=== PATIENT | male | born 1965 | race African-American/Black ===

== ENCOUNTER 2016-11-27 20:16 | Inpatient (IN) ==
[2016-11-27] MEDS ORDERED: PANTOPRAZOLE 40 MG VIAL IV STA (20:58)
[2016-11-27] MEDS ORDERED: ONDANSETRON 4 MG/2 ML VIAL IV STA (20:58)
[2016-11-27] MEDS ORDERED: ALUM/MAG/SIMETH/LIDO VISC 1:1 30 ML BOTTLE PO STA (20:58)
[2016-11-27] MEDS ORDERED: SODIUM CHLORIDE 0.9% 500 ML IV STA (20:58)
[2016-11-27] MEDS ORDERED: MORPHINE 2 MG/1 ML SYRINGE IV STA (20:58)
[2016-11-27] MEDS ORDERED: LABETALOL 20 MG/4 ML SYRINGE IV STA (21:00)
--- NOTE | 2016-11-27 21:01 | Emergency Department Note ---
Millicent Ricks Emily, am scribing for, and in the presence of, Iván Gomez MD 20: 54. Jason Ricks Charles R, MD, personally performed the services described in this documentation, ascribed by Marley Ricks in my presence, and it is both accurate and complete . Arrival - Arrival Chief Complaint: Nausea/Vomiting/Diarrhea Stated Complaint: Stomach Pain, Vomitting ED Nursing Triage Note: N/V/D SINCE THIS PAST THURSDAY, WORSE TODAY, CONTINUOUS VOMITING IN TRIAGE Mode of Arrival: Wheelchair Limitations: No Limitations Source: Patient Time Seen by Provider: 11/27/16 20:37 - History of Present Illness HPI Narrative: Pt is a 51 y/o male who came to ED with c/o abdomen pain with N/V/D that has been ongoing since Monday, November 21, 2016. Pt notes the pain seems to ease up but has come back progressively. Pt has associated sxs of chills (hot and cold) , dark red urine, decreased PO intake due to vomiting later but not immediately and severe GOLD. Pt denies SOB or chest pain. Pt's BP is elevated in ED with 169 /123. Pt had same sxs about 2 months ago. PMHx of IDDM, sarcoidosis, cholecystectomy, penile CA, HTN, history of ascites. Onset (ago): day(s) Consistency: constant Severity: moderate Severity scale (1-10): 7 Quality: aching, fullness Allergies/Adverse Reactions: Allergies Allergy/AdvReac Type Severity Reaction Status Date / Time No Known Allergies Allergy Verified 11/27/16 20:25 Home Medications: Home Medications Medication Instructions Recorded Confirmed Type Gabapentin Cap/Tab [Neurontin 300 mg PO BID 08/29/15 09/10/16 History Cap/Tab] Metoprolol Succinate 25 mg PO DAILY 08/29/15 09/10/16 History Pantoprazole Sodium [Protonix] 40 mg PO DAILY 08/29/15 09/10/16 History azaTHIOprine [Azathioprine] 50 mg PO BID 08/29/15 09/10/16 History predniSONE TAB [PredniSONE] 20 mg PO DAILY 08/29/15 09/10/16 History traMADol TAB [Ultram] 50 mg PO BID 08/29/15 09/10/16 History Insulin Detemir [Levemir] 75 unit SUBCUT BEDTIME 11/22/15 09/10/16 History HYDROcodone/ACETAMIN 10-325 [[place] 1 tablet PO QID PRN 06/12/16 09/10/16 History 10-325] Potassium Chloride Cap/Tab [Micro 8 meq PO DAILY 06/12/16 09/10/16 History K] Acetamin/Codeine 120-12 mg/5Ml 12.5 ml PO Q6H PRN #120 ml 09/08/16 09/10/16 Rx [Tylenol/Codeine Liquid] Insulin Lispro [HumaLOG] 5 unit SUBCUT TID 09/08/16 09/10/16 History Review of System - Review of System 12 point system: reviewed and no additional remarkable complaints except as stated - Review of System Constitutional: Present: chills (hot and cold spells). Absent: fever Respiratory: Absent: respiratory distress Cardiovascular: Absent: chest pain Gastrointestinal: Present: abdominal pain, nausea, vomiting, diarrhea Genitourinary male: Present: other (dark red urine) Musculoskeletal: Absent: arm pain, back pain Skin: Absent: rash Neurological: Present: headache (severe) Medical,Surgical,& Family Hx - Medical History Cardio: History of: Hypertension Neurology: No history of: Brain Aneurysm, Cerebral Hemorrhage, Cerebrovascular Accident , Cerebral Palsy, Dementia, Migraine, Multiple Sclerosis, Parkinson's Disease, Peripheral Neuropathy, Seizures, TIA, Vertigo, Neurologocal Cancer Endocrine: History of: Diabetes Mellitus (IDDM) Respiratory: History of: Respiratory Problems (sarcoidosis) Renal: No history of: Renal (Kidney) Cancer, Dialysis, Renal Failure, Renal Problems Genitourinary: History of: Genitourinary Cancer, Problems (penile cancer) No history of: Bladder Problem, Kidney Stones, Prostate Problems, Recurring Urinary Tract Infections Gastrointestinal: History of: Gastrointestinal Bleed, Liver Problems ( sarcoidosis), GI Problems (history of ascites) Musculoskeletal: History of: Amputation (left below knee), Musculoskeletal Problems Reproductive: Reports: Penile Disorder Other: History of: Cancer, Skin Problems (Chronic diabetic foot ulcer, right plantar. Previous left BKA for same), Miscellaneous Medical Problems ( sarcoidosis) - Surgical History Neurologic Surgeries: Patient denies: Brain Aneurysm, Cerebral Hemorrhage, Neurologic Surgery HEENT Surgeries: Surgical HX of: Tonsilectomy & Adenoidectomy Reproductive Surgeries: Patient denies;: Genitourinary Surgery - Family History Family History: Reports;: Family Diabetes, Family Heart Disease, Family Hypertension - Social History Smoking Status: Never smoker Exam Vital Signs: Vital Signs Temperature 97.1 F L 11/27/16 20:33 Pulse Rate 114 H 11/27/16 20:33 Respiratory Rate 18 11/27/16 20:33 Blood Pressure 169/123 11/27/16 20:33 O2 Sat by Pulse Oximetry 98 11/27/16 20:22 - General General appearance: alert, in no apparent distress, obese - Head Head exam: Present: atraumatic, normocephalic - Eye Eye exam: Present: PERRL, EOMI - ENT ENT exam: Present: mucous membranes moist. Absent: mucous membranes dry - Neck Neck exam: Present: full ROM. Absent: tenderness - Chest Chest inspection: Present: symmetric chest wall rise. Absent: tenderness - Respiratory Respiratory exam: Present: rales. Absent: respiratory distress - Cardiovascular Cardiovascular exam: Present: regular rate, normal rhythm, normal heart sounds - Abdominal Exam Abdominal exam: Present: soft, tenderness (mid abdomen, mid epigastric and LLQ) , diminished bowel sounds. Absent: distention (protrudent), guarding, rebound, normal bowel sounds - Extremities Exam Extremities exam: Present: full ROM, other (right foot missing digits; left BKA) . Absent: tenderness, pedal edema - Neurological Exam Neurological exam: Present: alert, oriented X3, CN II-XII intact. Absent: motor sensory deficit - Psychiatric Psychiatric exam: Present: normal affect, normal mood - Skin Skin exam: Present: warm, dry Course - Reevaluation(s) Reevaluation #1: Patient still feeling sick still having nausea vomiting slight headache. Labs are within normal limits except for slightly low magnesium which was replaced. Will admit patient in the hospital for control of his nausea vomiting Time: 23:48 - Consultations Consultation #1: Dr. Rooney will admit patient Time: 23:48 Results - Labs CBC & BMP: 11/27/16 20:39 11/27/16 20:39 Lab Results: I have reviewed the patients labs Labs: Laboratory Tests 11/27/16 20:39 Hgb 12.1 L Hct 37.4 L Neut % (Auto) 76.0 H Lymph % (Auto) 10.0 L Lymph # (Auto) 0.5 L Laboratory Tests 11/27/16 20:39 Anion Gap 17.8 H Creatinine 1.40 H Glucose 191 H Magnesium 1.6 L Albumin 3.2 L Albumin/Globulin Ratio 0.9 L Amylase 14 L Lipase 52.0 L Laboratory Tests 11/27/16 20:58 Blood Type A POSITIVE Antibody Screen Negative - Diagnostic Findings Procedure: Abdominal x-ray: report reviewed by me (Nonobstructive bowel gas pattern. Prior cholecystectomy with postoperatie findings in the left hip.), Chest x-ray: report reviewed by me (nml xray), CT: report reviewed by me (Head wo con: No acute cardiopulmonary pathology identified.) Disposition Clinical Impression: Peripheral vascular disease, Tachycardia, Nausea and vomiting, History of sarcoidosis, Gastroenteritis, Intractable nausea and vomiting, Hypomagnesemia Case discussed with: patient, patient's family Disposition: Still a Patient Condition: Stable Time of Disposition: 23:50
[2016-11-27 21:06] LABS: Basophils % 0.2 % (0.0-0.8); Eosinophils # 0.1 10*3/uL (0.0-0.87); Eosinophils % 1.7 % (0.00-10.9); Hematocrit 37.4 VOL% (42.0-52.0); Hemoglobin 12.1 GM/DL (14.0-18.0); Immature Granulocytes % 0.6 %; Immature Granulocytes Absolute 0.03 #; Lymphocytes # 0.5 10*3/uL (1.4-4.0); Mean Corpuscular HGB Conc 32.4 GM/DL (32-36); Mean Corpuscular Hemoglobin 30 PG (27-34); Mean Corpuscular Volume 91.9 FL (87-102); Mean Platelet Volume 10.6 FL (9.6-12.0); Monocytes # 0.5 10*3/uL (0.11-0.8); Monocytes % 11.5 % (1.7-12.7); Neutrophils # 3.6 10*3/uL (1.4-7.4); Platelet Count 146 T/CUMM (130-400); Red Blood Count 4.07 MC/CUMM (3.8-5.5); Red Cell Distribution Width 15.2 % (9.3-17.3); White Blood Count 4.7 T/CUMM (4-12)
--- NOTE | 2016-11-27 21:26 | XRay Report ---
Portable chest Date: 11/27/2016 Clinical history: Generalized abdominal pain Comparison: 09/10/2016 Technique: Portable AP sitting chest Findings: The heart is minimally enlarged. Calcified granulomata/nodes with chronic scarring. Decreased parenchymal findings. Unremarkable mediastinum with degenerative changes. Impression: No acute cardiopulmonary pathology identified. PROCEDURE INTERPRETED AT [facility] DEPARTMENT OF RADIOLOGY Final Report Signed by: Dr. Orquidea Fabian
[2016-11-27] MEDS ORDERED: ONDANSETRON 4 MG/2 ML VIAL ONE (21:27)
[2016-11-27] MEDS ORDERED: MORPHINE 2 MG/1 ML SYRINGE ONE (21:27)
[2016-11-27] MEDS ORDERED: ALUM/MAG/SIMETH/LIDO VISC 1:1 30 ML BOTTLE PO ONE (21:27)
[2016-11-27] MEDS ORDERED: PANTOPRAZOLE 40 MG VIAL IV ONE (21:27)
--- NOTE | 2016-11-27 21:27 | XRay Report ---
Exam: XR abdomen 2V Date: 11/27/2016 8:59 PM Comparison: 05/25/2016 Indication: Generalized abdominal pain Technique:[Supine and erect abdomen Findings: Nonobstructed bowel gas pattern. Prior cholecystectomy. No free air. Prior L2 kyphoplasty with postoperative findings in the left hip. Vascular calcifications are noted.] Impression: Nonobstructive bowel gas pattern. Prior cholecystectomy with postoperative findings in the left hip. PROCEDURE INTERPRETED AT [facility] DEPARTMENT OF RADIOLOGY Final Report Signed by: Dr. Orquidea Fabian
--- NOTE | 2016-11-27 21:31 | CT Report ---
Referring physician: Iván Gomez Exam: CT brain without contrast Date: 11/27/2016 Comparison: 05/31/2016 Reason: Headache Technique: Axial images of the head were obtained without the use of contrast. Total DLP was 1003.6 mGy*cm. Findings: No hydrocephalus or midline shift is present. There is no evidence of an acute infarction, recent intracranial hemorrhage or abnormal mass effect. The osseous structures appear intact. The mastoid air cells are clear. Minimal mucosal thickening in the paranasal sinuses. Impression: No acute intracranial abnormality is identified. Minimal mucosal thickening in the paranasal sinuses. The CT exam was performed using one or more of the following dose reduction techniques: Automated exposure control and adjustment of the mA and/or kV according to patient size. PROCEDURE INTERPRETED AT [facility] DEPARTMENT OF RADIOLOGY Final Report Signed by: Dr. Orquidea Fabian
--- NOTE | 2016-11-27 21:31 | EKG Report ---
Stationary ECG Study [facility] ER Test Date: 11/27/2016 9:30:06 PM Pat Name: ABBIE EVANS Department: Room: Gender: M Surgical Nurse Practitioner: DAVID : 1965 Requested by: Iván Akhtar Order Number: [id number] Reading MD: FRANCIA MCMAHON Intervals [place] Rate: 107 P: 999 ID: 0 QRS: -38 QRSD: 93 T: 61 QT: 388 QTc: 450 Interpretive Statements Sinus tachycardia MARKED LEFT AXIS DEVIATION LOW QRS VOLTAGE IN PRECORDIAL LEADS VOLTAGE CRITERIA FOR LVH POSSIBLE ANTERIOR MYOCARDIAL INFARCTION, PROBABLY OLD Electronically Signed On 11-29-16 21:43:02 CDT by FRANCIA MCMAHON [email or web address]
[2016-11-27 21:37] LABS: Alanine Aminotransferase 31 U/L (16-61); Albumin 3.2 G/DL (3.4-5.0); Alkaline Phosphatase 96 U/L (45-117); Amylase 14 U/L (25-115); Aspartate Amino Transferase 27 U/L (0-37); Blood Urea Nitrogen 9 MG/DL (7-18); Calcium 8.7 MG/DL (8.5-10.1); Glucose 191 MG/DL (74-106); Magnesium 1.6 MG/DL (1.8-2.4); Osmolality,Calculated 286.1 MOS/KG (273-304); Potassium 3.8 MMOL/L (3.5-5.1); Sodium 142 MMOL/L (136-145); Total Protein 6.6 G/DL (6.4-8.3); Troponin I Only < 0.015 NG/ML (0.00-0.045)
[2016-11-27] MEDS ORDERED: MAGNESIUM SULF RIDER 2 GM in PREMIX 1 EACH IV STA (22:50)
[2016-11-27] MEDS ORDERED: MAGNESIUM SULF RIDER 50 ML IV ONE (22:57)
[2016-11-27] MEDS ORDERED: PROMETHAZINE 25 MG/1 ML VIAL IM STA (23:03)
[2016-11-27] MEDS ORDERED: PROMETHAZINE 25 MG/1 ML VIAL ONE (23:04)
[2016-11-28] MEDS ORDERED: DEXTROSE 50% 25 GM/50 ML VIAL IV PRN (01:44)
[2016-11-28] MEDS ORDERED: GLUCAGON 1 MG VIAL IM PRN (01:44)
[2016-11-28] MEDS ORDERED: METOCLOPRAMIDE 10 MG/2 ML VIAL IV PRN (01:44)
[2016-11-28] MEDS ORDERED: PROMETHAZINE 25 MG/1 ML VIAL IM PRN (01:44)
[2016-11-28] MEDS: ACETAMINOPHEN 325 MG TABLET PO PRN (02:08)
[2016-11-28] MEDS: SODIUM CHLORIDE 0.9% 1,000 ML IV SCH ×2 (03:48→17:28)
[2016-11-28] MEDS: MORPHINE 2 MG/1 ML SYRINGE IV PRN ×4 (04:45→19:29)
[2016-11-28] MEDS: PROMETHAZINE 25 MG TABLET PO PRN (04:46)
[2016-11-28 06:53] LABS: Basophils % 0.4 % (0.0-0.8); Eosinophils # 0.1 10*3/uL (0.0-0.87); Eosinophils % 1.5 % (0.00-10.9); Hematocrit 32.6 VOL% (42.0-52.0); Hemoglobin 10.3 GM/DL (14.0-18.0); Immature Granulocytes % 1.1 %; Immature Granulocytes Absolute 0.05 #; Lymphocytes # 0.5 10*3/uL (1.4-4.0); Lymphocytes % 10.4 % (21.2-54.2); Mean Corpuscular HGB Conc 31.6 GM/DL (32-36); Mean Corpuscular Hemoglobin 29 PG (27-34); Mean Corpuscular Volume 91.6 FL (87-102); Mean Platelet Volume 11.4 FL (9.6-12.0); Monocytes # 0.6 10*3/uL (0.11-0.8); Monocytes % 12.1 % (1.7-12.7); NRBC # 0.02 10*3/uL; Neutrophils # 3.5 10*3/uL (1.4-7.4); Neutrophils % 74.5 % (38.7-73.9); Platelet Count 162 T/CUMM (130-400); Red Blood Count 3.56 MC/CUMM (3.8-5.5); Red Cell Distribution Width 15.3 % (9.3-17.3); White Blood Count 4.7 T/CUMM (4-12)
[2016-11-28 07:17] LABS: Albumin 2.6 G/DL (3.4-5.0); Bilirubin,Total 1.1 MG/DL (0.2-1.0); Calcium 8.1 MG/DL (8.5-10.1); Magnesium 2.1 MG/DL (1.8-2.4); Osmolality,Calculated 289.8 MOS/KG (273-304); Potassium 4.1 MMOL/L (3.5-5.1); Total Protein 5.9 G/DL (6.4-8.3)
[2016-11-28] MEDS ORDERED: HYDROCORTISONE 100 MG VIAL IV ONE (08:23)
--- NOTE | 2016-11-28 08:32 | Internal Med History&Physical ---
Assessment and Plan (1) Gastroenteritis Status: Acute Assessment and plan: 51-year-old male admitted to acute care * Gastroenteritis. Patient will be started on IV fluids and as needed Zofran. Will start him on clear liquids. Cultures have been sent. * History of distal ulcerative esophagitis secondary to GERD. Will consult GI to evaluate. Patient will be continued on IV Protonix * Sarcoidosis. 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 Will give him IV cortisone until he vomiting * Diabetes. Will continue his insulin and sliding scale * Peripheral vascular disease. Continue current treatment * Diabetic foot ulcer. Will consult . He will also evaluate for abdominal pain. He did a cholecystectomy on patient last year * Discussed with patient and his Current Visit: Yes (2) History of sarcoidosis Status: Acute Current Visit: Yes (3) Intractable nausea and vomiting Status: Acute Current Visit: Yes (4) Peripheral vascular disease Status: Acute Current Visit: Yes (5) Diabetes mellitus type 1, uncontrolled Status: Acute Current Visit: No (6) Diabetic ulcer of right foot Status: Acute Current Visit: No Qualifiers: Diabetes mellitus type: type 2 Qualified Code(s): E11.621 - Type 2 diabetes mellitus with foot ulcer (7) History of immunosuppressive therapy Status: Acute Current Visit: No History of Present Illness Chief complaint: Nausea vomiting and abdominal pain History of present illness: Mr. Ann is a 51 year old male with history of multiple medical problems including diabetes, hypertension, sarcoidosis, chronic wound on the right lower extremity and status post BKA left lower extremity came to the emergency room after 1 week history of nausea and vomiting. He has been having abdominal pain which is in epigastric region. He also has some diarrhea. Patient was admitted back in May of last year with similar symptoms. At that time he had an EGD which showed that he had distal esophageal ulcers probably secondary to vomiting. Patient underwent cholecystectomy at that visit. His blood sugars have been running up and down. He has not been eating much. He has been taking his medications. He denies any fever or chills. He denies any chest pain or shortness of breath. He is following up with Dr. Gloria for the chronic wounds on his right lower extremity. He does have a skin breakdown on the left below knee amputation stump. He lives at home with his . Home Medications Medication Instructions Recorded Confirmed Type Gabapentin Cap/Tab [Neurontin 300 mg PO BID 08/29/15 09/10/16 History Cap/Tab] Metoprolol Succinate 25 mg PO DAILY 08/29/15 09/10/16 History Pantoprazole Sodium [Protonix] 40 mg PO DAILY 08/29/15 09/10/16 History azaTHIOprine [Azathioprine] 50 mg PO BID 08/29/15 09/10/16 History predniSONE TAB [PredniSONE] 20 mg PO DAILY 08/29/15 09/10/16 History traMADol TAB [Ultram] 50 mg PO BID 08/29/15 09/10/16 History Insulin Detemir [Levemir] 75 unit SUBCUT BEDTIME 11/22/15 09/10/16 History HYDROcodone/ACETAMIN 10-325 [[place] 1 tablet PO QID PRN 06/12/16 09/10/16 History 10-325] Potassium Chloride Cap/Tab [Micro 8 meq PO DAILY 06/12/16 09/10/16 History K] Acetamin/Codeine 120-12 mg/5Ml 12.5 ml PO Q6H PRN #120 ml 09/08/16 09/10/16 Rx [Tylenol/Codeine Liquid] Insulin Lispro [HumaLOG] 5 unit SUBCUT TID 09/08/16 09/10/16 History Allergies Allergy/AdvReac Type Severity Reaction Status Date / Time No Known Allergies Allergy Verified 11/27/16 20:25 Medical,Surgical,& Family Hx - Medical History Cardio: History of: Hypertension Neurology: No history of: Brain Aneurysm, Cerebral Hemorrhage, Cerebrovascular Accident , Cerebral Palsy, Dementia, Migraine, Multiple Sclerosis, Parkinson's Disease, Peripheral Neuropathy, Seizures, TIA, Vertigo, Neurologocal Cancer Endocrine: History of: Diabetes Mellitus (IDDM) Respiratory: History of: Respiratory Problems (sarcoidosis) Renal: No history of: Renal (Kidney) Cancer, Dialysis, Renal Failure, Renal Problems Genitourinary: History of: Genitourinary Cancer, Problems (penile cancer) No history of: Bladder Problem, Kidney Stones, Prostate Problems, Recurring Urinary Tract Infections Gastrointestinal: History of: Gastrointestinal Bleed, Liver Problems ( sarcoidosis), GI Problems (history of ascites) Musculoskeletal: History of: Amputation (left below knee, all toes on right), Musculoskeletal Problems Reproductive: Reports: Penile Disorder Other: History of: Cancer, Skin Problems (Chronic diabetic foot ulcer, right plantar. Previous left BKA for same), Miscellaneous Medical Problems ( sarcoidosis) - Surgical History Neurologic Surgeries: Patient denies: Brain Aneurysm, Cerebral Hemorrhage, Neurologic Surgery HEENT Surgeries: Surgical HX of: Tonsilectomy & Adenoidectomy Abdominal Surgeries: Surgical HX of: Cholecystectomy (05/2016), Colonoscopy, EGD Patient denies: Appendectomy Reproductive Surgeries: Patient denies;: Genitourinary Surgery - Family History Family History: Reports;: Family Diabetes, Family Heart Disease, Family Hypertension - Social History Smoking Status: Never smoker Frequency of Alcohol Use: Occasionally Type of Drug Use: Marijuana Marital Status: Lives With:: Spouse Functional capacity: uses cane/walker 12 point system: reviewed and no additional remarkable complaints except as stated (Mentioned in HPI) Exam - Constitutional Vitals: Period Temp Pulse Resp BP Sys/Babb Pulse Ox Last 24 Hr 97.6 F-98.5 F 97-102 10-20 102-116/52-69 92-97 Exam: Examination: GENERAL: NAD. HEENT: PERRLA. EOMI. Mucous membranes are moist. NECK: Neck is supple. No JVD. No carotid bruit. No thyromegaly. CVS: Regular rate and rhythm. S1 and S2 are normal. RESPIRATORY: Lungs are clear. No rales or rhonchi. ABDOMEN: Soft. Tenderness present in the epigastric area and right upper quadrant. Bowel sounds are present. No hepatosplenomegaly. EXT: No edema. Peripheral pulses are present. TOUR GUIDE: Patient is awake, alert and oriented to time place and person. Cranial nerves II through XII are grossly intact. Motor strength is 5 over 5 both upper and lower extremities. Sensory is intact. Deep tendon reflexes are present. SKIN: Warm and dry. There is a clean looking skin breakdown on the stump on the left below-knee amputation. Wounds on the plantar aspect of right foot looks clean MSK: No obvious deformity. Results - Labs CBC & BMP: 11/28/16 06:13 11/28/16 06:13 Lab Results: I have reviewed the past 24 hour labs Quality Measures - VTE Contraindication to Mechanical VTE Prophylaxis: Ischemic Vascular Disease
[2016-11-28] MEDS: INSULIN REGULAR 100 UNIT/ML SUBCUT SCH ×4 (09:07→21:26)
[2016-11-28] MEDS: PANTOPRAZOLE 40 MG VIAL IV SCH (09:07)
[2016-11-28] MEDS: DOCUSATE SODIUM 100 MG CAPSULE PO SCH ×2 (09:07→21:27)
--- NOTE | 2016-11-28 12:06 | General Surgery Consult Note ---
Assessment and Plan (1) Abdominal pain Status: Acute Assessment and plan: This really does sound like some medical sort of problem and I do not expect that there is any surgical pathology in the abdomen. I think gastroenteritis is likely because of the patient's symptoms given that he is having vomiting and diarrhea and minimal abdominal pain. He really was not tender on my exam. I would not recommend any CT scans. I agree with GI consultation to further evaluate for possible endoscopy. Dr. Gloria will be back Thursday but I will follow the patient over the weekend. Current Visit: Yes (2) Diabetic foot Problem details: Wound center patient with a chronic diabetic foot wound, s/p application of a biological wound product. Status: Acute Assessment and plan: Continue topical wound care. There is no evidence of infection. Current Visit: No History of Present Illness Chief complaint: Right foot wound and abdominal pain History of present illness: Mr. Ann is a 51 year old male who was admitted to the hospital with gastroenteritis and foot wound. I was consulted because Dr. Gloria is out-of- town and he has done a cholecystectomy on the patient before as well as some foot debridement. The patient has been having abdominal pain in the midepigastrium since last Thursday with some nausea and vomiting as well as diarrhea. He had an evaluation in the ER last night which demonstrated gastroenteritis most likely on his abdominal films and this certainly is matching up with his history. He also has a little bit of a GI history with esophagitis and a GI consult has been obtained but have not seen him yet. He is not having any problems with his foot wound. Home Medications Medication Instructions Recorded Confirmed Type Gabapentin Cap/Tab [Neurontin 300 mg PO BID 08/29/15 11/28/16 History Cap/Tab] Metoprolol Succinate 25 mg PO DAILY 08/29/15 11/28/16 History Pantoprazole Sodium [Protonix] 40 mg PO DAILY 08/29/15 11/28/16 History azaTHIOprine [Azathioprine] 50 mg PO BID 08/29/15 11/28/16 History predniSONE TAB [PredniSONE] 20 mg PO DAILY 08/29/15 11/28/16 History traMADol TAB [Ultram] 50 mg PO BID 08/29/15 11/28/16 History Insulin Detemir [Levemir] 75 unit SUBCUT BEDTIME 11/22/15 11/28/16 History HYDROcodone/ACETAMIN 10-325 [[place] 1 tablet PO QID PRN 06/12/16 11/28/16 History 10-325] Potassium Chloride Cap/Tab [Micro 8 meq PO DAILY 06/12/16 11/28/16 History K] Acetamin/Codeine 120-12 mg/5Ml 12.5 ml PO Q6H PRN #120 ml 09/08/16 11/28/16 Rx [Tylenol/Codeine Liquid] Insulin Lispro [HumaLOG] 5 unit SUBCUT TID 09/08/16 11/28/16 History Allergies Allergy/AdvReac Type Severity Reaction Status Date / Time No Known Allergies Allergy Verified 11/27/16 20:25 Medical,Surgical,& Family Hx - Medical History Cardio: History of: Hypertension Neurology: No history of: Brain Aneurysm, Cerebral Hemorrhage, Cerebrovascular Accident , Cerebral Palsy, Dementia, Migraine, Multiple Sclerosis, Parkinson's Disease, Peripheral Neuropathy, Seizures, TIA, Vertigo, Neurologocal Cancer Endocrine: History of: Diabetes Mellitus (IDDM) Respiratory: History of: Respiratory Problems (sarcoidosis) Renal: No history of: Renal (Kidney) Cancer, Dialysis, Renal Failure, Renal Problems Genitourinary: History of: Genitourinary Cancer, Problems (penile cancer) No history of: Bladder Problem, Kidney Stones, Prostate Problems, Recurring Urinary Tract Infections Gastrointestinal: History of: Gastrointestinal Bleed, Liver Problems ( sarcoidosis), GI Problems (history of ascites) Musculoskeletal: History of: Amputation (left below knee, all toes on right), Musculoskeletal Problems Reproductive: Reports: Penile Disorder Other: History of: Cancer, Skin Problems (Chronic diabetic foot ulcer, right plantar. Previous left BKA for same), Miscellaneous Medical Problems ( sarcoidosis) - Surgical History Neurologic Surgeries: Patient denies: Brain Aneurysm, Cerebral Hemorrhage, Neurologic Surgery HEENT Surgeries: Surgical HX of: Tonsilectomy & Adenoidectomy Abdominal Surgeries: Surgical HX of: Cholecystectomy (05/2016), Colonoscopy, EGD Patient denies: Appendectomy Reproductive Surgeries: Patient denies;: Genitourinary Surgery - Family History Family History: Reports;: Family Diabetes, Family Heart Disease, Family Hypertension - Social History Smoking Status: Never smoker Frequency of Alcohol Use: Occasionally Type of Drug Use: Marijuana - Constitutional Constitutional: Present: as per HPI - EENT Nose, mouth and throat: Present: as per HPI - Cardiovascular Cardiovascular: Present: as per HPI - Respiratory Respiratory: Present: as per HPI - Gastrointestinal Gastrointestinal: Present: as per HPI - Genitourinary Genitourinary: Present: as per HPI - Musculoskeletal Musculoskeletal: Present: as per HPI - Neurological Neurological: Present: as per HPI - Endocrine Endocrine: Present: as per HPI Hematologic/Lymphatic: Present: as per HPI Exam - Constitutional Vitals: Period Temp Pulse Resp BP Sys/Babb Pulse Ox Last 24 Hr 97.6 F-98.8 F 89-102 10-20 102-142/52-73 92-99 General appearance: no acute distress, over weight - Head Head exam: Present: normal inspection, normocephalic - Eye Eye exam: Present: EOMI. Absent: scleral icterus Pupils: Present: NAN - ENT ENT exam: Present: normal exam Mouth exam: Present: normal external inspection, normal voice - Neck Neck exam: Present: normal inspection, trachea midline - Respiratory Respiratory exam: Present: clear to auscultation bilaterally. Absent: accessory muscle use, chest wall tenderness - Cardiovascular Cardiovascular exam: Present: RRR. Absent: systolic murmur, tachycardia - GI/Abdominal GI/Abdominal exam: Present: normal bowel sounds, soft. Absent: hernia, tenderness, rebound - Extremities Exam Extremities exam: Present: normal inspection, normal capillary refill - Back Exam Back exam: Present: normal inspection - Neurological Exam Neurological exam: Present: alert, oriented X3 Speech: Present: normal - Skin Skin exam: Present: normal color, warm Quality Measures - VTE Contraindication to Mechanical VTE Prophylaxis: Ischemic Vascular Disease Results - Labs CBC & BMP: 11/28/16 06:13 11/28/16 06:13 - Diagnostic Findings Procedure: Abdominal Flat/Erect: report reviewed by me
--- NOTE | 2016-11-28 12:20 | XRay Report ---
Exam: XR abdomen 2V Date: 11/28/2016 4:00 AM Comparison: 11/27/2016 Indication: Generalized abdominal pain Technique:[Supine abdomen] Findings: Nonobstructed bowel gas pattern with prior cholecystectomy. Prior L2 kyphoplasty with degenerative changes. Postoperative findings in the left hip. Vascular calcifications are noted. Impression: Nonobstructive bowel gas pattern. Prior cholecystectomy, L2 kyphoplasty, and postoperative findings in the left hip. PROCEDURE INTERPRETED AT [facility] DEPARTMENT OF RADIOLOGY Final Report Signed by: Dr. Orquidea Fabian
--- NOTE | 2016-11-28 16:56 | Gastrointestinal Consult Note ---
Assessment and Plan (1) Gastroenteritis Status: Acute Assessment and plan: This appears to be probable gastroenteritis with subjective fever at presentation. He does state that he feels significantly better this afternoon with improved nausea. I would agree with continue IV fluid support for now and try to slowly advance diet. Would not recommend any further diagnostic evaluation unless symptoms recur. Current Visit: Yes History of Present Illness Chief complaint: Recent intractable nausea/vomiting with diarrhea History of present illness: Mr. Ann is a 51 year old male with type 2 diabetes mellitus, peripheral arterial disease, and sarcoidosis with liver involvement. He is admitted with complaint of symptoms which began abruptly 6 days ago with nausea/vomiting and diarrhea. He had shaking chills with this for the first 2 or 3 days. His diarrhea resolved 3 days ago and he has not had a bowel movement since. Nausea and vomiting persisted and he was admitted after he became weak and dizzy at home. He denies any gross GI bleeding. Home Medications Medication Instructions Recorded Confirmed Type Gabapentin Cap/Tab [Neurontin 300 mg PO BID 08/29/15 11/28/16 History Cap/Tab] Metoprolol Succinate 25 mg PO DAILY 08/29/15 11/28/16 History Pantoprazole Sodium [Protonix] 40 mg PO DAILY 08/29/15 11/28/16 History azaTHIOprine [Azathioprine] 50 mg PO BID 08/29/15 11/28/16 History predniSONE TAB [PredniSONE] 20 mg PO DAILY 08/29/15 11/28/16 History traMADol TAB [Ultram] 50 mg PO BID 08/29/15 11/28/16 History Insulin Detemir [Levemir] 75 unit SUBCUT BEDTIME 11/22/15 11/28/16 History HYDROcodone/ACETAMIN 10-325 [Lind 1 tablet PO QID PRN 06/12/16 11/28/16 History 10-325] Potassium Chloride Cap/Tab [Micro 8 meq PO DAILY 06/12/16 11/28/16 History K] Acetamin/Codeine 120-12 mg/5Ml 12.5 ml PO Q6H PRN #120 ml 09/08/16 11/28/16 Rx [Tylenol/Codeine Liquid] Insulin Lispro [HumaLOG] 5 unit SUBCUT TID 09/08/16 11/28/16 History Allergies Allergy/AdvReac Type Severity Reaction Status Date / Time No Known Allergies Allergy Verified 11/27/16 20:25 Medical,Surgical,& Family Hx - Medical History Cardio: History of: Hypertension Neurology: No history of: Brain Aneurysm, Cerebral Hemorrhage, Cerebrovascular Accident , Cerebral Palsy, Dementia, Migraine, Multiple Sclerosis, Parkinson's Disease, Peripheral Neuropathy, Seizures, TIA, Vertigo, Neurologocal Cancer Endocrine: History of: Diabetes Mellitus (IDDM) Respiratory: History of: Respiratory Problems (sarcoidosis) Renal: No history of: Renal (Kidney) Cancer, Dialysis, Renal Failure, Renal Problems Genitourinary: History of: Genitourinary Cancer, Problems (penile cancer) No history of: Bladder Problem, Kidney Stones, Prostate Problems, Recurring Urinary Tract Infections Gastrointestinal: History of: Gastrointestinal Bleed, Liver Problems ( sarcoidosis), GI Problems (history of ascites) Musculoskeletal: History of: Amputation (left below knee, all toes on right), Musculoskeletal Problems Reproductive: Reports: Penile Disorder Other: History of: Cancer, Skin Problems (Chronic diabetic foot ulcer, right plantar. Previous left BKA for same), Miscellaneous Medical Problems ( sarcoidosis) - Surgical History Neurologic Surgeries: Patient denies: Brain Aneurysm, Cerebral Hemorrhage, Neurologic Surgery HEENT Surgeries: Surgical HX of: Tonsilectomy & Adenoidectomy Abdominal Surgeries: Surgical HX of: Cholecystectomy (05/2016), Colonoscopy, EGD Patient denies: Appendectomy Reproductive Surgeries: Patient denies;: Genitourinary Surgery - Family History Family History: Reports;: Family Diabetes, Family Heart Disease, Family Hypertension - Social History Smoking Status: Never smoker Frequency of Alcohol Use: Occasionally Type of Drug Use: Marijuana - Constitutional Constitutional: Present: chills, fever(s). Absent: weight loss - EENT Nose, mouth and throat: Absent: dysphagia, epistaxis - Cardiovascular Cardiovascular: Absent: chest pain with activity, orthopnea, PND - Gastrointestinal Gastrointestinal: Present: diarrhea, nausea, vomiting. Absent: hematemesis, hematochezia - Genitourinary Genitourinary: Absent: dysuria, flank pain, hematuria - Neurological Neurological: Absent: abnormal speech, confusion, focal weakness - Hematologic/Lymphatic Hematologic/Lymphatic: Absent: easy bleeding, easy bruising Exam - Constitutional Vitals: Period Temp Pulse Resp BP Sys/Babb Pulse Ox Last 24 Hr 97.6 F-98.8 F 89-104 10-20 102-142/52-76 92-99 General appearance: no acute distress, over weight - Head Head exam: Present: normocephalic, atraumatic - Eye Eye exam: Absent: scleral icterus - Respiratory Respiratory exam: Present: clear to auscultation bilaterally - Cardiovascular Cardiovascular exam: Present: regular rate and rhythm. Absent: gallop, rubs - GI/Abdominal GI/Abdominal exam: Present: normal bowel sounds, organomegaly, soft. Absent: distended, tenderness - Neurological Exam Neurological exam: Present: alert, oriented X3, CN II-XII intact - Psychiatric Psychiatric exam: Present: normal affect, normal mood - Skin Skin exam: Present: warm, dry Results - Labs CBC & BMP: 11/28/16 06:13 11/28/16 06:13 Lab Results: I have reviewed the past 24 hour labs Quality Measures - VTE Contraindication to Mechanical VTE Prophylaxis: Ischemic Vascular Disease
[2016-11-28] MEDS: HYDROCORTISONE 100 MG VIAL IV SCH (17:25)
[2016-11-28] MEDS: ONDANSETRON 4 MG/2 ML VIAL IV PRN (19:28)
[2016-11-28] MEDS: traMADol 50 MG TABLET PO SCH (21:26)
[2016-11-28] MEDS: GABAPENTIN 300 MG CAPSULE PO SCH (21:27)
[2016-11-28] MEDS: azaTHIOprine 50 MG TABLET PO SCH (21:27)
[2016-11-29] MEDS: HYDROCORTISONE 100 MG VIAL IV SCH ×3 (00:09→18:13)
[2016-11-29] MEDS: SODIUM CHLORIDE 0.9% 1,000 ML IV SCH ×4 (02:26→18:53)
[2016-11-29] MEDS: MORPHINE 2 MG/1 ML SYRINGE IV PRN ×2 (03:50→11:20)
[2016-11-29] MEDS: ONDANSETRON 4 MG/2 ML VIAL IV PRN (03:50)
[2016-11-29] MEDS: ACETAMINOPHEN 325 MG TABLET PO PRN ×2 (04:00→23:20)
[2016-11-29 04:12] LABS: Albumin 2.8 G/DL (3.4-5.0); Bilirubin,Total 0.9 MG/DL (0.2-1.0); Osmolality,Calculated 292.1 MOS/KG (273-304); Potassium 5.1 MMOL/L (3.5-5.1); Total Protein 6.2 G/DL (6.4-8.3)
[2016-11-29] MEDS ORDERED: DEXTROSE 50% 25 GM/50 ML VIAL IV PRN (08:34)
[2016-11-29] MEDS ORDERED: GLUCAGON 1 MG VIAL IM PRN (08:34)
--- NOTE | 2016-11-29 08:38 | Family Practice Progress Note ---
Family Practice - PN: Subj Interval history: Patient seen this morning, was admitted a couple nights ago with intractable nausea vomiting diarrhea. This is been going on for 4-5 days and he was dehydrated with elevated blood sugars. Is doing significantly better this morning except his blood sugars are still elevated at about 300+ on a moderate dose sliding scale. He is not on his regular Levemir at this time. Is tolerating his clear liquids now and wants to start back eating "regular food". I will put him on a soft diet diabetic consistent. He is in very good spirits and continuing to improve without any abdominal pain at this time. We are going to increase his sliding scale and put him back on Levemir at half a dose what he was taking at home Exam (Progress Note) - Constitutional Vitals: Period Temp Pulse Resp BP Sys/Babb Pulse Ox Last 24 Hr 97.5 F-99.7 F 104-111 20-20 108-145/68-90 94-100 Exam: Generally stable no acute distress is laughing in the room with questioning. HEENT essentially negative neck supple trachea midline Cardiovascular rate regular no gallop Lungs are clear Abdomen soft nondistended he has no pain at all with palpation or percussion Extremities he has left BKA and right foot diabetic ulcer/wound that has a dressing at this time Results - Labs CBC & BMP: 11/28/16 06:13 11/29/16 03:12 Quality Measures - VTE Contraindication to Mechanical VTE Prophylaxis: Ischemic Vascular Disease
--- NOTE | 2016-11-29 08:54 | Gastrointestinal Progress Note ---
Assessment and Plan - Time spent with patient Time spent with patient: Greater than 30 minutes (1) Gastroenteritis Status: Acute Current Visit: Yes (2) Other specified counseling Status: Acute Current Visit: Yes Exam (Progress Note) - Constitutional Vitals: Period Temp Pulse Resp BP Sys/Babb Pulse Ox Last 24 Hr 97.5 F-99.7 F 104-111 20-20 108-145/68-90 94-100 Results - Labs CBC & BMP: 11/28/16 06:13 11/29/16 03:12 Note Addendum: PLEASE NOTE -- automatic citation of patient information is unavoidable in this electronic note. I have made a reasonable effort to review the information cited , but it is not a part of my evaluation, impression, or recommendation unless specifically discussed in the dictated text that follows. As well, voice recognition software was used in the creation of this clinical note. Reasonable effort was made to identify and correct gross errors. Despite proofreading, errors in online user experience strategist may be present, including nonsense verbiage at times. If you encounter such an error, please contact me at [phone] for discussion and correction. -- Ger Chief complaint: gastroenteritis Subjective: this is a 51-year-old male seen for follow-up of suspected gastroenteritis. The patient reports improved nausea with no vomiting. Diarrhea has also resolved. He is taking a clear diet and tolerating that. In general he reports that he is "much better." Medications: Tylenol, Imuran, Colace, Neurontin, hydrocortisone, Lantus, Humulin , Reglan, Toprol, Zofran, Protonix, potassium chloride, prednisone, Phenergen, sodium chloride injection, ultram Review of Symptoms: 12 point review of symptoms was negative except as noted above Physical examination: Vital Signs: Current vital signs reviewed. General Appearance: well-appearing. Not acutely ill. Head: Normocephalic. Eyes: no scleral icterus. No scleral injection. No conjunctival pallor. Oral Cavity: Odor of breath was normal. No drooling was observed. Lips showed no abnormalities. Lungs: Respiration rhythm and depth was normal. Cardiovascular: Heart rate and rhythm were normal. Abdomen: abdomen was not distended. Abdominal auscultation revealed no abnormalities. Ascites was not discovered. Abdominal palpation revealed no tenderness and no hepatosplenomegaly. Musculoskeletal System: musculoskeletal system was grossly normal. Neurological: level of consciousness was normal. Speech was normal. No coordination/cerebellum abnormalities were noted. Skin: Gen. appearance was normal. Color and pigmentation were normal. No skin lesions were appreciated. Laboratory: no new laboratories today Radiology: reviewed with no pertinent changes noted. Impressions: 1. Gastroenteritis -- this would appear to be an infectious event. The patient is improving day by day and would like to advance his diet if possible. This seems reasonable to me. 2. Patient Counseling: Medical Management: Patient seen for greater than 30 minutes. Greater than 50% of this time was spent counseling regarding differential diagnosis, likely diagnosis,, diagnostic and therapeutic options, risks, benefits, and alternatives to procedures and medications, informed consent, and plan of care generally. Patient has expressed understanding and wishes to proceed. Recommendations: -- continued volume management as indicated -- advance diet as tolerated -- we will continue to follow with you
[2016-11-29] MEDS: INSULIN REGULAR 100 UNIT/ML SUBCUT SCH ×4 (09:10→22:04)
[2016-11-29] MEDS: PANTOPRAZOLE 40 MG VIAL IV SCH (09:11)
[2016-11-29] MEDS: DOCUSATE SODIUM 100 MG CAPSULE PO SCH ×2 (09:11→22:05)
[2016-11-29] MEDS: traMADol 50 MG TABLET PO SCH ×2 (09:12→22:05)
[2016-11-29] MEDS: METOPROLOL SUCCINATE XL 25 MG TABLET PO SCH (09:12)
[2016-11-29] MEDS: ACETAMINOPHEN/CODEINE 120-12 MG/5 ML 12.5 ML UDCUP PO PRN ×2 (09:12→18:14)
[2016-11-29] MEDS: GABAPENTIN 300 MG CAPSULE PO SCH ×2 (09:12→22:05)
[2016-11-29] MEDS: azaTHIOprine 50 MG TABLET PO SCH ×2 (09:21→22:05)
[2016-11-29] MEDS: predniSONE 20 MG TABLET PO SCH (09:21)
[2016-11-29] MEDS: POTASSIUM CHLORIDE 8 MEQ CAPSULE PO SCH (09:21)
--- NOTE | 2016-11-29 11:20 | General Surgery Progress Note ---
Assessment and Plan (1) Abdominal pain Status: Acute Assessment and plan: The patient is doing better. No further testing or intervention is needed in my opinion. Current Visit: Yes (2) Diabetic foot Problem details: Wound center patient with a chronic diabetic foot wound, s/p application of a biological wound product. Status: Acute Assessment and plan: Continue topical wound care. There is no evidence of infection. Current Visit: No Subjective Patient reports: Present: no new complaints, feels better, pain is less, tolerating liquids well, afebrile Exam - Constitutional Vitals: Period Temp Pulse Resp BP Sys/Babb Pulse Ox Last 24 Hr 97.5 F-99.7 F 104-111 20-20 108-145/68-90 94-100 General appearance: no acute distress, over weight - Head Head exam: Present: normal inspection, normocephalic - Eye Eye exam: Present: EOMI Pupils: Present: NAN - ENT ENT exam: Present: normal exam Mouth exam: Present: normal external inspection, normal voice - Neck Neck exam: Present: normal inspection, trachea midline - Respiratory Respiratory exam: Present: clear to auscultation bilaterally. Absent: accessory muscle use, chest wall tenderness - Cardiovascular Cardiovascular exam: Present: RRR. Absent: systolic murmur, tachycardia - GI/Abdominal GI/Abdominal exam: Present: normal bowel sounds. Absent: tenderness, rebound - Extremities Exam Extremities exam: Present: other (The wound on the right foot is clean with no infection. The wound on the left stump of the below knee amputation is healing slowly and there is no infection) - Back Exam Back exam: Present: normal inspection - Neurological Exam Neurological exam: Present: alert, oriented X3 Speech: Present: normal - Skin Skin exam: Present: normal color, warm Results - Labs CBC & BMP: 11/28/16 06:13 11/29/16 03:12 Quality Measures - VTE Contraindication to Mechanical VTE Prophylaxis: Ischemic Vascular Disease
[2016-11-29] MEDS: PROMETHAZINE 25 MG TABLET PO PRN (18:17)
[2016-11-29] MEDS ORDERED: INSULIN GLARGINE 100 UNIT/ML SUBCUT SCH (21:00)
[2016-11-30] MEDS: ONDANSETRON 4 MG/2 ML VIAL IV PRN ×2 (01:30→20:34)
[2016-11-30] MEDS: HYDROCORTISONE 100 MG VIAL IV SCH (01:33)
[2016-11-30] MEDS: MORPHINE 2 MG/1 ML SYRINGE IV PRN ×4 (01:33→20:34)
[2016-11-30] MEDS: SODIUM CHLORIDE 0.9% 1,000 ML IV SCH ×3 (07:36→20:40)
[2016-11-30] MEDS: INSULIN REGULAR 100 UNIT/ML SUBCUT SCH ×4 (10:05→20:36)
[2016-11-30] MEDS: predniSONE 20 MG TABLET PO SCH (10:06)
[2016-11-30] MEDS: PANTOPRAZOLE 40 MG VIAL IV SCH (10:06)
[2016-11-30] MEDS: POTASSIUM CHLORIDE 8 MEQ CAPSULE PO SCH (10:06)
[2016-11-30] MEDS: METOPROLOL SUCCINATE XL 25 MG TABLET PO SCH (10:06)
[2016-11-30] MEDS: GABAPENTIN 300 MG CAPSULE PO SCH ×2 (10:07→20:35)
[2016-11-30] MEDS: traMADol 50 MG TABLET PO SCH ×2 (10:07→20:35)
[2016-11-30] MEDS: DOCUSATE SODIUM 100 MG CAPSULE PO SCH ×2 (10:07→20:35)
[2016-11-30] MEDS: azaTHIOprine 50 MG TABLET PO SCH ×2 (10:07→20:35)
[2016-11-30] MEDS: ACETAMINOPHEN/CODEINE 120-12 MG/5 ML 12.5 ML UDCUP PO PRN (10:13)
--- NOTE | 2016-11-30 11:03 | Family Practice Progress Note ---
Family Practice - PN: Subj Interval history: Patient seen this morning. He is in good spirits and happy. He is stable hemodynamically however were hymnal trouble keeping his sugars under control. We are going to keep him on a sliding scale but will get increase his Levemir dose some today. He is able to eat well and is having a little pain. This is probably because he is not had his pain patch and a while but we do not know the dose and his is supposed to be bringing that to us. Otherwise continue current plan Exam (Progress Note) - Constitutional Vitals: Period Temp Pulse Resp BP Sys/Babb Pulse Ox Last 24 Hr 98.9 F-99 F 86-86 20-20 110-138/69-81 90-95 Exam: Generally stable no acute distress is laughing in the room with questioning. HEENT essentially negative neck supple trachea midline Cardiovascular rate regular no gallop Lungs are clear Abdomen soft nondistended he has no pain at all with palpation or percussion Extremities he has left BKA and right foot diabetic ulcer/wound that has a dressing at this time Results - Labs CBC & BMP: 11/28/16 06:13 11/29/16 03:12 Assessment and Plan (1) Abdominal pain Status: Acute Assessment and plan: 11/30/2016: This has resolved Current Visit: Yes (2) Intractable nausea and vomiting Status: Acute Assessment and plan: 11/30/2016: Not having any nausea and vomiting at this time. Having some mild generalized pain Current Visit: Yes (3) Peripheral vascular disease Status: Acute Assessment and plan: 11/30/2016: To be seen by surgery tomorrow for foot debridement evaluation Current Visit: Yes Quality Measures - VTE Contraindication to Mechanical VTE Prophylaxis: Ischemic Vascular Disease
[2016-11-30] MEDS: PROMETHAZINE 25 MG TABLET PO PRN (15:49)
[2016-11-30] MEDS ORDERED: INSULIN GLARGINE 100 UNIT/ML SUBCUT SCH (17:00)
[2016-12-01] MEDS: ONDANSETRON 4 MG/2 ML VIAL IV PRN (03:17)
[2016-12-01] MEDS: MORPHINE 2 MG/1 ML SYRINGE IV PRN (03:18)
[2016-12-01] MEDS: SODIUM CHLORIDE 0.9% 1,000 ML IV SCH ×2 (04:43→13:32)
--- NOTE | 2016-12-01 08:46 | Discharge Summary ---
Hospital Course - Hospital Course Hospital Course: 51-year-old male with multiple medical problems was admitted to acute care with acute gastroenteritis and dehydration. Patient has history of diabetes, sarcoidosis, peripheral vascular disease, status post diabetic foot on the right side and left below-knee amputation. He was started on IV fluids and was seen in consultation by GI and surgery. He gradually improved over next few days. He was given IV Solu-Cortef to cover for stress dose steroids. Patient has been on chronic steroids. He has started eating and is tolerating diet fairly well. His abdominal pain nausea and vomiting has resolved. He will be discharged home today. He will keep his appointment in first week of December. We will give him Lidoderm patch for pain control locally. He will follow-up with Dr. Gloria at wound center tomorrow. Diagnosis - Discharge Diagnosis (1) Gastroenteritis Status: Acute (2) History of sarcoidosis Status: Acute (3) Intractable nausea and vomiting Status: Acute (4) Peripheral vascular disease Status: Acute (5) Diabetes mellitus type 1, uncontrolled Status: Acute (6) Diabetic ulcer of right foot Status: Acute (7) History of immunosuppressive therapy Status: Acute Discharge Plan - Discharge Data Disposition: Disch To Home/Self Care Condition at Discharge: Stable Discharge Diet: diabetic diet Activity: resume usual activities as tolerated - Discharge Medications Continue Metoprolol Succinate 25 mg PO DAILY Gabapentin Cap/Tab [Neurontin Cap/Tab] 300 mg PO BID predniSONE TAB [PredniSONE] 20 mg PO DAILY Pantoprazole Sodium [Protonix] 40 mg PO DAILY azaTHIOprine [Azathioprine] 50 mg PO BID traMADol TAB [Ultram] 50 mg PO BID Insulin Detemir [Levemir] 75 unit SUBCUT BEDTIME HYDROcodone/ACETAMIN 10-325 [Carlton 10-325] 1 tablet PO QID PRN PRN Reason: Pain Potassium Chloride Cap/Tab [Micro K] 8 meq PO DAILY Insulin Lispro [HumaLOG] 5 unit SUBCUT TID Acetamin/Codeine 120-12 mg/5Ml [Tylenol/Codeine Liquid] 12.5 ml PO Q6H PRN # 120 ml PRN Reason: Pain - Follow Up or Referral - Forms/Instructions Additional Discharge Instructions: Keep appointment in first week of December at office. Please call him and Lidoderm 2% patch #30 use as directed 12 hours on and 12 hours off Exam - Constitutional Vitals: Period Temp Pulse Resp BP Sys/Babb Pulse Ox Last 24 Hr 97.7 F-98.5 F 84-103 16-20 111-154/68-92 93-98 Exam: Examination: GENERAL: NAD. HEENT: PERRLA. EOMI. NECK: Neck is supple. CVS: Regular rate and rhythm. RESPIRATORY: Lungs are clear. ABDOMEN: Soft and nontender bowel sounds are present EXT: No edema. Peripheral pulses are present. SKIN: Warm and dry. MSK: Left BKA Discharge Results Labs on day of discharge: Labs from last 24 hours 12/01/16 11/30/16 11/30/16 07:02 19:24 15:34 POC Glucose 199 H 326 H 380 H 11/30/16 11:43 POC Glucose 262 H DS: Provider Date of admission: 11/27/16 23:50 Primary care physician: . No PCP Attending physician on admission: Dank Rooney MD Consults: 11/28/16 01:44 Consult to Case Mgmt/Social Srvs [CONS] Routine Reason for Case Mgmt/Social Srvs: Discharge Planning 11/28/16 08:21 Consult to Physician [CONS] Routine Comment: known to you for right foot wound Consulting Provider: Marvin Gloria Consulting Provider Notified: Yes When should Consulting Provider be notified: Now Person Notified: Andra Date Notified: 11/28/16 Time Notified: 09:11 Consult Notification Comment: Notified of pts room number 11/28/16 08:24 Consult to Physician [CONS] Routine Comment: Patient known to you. Abdominal pain Consulting Provider: Marvin Gloria Consulting Provider Notified: Yes Person Notified: Kortney Date Notified: 11/28/16 Time Notified: 09:35 Consult Notification Comment: Dr. Jimenez notified of pt. out of town until Thursday. 11/28/16 08:27 Consult to Physician [CONS] Routine Comment: Intractable vomiting. Has esophagitis Consulting Provider: Du Bishop Consulting Provider Notified: Yes Person Notified: Coby Date Notified: 11/28/16 Time Notified: 09:15 Discharging clinician: Dank Rooney MD
[2016-12-01] MEDS: INSULIN REGULAR 100 UNIT/ML SUBCUT SCH ×2 (09:04→13:28)
[2016-12-01] MEDS: traMADol 50 MG TABLET PO SCH (09:08)
[2016-12-01] MEDS: METOPROLOL SUCCINATE XL 25 MG TABLET PO SCH (09:08)
[2016-12-01] MEDS: DOCUSATE SODIUM 100 MG CAPSULE PO SCH (09:08)
[2016-12-01] MEDS: predniSONE 20 MG TABLET PO SCH (09:08)
[2016-12-01] MEDS: POTASSIUM CHLORIDE 8 MEQ CAPSULE PO SCH (09:08)
[2016-12-01] MEDS: azaTHIOprine 50 MG TABLET PO SCH (09:08)
[2016-12-01] MEDS: PANTOPRAZOLE 40 MG VIAL IV SCH (09:08)
[2016-12-01] MEDS: GABAPENTIN 300 MG CAPSULE PO SCH (09:08)
[2016-12-01 13:07] VITALS: BP 136/80
== END 2016-12-01 14:25 | disposition home or self-care (01) | DRG 392 ==
LOC: N.ED 20:16 → N.EDINP 23:50 → N.3E 11-28 01:16
PROVIDERS: ADMIT Internal Medicine; ATTEND Internal Medicine

== ENCOUNTER 2017-03-23 18:15 | Inpatient (IN) ==
[2017-03-23 21:34] LABS: Basophils % 0.4 % (0.0-0.8); Eosinophils # 0.1 10*3/uL (0.0-0.87); Eosinophils % 0.8 % (0.00-10.9); Hematocrit 34.7 VOL% (42.0-52.0); Hemoglobin 11.7 GM/DL (14.0-18.0); Immature Granulocytes Absolute 0.08 #; Lymphocytes # 0.6 10*3/uL (1.4-4.0); Lymphocytes % 7.8 % (21.2-54.2); Mean Corpuscular HGB Conc 33.7 GM/DL (32-36); Mean Corpuscular Hemoglobin 31 PG (27-34); Mean Corpuscular Volume 90.8 FL (87-102); Monocytes # 0.7 10*3/uL (0.11-0.8); Monocytes % 8.9 % (1.7-12.7); Neutrophils # 6.4 10*3/uL (1.4-7.4); Neutrophils % 81.1 % (38.7-73.9); Platelet Count 148 T/CUMM (130-400); Red Blood Count 3.82 MC/CUMM (3.8-5.5); Red Cell Distribution Width 15.4 % (9.3-17.3); White Blood Count 7.8 T/CUMM (4-12)
[2017-03-23 21:46] LABS: Albumin 3.1 G/DL (3.4-5.0); Bilirubin,Total 0.9 MG/DL (0.2-1.0); Calcium 8.5 MG/DL (8.5-10.1); Osmolality,Calculated 287.1 MOS/KG (273-304); Potassium 3.3 MMOL/L (3.5-5.1); Total Protein 6.5 G/DL (6.4-8.3)
--- NOTE | 2017-03-23 22:25 | Emergency Department Note ---
Arrival - Arrival ED Nursing Triage Note: C/O ABDOMINAL PAIN WITH ONSET TWO DAYS AGO. NAUSEA/ VOMITING BEGAN LAST NIGH Mode of Arrival: Ambulatory Limitations: No Limitations Source: Patient <Du Ward Fidencio - Last Filed: 03/24/17 02:16> <Conner Jimenez - Last Filed: 03/24/17 03:44> - Arrival Chief Complaint: Abdominal / Flank Pain Stated Complaint: stomach/throwing up Time Seen by Provider: 03/23/17 21:11 - History of Present Illness HPI Narrative: The patient complains of tight crampy mid abdominal pain off and on since yesterday. He also had some nausea and vomiting since last night. He denies any fever, diarrhea or constipation. Bowel movements have been normal. He has a history of peptic ulcer disease, ascites and has had a cholecystectomy. He also has a history of diabetes. The patient has been on IV antibiotics for a month for a diabetic foot ulcer. (Du Ward) Allergies/Adverse Reactions: Allergies Allergy/AdvReac Type Severity Reaction Status Date / Time No Known Allergies Allergy Verified 02/05/17 00:30 Home Medications: Home Medications Medication Instructions Recorded Confirmed Type Gabapentin Cap/Tab [Neurontin 300 mg PO BID 08/29/15 02/05/17 History Cap/Tab] Metoprolol Succinate 25 mg PO DAILY 08/29/15 02/05/17 History Pantoprazole Sodium [Protonix] 40 mg PO DAILY 08/29/15 02/05/17 History azaTHIOprine [Azathioprine] 50 mg PO BID 08/29/15 02/05/17 History predniSONE TAB [PredniSONE] 20 mg PO DAILY 08/29/15 02/05/17 History traMADol TAB [Ultram] 50 mg PO BID 08/29/15 02/05/17 History Insulin Detemir [Levemir] 75 unit SUBCUT BEDTIME 11/22/15 02/05/17 History HYDROcodone/ACETAMIN 10-325 [[place] 1 tablet PO QID PRN 06/12/16 02/05/17 History 10-325] Potassium Chloride Cap/Tab [Micro 8 meq PO DAILY 06/12/16 02/05/17 History K] Acetamin/Codeine 120-12 mg/5Ml 12.5 ml PO Q6H PRN #120 ml 09/08/16 02/05/17 Rx [Tylenol/Codeine Liquid] Insulin Lispro [HumaLOG] 5 unit SUBCUT TID 09/08/16 02/05/17 History HYDROcodone/ACETAMIN 7.5-325 1 tablet PO Q6-8H PRN #30 tablet 02/13/17 Rx [[place] 7.5-325] Linezolid Inj [Zyvox Inj] 600 mg IV Q12H 02/13/17 Rx Skin Healing Oint (Aquaphor) 1 applic TOP PRN PRN applic 02/13/17 Rx [Aquaphor] Sodium Hypochlorite 0.25% Irr 20 ml TOP DAILY #1 bottle 02/13/17 Rx [Dakins 1/2 Strength 0.25% Soln] cefTRIAXone [Rocephin] 1,000 mg IV Q24H #0 vial 02/13/17 Rx Review of System - Review of System 12 point system: reviewed and no additional remarkable complaints except as stated - Review of System Constitutional: Absent: fever Head/Ears/Nose/Throat: Absent: nasal drainage, sore throat Respiratory: Absent: cough, respiratory distress Cardiovascular: Absent: chest pain Gastrointestinal: Present: abdominal pain, nausea, vomiting. Absent: diarrhea, constipation, hematemesis, melena, hematochezia <Du Ward - Last Filed: 03/24/17 02:16> Medical,Surgical,& Family Hx - Medical History Cardio: History of: Hypertension Psychological: No history of: Anxiety Disorders, ADHD, Bipolar Disorder, Depression, Previous Suicide Attempt, Psychiatric/Substance Abuse Tx, Schizophrenia, Violent Behavior, Psychiatric Problems Neurology: No history of: Brain Aneurysm, Cerebral Hemorrhage, Cerebrovascular Accident , Cerebral Palsy, Dementia, Migraine, Multiple Sclerosis, Parkinson's Disease, Peripheral Neuropathy, Seizures, TIA, Vertigo, Neurologocal Cancer Endocrine: History of: Diabetes Mellitus (IDDM) Respiratory: History of: Respiratory Problems (sarcoidosis) Renal: No history of: Renal (Kidney) Cancer, Dialysis, Renal Failure, Renal Problems Genitourinary: History of: Genitourinary Cancer, Problems (penile cancer) No history of: Bladder Problem, Kidney Stones, Prostate Problems, Recurring Urinary Tract Infections Gastrointestinal: History of: Gastrointestinal Bleed (ulcers), GI Problems ( history of ascites) No history of: Liver Problems Musculoskeletal: History of: Amputation (left below knee, all toes on right), Back/Neck Problems (hx back surg.), Musculoskeletal Problems Hematology: No history of: Sickle Cell Disease Reproductive: Reports: Penile Disorder Other: History of: Cancer, MRSA (history), Skin Problems (Chronic diabetic foot ulcer, right plantar. Previous left BKA for same), Miscellaneous Medical Problems (sarcoidosis) - Surgical History Thoracic Surgeries: Patient denies;: Organ Transplant Neurologic Surgeries: Patient denies: Brain Aneurysm, Cerebral Hemorrhage, Neurologic Surgery HEENT Surgeries: Surgical HX of: Tonsilectomy & Adenoidectomy Abdominal Surgeries: Surgical HX of: Cholecystectomy (05/2016), Colonoscopy, EGD Patient denies: Appendectomy Reproductive Surgeries: Patient denies;: Genitourinary Surgery - Family History Family History: Reports;: Family Diabetes, Family Heart Disease, Family Hypertension - Social History Smoking Status: Light tobacco smoker Frequency of Alcohol Use: None Type of Drug Use: Marijuana <Du Ward - Last Filed: 03/24/17 02:16> Exam <Du aWrd - Last Filed: 03/24/17 02:16> <Conner Jimenez - Last Filed: 03/24/17 03:44> Physical Examination: GENERAL: Alert. No acute distress. HEENT: Normocephalic and atraumatic. There is no nasal drainage. No pharyngeal erythema or exudate. NECK: Normal inspection. Supple. No lymphadenopathy or meningismus. LUNGS: No respiratory distress. Clear to auscultation bilaterally, no wheezes, rales or rhonchi. HEART: Regular rate and rhythm. ABDOMEN: Obese, soft, normal bowel sounds. The abdomen appears distended and there is diffuse mild tenderness without guarding or rebound. BACK: Normal inspection. SKIN: Color normal. Warm and dry. EXTREMITIES: There is a left BKA. The right foot is in a bandage because of a diabetic foot ulcer. The bandage and splint were not removed for exam. NEUROLOGICAL/PSYCHIATRIC: Alert and oriented -3 with normal mood and affect. Cranial nerves normal. No motor or sensory deficit. (Du Ward) Vital Signs: Vital Signs Temperature 98.1 F 03/23/17 20:40 Pulse Rate 87 03/23/17 20:40 Respiratory Rate 18 03/23/17 20:40 Blood Pressure 113/64 03/23/17 20:40 O2 Sat by Pulse Oximetry 99 03/23/17 18:59 Course - Reevaluation(s) Time: 02:16 <Du Ward - Last Filed: 03/24/17 02:16> <Conner Jimenez - Last Filed: 03/24/17 03:44> Course Narrative: Note: The multiple negatives in the past medical history were not marked by me. They are the result of the triage process, past medical records or other unknown causes. Due to time constraints, these were not all reviewed with the patient and the backslashes were not removed from the chart. They should be ignored. (Du Ward) I took over the care of this patient at 2 AM on 03/24/2017. His urinalysis demonstrated evidence of urinary tract infection he was having difficulty keeping p.o. intake down. His CT scan of his abdomen and pelvis showed some nonobstructive kidney stones but no acute pathology or infection. Because of his inability to tolerate p.o. he was treated with antibiotics and admitted to the hospital for IV fluids and antibiotics and follow-up of his urine cultures. He also started having diarrhea after Gastrografin for the contrast CT and so we checked a C. difficile on this as well given his prolonged antibiotic use and abdominal cramping pain. (Conner Jimenez) - Reevaluation(s) Reevaluation #1: The patient was a little hypotensive in the 90s over 60s. I gave him a liter of normal saline and he is now 120/76. He also feels a little better after the fluids and pain medication. The CT scan of the abdomen is still pending. I discussed the patient with Dr. Jimenez and I am turning care over to him now at shift change. (Du Ward) Results - Labs CBC & BMP: 03/23/17 20:25 03/23/17 20:25 <Du Ward - Last Filed: 03/24/17 02:16> - Labs CBC & BMP: 03/23/17 20:25 03/23/17 20:25 <Conner Jimenez - Last Filed: 03/24/17 03:44> Disposition <Du Ward - Last Filed: 03/24/17 02:16> Case discussed with: patient, patient's family Time of Disposition: 03:44 <Conner Jimenez - Last Filed: 03/24/17 03:44> Clinical Impression: Calculus of kidney Disposition: Still a Patient Condition: Stable Instructions: Urinary Tract Infection in Men (ED)
[2017-03-23 23:09] LABS: Apearance,Urine Slightly Hazy (Clear); Bacteria,Urine Moderate /HPF (Few); Bilirubin,Urine Negative (Negative); Blood, Urine Small mg/dL (Negative); Glucose,Urine (UA) 150 mg/dL (Negative); Hyaline Casts,Urine 6 /LPF (0-3); Ketones,Urine 20 mg/dL (Negative); Mucus,Urine Occasional /LPF (Occasional); Nitrite,Urine Negative (Negative); Protein,Urine 100 MG/DL; RBC,Urine 11 /HPF (0-4); Squamous Epithelial Cell,Urine Occasional /HPF (0-10); Urine Color Amber (Yellow); Urine Specific Gravity 1.018 (1.001-1.035); Urine Urobilinogen < 2.0 EU/DL (0.2-1.0); WBC,Urine 10 /HPF (0-6)
[2017-03-23] MEDS ORDERED: SODIUM CHLORIDE 0.9% 1,000 ML IV STA (23:23)
[2017-03-24] MEDS ORDERED: ONDANSETRON 4 MG/2 ML VIAL IV STA (01:04)
[2017-03-24] MEDS ORDERED: MORPHINE 2 MG/1 ML SYRINGE IV STA (01:04)
[2017-03-24] MEDS ORDERED: ONDANSETRON 4 MG/2 ML VIAL ONE (01:15)
[2017-03-24] MEDS ORDERED: MORPHINE 2 MG/1 ML SYRINGE ONE (01:16)
[2017-03-24] MEDS ORDERED: cefTRIAXone 1,000 MG in SODIUM CHLORIDE 0.9% 100 ML IV STA (03:39)
[2017-03-24] MEDS ORDERED: metroNIDAZOLE INJ 500 MG in PREMIX 1 EACH IV STA (03:44)
[2017-03-24] MEDS ORDERED: PROMETHAZINE 25 MG TABLET PO PRN (05:05)
[2017-03-24] MEDS ORDERED: DEXTROSE 50% 25 GM/50 ML VIAL IV PRN (05:05)
[2017-03-24] MEDS ORDERED: GLUCAGON 1 MG VIAL IM PRN (05:05)
[2017-03-24] MEDS: SODIUM CHLORIDE 0.9% 1,000 ML IV SCH ×2 (05:29→16:51)
[2017-03-24 06:07] LABS: Basophils % 0.3 % (0.0-0.8); Eosinophils # 0.1 10*3/uL (0.0-0.87); Eosinophils % 0.8 % (0.00-10.9); Hematocrit 33.3 VOL% (42.0-52.0); Hemoglobin 10.6 GM/DL (14.0-18.0); Immature Granulocytes % 1.5 %; Immature Granulocytes Absolute 0.09 #; Lymphocytes # 0.5 10*3/uL (1.4-4.0); Lymphocytes % 8.1 % (21.2-54.2); Mean Corpuscular HGB Conc 31.8 GM/DL (32-36); Mean Corpuscular Hemoglobin 29 PG (27-34); Mean Corpuscular Volume 92.5 FL (87-102); Mean Platelet Volume 11.6 FL (9.6-12.0); Monocytes # 0.7 10*3/uL (0.11-0.8); Monocytes % 10.9 % (1.7-12.7); Neutrophils # 4.8 10*3/uL (1.4-7.4); Neutrophils % 78.4 % (38.7-73.9); Platelet Count 141 T/CUMM (130-400); Red Cell Distribution Width 15.4 % (9.3-17.3); White Blood Count 6.1 T/CUMM (4-12)
[2017-03-24 06:34] LABS: Calcium 7.8 MG/DL (8.5-10.1)
[2017-03-24 06:35] LABS: Osmolality,Calculated 283.4 MOS/KG (273-304)
[2017-03-24] MEDS: ONDANSETRON 4 MG/2 ML VIAL IV PRN ×3 (07:07→22:09)
[2017-03-24] MEDS: MORPHINE 2 MG/1 ML SYRINGE IV PRN ×3 (07:07→22:10)
--- NOTE | 2017-03-24 07:17 | CT Report ---
CT abdomen pelvis w con Indication: Vomiting, abdominal pain Comparison: Prior CT abdomen pelvis 02/10/2017. Technique: CT of the abdomen and pelvis was performed following administration of intravenous contrast. Coronal and sagittal reformatted images were additionally created and submitted for review. The total DLP is 2797 mGy*cm. Dose reduction: This CT exam was performed using one or more of the following dose reduction techniques: Automated exposure control, automated adjustment of the mA and/or KV according to patient size, or use of iterative reconstruction technique. Findings: Very minimal posterior basilar dependent atelectatic changes are noted bilaterally. Lung bases are otherwise clear. There is no pleural or pericardial effusion. ABDOMEN: Liver/Gallbladder: No abnormal enhancing lesions. No biliary ductal dilatation. There is been a prior cholecystectomy. Portal vein is patent. Spleen: Spleen is borderline enlarged, but not significantly changed in size from the prior study. There are no focal lesions Pancreas: No acute findings. Adrenals: 3.8 cm fat density lesion associated with the left adrenal gland is somewhat indistinct but most compatible with a myelolipoma.. Kidneys: Both kidneys enhance symmetrically. There is no evidence of obstructive uropathy. There is a 2 mm nonobstructing stone at the lower pole right kidney. 2 additional 3-4 mm nonobstructing stones are noted at the upper pole right kidney. No ureteral or bladder calculi are identified. There is expected excretion of contrast from both kidneys on delayed images. Bowel/mesentery: Small bowel is nondilated. There is no free fluid/air within the abdomen. There is no mesenteric adenopathy. Appendix is normal. Moderate stool is noted throughout colon which is otherwise nondilated/within normal limits Retroperitoneum: No aortic aneurysm. A few mildly prominent but not technically enlarged retroperitoneal lymph nodes are noted, which may be reactive. PELVIS: No free fluid in the dependent pelvis. Prostate is not enlarged. There is no pelvic adenopathy. The bladder is mildly distended but otherwise unremarkable in appearance. BONES: No acute or suspicious osseous abnormalities are identified. Vertebral augmentation cement is noted L2. There are also moderate to advanced degenerative changes with vacuum disc phenomenon and disc space loss and facet arthropathy at L4-S1. IMPRESSION: No acute abnormality within the abdomen or pelvis to explain patient's symptoms. Nonobstructing right renal stones. Preliminary report by virtual radiologic. 03/24/2017 6:32 AM PROCEDURE INTERPRETED AT [facility] DEPARTMENT OF RADIOLOGY Final Report Signed by: Henrry Morales
--- NOTE | 2017-03-24 07:54 | XRay Report ---
XR KUB Clinical Information: Abdominal Pain vomiting Comparison: Prior abdomen radiograph 11/28/2016 Findings: Bowel gas pattern is nonspecific and within normal limits. No abnormally dilated small bowel loops are identified to suggest obstruction. There is no free air identified. Scattered fecal material is noted throughout colon, which is otherwise nondilated. No abnormal focal soft tissue masses or calcific densities are identified in the abdomen or pelvis. Lung bases appear predominantly clear. Cholecystectomy clips are noted. There is no acute osseous abnormality. No suspicious osseous lesions are identified. Vertebral augmentation cement noted at L2. Impression: No acute radiographic abnormality in the abdomen. See CT abdomen pelvis report for additional details. PROCEDURE INTERPRETED AT [facility] DEPARTMENT OF RADIOLOGY Final Report Signed by: Henrry Morales
--- NOTE | 2017-03-24 08:34 | Internal Med History&Physical ---
Assessment and Plan (1) Nausea and vomiting Status: Acute Assessment and plan: 51-year-old male admitted to acute care. * Nausea vomiting and abdominal pain. Patient has been on IV antibiotics for last several weeks. His stool was checked for C. difficile and is positive. He had a CT abdomen and pelvis done which was negative for any acute changes. He will be started on vancomycin p.o. every 6 hours. * Osteomyelitis of the right diabetic foot ulcer. Patient has been on IV antibiotics. Will consult Dr. Hicks and Dr. castellon to follow the patient. He has been on p.o. Zyvox and Rocephin * Diabetes. Will continue home insulin and will start him on sliding scale * Sarcoidosis. Patient is on prednisone and azathioprine. These will be continued. * Chronic neck pain secondary to sarcoidosis. Continue pain medications * He was hypertensive initially in the emergency room and received IV fluids. * History of recent GI bleeding. Stable hematocrit. * Discussed with patient in detail Current Visit: Yes (2) Chronic osteomyelitis of right foot Status: Acute Current Visit: No (3) Diabetes mellitus type 1, uncontrolled Status: Acute Current Visit: No Qualifiers: Diabetes mellitus complication detail: with other circulatory complications (4) Gastroenteritis Status: Acute Current Visit: No (5) History of sarcoidosis Status: Acute Current Visit: No (6) Peripheral vascular disease Status: Acute Current Visit: No History of Present Illness Chief complaint: Abdominal pain with nausea and vomiting History of present illness: Mr. Ann is a 51 year old male with history of multiple medical problems including diabetes, sarcoidosis, peripheral vascular disease, status post amputation of left lower extremity below knee. Patient has a chronic wound on the right lower extremity with possible osteomyelitis and has been on IV antibiotics as outpatient. He came to the emergency room with complaints of tight crampy mid abdominal pain off and on for a few days. He has had nausea and vomiting along with some diarrhea. He denied any fever or chills. Patient was found to be slightly dehydrated and hypokalemic along with possible urinary tract infection. He has not been feeling well for a few days. He denies any chest pain or shortness of breath. His blood sugars have been doing fairly well. Patient had MRSA and E. coli in his wound and was recommended to have 6 weeks of IV antibiotics which he is receiving in the infusion center. Patient lives at home with his . He uses prosthesis on his left lower extremity Home Medications Medication Instructions Recorded Confirmed Type RX: Gabapentin Cap/Tab [Neurontin 300 mg PO BID 08/29/15 03/24/17 History Cap/Tab] RX: Metoprolol Succinate 25 mg PO DAILY 08/29/15 03/24/17 History RX: Pantoprazole Sodium [Protonix] 40 mg PO DAILY 08/29/15 03/24/17 History RX: azaTHIOprine [Azathioprine] 50 mg PO BID 08/29/15 03/24/17 History RX: predniSONE TAB [PredniSONE] 20 mg PO DAILY 08/29/15 03/24/17 History RX: traMADol TAB [Ultram] 50 mg PO BID 08/29/15 03/24/17 History RX: Insulin Detemir [Levemir] 75 unit SUBCUT BEDTIME 11/22/15 03/24/17 History RX: HYDROcodone/ACETAMIN 10-325 1 tablet PO QID PRN 06/12/16 03/24/17 History [[place] 10-325] RX: Potassium Chloride Cap/Tab 8 meq PO DAILY 06/12/16 03/24/17 History [Micro K] RX: Acetamin/Codeine 120-12 mg/5Ml 12.5 ml PO Q6H PRN #120 ml 09/08/16 03/24/17 Rx [Tylenol/Codeine Liquid] RX: Insulin Lispro [HumaLOG] 10 unit SUBCUT TID 09/08/16 03/24/17 History RX: HYDROcodone/ACETAMIN 7.5-325 1 tablet PO Q6-8H PRN #30 tablet 02/13/1703/24 Rx [[place] 7.5-325] RX: Linezolid Inj [Zyvox Inj] 600 mg IV Q12H 02/13/17 03/24/17 Rx RX: Skin Healing Oint (Aquaphor) 1 applic TOP PRN PRN applic 02/13/17 03/24/17 Rx [Aquaphor] RX: Sodium Hypochlorite 0.25% Irr 20 ml TOP DAILY #1 bottle 02/13/17 03/24/17 Rx [[place] 1/2 Strength 0.25% Soln] RX: cefTRIAXone [Rocephin] 1,000 mg IV Q24H #0 vial 02/13/17 03/24/17 Rx Allergies Allergy/AdvReac Type Severity Reaction Status Date / Time No Known Allergies Allergy Verified 02/05/17 00:30 Medical,Surgical,& Family Hx - Medical History Cardio: History of: Hypertension Psychological: No history of: Anxiety Disorders, ADHD, Bipolar Disorder, Depression, Previous Suicide Attempt, Psychiatric/Substance Abuse Tx, Schizophrenia, Violent Behavior, Psychiatric Problems Neurology: No history of: Brain Aneurysm, Cerebral Hemorrhage, Cerebrovascular Accident , Cerebral Palsy, Dementia, Migraine, Multiple Sclerosis, Parkinson's Disease, Peripheral Neuropathy, Seizures, TIA, Vertigo, Neurologocal Cancer Endocrine: History of: Diabetes Mellitus (IDDM) Respiratory: History of: Respiratory Problems (sarcoidosis) Renal: No history of: Renal (Kidney) Cancer, Dialysis, Renal Failure, Renal Problems Genitourinary: History of: Genitourinary Cancer, Problems (penile cancer) No history of: Bladder Problem, Kidney Stones, Prostate Problems, Recurring Urinary Tract Infections Gastrointestinal: History of: Gastrointestinal Bleed (ulcers), GI Problems ( history of ascites) No history of: Liver Problems Musculoskeletal: History of: Amputation (left below knee, all toes on right), Back/Neck Problems (hx back surg.), Musculoskeletal Problems Hematology: No history of: Sickle Cell Disease Reproductive: Reports: Penile Disorder Other: History of: Cancer, MRSA (history), Skin Problems (Chronic diabetic foot ulcer, right plantar. Previous left BKA for same), Miscellaneous Medical Problems (sarcoidosis) - Surgical History Thoracic Surgeries: Patient denies;: Organ Transplant, Lobectomy Neurologic Surgeries: Patient denies: Brain Aneurysm, Cerebral Hemorrhage, Neurologic Surgery HEENT Surgeries: Surgical HX of: Tonsilectomy & Adenoidectomy Abdominal Surgeries: Surgical HX of: Cholecystectomy (05/2016), Colonoscopy, EGD Patient denies: Appendectomy Reproductive Surgeries: Patient denies;: Genitourinary Surgery Orthopedic Surgeries: Surgical HX of;: Orthopedic Surgery (Left below-knee amputation) - Family History Family History: Reports;: Family Diabetes, Family Heart Disease, Family Hypertension - Social History Smoking Status: Never smoker Frequency of Alcohol Use: Occasionally Type of Drug Use: None, Marijuana Marital Status: Lives With:: Spouse Functional capacity: independent ambulation (Uses prosthesis on the right lower extremity) 12 point system: reviewed and no additional remarkable complaints except as stated (As mentioned in HPI) Exam - Constitutional Vitals: Period Temp Pulse Resp BP Sys/Babb Pulse Ox Last 24 Hr 98.1 F-98.3 F 84-95 18-20 75-113/36-66 92-99 Exam: Examination: GENERAL: NAD. HEENT: PERRLA. EOMI. Mucous membranes are dry NECK: Neck is supple. No JVD. No carotid bruit. No thyromegaly. CVS: Regular rate and rhythm. S1 and S2 are normal. RESPIRATORY: Lungs are clear. No rales or rhonchi. ABDOMEN: Soft but diffusely tender. Bowel sounds are present. No rebound or rigidity EXT: Trace edema on the right lower extremity RESIZER OPERATOR: Patient is awake, alert and oriented to time place and person. Cranial nerves II through XII are grossly intact. Motor strength is 5 over 5 both upper and lower extremities. SKIN: Warm and dry. Dressings are present on the foot with infection MSK: No obvious deformity. Left BKA. Results - Labs CBC & BMP: 03/24/17 05:41 03/24/17 05:41 Lab Results: I have reviewed the past 24 hour labs Quality Measures - Stroke Symptom Onset Unknown: No
[2017-03-24] MEDS ORDERED: SKIN HEALING OINT (AQUAPHOR) 50 GM TUBE TOP PRN (08:48)
[2017-03-24] MEDS ORDERED: SODIUM HYPOCHLORITE 0.25% IRRIG 473 ML BOTTLE TOP SCH (09:00)
[2017-03-24] MEDS ORDERED: cefTRIAXone 1,000 MG in SODIUM CHLORIDE 0.9% 100 ML IV ONE (09:00)
[2017-03-24] MEDS ORDERED: NON-FORMULARY MEDICATION (Pantoprazole Sodium [Protonix] 40 MG) PO SCH (09:00)
[2017-03-24] MEDS: INSULIN REGULAR 100 UNIT/ML SUBCUT SCH ×4 (10:25→22:10)
[2017-03-24] MEDS: PANTOPRAZOLE 40 MG TABLET PO SCH (10:30)
[2017-03-24] MEDS: azaTHIOprine 50 MG TABLET PO SCH ×2 (10:31→21:59)
[2017-03-24] MEDS: traMADol 50 MG TABLET PO SCH ×2 (10:31→22:17)
[2017-03-24] MEDS: POTASSIUM CHLORIDE 8 MEQ CAPSULE PO SCH (10:32)
[2017-03-24] MEDS: predniSONE 20 MG TABLET PO SCH (10:33)
[2017-03-24] MEDS: GABAPENTIN 300 MG CAPSULE PO SCH ×2 (10:34→21:59)
[2017-03-24] MEDS: VANCOMYCIN 50 MG/ML 60 ML/BOTTLE PO SCH ×4 (10:35→22:04)
[2017-03-24] MEDS: ENOXAPARIN 30 MG/0.3 ML SYRINGE SUBCUT SCH (10:40)
[2017-03-24] MEDS: METOPROLOL SUCCINATE XL 25 MG TABLET PO SCH (10:57)
[2017-03-24] MEDS: metroNIDAZOLE INJ 500 MG in PREMIX 1 EACH IV SCH (13:25)
[2017-03-24] MEDS: INSULIN LISPRO 100 UNIT/ML SUBCUT SCH ×2 (13:25→17:56)
--- NOTE | 2017-03-24 14:24 | General Surgery Consult Note ---
Assessment and Plan - Time spent with patient Time spent with patient: Less than 30 minutes (1) Chronic osteomyelitis of right foot Status: Acute Assessment and plan: Impression: Chronic osteomyelitis of the right foot with ulceration. Plan: Wound care Current Visit: No (2) Ulcer of right foot due to type 2 diabetes mellitus Status: Acute Assessment and plan: Impression: Diabetic ulcer of the right foot with no exposed bone at this time. History of osteomyelitis of the bone. Plan: Wound care There was a plan for possible skin graft to the scar to be delayed at this time. Current Visit: Yes (3) Diabetes mellitus type 1, uncontrolled Status: Acute Assessment and plan: Impression: Diabetes mellitus adult onset insulin-dependent Plan: Medical control Current Visit: No Qualifiers: Diabetes mellitus complication detail: with other circulatory complications (4) C. difficile diarrhea Status: Acute Assessment and plan: Impression: C. difficile diarrhea with abdominal pain. Plan: Change of antibiotics to vancomycin Current Visit: Yes History of Present Illness Chief complaint: Ulcer right foot with history of osteomyelitis History of present illness: Mr. Ann is a 51 year old male -[place] who was admitted because of abdominal pain but CT scan was unremarkable. He has been found to have C. difficile and different antibiotics have been started on. He has been on some long-term antibiotics for osteomyelitis of the right foot as well as HBO therapy and he has been doing pretty well with the wound looking in better shape. His last culture the wound center though is no growth and we will considering looking at the possibility of skin grafting this area to speed up the healing. Certainly this will delay that aspect at this time. On exam though it appears that the wound bed is pretty dry this since he is coming in and some dry dressing was applied to this wound. Will resume some wound care at this time to try to get it moist and clean again. Home Medications Medication Instructions Recorded Confirmed Type Gabapentin Cap/Tab [Neurontin 300 mg PO BID 08/29/15 03/24/17 History Cap/Tab] Metoprolol Succinate 25 mg PO DAILY 08/29/15 03/24/17 History Pantoprazole Sodium [Protonix] 40 mg PO DAILY 08/29/15 03/24/17 History azaTHIOprine [Azathioprine] 50 mg PO BID 08/29/15 03/24/17 History predniSONE TAB [PredniSONE] 20 mg PO DAILY 08/29/15 03/24/17 History traMADol TAB [Ultram] 50 mg PO BID 08/29/15 03/24/17 History Insulin Detemir [Levemir] 75 unit SUBCUT BEDTIME 11/22/15 03/24/17 History HYDROcodone/ACETAMIN 10-325 [[place] 1 tablet PO QID PRN 06/12/16 03/24/17 History 10-325] Potassium Chloride Cap/Tab [Micro 8 meq PO DAILY 06/12/16 03/24/17 History K] Acetamin/Codeine 120-12 mg/5Ml 12.5 ml PO Q6H PRN #120 ml 09/08/16 03/24/17 Rx [Tylenol/Codeine Liquid] Insulin Lispro [HumaLOG] 10 unit SUBCUT TID 09/08/16 03/24/17 History HYDROcodone/ACETAMIN 7.5-325 1 tablet PO Q6-8H PRN #30 tablet 02/13/17 03/24/17 Rx [[place] 7.5-325] Linezolid Inj [Zyvox Inj] 600 mg IV Q12H 02/13/17 03/24/17 Rx Skin Healing Oint (Aquaphor) 1 applic TOP PRN PRN applic 02/13/17 03/24/17 Rx [Aquaphor] Sodium Hypochlorite 0.25% Irr 20 ml TOP DAILY #1 bottle 02/13/17 03/24/17 Rx [[place] 1/2 Strength 0.25% Soln] cefTRIAXone [Rocephin] 1,000 mg IV Q24H #0 vial 02/13/17 03/24/17 Rx Allergies Allergy/AdvReac Type Severity Reaction Status Date / Time No Known Allergies Allergy Verified 02/05/17 00:30 Medical,Surgical,& Family Hx - Medical History Cardio: History of: Hypertension Psychological: No history of: Anxiety Disorders, ADHD, Bipolar Disorder, Depression, Previous Suicide Attempt, Psychiatric/Substance Abuse Tx, Schizophrenia, Violent Behavior, Psychiatric Problems Neurology: No history of: Brain Aneurysm, Cerebral Hemorrhage, Cerebrovascular Accident , Cerebral Palsy, Dementia, Migraine, Multiple Sclerosis, Parkinson's Disease, Peripheral Neuropathy, Seizures, TIA, Vertigo, Neurologocal Cancer Endocrine: History of: Diabetes Mellitus (IDDM) Respiratory: History of: Respiratory Problems (sarcoidosis) Renal: No history of: Renal (Kidney) Cancer, Dialysis, Renal Failure, Renal Problems Genitourinary: History of: Genitourinary Cancer, Problems (penile cancer) No history of: Bladder Problem, Kidney Stones, Prostate Problems, Recurring Urinary Tract Infections Gastrointestinal: History of: Gastrointestinal Bleed (ulcers), GI Problems ( history of ascites) No history of: Liver Problems Musculoskeletal: History of: Amputation (left below knee, all toes on right), Back/Neck Problems (hx back surg.), Musculoskeletal Problems Hematology: No history of: Sickle Cell Disease Reproductive: Reports: Penile Disorder Other: History of: Cancer, MRSA (history), Skin Problems (Chronic diabetic foot ulcer, right plantar. Previous left BKA for same), Miscellaneous Medical Problems (sarcoidosis) - Surgical History Thoracic Surgeries: Patient denies;: Organ Transplant, Lobectomy Neurologic Surgeries: Patient denies: Brain Aneurysm, Cerebral Hemorrhage, Neurologic Surgery HEENT Surgeries: Surgical HX of: Tonsilectomy & Adenoidectomy Abdominal Surgeries: Surgical HX of: Cholecystectomy (05/2016), Colonoscopy, EGD Patient denies: Appendectomy Reproductive Surgeries: Patient denies;: Genitourinary Surgery Orthopedic Surgeries: Surgical HX of;: Orthopedic Surgery (Left below-knee amputation) - Family History Family History: Reports;: Family Diabetes, Family Heart Disease, Family Hypertension - Social History Smoking Status: Never smoker Frequency of Alcohol Use: Occasionally Type of Drug Use: None, Marijuana 12 point system: reviewed and no additional remarkable complaints except as stated Exam - Constitutional Vitals: Period Temp Pulse Resp BP Sys/Babb Pulse Ox Last 24 Hr 97.0 F-98.3 F 84-102 18-100 75-123/36-76 91-99 General appearance: mild distress - Head Head exam: Present: normal inspection - ENT ENT exam: Present: normal exam - Neck Neck exam: Present: normal inspection - Respiratory Respiratory exam: Present: rales - Cardiovascular Cardiovascular exam: Present: RRR - GI/Abdominal GI/Abdominal exam: Present: hypoactive bowel sounds, soft. Absent: tenderness - Extremities Exam Extremities exam: Present: other (Wound on the lateral plantar surface of the right foot is a little dry looking but looks like granulating tissue still looking pretty good. May have lost some of the lateral aspect of the foot that was over the bone at this time difficult to say. No swelling or erythematous changes present around the foot at this point.) - Back Exam Back exam: Present: normal inspection - Neurological Exam Neurological exam: Present: alert, oriented X3, CN II-XII intact - Skin Skin exam: Present: normal color, warm, dry Quality Measures - Stroke Symptom Onset Unknown: No Results - Labs CBC & BMP: 03/24/17 05:41 03/24/17 05:41 Lab Results: I have reviewed the past 24 hour labs Specialty Discharge - Follow Up or Referrals
[2017-03-24] MEDS ORDERED: CHLORHEXIDINE 4% SOLN 118 ML BOTTLE TOP ONE (14:30)
--- NOTE | 2017-03-24 16:52 | Infectious Disease Consult ---
Assessment and Plan (1) C. difficile diarrhea Status: Acute Assessment and plan: Patient has positive stool C. difficile test however he actually does not have diarrhea by definition and I would not have tested the stool for C. difficile. Less than 3 stools in 24 period. It may be that he is just colonized with C. difficile. Recommendations: I will leave him on the Flagyl. Monitor for diarrhea. Thank you for the consult. Will follow. Current Visit: Yes (2) Nausea and vomiting Status: Acute Assessment and plan: May be due to him being on antibiotics for prolonged period. Current Visit: Yes (3) Ulcer of right foot due to type 2 diabetes mellitus Status: Acute Current Visit: Yes (4) Chronic osteomyelitis of right foot Status: Acute Assessment and plan: When about a week left on ceftriaxone. The patient only got linezolid for 2 weeks we found out this today. He had strep and MRSA in the bone culture and so he will need 4 more weeks of linezolid. Current Visit: No History of Present Illness Chief complaint: C. difficile infection History of present illness: Mr. Ann is a 51 year old male Who have been seen in the office for the past several weeks because of chronic ulcer myelitis of the right foot. He has been on ceftriaxone and linezolid although he found it yesterday and he been out of his linezolid for couple weeks. Patient was doing relatively okay until 3 days ago when he developed nausea and vomiting and abdominal pain. He felt so weak yesterday he decided to come to the emergency room. He really has not been having diarrhea however stool was tested and came up positive for C. difficile. He said he had 2-3 soft stools yesterday. He has not had more than 3 stools in 1 day. No fever. No other complaints. He missed his ceftriaxone yesterday. Home Medications Medication Instructions Recorded Confirmed Type Gabapentin Cap/Tab [Neurontin 300 mg PO BID 08/29/15 03/24/17 History Cap/Tab] Metoprolol Succinate 25 mg PO DAILY 08/29/15 03/24/17 History Pantoprazole Sodium [Protonix] 40 mg PO DAILY 08/29/15 03/24/17 History azaTHIOprine [Azathioprine] 50 mg PO BID 08/29/15 03/24/17 History predniSONE TAB [PredniSONE] 20 mg PO DAILY 08/29/15 03/24/17 History traMADol TAB [Ultram] 50 mg PO BID 08/29/15 03/24/17 History Insulin Detemir [Levemir] 75 unit SUBCUT BEDTIME 11/22/15 03/24/17 History HYDROcodone/ACETAMIN 10-325 [[place] 1 tablet PO QID PRN 06/12/16 03/24/17 History 10-325] Potassium Chloride Cap/Tab [Micro 8 meq PO DAILY 06/12/16 03/24/17 History K] Acetamin/Codeine 120-12 mg/5Ml 12.5 ml PO Q6H PRN #120 ml 09/08/16 03/24/17 Rx [Tylenol/Codeine Liquid] Insulin Lispro [HumaLOG] 10 unit SUBCUT TID 09/08/16 03/24/17 History HYDROcodone/ACETAMIN 7.5-325 1 tablet PO Q6-8H PRN #30 tablet 02/13/17 03/24/17 Rx [[place] 7.5-325] Linezolid Inj [Zyvox Inj] 600 mg IV Q12H 02/13/17 03/24/17 Rx Skin Healing Oint (Aquaphor) 1 applic TOP PRN PRN applic 02/13/17 03/24/17 Rx [Aquaphor] Sodium Hypochlorite 0.25% Irr 20 ml TOP DAILY #1 bottle 02/13/17 03/24/17 Rx [Dakins 1/2 Strength 0.25% Soln] cefTRIAXone [Rocephin] 1,000 mg IV Q24H #0 vial 02/13/17 03/24/17 Rx Allergies Allergy/AdvReac Type Severity Reaction Status Date / Time No Known Allergies Allergy Verified 02/05/17 00:30 12 point system: reviewed and no additional remarkable complaints except as stated (Per HPI) Medical,Surgical,& Family Hx - Medical History Cardio: History of: Hypertension Psychological: No history of: Anxiety Disorders, ADHD, Bipolar Disorder, Depression, Previous Suicide Attempt, Psychiatric/Substance Abuse Tx, Schizophrenia, Violent Behavior, Psychiatric Problems Neurology: No history of: Brain Aneurysm, Cerebral Hemorrhage, Cerebrovascular Accident , Cerebral Palsy, Dementia, Migraine, Multiple Sclerosis, Parkinson's Disease, Peripheral Neuropathy, Seizures, TIA, Vertigo, Neurologocal Cancer Endocrine: History of: Diabetes Mellitus (IDDM) Respiratory: History of: Respiratory Problems (sarcoidosis) Renal: No history of: Renal (Kidney) Cancer, Dialysis, Renal Failure, Renal Problems Genitourinary: History of: Genitourinary Cancer, Problems (penile cancer) No history of: Bladder Problem, Kidney Stones, Prostate Problems, Recurring Urinary Tract Infections Gastrointestinal: History of: Gastrointestinal Bleed (ulcers), GI Problems ( history of ascites) No history of: Liver Problems Musculoskeletal: History of: Amputation (left below knee, all toes on right), Back/Neck Problems (hx back surg.), Musculoskeletal Problems Hematology: No history of: Sickle Cell Disease Reproductive: Reports: Penile Disorder Other: History of: Cancer, MRSA (history), Skin Problems (Chronic diabetic foot ulcer, right plantar. Previous left BKA for same), Miscellaneous Medical Problems (sarcoidosis) - Surgical History Thoracic Surgeries: Patient denies;: Organ Transplant, Lobectomy Neurologic Surgeries: Patient denies: Brain Aneurysm, Cerebral Hemorrhage, Neurologic Surgery HEENT Surgeries: Surgical HX of: Tonsilectomy & Adenoidectomy Abdominal Surgeries: Surgical HX of: Cholecystectomy (05/2016), Colonoscopy, EGD Patient denies: Appendectomy Reproductive Surgeries: Patient denies;: Genitourinary Surgery Orthopedic Surgeries: Surgical HX of;: Orthopedic Surgery (Left below-knee amputation) - Family History Family History: Reports;: Family Diabetes, Family Heart Disease, Family Hypertension - Social History Smoking Status: Never smoker Frequency of Alcohol Use: Occasionally Type of Drug Use: None, Marijuana Infectious Disease Exam H&P - Constitutional Vitals: Vital Signs Temp Pulse Resp BP Pulse Ox 96.3 F L 90 20 130/75 93 L 03/24/17 16:00 03/24/17 16:00 03/24/17 16:00 03/24/17 16:00 03/24/17 16:00 Intake and Output 03/24/17 03/24/17 03/24/17 07:59 15:59 23:59 Intake Total 1170 / 1170 200 / 200 Balance 1170 / 1170 200 / 200 Intake: IV 1170 / 1170 Ns 1,000 ml @ 999 mls/hr 970 / 970 IV 1X ED BOLUS STA Rx#: [id number] Rocephin 1,000 mg In Ns 100 / 100 100 ml @ 200 mls/hr IV 1X ED STA Rx#:[id number] Flagyl Inj 500 mg In 100 / 100 Premix 1 Each @ 100 mls/ hr IV 1X ED STA Rx#: [id number] Oral 0 / 0 200 / 200 Other: Emesis 1 Voiding Method Toilet # Voids 1 # Bowel Movements 1 Weight 118.977 kg Patient Weight 03/24/17 23:59 Weight 118.977 kg Exam: General: Patient looks a bit malaised HEENT: Mucous membranes pink and moist, anicteric acyanotic, NAN, no oropharyngeal exudates Neck: Supple, no thyroid gland enlargement Respiratory system: Breath sounds vesicular, no crepitations or wheezes Cardiovascular: Normal S1 and S2, no murmurs appreciated Abdomen: Normal bowel sounds, soft, mild epigastric tenderness without guarding or rebound , no organomegaly or mass appreciated Genitourinary: No suprapubic pain or bladder distention Extremities: no edema, healed left BKA stump, shallow ulcer to lateral aspect of right foot noted gradually shrinking in size healthy pink granulating tissue no drainage Skin: No rash Reports - Labs CBC & BMP: 03/24/17 05:41 03/24/17 05:41 Labs: Laboratory Results - last 24 hr 03/23/17 03/23/17 03/23/17 20:25 20:25 20:25 WBC 7.8 RBC 3.82 Hgb 11.7 L Hct 34.7 L MCV 90.8 MCH 31 MCHC 33.7 RDW 15.4 Plt Count 148 MPV 12.0 Neut % (Auto) 81.1 H Lymph % (Auto) 7.8 L [place] % (Auto) 8.9 Eos % (Auto) 0.8 Baso % (Auto) 0.4 Neut # (Auto) 6.4 Lymph # (Auto) 0.6 L [place] # (Auto) 0.7 Eos # (Auto) 0.1 Baso # (Auto) 0.0 Immature Gran % 1.0 Nucleated RBC % 0.0 Immature Gran # 0.08 Nucleated RBCs # 0.00 Sodium 142 Potassium 3.3 L Chloride 104 Carbon Dioxide 25 Anion Gap 16.3 H BUN 9 Creatinine 1.30 GFR Calculation 94 BUN/Creatinine Ratio 6.00 Glucose 207 H POC Glucose Calculated Osmolality 287.1 Calcium 8.5 Magnesium Total Bilirubin 0.90 AST 26 ALT 32 Alkaline Phosphatase 102 Total Protein 6.5 Albumin 3.1 L Globulin 3.4 Albumin/Globulin Ratio 0.9 L Amylase 23 L Lipase 72.0 L Urine Color Melissa Urine Appearance Slightly hazy Urine pH 5.0 Ur Specific [place] 1.018 Urine Protein 100 Urine Glucose (UA) 150 Urine Ketones 20 Urine Blood Small Urine Nitrate Negative Urine Bilirubin Negative Urine Urobilinogen < 2.0 H Urine Leukocytes Trace Urine RBC 11 Urine WBC 10 Ur Squamous Epith Cells Occasional Urine Bacteria Moderate Hyaline Casts 6 Urine Mucus Occasional Urine Yeast (Budding) Moderate Ur Culture Indicated? Results to follow 03/23/17 03/24/17 03/24/17 20:25 05:41 05:41 WBC 6.1 RBC 3.60 L Hgb 10.6 L Hct 33.3 L MCV 92.5 MCH 29 MCHC 31.8 L RDW 15.4 Plt Count 141 MPV 11.6 Neut % (Auto) 78.4 H Lymph % (Auto) 8.1 L [place] % (Auto) 10.9 Eos % (Auto) 0.8 Baso % (Auto) 0.3 Neut # (Auto) 4.8 Lymph # (Auto) 0.5 L [place] # (Auto) 0.7 Eos # (Auto) 0.1 Baso # (Auto) 0.0 Immature Gran % 1.5 Nucleated RBC % 0.0 Immature Gran # 0.09 Nucleated RBCs # 0.00 Sodium 140 Potassium 4.0 Chloride 104 Carbon Dioxide 24 Anion Gap 16.0 H BUN 10 Creatinine 1.30 GFR Calculation 99 BUN/Creatinine Ratio 7.00 Glucose 199 H POC Glucose Calculated Osmolality 283.4 Calcium 7.8 L Magnesium 1.9 Total Bilirubin AST ALT Alkaline Phosphatase Total Protein Albumin Globulin Albumin/Globulin Ratio Amylase Lipase Urine Color Urine Appearance Urine pH Ur Specific [place] Urine Protein Urine Glucose (UA) Urine Ketones Urine Blood Urine Nitrate Urine Bilirubin Urine Urobilinogen Urine Leukocytes Urine RBC Urine WBC Ur Squamous Epith Cells Urine Bacteria Hyaline Casts Urine Mucus Urine Yeast (Budding) Ur Culture Indicated? 03/24/17 03/24/17 03/24/17 07:05 10:51 11:21 WBC RBC Hgb Hct MCV MCH MCHC RDW Plt Count MPV Neut % (Auto) Lymph % (Auto) [place] % (Auto) Eos % (Auto) Baso % (Auto) Neut # (Auto) Lymph # (Auto) [place] # (Auto) Eos # (Auto) Baso # (Auto) Immature Gran % Nucleated RBC % Immature Gran # Nucleated RBCs # Sodium Potassium Chloride Carbon Dioxide Anion Gap BUN Creatinine GFR Calculation BUN/Creatinine Ratio Glucose POC Glucose 220 H 233 H 227 H Calculated Osmolality Calcium Magnesium Total Bilirubin AST ALT Alkaline Phosphatase Total Protein Albumin Globulin Albumin/Globulin Ratio Amylase Lipase Urine Color Urine Appearance Urine pH Ur Specific [place] Urine Protein Urine Glucose (UA) Urine Ketones Urine Blood Urine Nitrate Urine Bilirubin Urine Urobilinogen Urine Leukocytes Urine RBC Urine WBC Ur Squamous Epith Cells Urine Bacteria Hyaline Casts Urine Mucus Urine Yeast (Budding) Ur Culture Indicated? 03/24/17 15:55 WBC RBC Hgb Hct MCV MCH MCHC RDW Plt Count MPV Neut % (Auto) Lymph % (Auto) [place] % (Auto) Eos % (Auto) Baso % (Auto) Neut # (Auto) Lymph # (Auto) [place] # (Auto) Eos # (Auto) Baso # (Auto) Immature Gran % Nucleated RBC % Immature Gran # Nucleated RBCs # Sodium Potassium Chloride Carbon Dioxide Anion Gap BUN Creatinine GFR Calculation BUN/Creatinine Ratio Glucose POC Glucose 198 H Calculated Osmolality Calcium Magnesium Total Bilirubin AST ALT Alkaline Phosphatase Total Protein Albumin Globulin Albumin/Globulin Ratio Amylase Lipase Urine Color Urine Appearance Urine pH Ur Specific [place] Urine Protein Urine Glucose (UA) Urine Ketones Urine Blood Urine Nitrate Urine Bilirubin Urine Urobilinogen Urine Leukocytes Urine RBC Urine WBC Ur Squamous Epith Cells Urine Bacteria Hyaline Casts Urine Mucus Urine Yeast (Budding) Ur Culture Indicated? - Reports Microbiology: Microbiology 03/23/17 Unknown Urine Culture - Preliminary Urine,Voided No Growth at 12 hours. 03/24/17 03:14 Clostridium difficile Toxin Assay - Final Stool Positive for CDiff A &/or B Ag - Diagnostic Findings Procedure: CT Abdomen and Pelvis: report reviewed by me (No acute pathology) Specialty Discharge - Follow Up or Referrals
[2017-03-24] MEDS: LINEZOLID 600 MG TABLET PO SCH (21:59)
[2017-03-24] MEDS: ACETIC ACID 0.25% IRRIGATION 1,000 ML BOTTLE IRRIG SCH (22:10)
[2017-03-24] MEDS: INSULIN GLARGINE 100 UNIT/ML SUBCUT SCH (23:21)
[2017-03-25] MEDS: SODIUM CHLORIDE 0.9% 1,000 ML IV SCH ×3 (00:03→20:05)
[2017-03-25] MEDS: metroNIDAZOLE INJ 500 MG in PREMIX 1 EACH IV SCH ×4 (00:16→22:48)
[2017-03-25] MEDS: MORPHINE 2 MG/1 ML SYRINGE IV PRN ×3 (04:47→22:48)
[2017-03-25] MEDS: ONDANSETRON 4 MG/2 ML VIAL IV PRN (04:48)
[2017-03-25 06:32] LABS: Hematocrit 30.6 VOL% (42.0-52.0); Hemoglobin 10.1 GM/DL (14.0-18.0); Red Blood Count 3.34 MC/CUMM (3.8-5.5); White Blood Count 5.2 T/CUMM (4-12)
[2017-03-25 06:33] LABS: Basophils % 0.2 % (0.0-0.8); Eosinophils % 0.6 % (0.00-10.9); Immature Granulocytes % 1.5 %; Immature Granulocytes Absolute 0.08 #; Lymphocytes # 0.4 10*3/uL (1.4-4.0); Lymphocytes % 8.5 % (21.2-54.2); Mean Corpuscular Hemoglobin 30 PG (27-34); Mean Corpuscular Volume 91.6 FL (87-102); Monocytes # 0.6 10*3/uL (0.11-0.8); Monocytes % 10.6 % (1.7-12.7); Neutrophils # 4.1 10*3/uL (1.4-7.4); Neutrophils % 78.6 % (38.7-73.9); Platelet Count 140 T/CUMM (130-400); Red Cell Distribution Width 15.1 % (9.3-17.3)
[2017-03-25 07:13] LABS: Calcium 7.7 MG/DL (8.5-10.1); Osmolality,Calculated 284.1 MOS/KG (273-304); Potassium 4.2 MMOL/L (3.5-5.1)
[2017-03-25] MEDS ORDERED: cefTRIAXone 1,000 MG in SODIUM CHLORIDE 0.9% 100 ML IV SCH (09:00)
[2017-03-25] MEDS: INSULIN REGULAR 100 UNIT/ML SUBCUT SCH ×4 (09:06→22:58)
[2017-03-25] MEDS: INSULIN LISPRO 100 UNIT/ML SUBCUT SCH ×3 (09:06→17:04)
[2017-03-25] MEDS: POTASSIUM CHLORIDE 8 MEQ CAPSULE PO SCH (09:07)
[2017-03-25] MEDS: PANTOPRAZOLE 40 MG TABLET PO SCH (09:07)
[2017-03-25] MEDS: GABAPENTIN 300 MG CAPSULE PO SCH ×2 (09:07→22:58)
[2017-03-25] MEDS: ENOXAPARIN 30 MG/0.3 ML SYRINGE SUBCUT SCH (09:07)
[2017-03-25] MEDS: ACETIC ACID 0.25% IRRIGATION 1,000 ML BOTTLE IRRIG SCH ×2 (09:07→22:59)
[2017-03-25] MEDS: METOPROLOL SUCCINATE XL 25 MG TABLET PO SCH (09:08)
[2017-03-25] MEDS: LINEZOLID 600 MG TABLET PO SCH ×2 (09:08→22:57)
[2017-03-25] MEDS: predniSONE 20 MG TABLET PO SCH (09:08)
[2017-03-25] MEDS: traMADol 50 MG TABLET PO SCH ×2 (09:08→22:58)
[2017-03-25] MEDS: azaTHIOprine 50 MG TABLET PO SCH ×2 (09:08→22:57)
[2017-03-25] MEDS: BACITRACIN OINT 0.9 GM PACK TOP SCH (09:08)
[2017-03-25] MEDS: cefTRIAXone 2,000 MG in SODIUM CHLORIDE 0.9% 100 ML IV SCH (09:12)
[2017-03-25] MEDS: VANCOMYCIN 50 MG/ML 60 ML/BOTTLE PO SCH ×4 (09:12→22:54)
--- NOTE | 2017-03-25 09:29 | Internal Med Progress Note ---
Assessment and Plan (1) Nausea and vomiting Status: Acute Assessment and plan: 51-year-old male admitted to acute care. * Nausea vomiting and abdominal pain. Patient has been on IV antibiotics for last several weeks. His stool was checked for C. difficile and is positive. Continue current treatment * Osteomyelitis of the right diabetic foot ulcer. Continue present treatment * Diabetes. Will continue home insulin and will start him on sliding scale * Sarcoidosis. Patient is on prednisone and azathioprine. These will be continued. * Chronic neck pain secondary to sarcoidosis. Continue pain medications * History of recent GI bleeding. Stable hematocrit. * Discussed with patient in detail Current Visit: Yes (2) Chronic osteomyelitis of right foot Status: Acute Current Visit: No (3) Diabetes mellitus type 1, uncontrolled Status: Acute Current Visit: No Qualifiers: Diabetes mellitus complication detail: with other circulatory complications (4) Gastroenteritis Status: Acute Current Visit: No (5) History of sarcoidosis Status: Acute Current Visit: No (6) Peripheral vascular disease Status: Acute Current Visit: No Internal Medicine - PN: Subj Interval history: Patient is still complaining of abdominal discomfort and pain. He had 2 or 3 watery stools since last night. No chest pain or shortness of breath Exam (Progress Note) - Constitutional Vitals: Period Temp Pulse Resp BP Sys/Babb Pulse Ox Last 24 Hr 96.3 F-98 F 79-100 18-100 95-147/40-85 91-95 Exam: Examination: GENERAL: NAD. HEENT: PERRLA. EOMI. NECK: Neck is supple. CVS: Regular rate and rhythm. S1 and S2 are normal. RESPIRATORY: Lungs are clear. ABDOMEN: Soft but diffusely tender. Bowel sounds are present. EXT: Trace edema on the right lower extremity BENEFITS TECHNICIAN: Nonfocal SKIN: Warm and dry. Dressings are present on the foot with infection MSK: No obvious deformity. Left BKA. Results - Labs CBC & BMP: 03/25/17 05:31 03/25/17 05:31 Lab Results: I have reviewed the past 24 hour labs Quality Measures - Stroke Symptom Onset Unknown: No Specialty Discharge - Follow Up or Referrals
--- NOTE | 2017-03-25 11:23 | Infectious Disease Progress ---
Assessment and Plan (1) C. difficile diarrhea Status: Acute Assessment and plan: Patient now has diarrhea. Recommendations: Continue Flagyl. Also confident that he is no longer vomiting can switch to p.o. Current Visit: Yes (2) Nausea and vomiting Status: Acute Assessment and plan: Current Visit: Yes (3) Ulcer of right foot due to type 2 diabetes mellitus Status: Acute Current Visit: Yes (4) Chronic osteomyelitis of right foot Status: Acute Assessment and plan: When about a week left on ceftriaxone. The patient only got linezolid for 2 weeks we found out this today. He had strep and MRSA in the bone culture and so he will need ~4 more weeks of linezolid. Current Visit: No Infectious Disease - PN: Subj Interval history: Patient said he started having diarrhea last night 3 liquid stools overnight and 1 so far this morning. Abdominal pain is a bit better and no more vomiting. No fever. Feels somewhat better overall today and was able to eat a bit of breakfast. Infectious Disease Exam (PN) - Constitutional Vitals: Temp Pulse Resp BP Pulse Ox 96.6 F L 89 20 147/85 94 L 03/25/17 08:00 03/25/17 08:00 03/25/17 08:00 03/25/17 08:00 03/25/17 08:00 General appearance: mild distress Exam: General appearance: no acute distress, sitting in chair - Eye Eye exam: Present: EOMI. no icterus Pupils: Present: NAN - ENT ENT exam: no oral exudates - Neck Neck exam: supple, no lymphadenopathy - Respiratory Respiratory exam: vesicular BS, no crepitations or wheezes - Cardiovascular Cardiovascular exam: regular rate and rhythm, no murmurs - GI/Abdominal GI/Abdominal exam: normal bowel sounds, soft, non-tender, no organomegaly or mass - Extremities Exam Extremities exam: Right leg and foot bandaged - Skin Skin exam: no rash Results - Labs CBC & BMP: 03/25/17 05:31 03/25/17 05:31 Lab Results: I have reviewed the past 24 hour labs Quality Measures - Stroke Symptom Onset Unknown: No Specialty Discharge - Follow Up or Referrals
[2017-03-25] MEDS: INSULIN GLARGINE 100 UNIT/ML SUBCUT SCH (22:55)
[2017-03-26] MEDS: SODIUM CHLORIDE 0.9% 1,000 ML IV SCH ×3 (03:11→18:39)
[2017-03-26] MEDS: metroNIDAZOLE INJ 500 MG in PREMIX 1 EACH IV SCH (07:07)
--- NOTE | 2017-03-26 07:46 | Internal Med Progress Note ---
Assessment and Plan (1) Nausea and vomiting Status: Acute Assessment and plan: 51-year-old male admitted to acute care. * Nausea vomiting and abdominal pain. Much better. Will change him to p.o. Flagyl * Osteomyelitis of the right diabetic foot ulcer. Continue present treatment. Treatment per Dr. Hicks * Diabetes. Stable * Sarcoidosis. Patient is on prednisone and azathioprine. * Chronic neck pain secondary to sarcoidosis. Continue pain medications * History of recent GI bleeding. Stable hematocrit. * Hopefully home in the morning Current Visit: Yes (2) Chronic osteomyelitis of right foot Status: Acute Current Visit: No (3) Diabetes mellitus type 1, uncontrolled Status: Acute Current Visit: No Qualifiers: Diabetes mellitus complication detail: with other circulatory complications (4) Gastroenteritis Status: Acute Current Visit: No (5) History of sarcoidosis Status: Acute Current Visit: No (6) Peripheral vascular disease Status: Acute Current Visit: No Internal Medicine - PN: Subj Interval history: Patient is feeling better. His abdominal pain has improved. His nausea is better. He is still having watery diarrhea. Exam (Progress Note) - Constitutional Vitals: Period Temp Pulse Resp BP Sys/Babb Pulse Ox Last 24 Hr 96.0 F-98.5 F 76-89 20-22 93-161/61-96 88-98 Exam: Examination: GENERAL: NAD. NECK: Neck is supple. CVS: Regular rate and rhythm. S1 and S2 are normal. RESPIRATORY: Lungs are clear. ABDOMEN: Soft and nontender. Bowel sounds are EXT: Trace edema on the right lower extremity GATE TENDER: Nonfocal SKIN: Warm and dry. MSK: No obvious deformity. Left BKA. Results - Labs CBC & BMP: 03/25/17 05:31 03/25/17 05:31 Lab Results: I have reviewed the past 24 hour labs Quality Measures - Stroke Symptom Onset Unknown: No Specialty Discharge - Follow Up or Referrals
[2017-03-26 07:55] LABS: Basophils % 0.4 % (0.0-0.8); Eosinophils % 0.7 % (0.00-10.9); Hemoglobin 9.8 GM/DL (14.0-18.0); Immature Granulocytes % 1.2 %; Immature Granulocytes Absolute 0.07 #; Lymphocytes # 0.7 10*3/uL (1.4-4.0); Lymphocytes % 11.9 % (21.2-54.2); Mean Corpuscular HGB Conc 32.7 GM/DL (32-36); Mean Corpuscular Hemoglobin 30 PG (27-34); Mean Corpuscular Volume 91.5 FL (87-102); Mean Platelet Volume 11.3 FL (9.6-12.0); Monocytes # 0.5 10*3/uL (0.11-0.8); Monocytes % 8.8 % (1.7-12.7); Neutrophils # 4.4 10*3/uL (1.4-7.4); Platelet Count 146 T/CUMM (130-400); Red Blood Count 3.28 MC/CUMM (3.8-5.5); White Blood Count 5.7 T/CUMM (4-12)
[2017-03-26 08:20] LABS: Calcium 7.6 MG/DL (8.5-10.1); Osmolality,Calculated 280.3 MOS/KG (273-304); Potassium 3.6 MMOL/L (3.5-5.1)
[2017-03-26] MEDS: INSULIN LISPRO 100 UNIT/ML SUBCUT SCH ×3 (09:31→18:04)
[2017-03-26] MEDS: INSULIN REGULAR 100 UNIT/ML SUBCUT SCH ×3 (09:31→18:05)
[2017-03-26] MEDS: ACETIC ACID 0.25% IRRIGATION 1,000 ML BOTTLE IRRIG SCH (09:33)
[2017-03-26] MEDS: GABAPENTIN 300 MG CAPSULE PO SCH ×2 (09:34→20:45)
[2017-03-26] MEDS: ONDANSETRON 4 MG/2 ML VIAL IV PRN (09:34)
[2017-03-26] MEDS: POTASSIUM CHLORIDE 8 MEQ CAPSULE PO SCH (09:34)
[2017-03-26] MEDS: predniSONE 20 MG TABLET PO SCH (09:34)
[2017-03-26] MEDS: METOPROLOL SUCCINATE XL 25 MG TABLET PO SCH (09:34)
[2017-03-26] MEDS: LINEZOLID 600 MG TABLET PO SCH ×2 (09:34→20:44)
[2017-03-26] MEDS: BACITRACIN OINT 0.9 GM PACK TOP SCH (09:34)
[2017-03-26] MEDS: azaTHIOprine 50 MG TABLET PO SCH ×2 (09:35→20:45)
[2017-03-26] MEDS: PANTOPRAZOLE 40 MG TABLET PO SCH (09:35)
[2017-03-26] MEDS: VANCOMYCIN 50 MG/ML 60 ML/BOTTLE PO SCH ×3 (09:35→18:22)
[2017-03-26] MEDS: traMADol 50 MG TABLET PO SCH ×2 (09:35→20:44)
[2017-03-26] MEDS: metroNIDAZOLE 500 MG TABLET PO SCH ×3 (10:05→20:45)
[2017-03-26] MEDS: ENOXAPARIN 40 MG/0.4 ML SYRINGE SUBCUT SCH (11:38)
[2017-03-26] MEDS: cefTRIAXone 2,000 MG in SODIUM CHLORIDE 0.9% 100 ML IV SCH (12:55)
[2017-03-26] MEDS: MORPHINE 2 MG/1 ML SYRINGE IV PRN ×2 (15:35→21:45)
--- NOTE | 2017-03-26 17:08 | Infectious Disease Progress ---
Assessment and Plan (1) C. difficile diarrhea Status: Acute Assessment and plan: Diarrhea has improved since yesterday. Recommendations: Continue Flagyl. Since this was not a severe case of C. difficile, that is there was no fever or leukocytosis or acute deterioration in renal function, can discontinue the oral vancomycin. Current Visit: Yes (2) Nausea and vomiting Status: Acute Assessment and plan: Current Visit: Yes (3) Ulcer of right foot due to type 2 diabetes mellitus Status: Acute Current Visit: Yes (4) Chronic osteomyelitis of right foot Status: Acute Assessment and plan: Has about a week left on ceftriaxone. He had strep and MRSA in the bone culture and so he will need ~4 more weeks of linezolid. I am okay with the patient going home tomorrow to continue ceftriaxone at the infusion center and also linezolid at home. He should be given a two-week supply in case he has decrease in platelet count requiring switch to daptomycin. I can see the patient in the office next week . I will sign off. Current Visit: No Infectious Disease - PN: Subj Interval history: Patient says his diarrhea has resolved, only had one liquid stool so far today. No more abdominal pain. Appetite is almost back to normal. Afebrile. Infectious Disease Exam (PN) - Constitutional Vitals: Temp Pulse Resp BP Pulse Ox 96.4 F L 80 20 132/84 98 03/26/17 15:52 03/26/17 15:52 03/26/17 15:53 03/26/17 15:52 03/26/17 15:52 General appearance: mild distress Exam: General appearance: no acute distress, watching TV - Eye Eye exam: Present: EOMI. no icterus Pupils: Present: NAN - Respiratory Respiratory exam: vesicular BS, no crepitations or wheezes - Cardiovascular Cardiovascular exam: regular rate and rhythm, no murmurs - GI/Abdominal GI/Abdominal exam: normal bowel sounds, soft, non-tender, no organomegaly or mass - Extremities Exam Extremities exam: Right leg and foot bandaged - Skin Skin exam: no rash Results - Labs CBC & BMP: 03/26/17 07:44 03/26/17 07:44 Lab Results: I have reviewed the past 24 hour labs Quality Measures - Stroke Symptom Onset Unknown: No Specialty Discharge - Follow Up or Referrals
[2017-03-26] MEDS: INSULIN GLARGINE 100 UNIT/ML SUBCUT SCH (20:45)
[2017-03-27] MEDS: SODIUM CHLORIDE 0.9% 1,000 ML IV SCH (02:39)
[2017-03-27] MEDS: ACETIC ACID 0.25% IRRIGATION 1,000 ML BOTTLE IRRIG SCH ×2 (06:24→09:05)
[2017-03-27] MEDS: INSULIN REGULAR 100 UNIT/ML SUBCUT SCH ×2 (06:24→09:36)
[2017-03-27] MEDS: azaTHIOprine 50 MG TABLET PO SCH (08:32)
[2017-03-27] MEDS: POTASSIUM CHLORIDE 8 MEQ CAPSULE PO SCH (08:32)
[2017-03-27] MEDS: GABAPENTIN 300 MG CAPSULE PO SCH (08:33)
[2017-03-27] MEDS: traMADol 50 MG TABLET PO SCH (08:33)
[2017-03-27] MEDS: METOPROLOL SUCCINATE XL 25 MG TABLET PO SCH (08:33)
[2017-03-27] MEDS: predniSONE 20 MG TABLET PO SCH (08:33)
[2017-03-27] MEDS: PANTOPRAZOLE 40 MG TABLET PO SCH (08:33)
[2017-03-27] MEDS: LINEZOLID 600 MG TABLET PO SCH (08:34)
[2017-03-27] MEDS: ENOXAPARIN 40 MG/0.4 ML SYRINGE SUBCUT SCH (08:36)
--- NOTE | 2017-03-27 08:38 | Discharge Summary ---
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 He was admitted through the emergency room with nausea vomiting and abdominal pain. Patient has been on IV antibiotics for last several weeks. He was positive for C. difficile. Patient had evaluation during the hospital stay by infectious diseases and general surgery. He was initially hypotensive. He was given IV fluids and did well. His blood cultures have been negative. His repeat C. difficile is negative. He has improved. His blood sugars have been up and down. He is on prednisone and azathioprine for sarcoidosis. Patient was continued on IV antibiotics during the hospital stay along with Zyvox. These will be continued as outpatient per Dr. Hicks's advice. I will see him back in office in about 10 days. Diagnosis - Discharge Diagnosis (1) Nausea and vomiting Status: Acute (2) Chronic osteomyelitis of right foot Status: Acute (3) Diabetes mellitus type 1, uncontrolled Status: Acute (4) Gastroenteritis Status: Acute (5) History of sarcoidosis Status: Acute (6) Peripheral vascular disease Status: Acute Specialty Discharge - Follow Up or Referrals Discharge Plan - Discharge Data Disposition: Disch To Home/Self Care Condition at Discharge: Stable Discharge Diet: advance to your usual diet Activity: resume usual activities as tolerated - Discharge Medications New Linezolid Tab [Zyvox Tab] 600 mg PO BID tablet Ondansetron [Ondansetron Odt] 4 mg PO DIRECTED PRN #10 tab.rapdis PRN Reason: Nausea/Vomiting metroNIDAZOLE TAB [Flagyl Cap/Tab] 500 mg PO TID #30 tablet Continue Metoprolol Succinate 25 mg PO DAILY Gabapentin Cap/Tab [Neurontin Cap/Tab] 300 mg PO BID predniSONE TAB [PredniSONE] 20 mg PO DAILY Pantoprazole Sodium [Protonix] 40 mg PO DAILY azaTHIOprine [Azathioprine] 50 mg PO BID traMADol TAB [Ultram] 50 mg PO BID Insulin Detemir [Levemir] 75 unit SUBCUT BEDTIME HYDROcodone/ACETAMIN 10-325 [Wall 10-325] 1 tablet PO QID PRN PRN Reason: Pain Potassium Chloride Cap/Tab [Micro K] 8 meq PO DAILY Insulin Lispro [HumaLOG] 10 unit SUBCUT TID Acetamin/Codeine 120-12 mg/5Ml [Tylenol/Codeine Liquid] 12.5 ml PO Q6H PRN # 120 ml PRN Reason: Pain cefTRIAXone [Rocephin] 1,000 mg IV Q24H #0 vial HYDROcodone/ACETAMIN 7.5-325 [Wall 7.5-325] 1 tablet PO Q6-8H PRN #30 tablet PRN Reason: Pain Moderate (4-7) Skin Healing Oint (Aquaphor) [Aquaphor] 1 applic TOP PRN PRN applic PRN Reason: Dry Skin Sodium Hypochlorite 0.25% Irr [Dakins 1/2 Strength 0.25% Soln] 20 ml TOP DAILY #1 bottle Discontinued Linezolid Inj [Zyvox Inj] 600 mg IV Q12H - Follow Up or Referral - Forms/Instructions Instructions: Urinary Tract Infection in Men (ED) Additional Discharge Instructions: Appointment in office in 10 days. Please call in his medications. Exam - Constitutional Vitals: Period Temp Pulse Resp BP Sys/Babb Pulse Ox Last 24 Hr 96.0 F-97.2 F 78-88 20-20 113-135/66-84 94-98 Exam: Examination: GENERAL: NAD. NECK: Neck is supple. CVS: Regular rate and rhythm. RESPIRATORY: Lungs are clear. ABDOMEN: Soft and nontender. EXT: Trace edema on the right lower extremity [employer]IC: Nonfocal SKIN: Warm and dry. MSK: No obvious deformity. Left BKA. Discharge Results Labs on day of discharge: Labs from last 24 hours 03/26/17 03/26/17 03/26/17 20:44 15:02 11:54 POC Glucose 184 H 188 H 182 H DS: Provider Date of admission: 03/24/17 03:39 Primary care physician: Dank Rooney MD Attending physician on admission: Dank Rooney MD Consults: 03/24/17 08:04 Consult to Physician [CONS] Routine Comment: chronic osteomylitis Consulting Provider: Marvin Gloria Person Notified: [email or web address] Date Notified: 03/24/17 Time Notified: 08:33 03/24/17 08:06 Consult to Physician [CONS] Routine Comment: osteomylitis- pt known to you Consulting Provider: Yandy Davison Person Notified: [email or web address] Date Notified: 03/24/17 Time Notified: 08:39 Discharging clinician: Dank Rooney MD
[2017-03-27] MEDS: cefTRIAXone 2,000 MG in SODIUM CHLORIDE 0.9% 100 ML IV SCH (08:42)
[2017-03-27] MEDS: metroNIDAZOLE 500 MG TABLET PO SCH (08:44)
[2017-03-27] MEDS: BACITRACIN OINT 0.9 GM PACK TOP SCH (09:05)
[2017-03-27 09:21] VITALS: BP 140/77
[2017-03-27] MEDS: INSULIN LISPRO 100 UNIT/ML SUBCUT SCH (09:37)
== END 2017-03-27 12:20 | disposition home or self-care (01) | DRG 372 ==
LOC: EDBD → N.ED 18:15 → N.EDINP 03-24 03:39 → N.2E 03-24 04:38
PROVIDERS: ADMIT Internal Medicine; ATTEND Internal Medicine

== ENCOUNTER 2017-06-29 06:05 | Inpatient (IN) ==
[2017-06-26 12:50] LABS: Basophils % 0.3 % (0.0-0.8); Eosinophils % 0.6 % (0.00-10.9); Hematocrit 30.9 VOL% (42.0-52.0); Hemoglobin 10.2 GM/DL (14.0-18.0); Immature Granulocytes % 0.6 %; Immature Granulocytes Absolute 0.04 #; Lymphocytes # 0.5 10*3/uL (1.4-4.0); Lymphocytes % 7.1 % (21.2-54.2); Mean Corpuscular Hemoglobin 30 PG (27-34); Mean Corpuscular Volume 92.2 FL (87-102); Mean Platelet Volume 10.9 FL (9.6-12.0); Monocytes # 0.7 10*3/uL (0.11-0.8); Neutrophils # 5.4 10*3/uL (1.4-7.4); Neutrophils % 81.4 % (38.7-73.9); Platelet Count 179 T/CUMM (130-400); Red Blood Count 3.35 MC/CUMM (3.8-5.5); Red Cell Distribution Width 13.8 % (9.3-17.3); White Blood Count 6.6 T/CUMM (4-12)
[2017-06-26 13:01] LABS: PT Patient Result 10.4 SECS; Partial Thromboplastin Time 36.3 SECS (0-40)
[2017-06-26 13:36] LABS: Albumin 2.6 G/DL (3.4-5.0); Bilirubin,Total 1.2 MG/DL (0.2-1.0); Calcium 8.6 MG/DL (8.5-10.1); Osmolality,Calculated 280.5 MOS/KG (273-304); Potassium 3.4 MMOL/L (3.5-5.1); Total Protein 5.9 G/DL (6.4-8.3)
[~2017-06-29 06:05] MED LIST: ceFAZolin 2,000 MG in PREMIX 1 EACH IV ONE
[2017-06-29] MEDS: LACTATED RINGERS 1,000 ML IV SCH ×2 (06:30→09:01)
[2017-06-29] MEDS ORDERED: METOPROLOL TARTRATE 25 MG TABLET ONE (06:36)
[2017-06-29] MEDS ORDERED: METOPROLOL TARTRATE 25 MG TABLET PO STA (06:37)
[2017-06-29] MEDS ORDERED: BUPIVACAINE 0.25% 50 ML VIAL ONE (07:20)
[2017-06-29] MEDS ORDERED: PROPOFOL 200 MG/20 ML VIAL IV ONE (07:45)
[2017-06-29] MEDS ORDERED: KETOROLAC 30 MG/1 ML VIAL ONE (07:45)
[2017-06-29] MEDS ORDERED: HYDROCORTISONE 100 MG VIAL ONE (07:45)
[2017-06-29] MEDS ORDERED: DEXAMETHASONE 10 MG/1 ML VIAL ONE (07:45)
[2017-06-29] MEDS ORDERED: PHENYLEPHRINE 1 MG/10 ML SYRINGE IV ONE (07:45)
[2017-06-29] MEDS ORDERED: LIDOCAINE 1% 5 ML VIAL ONE (07:45)
[2017-06-29] MEDS ORDERED: ONDANSETRON 4 MG/2 ML VIAL ONE (07:45)
[2017-06-29] MEDS ORDERED: GLUCAGON 1 MG VIAL IM PRN (09:38)
[2017-06-29] MEDS ORDERED: ACETAMINOPHEN 325 MG TABLET PO PRN (09:38)
[2017-06-29] MEDS ORDERED: ONDANSETRON 4 MG/2 ML VIAL IV PRN ×2 (09:38→10:15)
[2017-06-29] MEDS ORDERED: DEXTROSE 50% 25 GM/50 ML VIAL IV PRN (09:38)
[2017-06-29] MEDS ORDERED: SKIN HEALING OINT (AQUAPHOR) 50 GM TUBE TOP PRN (09:45)
[2017-06-29] MEDS ORDERED: CHLORHEXIDINE 4% SOLN 118 ML BOTTLE TOP ONE (09:47)
[2017-06-29] MEDS ORDERED: fentaNYL 100 MCG/2 ML VIAL ONE (09:50)
[2017-06-29] MEDS ORDERED: MIDAZOLAM 2 MG/2 ML VIAL ONE (09:52)
[2017-06-29] MEDS ORDERED: ePHEDrine 50 MG/ML AMP ONE (09:52)
[2017-06-29] MEDS: HYDROmorphone 2 MG/1 ML VIAL IV PRN ×7 (10:15→23:01)
[2017-06-29] MEDS ORDERED: INFLUENZA VIRUS VACCINE 0.5 ML SYRINGE IM ONE (11:57)
[2017-06-29] MEDS: INSULIN REGULAR 100 UNIT/ML SUBCUT SCH ×3 (12:56→21:20)
[2017-06-29] MEDS: INSULIN LISPRO 100 UNIT/ML SUBCUT SCH ×2 (12:56→17:16)
[2017-06-29] MEDS: SODIUM CHLORIDE 0.9% 1,000 ML IV SCH (12:57)
[2017-06-29] MEDS: ceFAZolin 2,000 MG in PREMIX 1 EACH IV SCH ×2 (15:33→23:05)
[2017-06-29] MEDS: INSULIN GLARGINE 100 UNIT/ML SUBCUT SCH (21:20)
[2017-06-29] MEDS: DOCUSATE SODIUM 100 MG CAPSULE PO SCH (21:21)
[2017-06-29] MEDS: MAGNESIUM CHLORIDE 64 MG TABLET PO SCH (21:21)
[2017-06-29] MEDS: azaTHIOprine 50 MG TABLET PO SCH (21:21)
[2017-06-29] MEDS: SIMVASTATIN 20 MG TABLET PO SCH (21:21)
[2017-06-29] MEDS: LINEZOLID 600 MG TABLET PO SCH (21:22)
[2017-06-29] MEDS: CIPROFLOXACIN 500 MG TABLET PO SCH (21:22)
[2017-06-29] MEDS: GABAPENTIN 600 MG TABLET PO SCH (21:22)
[2017-06-30] MEDS: HYDROmorphone 2 MG/1 ML VIAL IV PRN ×5 (03:05→22:28)
[2017-06-30] MEDS: SODIUM CHLORIDE 0.9% 1,000 ML IV SCH ×2 (03:49→16:43)
[2017-06-30 06:42] LABS: Basophils % 0.2 % (0.0-0.8); Hematocrit 33.4 VOL% (42.0-52.0); Hemoglobin 11.1 GM/DL (14.0-18.0); Immature Granulocytes % 3.6 %; Immature Granulocytes Absolute 0.43 #; Lymphocytes # 0.6 10*3/uL (1.4-4.0); Lymphocytes % 5.3 % (21.2-54.2); Mean Corpuscular HGB Conc 33.2 GM/DL (32-36); Mean Corpuscular Hemoglobin 30 PG (27-34); Mean Corpuscular Volume 90.5 FL (87-102); Mean Platelet Volume 11.8 FL (9.6-12.0); Monocytes # 0.6 10*3/uL (0.11-0.8); Monocytes % 5.1 % (1.7-12.7); Neutrophils # 10.3 10*3/uL (1.4-7.4); Neutrophils % 85.8 % (38.7-73.9); Platelet Count 293 T/CUMM (130-400); Red Blood Count 3.69 MC/CUMM (3.8-5.5); Red Cell Distribution Width 13.3 % (9.3-17.3); White Blood Count 12.1 T/CUMM (4-12)
[2017-06-30 07:09] LABS: Calcium 8.4 MG/DL (8.5-10.1); Potassium 4.2 MMOL/L (3.5-5.1)
[2017-06-30] MEDS: predniSONE 20 MG TABLET PO SCH (08:31)
[2017-06-30] MEDS: METOPROLOL SUCCINATE XL 25 MG TABLET PO SCH (08:31)
[2017-06-30] MEDS: MAGNESIUM CHLORIDE 64 MG TABLET PO SCH ×2 (08:31→20:44)
[2017-06-30] MEDS: POTASSIUM CHLORIDE 8 MEQ CAPSULE PO SCH (08:32)
[2017-06-30] MEDS: azaTHIOprine 50 MG TABLET PO SCH ×2 (08:32→20:45)
[2017-06-30] MEDS: DOCUSATE SODIUM 100 MG CAPSULE PO SCH ×2 (08:32→20:45)
[2017-06-30] MEDS: LINEZOLID 600 MG TABLET PO SCH ×2 (08:33→20:44)
[2017-06-30] MEDS: CIPROFLOXACIN 500 MG TABLET PO SCH ×2 (08:33→20:44)
[2017-06-30] MEDS: GABAPENTIN 600 MG TABLET PO SCH ×2 (08:33→20:44)
[2017-06-30] MEDS: INSULIN LISPRO 100 UNIT/ML SUBCUT SCH ×3 (08:35→18:24)
[2017-06-30] MEDS: INSULIN REGULAR 100 UNIT/ML SUBCUT SCH ×4 (08:37→20:43)
[2017-06-30] MEDS: PANTOPRAZOLE 40 MG VIAL IV SCH (08:38)
[2017-06-30] MEDS: ENOXAPARIN 40 MG/0.4 ML SYRINGE SUBCUT SCH (12:43)
[2017-06-30] MEDS: INSULIN GLARGINE 100 UNIT/ML SUBCUT SCH (20:43)
[2017-06-30] MEDS: SIMVASTATIN 20 MG TABLET PO SCH (20:44)
[2017-07-01] MEDS: SODIUM CHLORIDE 0.9% 1,000 ML IV SCH ×3 (04:33→18:51)
[2017-07-01] MEDS: HYDROmorphone 2 MG/1 ML VIAL IV PRN ×2 (06:08→22:06)
[2017-07-01] MEDS: DOCUSATE SODIUM 100 MG CAPSULE PO SCH ×2 (09:20→20:39)
[2017-07-01] MEDS: INSULIN REGULAR 100 UNIT/ML SUBCUT SCH ×4 (09:20→20:38)
[2017-07-01] MEDS: ENOXAPARIN 40 MG/0.4 ML SYRINGE SUBCUT SCH (09:20)
[2017-07-01] MEDS: INSULIN LISPRO 100 UNIT/ML SUBCUT SCH ×3 (09:21→17:56)
[2017-07-01] MEDS: CIPROFLOXACIN 500 MG TABLET PO SCH ×2 (09:21→20:36)
[2017-07-01] MEDS: METOPROLOL SUCCINATE XL 25 MG TABLET PO SCH (09:21)
[2017-07-01] MEDS: GABAPENTIN 600 MG TABLET PO SCH ×2 (09:21→20:36)
[2017-07-01] MEDS: POTASSIUM CHLORIDE 8 MEQ CAPSULE PO SCH (09:21)
[2017-07-01] MEDS: MAGNESIUM CHLORIDE 64 MG TABLET PO SCH ×2 (09:21→20:37)
[2017-07-01] MEDS: azaTHIOprine 50 MG TABLET PO SCH ×2 (09:21→20:37)
[2017-07-01] MEDS: predniSONE 20 MG TABLET PO SCH (09:21)
[2017-07-01] MEDS: LINEZOLID 600 MG TABLET PO SCH ×2 (09:21→20:37)
[2017-07-01] MEDS: PANTOPRAZOLE 40 MG VIAL IV SCH (09:59)
[2017-07-01] MEDS: BACITRACIN OINT 0.9 GM PACK TOP SCH (17:57)
[2017-07-01] MEDS: SIMVASTATIN 20 MG TABLET PO SCH (20:37)
[2017-07-01] MEDS: INSULIN GLARGINE 100 UNIT/ML SUBCUT SCH (20:39)
[2017-07-02] MEDS: HYDROmorphone 2 MG/1 ML VIAL IV PRN ×4 (02:27→20:51)
[2017-07-02] MEDS: SODIUM CHLORIDE 0.9% 1,000 ML IV SCH ×2 (05:27→22:44)
[2017-07-02] MEDS: INSULIN REGULAR 100 UNIT/ML SUBCUT SCH ×4 (08:05→20:56)
[2017-07-02] MEDS: INSULIN LISPRO 100 UNIT/ML SUBCUT SCH ×3 (08:54→16:03)
[2017-07-02] MEDS: PANTOPRAZOLE 40 MG VIAL IV SCH (08:54)
[2017-07-02] MEDS: CIPROFLOXACIN 500 MG TABLET PO SCH (08:55)
[2017-07-02] MEDS: ENOXAPARIN 40 MG/0.4 ML SYRINGE SUBCUT SCH (08:55)
[2017-07-02] MEDS: GABAPENTIN 600 MG TABLET PO SCH ×2 (08:55→20:50)
[2017-07-02] MEDS: azaTHIOprine 50 MG TABLET PO SCH ×2 (08:55→20:50)
[2017-07-02] MEDS: METOPROLOL SUCCINATE XL 25 MG TABLET PO SCH (08:55)
[2017-07-02] MEDS: POTASSIUM CHLORIDE 8 MEQ CAPSULE PO SCH (08:55)
[2017-07-02] MEDS: MAGNESIUM CHLORIDE 64 MG TABLET PO SCH ×2 (08:55→20:50)
[2017-07-02] MEDS: BACITRACIN OINT 0.9 GM PACK TOP SCH (08:56)
[2017-07-02] MEDS: LINEZOLID 600 MG TABLET PO SCH (08:56)
[2017-07-02] MEDS: predniSONE 20 MG TABLET PO SCH (09:27)
[2017-07-02] MEDS: DOCUSATE SODIUM 100 MG CAPSULE PO SCH ×2 (09:27→20:51)
[2017-07-02] MEDS: metroNIDAZOLE 250 MG TABLET PO SCH ×2 (16:03→20:50)
[2017-07-02] MEDS: SIMVASTATIN 20 MG TABLET PO SCH (20:50)
[2017-07-02] MEDS: INSULIN GLARGINE 100 UNIT/ML SUBCUT SCH (20:56)
[2017-07-03] MEDS: HYDROmorphone 2 MG/1 ML VIAL IV PRN ×3 (02:20→13:51)
[2017-07-03 05:06] LABS: Basophils % 0.3 % (0.0-0.8); Eosinophils % 0.3 % (0.00-10.9); Hematocrit 34.8 VOL% (42.0-52.0); Hemoglobin 11.5 GM/DL (14.0-18.0); Immature Granulocytes % 3.1 %; Immature Granulocytes Absolute 0.24 #; Lymphocytes # 0.7 10*3/uL (1.4-4.0); Mean Corpuscular Hemoglobin 30 PG (27-34); Mean Corpuscular Volume 91.1 FL (87-102); Mean Platelet Volume 11.7 FL (9.6-12.0); Monocytes # 0.6 10*3/uL (0.11-0.8); NRBC # 0.02 10*3/uL; Neutrophils # 6.2 10*3/uL (1.4-7.4); Neutrophils % 79.3 % (38.7-73.9); Platelet Count 265 T/CUMM (130-400); Red Blood Count 3.82 MC/CUMM (3.8-5.5); Red Cell Distribution Width 13.8 % (9.3-17.3); White Blood Count 7.8 T/CUMM (4-12)
[2017-07-03 05:24] LABS: Calcium 8.2 MG/DL (8.5-10.1); Osmolality,Calculated 280.5 MOS/KG (273-304); Potassium 4.3 MMOL/L (3.5-5.1)
[2017-07-03] MEDS: INSULIN REGULAR 100 UNIT/ML SUBCUT SCH ×2 (08:37→13:50)
[2017-07-03] MEDS: PANTOPRAZOLE 40 MG VIAL IV SCH (09:10)
[2017-07-03] MEDS: ENOXAPARIN 40 MG/0.4 ML SYRINGE SUBCUT SCH (09:13)
[2017-07-03] MEDS: INSULIN LISPRO 100 UNIT/ML SUBCUT SCH ×2 (09:14→13:49)
[2017-07-03] MEDS: predniSONE 20 MG TABLET PO SCH (09:17)
[2017-07-03] MEDS: MAGNESIUM CHLORIDE 64 MG TABLET PO SCH (09:18)
[2017-07-03] MEDS: azaTHIOprine 50 MG TABLET PO SCH (09:18)
[2017-07-03] MEDS: METOPROLOL SUCCINATE XL 25 MG TABLET PO SCH (09:18)
[2017-07-03] MEDS: GABAPENTIN 600 MG TABLET PO SCH (09:18)
[2017-07-03] MEDS: metroNIDAZOLE 250 MG TABLET PO SCH ×2 (09:19→17:05)
[2017-07-03] MEDS: POTASSIUM CHLORIDE 8 MEQ CAPSULE PO SCH (09:19)
[2017-07-03] MEDS: DOCUSATE SODIUM 100 MG CAPSULE PO SCH (09:38)
[2017-07-03] MEDS: SODIUM CHLORIDE 0.9% 1,000 ML IV SCH (09:39)
[2017-07-03] MEDS: BACITRACIN OINT 0.9 GM PACK TOP SCH (09:50)
[2017-07-03 15:59] VITALS: BP 119/72
== END 2017-07-03 16:55 | disposition home health service (06) | DRG 623 ==
LOC: N.OR 06:05 → N.SDSINP 06:06 → EDSTATUS 07:30 → N.3E 10:49
PROVIDERS: ADMIT Specialist; ATTEND Specialist

== ENCOUNTER 2017-10-15 16:38 | Inpatient (IN) ==
[2017-10-15] MEDS ORDERED: SODIUM CHLORIDE 0.9% 1,000 ML IV STA (17:15)
[2017-10-15 17:39] LABS: Basophils % 0.5 % (0.0-0.8); Eosinophils # 0.1 10*3/uL (0.0-0.87); Eosinophils % 2.4 % (0.00-10.9); Hematocrit 37.5 VOL% (42.0-52.0); Hemoglobin 12.1 GM/DL (14.0-18.0); Immature Granulocytes % 0.5 %; Immature Granulocytes Absolute 0.03 #; Lymphocytes # 0.7 10*3/uL (1.4-4.0); Lymphocytes % 13.1 % (21.2-54.2); Mean Corpuscular HGB Conc 32.3 GM/DL (32-36); Mean Corpuscular Hemoglobin 29 PG (27-34); Mean Corpuscular Volume 88.4 FL (87-102); Mean Platelet Volume 10.8 FL (9.6-12.0); Monocytes # 0.6 10*3/uL (0.11-0.8); Monocytes % 10.6 % (1.7-12.7); Neutrophils % 72.9 % (38.7-73.9); Platelet Count 240 T/CUMM (130-400); Red Blood Count 4.24 MC/CUMM (3.8-5.5); Red Cell Distribution Width 14.6 % (9.3-17.3); White Blood Count 5.5 T/CUMM (4-12)
[2017-10-15 18:12] LABS: Lactic Acid 2.2 MMOL/L (0.4-2.0)
[2017-10-15 18:15] LABS: Calcium 8.4 MG/DL (8.5-10.1); Osmolality,Calculated 276.1 MOS/KG (273-304); Potassium 3.8 MMOL/L (3.5-5.1)
[2017-10-15 18:19] LABS: Troponin I Only 0.023 NG/ML (0.00-0.045)
[2017-10-15] MEDS ORDERED: MAGNESIUM SULF RIDER 2 GM in PREMIX 1 EACH IV STA (19:12)
[2017-10-15] MEDS ORDERED: KETOROLAC 30 MG/1 ML VIAL IV STA (19:23)
[2017-10-15] MEDS ORDERED: ACETAMINOPHEN 325 MG TABLET PO PRN (20:06)
[2017-10-15] MEDS ORDERED: DEXTROSE 50% 25 GM/50 ML VIAL IV PRN (20:06)
[2017-10-15] MEDS ORDERED: PIPERACILLIN/TAZOBACTAM 2,250 MG in SODIUM CHLORIDE 0.9% 100 ML IV STA (20:06)
[2017-10-15] MEDS ORDERED: KETOROLAC 30 MG/1 ML VIAL ONE (20:22)
[2017-10-15] MEDS ORDERED: MAGNESIUM SULF RIDER 50 ML IV ONE (20:23)
[2017-10-15] MEDS: ENOXAPARIN 30 MG/0.3 ML SYRINGE SUBCUT SCH (20:40)
[2017-10-15] MEDS: LACTATED RINGERS 1,000 ML IV SCH (21:23)
[2017-10-15] MEDS: MORPHINE 2 MG/1 ML SYRINGE IV PRN (21:44)
[2017-10-15] MEDS: INSULIN REGULAR 100 UNIT/ML SUBCUT SCH (22:14)
[2017-10-15] MEDS: DOCUSATE SODIUM 100 MG CAPSULE PO SCH (22:29)
[2017-10-15] MEDS ORDERED: SODIUM CHLORIDE 0.9% 1,000 ML IV ONE (22:30)
[2017-10-16] MEDS: ONDANSETRON 4 MG/2 ML VIAL IV PRN (02:41)
[2017-10-16] MEDS: MORPHINE 2 MG/1 ML SYRINGE IV PRN (02:43)
[2017-10-16] MEDS: PIPERACILLIN/TAZOBACTAM 3.375 MG in SODIUM CHLORIDE 0.9% 100 ML IV SCH ×3 (04:30→21:22)
[2017-10-16] MEDS: LACTATED RINGERS 1,000 ML IV SCH ×3 (06:09→22:18)
[2017-10-16] MEDS ORDERED: SKIN HEALING OINT (AQUAPHOR) 50 GM TUBE TOP PRN (08:22)
[2017-10-16 08:39] LABS: Basophils % 0.7 % (0.0-0.8); Eosinophils # 0.1 10*3/uL (0.0-0.87); Eosinophils % 2.4 % (0.00-10.9); Hematocrit 33.5 VOL% (42.0-52.0); Hemoglobin 11.1 GM/DL (14.0-18.0); Immature Granulocytes % 0.2 %; Immature Granulocytes Absolute 0.01 #; Lymphocytes # 0.5 10*3/uL (1.4-4.0); Lymphocytes % 10.6 % (21.2-54.2); Mean Corpuscular HGB Conc 33.1 GM/DL (32-36); Mean Corpuscular Hemoglobin 29 PG (27-34); Mean Corpuscular Volume 86.3 FL (87-102); Mean Platelet Volume 10.5 FL (9.6-12.0); Monocytes # 0.7 10*3/uL (0.11-0.8); Monocytes % 15.8 % (1.7-12.7); Neutrophils % 70.3 % (38.7-73.9); Platelet Count 215 T/CUMM (130-400); Red Blood Count 3.88 MC/CUMM (3.8-5.5); Red Cell Distribution Width 14.7 % (9.3-17.3); White Blood Count 4.2 T/CUMM (4-12)
[2017-10-16 08:42] LABS: Apearance,Urine CLOUDY (Clear); Bacteria,Urine Many /HPF (Few); Bilirubin,Urine Negative (Negative); Blood, Urine Moderate mg/dL (Negative); Glucose,Urine (UA) Negative (Negative); Ketones,Urine 5 mg/dL (Negative); Mucus,Urine Occasional /LPF (Occasional); Nitrite,Urine Positive (Negative); Protein,Urine Negative; RBC,Urine 8 /HPF (0-4); Squamous Epithelial Cell,Urine Occasional /HPF (0-10); Urine Color Yellow (Yellow); Urine Specific Gravity 1.011 (1.001-1.035); WBC,Urine 57 /HPF (0-6)
[2017-10-16 09:07] LABS: Calcium 7.7 MG/DL (8.5-10.1); Osmolality,Calculated 277.7 MOS/KG (273-304); Potassium 3.7 MMOL/L (3.5-5.1)
[2017-10-16] MEDS: MAGNESIUM CHLORIDE 64 MG TABLET PO SCH ×2 (09:13→21:24)
[2017-10-16] MEDS: GABAPENTIN 300 MG CAPSULE PO SCH ×2 (09:14→21:24)
[2017-10-16] MEDS: predniSONE 20 MG TABLET PO SCH (09:14)
[2017-10-16] MEDS: DOCUSATE SODIUM 100 MG CAPSULE PO SCH ×2 (09:14→21:24)
[2017-10-16] MEDS: POTASSIUM CHLORIDE 8 MEQ CAPSULE PO SCH (09:14)
[2017-10-16] MEDS: PANTOPRAZOLE 40 MG TABLET PO SCH (09:14)
[2017-10-16] MEDS: HYDROCORTISONE 100 MG VIAL IV SCH ×3 (09:14→23:39)
[2017-10-16] MEDS: METOPROLOL SUCCINATE XL 25 MG TABLET PO SCH (09:14)
[2017-10-16] MEDS: PENTOXIFYLLINE 400 MG TABLET PO SCH ×3 (09:14→21:24)
[2017-10-16] MEDS: metroNIDAZOLE 500 MG TABLET PO SCH ×3 (09:14→21:24)
[2017-10-16] MEDS: SUCRALFATE 1 GM TABLET PO SCH ×4 (09:14→21:24)
[2017-10-16] MEDS: INSULIN GLARGINE 100 UNIT/ML SUBCUT SCH ×2 (09:15→21:23)
[2017-10-16 09:30] LABS: Band Neutrophils 3 % (0-10); Eosinophils 2 % (0-10); Hypochromasia 1+; Lymphocytes 10 % (20-55); Microcytosis 1+; Platelet Estimate Adequate; Segmented Neutrophils 69 % (50-85); Total Cells Counted 100
[2017-10-16] MEDS: INSULIN REGULAR 100 UNIT/ML SUBCUT SCH ×4 (09:32→21:23)
[2017-10-16] MEDS: ACETIC ACID 0.25% IRRIGATION 1,000 ML BOTTLE IRRIG SCH ×2 (12:44→20:03)
[2017-10-16] MEDS: BACITRACIN OINT 0.9 GM PACK TOP SCH (12:44)
[2017-10-16] MEDS: SODIUM HYPOCHLORITE 0.25% IRRIG 473 ML BOTTLE TOP SCH (12:44)
[2017-10-16] MEDS: GENTAMICIN 0.1% OINT 15 GM TUBE TOP SCH ×2 (16:56→20:03)
[2017-10-16] MEDS: ENOXAPARIN 30 MG/0.3 ML SYRINGE SUBCUT SCH (21:23)
[2017-10-17] MEDS: PIPERACILLIN/TAZOBACTAM 3.375 MG in SODIUM CHLORIDE 0.9% 100 ML IV SCH ×3 (05:08→21:27)
[2017-10-17 06:23] LABS: Basophils % 0.1 % (0.0-0.8); Hematocrit 32.6 VOL% (42.0-52.0); Hemoglobin 10.6 GM/DL (14.0-18.0); Immature Granulocytes % 0.6 %; Immature Granulocytes Absolute 0.04 #; Lymphocytes # 0.4 10*3/uL (1.4-4.0); Lymphocytes % 6.1 % (21.2-54.2); Mean Corpuscular HGB Conc 32.5 GM/DL (32-36); Mean Corpuscular Hemoglobin 29 PG (27-34); Mean Corpuscular Volume 87.6 FL (87-102); Mean Platelet Volume 11.7 FL (9.6-12.0); Monocytes # 0.2 10*3/uL (0.11-0.8); Neutrophils % 90.2 % (38.7-73.9); Platelet Count 246 T/CUMM (130-400); Red Blood Count 3.72 MC/CUMM (3.8-5.5); Red Cell Distribution Width 14.1 % (9.3-17.3); White Blood Count 6.7 T/CUMM (4-12)
[2017-10-17 06:48] LABS: Osmolality,Calculated 280.7 MOS/KG (273-304); Potassium 4.3 MMOL/L (3.5-5.1)
[2017-10-17] MEDS: POTASSIUM CHLORIDE 8 MEQ CAPSULE PO SCH (11:10)
[2017-10-17] MEDS: SUCRALFATE 1 GM TABLET PO SCH ×4 (11:10→21:21)
[2017-10-17] MEDS: predniSONE 20 MG TABLET PO SCH (11:10)
[2017-10-17] MEDS: GABAPENTIN 300 MG CAPSULE PO SCH ×2 (11:11→21:21)
[2017-10-17] MEDS: MAGNESIUM CHLORIDE 64 MG TABLET PO SCH ×2 (11:11→21:20)
[2017-10-17] MEDS: INSULIN GLARGINE 100 UNIT/ML SUBCUT SCH ×2 (11:12→21:22)
[2017-10-17] MEDS: PANTOPRAZOLE 40 MG TABLET PO SCH (11:12)
[2017-10-17] MEDS: PENTOXIFYLLINE 400 MG TABLET PO SCH ×3 (11:12→21:20)
[2017-10-17] MEDS: metroNIDAZOLE 500 MG TABLET PO SCH ×3 (11:12→21:20)
[2017-10-17] MEDS: DOCUSATE SODIUM 100 MG CAPSULE PO SCH ×2 (11:12→21:24)
[2017-10-17] MEDS: METOPROLOL SUCCINATE XL 25 MG TABLET PO SCH (13:25)
[2017-10-17] MEDS: LACTATED RINGERS 1,000 ML IV SCH ×2 (13:26→13:27)
[2017-10-17] MEDS: GENTAMICIN 0.1% OINT 15 GM TUBE TOP SCH ×3 (13:26→22:07)
[2017-10-17] MEDS: BACITRACIN OINT 0.9 GM PACK TOP SCH (13:26)
[2017-10-17] MEDS: ACETIC ACID 0.25% IRRIGATION 1,000 ML BOTTLE IRRIG SCH ×2 (13:26→22:07)
[2017-10-17] MEDS: INSULIN REGULAR 100 UNIT/ML SUBCUT SCH ×4 (13:27→21:23)
[2017-10-17] MEDS: SODIUM HYPOCHLORITE 0.25% IRRIG 473 ML BOTTLE TOP SCH (14:31)
[2017-10-17] MEDS ORDERED: ASPIRIN CHEW 81 MG TABLET PO ONE (17:48)
[2017-10-17] MEDS: ENOXAPARIN 30 MG/0.3 ML SYRINGE SUBCUT SCH (21:22)
[2017-10-17] MEDS: ONDANSETRON 4 MG/2 ML VIAL IV PRN (21:23)
[2017-10-18] MEDS: PIPERACILLIN/TAZOBACTAM 3.375 MG in SODIUM CHLORIDE 0.9% 100 ML IV SCH ×2 (05:07→14:57)
[2017-10-18 05:19] LABS: Basophils % 0.1 % (0.0-0.8); Hemoglobin 10.3 GM/DL (14.0-18.0); Immature Granulocytes % 0.8 %; Immature Granulocytes Absolute 0.08 #; Lymphocytes # 0.4 10*3/uL (1.4-4.0); Lymphocytes % 3.7 % (21.2-54.2); Mean Corpuscular HGB Conc 33.2 GM/DL (32-36); Mean Corpuscular Hemoglobin 29 PG (27-34); Mean Corpuscular Volume 86.4 FL (87-102); Mean Platelet Volume 11.9 FL (9.6-12.0); Monocytes # 0.5 10*3/uL (0.11-0.8); Monocytes % 5.1 % (1.7-12.7); Neutrophils % 90.3 % (38.7-73.9); Platelet Count 247 T/CUMM (130-400); Red Blood Count 3.59 MC/CUMM (3.8-5.5); Red Cell Distribution Width 14.2 % (9.3-17.3)
[2017-10-18 05:20] LABS: INR 1.1; PT Patient Result 11.8 SECS; Partial Thromboplastin Time 32.1 SECS (0-40)
[2017-10-18 05:44] LABS: Calcium 7.9 MG/DL (8.5-10.1); Osmolality,Calculated 281.4 MOS/KG (273-304); Potassium 3.3 MMOL/L (3.5-5.1)
[2017-10-18 05:48] LABS: Albumin 2.3 G/DL (3.4-5.0); Bilirubin,Total 0.8 MG/DL (0.2-1.0); Osmolality,Calculated 281.4 MOS/KG (273-304); Potassium 3.3 MMOL/L (3.5-5.1); Total Protein 5.8 G/DL (6.4-8.3)
[2017-10-18 05:50] LABS: Risk Ratio 8.05; VLDL CHOLESTEROL 40.2 MG/DL
[2017-10-18 06:13] LABS: Band Neutrophils 2 % (0-10); Lymphocytes 4 % (20-55); Segmented Neutrophils 91 % (50-85); Total Cells Counted 100
[2017-10-18 06:14] LABS: Giant Platelets Few; Hypochromasia 1+; Microcytosis Slight; Ovalocytes Slight; Platelet Estimate Adequate
[2017-10-18] MEDS ORDERED: POTASSIUM CHLORIDE 20 MEQ TABLET PO ONE (07:04)
[2017-10-18] MEDS: INSULIN REGULAR 100 UNIT/ML SUBCUT SCH ×4 (08:59→21:22)
[2017-10-18] MEDS: LACTATED RINGERS 1,000 ML IV SCH ×2 (08:59→14:30)
[2017-10-18] MEDS: MAGNESIUM CHLORIDE 64 MG TABLET PO SCH ×2 (09:39→21:23)
[2017-10-18] MEDS: metroNIDAZOLE 500 MG TABLET PO SCH ×3 (09:40→21:24)
[2017-10-18] MEDS: SUCRALFATE 1 GM TABLET PO SCH ×4 (09:40→21:23)
[2017-10-18] MEDS: PENTOXIFYLLINE 400 MG TABLET PO SCH ×3 (09:40→21:24)
[2017-10-18] MEDS: ASPIRIN CHEW 81 MG TABLET PO SCH (09:40)
[2017-10-18] MEDS: DOCUSATE SODIUM 100 MG CAPSULE PO SCH ×2 (09:40→22:18)
[2017-10-18] MEDS: GABAPENTIN 300 MG CAPSULE PO SCH ×2 (09:40→21:23)
[2017-10-18] MEDS: predniSONE 20 MG TABLET PO SCH (09:40)
[2017-10-18] MEDS: METOPROLOL SUCCINATE XL 25 MG TABLET PO SCH (09:40)
[2017-10-18] MEDS: PANTOPRAZOLE 40 MG TABLET PO SCH (09:40)
[2017-10-18] MEDS: BACITRACIN OINT 0.9 GM PACK TOP SCH (09:46)
[2017-10-18] MEDS: GENTAMICIN 0.1% OINT 15 GM TUBE TOP SCH ×3 (09:46→22:17)
[2017-10-18] MEDS: INSULIN GLARGINE 100 UNIT/ML SUBCUT SCH ×2 (09:46→21:22)
[2017-10-18] MEDS: ACETIC ACID 0.25% IRRIGATION 1,000 ML BOTTLE IRRIG SCH ×2 (09:46→21:28)
[2017-10-18] MEDS: SODIUM HYPOCHLORITE 0.25% IRRIG 473 ML BOTTLE TOP SCH (09:46)
[2017-10-18] MEDS: ALBUTEROL/IPRATROPIUM 3 ML NEB RESP TX SCH ×2 (14:00→19:58)
[2017-10-18] MEDS: ENOXAPARIN 30 MG/0.3 ML SYRINGE SUBCUT SCH (22:17)
[2017-10-18] MEDS ORDERED: PIPERACILLIN/TAZOBACTAM 3,375 MG in SODIUM CHLORIDE 0.9% 100 ML IV SCH (23:00)
[2017-10-19] MEDS: ALBUTEROL/IPRATROPIUM 3 ML NEB RESP TX SCH ×4 (00:41→19:23)
[2017-10-19] MEDS: LACTATED RINGERS 1,000 ML IV SCH (01:19)
[2017-10-19 05:25] LABS: Basophils % 0.1 % (0.0-0.8); Hematocrit 32.3 VOL% (42.0-52.0); Hemoglobin 10.8 GM/DL (14.0-18.0); Immature Granulocytes % 1.4 %; Immature Granulocytes Absolute 0.12 #; Lymphocytes # 0.6 10*3/uL (1.4-4.0); Lymphocytes % 7.3 % (21.2-54.2); Mean Corpuscular HGB Conc 33.4 GM/DL (32-36); Mean Corpuscular Hemoglobin 29 PG (27-34); Mean Corpuscular Volume 85.9 FL (87-102); Mean Platelet Volume 11.4 FL (9.6-12.0); Monocytes # 0.5 10*3/uL (0.11-0.8); Monocytes % 5.8 % (1.7-12.7); Neutrophils # 7.1 10*3/uL (1.4-7.4); Neutrophils % 85.4 % (38.7-73.9); Platelet Count 295 T/CUMM (130-400); Red Blood Count 3.76 MC/CUMM (3.8-5.5); Red Cell Distribution Width 14.6 % (9.3-17.3); White Blood Count 8.3 T/CUMM (4-12)
[2017-10-19] MEDS: SODIUM CHLORIDE 0.45% 1,000 ML IV SCH ×3 (05:40→17:57)
[2017-10-19 05:59] LABS: Calcium 7.6 MG/DL (8.5-10.1); Osmolality,Calculated 285.1 MOS/KG (273-304); Potassium 3.3 MMOL/L (3.5-5.1)
[2017-10-19] MEDS ORDERED: ceFAZolin 2,000 MG in PREMIX 1 EACH IV ONE (06:30)
[2017-10-19] MEDS: GLUCAGON 1 MG VIAL IM PRN ×2 (07:13→11:25)
[2017-10-19] MEDS: INSULIN REGULAR 100 UNIT/ML SUBCUT SCH ×4 (07:15→23:37)
[2017-10-19] MEDS: METOPROLOL SUCCINATE XL 25 MG TABLET PO SCH (09:01)
[2017-10-19] MEDS: PANTOPRAZOLE 40 MG TABLET PO SCH (09:02)
[2017-10-19] MEDS: BACITRACIN OINT 0.9 GM PACK TOP SCH (09:08)
[2017-10-19] MEDS: PIPERACILLIN/TAZOBACTAM 3,375 MG in SODIUM CHLORIDE 0.9% 100 ML IV SCH ×2 (11:29→17:56)
[2017-10-19] MEDS ORDERED: BUPIVACAINE 0.25% 50 ML VIAL ONE (11:42)
[2017-10-19] MEDS ORDERED: FAMOTIDINE 20 MG/2 ML VIAL IV ONE (11:51)
[2017-10-19] MEDS ORDERED: ceFAZolin 1,000 MG VIAL ONE (12:11)
[2017-10-19] MEDS ORDERED: LACTATED RINGERS 1,000 ML IV SCH (12:30)
[2017-10-19] MEDS ORDERED: BACITRACIN OINT 0.9 GM PACK TOP ONE (12:36)
[2017-10-19] MEDS ORDERED: PROPOFOL 200 MG/20 ML VIAL IV ONE (13:25)
[2017-10-19] MEDS ORDERED: MIDAZOLAM 2 MG/2 ML VIAL ONE (13:26)
[2017-10-19] MEDS ORDERED: SEVOFLURANE 1 UNIT/15 MINUTE INH ONE (13:26)
[2017-10-19] MEDS ORDERED: fentaNYL 100 MCG/2 ML VIAL ONE (13:27)
[2017-10-19] MEDS: ACETIC ACID 0.25% IRRIGATION 1,000 ML BOTTLE IRRIG SCH ×2 (14:23→20:13)
[2017-10-19] MEDS: SUCRALFATE 1 GM TABLET PO SCH ×3 (14:24→20:55)
[2017-10-19] MEDS: SODIUM HYPOCHLORITE 0.25% IRRIG 473 ML BOTTLE TOP SCH (14:24)
[2017-10-19] MEDS: ASPIRIN CHEW 81 MG TABLET PO SCH (14:24)
[2017-10-19] MEDS: metroNIDAZOLE 500 MG TABLET PO SCH ×3 (14:24→20:55)
[2017-10-19] MEDS: INSULIN GLARGINE 100 UNIT/ML SUBCUT SCH ×2 (14:25→23:37)
[2017-10-19] MEDS: PENTOXIFYLLINE 400 MG TABLET PO SCH ×3 (14:25→20:55)
[2017-10-19] MEDS: DOCUSATE SODIUM 100 MG CAPSULE PO SCH ×2 (17:45→20:54)
[2017-10-19] MEDS: GENTAMICIN 0.1% OINT 15 GM TUBE TOP SCH ×3 (17:45→20:13)
[2017-10-19] MEDS: MAGNESIUM CHLORIDE 64 MG TABLET PO SCH ×2 (17:46→20:55)
[2017-10-19] MEDS: GABAPENTIN 300 MG CAPSULE PO SCH ×2 (17:46→20:54)
[2017-10-19] MEDS: predniSONE 20 MG TABLET PO SCH (17:55)
[2017-10-19] MEDS: POTASSIUM CHLORIDE 10 MEQ TABLET PO SCH (17:55)
[2017-10-19] MEDS: ENOXAPARIN 30 MG/0.3 ML SYRINGE SUBCUT SCH (20:57)
[2017-10-19] MEDS: ceFAZolin 2,000 MG in PREMIX 1 EACH IV SCH (21:00)
[2017-10-20] MEDS: ALBUTEROL/IPRATROPIUM 3 ML NEB RESP TX SCH ×4 (00:27→19:07)
[2017-10-20] MEDS: ceFAZolin 2,000 MG in PREMIX 1 EACH IV SCH (03:06)
[2017-10-20] MEDS: PIPERACILLIN/TAZOBACTAM 3,375 MG in SODIUM CHLORIDE 0.9% 100 ML IV SCH ×3 (06:22→18:13)
[2017-10-20 08:19] LABS: Basophils % 0.2 % (0.0-0.8); Eosinophils % 0.2 % (0.00-10.9); Hematocrit 34.1 VOL% (42.0-52.0); Hemoglobin 10.8 GM/DL (14.0-18.0); Immature Granulocytes % 3.2 %; Lymphocytes # 0.5 10*3/uL (1.4-4.0); Lymphocytes % 7.7 % (21.2-54.2); Mean Corpuscular HGB Conc 31.7 GM/DL (32-36); Mean Corpuscular Hemoglobin 28 PG (27-34); Mean Corpuscular Volume 89.7 FL (87-102); Mean Platelet Volume 11.3 FL (9.6-12.0); Monocytes # 0.5 10*3/uL (0.11-0.8); Monocytes % 8.7 % (1.7-12.7); Platelet Count 280 T/CUMM (130-400); Red Cell Distribution Width 15.1 % (9.3-17.3); White Blood Count 6.2 T/CUMM (4-12)
[2017-10-20] MEDS: INSULIN REGULAR 100 UNIT/ML SUBCUT SCH ×4 (08:58→22:22)
[2017-10-20 09:21] LABS: Calcium 7.7 MG/DL (8.5-10.1)
[2017-10-20] MEDS: SODIUM CHLORIDE 0.45% 1,000 ML IV SCH (10:37)
[2017-10-20] MEDS: ACETIC ACID 0.25% IRRIGATION 1,000 ML BOTTLE IRRIG SCH ×2 (10:41→22:11)
[2017-10-20] MEDS: PANTOPRAZOLE 40 MG TABLET PO SCH (10:47)
[2017-10-20] MEDS: predniSONE 20 MG TABLET PO SCH (10:47)
[2017-10-20] MEDS: METOPROLOL SUCCINATE XL 25 MG TABLET PO SCH (10:47)
[2017-10-20] MEDS: SUCRALFATE 1 GM TABLET PO SCH ×4 (10:48→22:20)
[2017-10-20] MEDS: ASPIRIN CHEW 81 MG TABLET PO SCH (10:48)
[2017-10-20] MEDS: PENTOXIFYLLINE 400 MG TABLET PO SCH ×3 (10:48→22:20)
[2017-10-20] MEDS: MAGNESIUM CHLORIDE 64 MG TABLET PO SCH ×2 (10:49→22:20)
[2017-10-20] MEDS: POTASSIUM CHLORIDE 10 MEQ TABLET PO SCH (10:49)
[2017-10-20] MEDS: metroNIDAZOLE 500 MG TABLET PO SCH ×3 (10:50→22:20)
[2017-10-20] MEDS: GABAPENTIN 300 MG CAPSULE PO SCH ×2 (10:50→22:19)
[2017-10-20] MEDS: DOCUSATE SODIUM 100 MG CAPSULE PO SCH ×2 (10:51→22:11)
[2017-10-20] MEDS: INSULIN GLARGINE 100 UNIT/ML SUBCUT SCH ×2 (10:51→22:23)
[2017-10-20] MEDS: BACITRACIN OINT 0.9 GM PACK TOP SCH (12:00)
[2017-10-20] MEDS: SODIUM HYPOCHLORITE 0.25% IRRIG 473 ML BOTTLE TOP SCH (12:00)
[2017-10-20] MEDS: GENTAMICIN 0.1% OINT 15 GM TUBE TOP SCH ×3 (12:32→22:11)
[2017-10-20] MEDS: HYDROmorphone 2 MG/1 ML VIAL IV PRN ×2 (19:48→23:04)
[2017-10-20] MEDS: ENOXAPARIN 30 MG/0.3 ML SYRINGE SUBCUT SCH (22:18)
[2017-10-21] MEDS: ALBUTEROL/IPRATROPIUM 3 ML NEB RESP TX SCH ×4 (00:38→21:27)
[2017-10-21] MEDS: PIPERACILLIN/TAZOBACTAM 3,375 MG in SODIUM CHLORIDE 0.9% 100 ML IV SCH ×3 (01:39→16:04)
[2017-10-21] MEDS: HYDROmorphone 2 MG/1 ML VIAL IV PRN ×5 (04:46→23:40)
[2017-10-21 06:06] LABS: Basophils % 0.1 % (0.0-0.8); Eosinophils % 0.1 % (0.00-10.9); Hemoglobin 9.7 GM/DL (14.0-18.0); Immature Granulocytes % 3.5 %; Immature Granulocytes Absolute 0.32 #; Lymphocytes # 0.7 10*3/uL (1.4-4.0); Lymphocytes % 8.1 % (21.2-54.2); Mean Corpuscular HGB Conc 32.3 GM/DL (32-36); Mean Corpuscular Hemoglobin 29 PG (27-34); Mean Corpuscular Volume 88.8 FL (87-102); Monocytes # 0.8 10*3/uL (0.11-0.8); Monocytes % 8.9 % (1.7-12.7); NRBC # 0.02 10*3/uL; Neutrophils # 7.3 10*3/uL (1.4-7.4); Neutrophils % 79.3 % (38.7-73.9); Platelet Count 285 T/CUMM (130-400); Red Blood Count 3.38 MC/CUMM (3.8-5.5); Red Cell Distribution Width 15.4 % (9.3-17.3); White Blood Count 9.2 T/CUMM (4-12)
[2017-10-21 06:49] LABS: Calcium 7.6 MG/DL (8.5-10.1); Osmolality,Calculated 292.1 MOS/KG (273-304); Potassium 4.2 MMOL/L (3.5-5.1)
[2017-10-21] MEDS: DOCUSATE SODIUM 100 MG CAPSULE PO SCH ×2 (08:49→20:55)
[2017-10-21] MEDS: POTASSIUM CHLORIDE 10 MEQ TABLET PO SCH (09:42)
[2017-10-21] MEDS: INSULIN REGULAR 100 UNIT/ML SUBCUT SCH ×4 (09:42→20:57)
[2017-10-21] MEDS: metroNIDAZOLE 500 MG TABLET PO SCH ×3 (09:42→20:58)
[2017-10-21] MEDS: PANTOPRAZOLE 40 MG TABLET PO SCH (09:42)
[2017-10-21] MEDS: MAGNESIUM CHLORIDE 64 MG TABLET PO SCH ×2 (09:43→20:58)
[2017-10-21] MEDS: predniSONE 20 MG TABLET PO SCH (09:43)
[2017-10-21] MEDS: METOPROLOL SUCCINATE XL 25 MG TABLET PO SCH (09:43)
[2017-10-21] MEDS: ASPIRIN CHEW 81 MG TABLET PO SCH (09:43)
[2017-10-21] MEDS: PENTOXIFYLLINE 400 MG TABLET PO SCH ×3 (09:43→20:58)
[2017-10-21] MEDS: SUCRALFATE 1 GM TABLET PO SCH ×5 (09:43→20:58)
[2017-10-21] MEDS: INSULIN GLARGINE 100 UNIT/ML SUBCUT SCH ×2 (09:43→21:02)
[2017-10-21] MEDS: GABAPENTIN 300 MG CAPSULE PO SCH ×2 (09:43→20:58)
[2017-10-21] MEDS: SODIUM HYPOCHLORITE 0.25% IRRIG 473 ML BOTTLE TOP SCH (12:24)
[2017-10-21] MEDS: GENTAMICIN 0.1% OINT 15 GM TUBE TOP SCH ×3 (12:24→21:42)
[2017-10-21] MEDS: BACITRACIN OINT 0.9 GM PACK TOP SCH (12:24)
[2017-10-21] MEDS: ACETIC ACID 0.25% IRRIGATION 1,000 ML BOTTLE IRRIG SCH ×2 (12:24→21:41)
[2017-10-21] MEDS: SODIUM CHLORIDE 0.45% 1,000 ML IV SCH ×2 (14:47→23:40)
[2017-10-21] MEDS ORDERED: ZINC OXIDE PASTE 113 GM TUBE TOP PRN (15:19)
[2017-10-21] MEDS: ENOXAPARIN 40 MG/0.4 ML SYRINGE SUBCUT SCH (20:55)
[2017-10-22] MEDS: PIPERACILLIN/TAZOBACTAM 3,375 MG in SODIUM CHLORIDE 0.9% 100 ML IV SCH ×3 (00:08→16:49)
[2017-10-22] MEDS: ALBUTEROL/IPRATROPIUM 3 ML NEB RESP TX SCH ×4 (01:41→20:58)
[2017-10-22] MEDS: HYDROmorphone 2 MG/1 ML VIAL IV PRN ×5 (04:43→20:52)
[2017-10-22 05:34] LABS: Basophils % 0.1 % (0.0-0.8); Eosinophils % 0.1 % (0.00-10.9); Hematocrit 32.1 VOL% (42.0-52.0); Hemoglobin 10.1 GM/DL (14.0-18.0); Immature Granulocytes % 4.3 %; Immature Granulocytes Absolute 0.38 #; Lymphocytes # 0.7 10*3/uL (1.4-4.0); Lymphocytes % 8.4 % (21.2-54.2); Mean Corpuscular HGB Conc 31.5 GM/DL (32-36); Mean Corpuscular Hemoglobin 29 PG (27-34); Mean Corpuscular Volume 90.4 FL (87-102); Mean Platelet Volume 11.6 FL (9.6-12.0); Monocytes # 0.6 10*3/uL (0.11-0.8); Monocytes % 6.9 % (1.7-12.7); Neutrophils # 7.1 10*3/uL (1.4-7.4); Neutrophils % 80.2 % (38.7-73.9); Platelet Count 273 T/CUMM (130-400); Red Blood Count 3.55 MC/CUMM (3.8-5.5); Red Cell Distribution Width 15.3 % (9.3-17.3); White Blood Count 8.8 T/CUMM (4-12)
[2017-10-22 05:59] LABS: Calcium 7.8 MG/DL (8.5-10.1); Osmolality,Calculated 286.4 MOS/KG (273-304); Potassium 4.1 MMOL/L (3.5-5.1)
[2017-10-22] MEDS: INSULIN REGULAR 100 UNIT/ML SUBCUT SCH ×4 (09:50→20:52)
[2017-10-22] MEDS: ASPIRIN CHEW 81 MG TABLET PO SCH (09:53)
[2017-10-22] MEDS: ACETIC ACID 0.25% IRRIGATION 1,000 ML BOTTLE IRRIG SCH ×2 (09:53→22:24)
[2017-10-22] MEDS: SUCRALFATE 1 GM TABLET PO SCH ×4 (09:54→20:51)
[2017-10-22] MEDS: DOCUSATE SODIUM 100 MG CAPSULE PO SCH ×2 (09:54→22:24)
[2017-10-22] MEDS: BACITRACIN OINT 0.9 GM PACK TOP SCH (09:54)
[2017-10-22] MEDS: metroNIDAZOLE 500 MG TABLET PO SCH ×3 (09:55→20:51)
[2017-10-22] MEDS: SODIUM HYPOCHLORITE 0.25% IRRIG 473 ML BOTTLE TOP SCH (09:55)
[2017-10-22] MEDS: INSULIN GLARGINE 100 UNIT/ML SUBCUT SCH ×2 (09:56→20:51)
[2017-10-22] MEDS: GENTAMICIN 0.1% OINT 15 GM TUBE TOP SCH ×3 (09:56→22:24)
[2017-10-22] MEDS: predniSONE 20 MG TABLET PO SCH (09:56)
[2017-10-22] MEDS: POTASSIUM CHLORIDE 10 MEQ TABLET PO SCH (09:56)
[2017-10-22] MEDS: PANTOPRAZOLE 40 MG TABLET PO SCH (09:56)
[2017-10-22] MEDS: GABAPENTIN 300 MG CAPSULE PO SCH ×2 (09:56→20:51)
[2017-10-22] MEDS: METOPROLOL SUCCINATE XL 25 MG TABLET PO SCH (09:57)
[2017-10-22] MEDS: PENTOXIFYLLINE 400 MG TABLET PO SCH ×3 (09:57→20:51)
[2017-10-22] MEDS: MAGNESIUM CHLORIDE 64 MG TABLET PO SCH ×2 (09:57→20:51)
[2017-10-22] MEDS: SODIUM CHLORIDE 0.45% 1,000 ML IV SCH ×2 (10:04→23:42)
[2017-10-22] MEDS: ENOXAPARIN 40 MG/0.4 ML SYRINGE SUBCUT SCH (20:50)
[2017-10-22] MEDS: ATORVASTATIN 40 MG TABLET PO SCH (20:51)
[2017-10-23] MEDS: PIPERACILLIN/TAZOBACTAM 3,375 MG in SODIUM CHLORIDE 0.9% 100 ML IV SCH ×3 (00:09→17:57)
[2017-10-23] MEDS: ALBUTEROL/IPRATROPIUM 3 ML NEB RESP TX SCH ×4 (01:50→20:48)
[2017-10-23 06:13] LABS: Basophils % 0.2 % (0.0-0.8); Eosinophils % 0.4 % (0.00-10.9); Hematocrit 30.1 VOL% (42.0-52.0); Hemoglobin 9.7 GM/DL (14.0-18.0); Immature Granulocytes % 4.4 %; Immature Granulocytes Absolute 0.46 #; Lymphocytes % 9.5 % (21.2-54.2); Mean Corpuscular HGB Conc 32.2 GM/DL (32-36); Mean Corpuscular Hemoglobin 29 PG (27-34); Mean Corpuscular Volume 89.3 FL (87-102); Mean Platelet Volume 11.9 FL (9.6-12.0); Monocytes # 0.9 10*3/uL (0.11-0.8); Monocytes % 8.6 % (1.7-12.7); NRBC # 0.03 10*3/uL; Neutrophils % 76.9 % (38.7-73.9); Platelet Count 305 T/CUMM (130-400); Red Blood Count 3.37 MC/CUMM (3.8-5.5); Red Cell Distribution Width 15.9 % (9.3-17.3); White Blood Count 10.4 T/CUMM (4-12)
[2017-10-23 06:43] LABS: Calcium 7.7 MG/DL (8.5-10.1); Osmolality,Calculated 285.3 MOS/KG (273-304); Potassium 3.7 MMOL/L (3.5-5.1)
[2017-10-23] MEDS: GLUCAGON 1 MG VIAL IM PRN (07:51)
[2017-10-23] MEDS: INSULIN REGULAR 100 UNIT/ML SUBCUT SCH ×4 (07:55→21:15)
[2017-10-23] MEDS ORDERED: ALUMINUM/MAGNES/SIMETH MAX STR 30 ML UDCUP PO PRN (08:57)
[2017-10-23] MEDS: HYDROmorphone 2 MG/1 ML VIAL IV PRN ×2 (09:23→21:42)
[2017-10-23] MEDS: GABAPENTIN 300 MG CAPSULE PO SCH ×2 (09:32→21:14)
[2017-10-23] MEDS: SULFAMETHOX/TRIMETHOPRIM 800-160 MG TABLET PO SCH ×2 (09:32→21:42)
[2017-10-23] MEDS: PENTOXIFYLLINE 400 MG TABLET PO SCH ×3 (09:33→21:14)
[2017-10-23] MEDS: predniSONE 20 MG TABLET PO SCH (09:34)
[2017-10-23] MEDS: METOPROLOL SUCCINATE XL 25 MG TABLET PO SCH (09:34)
[2017-10-23] MEDS: ASPIRIN CHEW 81 MG TABLET PO SCH (09:34)
[2017-10-23] MEDS: PANTOPRAZOLE 40 MG TABLET PO SCH (09:34)
[2017-10-23] MEDS: POTASSIUM CHLORIDE 10 MEQ TABLET PO SCH (09:35)
[2017-10-23] MEDS: SUCRALFATE 1 GM TABLET PO SCH ×4 (09:35→21:14)
[2017-10-23] MEDS: MAGNESIUM CHLORIDE 64 MG TABLET PO SCH ×2 (09:35→21:14)
[2017-10-23] MEDS: DOCUSATE SODIUM 100 MG CAPSULE PO SCH ×2 (09:36→21:14)
[2017-10-23] MEDS: SODIUM CHLORIDE 0.45% 1,000 ML IV SCH ×2 (09:36→22:20)
[2017-10-23] MEDS: INSULIN GLARGINE 100 UNIT/ML SUBCUT SCH ×2 (09:36→22:20)
[2017-10-23] MEDS: SODIUM HYPOCHLORITE 0.25% IRRIG 473 ML BOTTLE TOP SCH (11:00)
[2017-10-23] MEDS: BACITRACIN OINT 0.9 GM PACK TOP SCH (11:00)
[2017-10-23] MEDS: DIPHENOXYLATE/ATROPINE 2.5-0.025 MG TABLET PO PRN (13:17)
[2017-10-23] MEDS: ACETIC ACID 0.25% IRRIGATION 1,000 ML BOTTLE IRRIG SCH ×2 (13:25→22:21)
[2017-10-23] MEDS: GENTAMICIN 0.1% OINT 15 GM TUBE TOP SCH ×2 (13:26→14:34)
[2017-10-23] MEDS: ATORVASTATIN 40 MG TABLET PO SCH (21:14)
[2017-10-23] MEDS: ENOXAPARIN 40 MG/0.4 ML SYRINGE SUBCUT SCH (21:14)
[2017-10-24] MEDS: GENTAMICIN 0.1% OINT 15 GM TUBE TOP SCH ×3 (00:20→16:15)
[2017-10-24] MEDS: ALBUTEROL/IPRATROPIUM 3 ML NEB RESP TX SCH ×4 (00:38→20:08)
[2017-10-24] MEDS: PIPERACILLIN/TAZOBACTAM 3,375 MG in SODIUM CHLORIDE 0.9% 100 ML IV SCH ×3 (01:53→16:22)
[2017-10-24] MEDS: HYDROmorphone 2 MG/1 ML VIAL IV PRN ×3 (01:55→21:11)
[2017-10-24] MEDS: INSULIN REGULAR 100 UNIT/ML SUBCUT SCH ×4 (09:21→21:10)
[2017-10-24] MEDS: INSULIN GLARGINE 100 UNIT/ML SUBCUT SCH (09:22)
[2017-10-24] MEDS: GABAPENTIN 300 MG CAPSULE PO SCH ×2 (09:36→21:10)
[2017-10-24] MEDS: PANTOPRAZOLE 40 MG TABLET PO SCH (09:36)
[2017-10-24] MEDS: METOPROLOL SUCCINATE XL 25 MG TABLET PO SCH (09:36)
[2017-10-24] MEDS: ASPIRIN CHEW 81 MG TABLET PO SCH (09:37)
[2017-10-24] MEDS: SUCRALFATE 1 GM TABLET PO SCH ×4 (09:37→21:10)
[2017-10-24] MEDS: PENTOXIFYLLINE 400 MG TABLET PO SCH ×3 (09:37→21:10)
[2017-10-24] MEDS: predniSONE 20 MG TABLET PO SCH (09:37)
[2017-10-24] MEDS: SULFAMETHOX/TRIMETHOPRIM 800-160 MG TABLET PO SCH ×2 (09:38→21:10)
[2017-10-24] MEDS: POTASSIUM CHLORIDE 10 MEQ TABLET PO SCH (09:38)
[2017-10-24] MEDS: DOCUSATE SODIUM 100 MG CAPSULE PO SCH ×2 (09:41→21:10)
[2017-10-24] MEDS: MAGNESIUM CHLORIDE 64 MG TABLET PO SCH ×2 (10:28→21:10)
[2017-10-24] MEDS: BACITRACIN OINT 0.9 GM PACK TOP SCH (10:29)
[2017-10-24] MEDS: SODIUM HYPOCHLORITE 0.25% IRRIG 473 ML BOTTLE TOP SCH (10:29)
[2017-10-24] MEDS: ACETIC ACID 0.25% IRRIGATION 1,000 ML BOTTLE IRRIG SCH (10:58)
[2017-10-24] MEDS: SODIUM CHLORIDE 0.45% 1,000 ML IV SCH (10:59)
[2017-10-24] MEDS: ENOXAPARIN 40 MG/0.4 ML SYRINGE SUBCUT SCH (21:10)
[2017-10-24] MEDS: ATORVASTATIN 40 MG TABLET PO SCH (21:10)
[2017-10-24] MEDS: DIPHENOXYLATE/ATROPINE 2.5-0.025 MG TABLET PO PRN (22:23)
[2017-10-25] MEDS: ALBUTEROL/IPRATROPIUM 3 ML NEB RESP TX SCH ×4 (00:37→21:06)
[2017-10-25] MEDS: PIPERACILLIN/TAZOBACTAM 3,375 MG in SODIUM CHLORIDE 0.9% 100 ML IV SCH ×3 (01:20→18:10)
[2017-10-25] MEDS: ACETIC ACID 0.25% IRRIGATION 1,000 ML BOTTLE IRRIG SCH ×3 (01:21→23:53)
[2017-10-25] MEDS: INSULIN GLARGINE 100 UNIT/ML SUBCUT SCH ×3 (01:21→21:16)
[2017-10-25] MEDS: GENTAMICIN 0.1% OINT 15 GM TUBE TOP SCH ×3 (01:22→23:53)
[2017-10-25] MEDS: SODIUM CHLORIDE 0.45% 1,000 ML IV SCH ×3 (01:22→23:53)
[2017-10-25] MEDS: HYDROmorphone 2 MG/1 ML VIAL IV PRN ×3 (04:22→21:18)
[2017-10-25 04:58] LABS: Eosinophils % 0.1 % (0.00-10.9); Hematocrit 28.8 VOL% (42.0-52.0); Hemoglobin 9.2 GM/DL (14.0-18.0); Immature Granulocytes % 3.6 %; Immature Granulocytes Absolute 0.31 #; Lymphocytes # 0.7 10*3/uL (1.4-4.0); Lymphocytes % 7.8 % (21.2-54.2); Mean Corpuscular HGB Conc 31.9 GM/DL (32-36); Mean Corpuscular Hemoglobin 29 PG (27-34); Mean Corpuscular Volume 91.1 FL (87-102); Mean Platelet Volume 12.3 FL (9.6-12.0); Monocytes # 0.9 10*3/uL (0.11-0.8); Monocytes % 10.3 % (1.7-12.7); Neutrophils # 6.8 10*3/uL (1.4-7.4); Neutrophils % 78.2 % (38.7-73.9); Platelet Count 286 T/CUMM (130-400); Red Blood Count 3.16 MC/CUMM (3.8-5.5); Red Cell Distribution Width 16.5 % (9.3-17.3); White Blood Count 8.7 T/CUMM (4-12)
[2017-10-25 05:37] LABS: Albumin 2.5 G/DL (3.4-5.0); Bilirubin,Total 0.5 MG/DL (0.2-1.0); Calcium 8.2 MG/DL (8.5-10.1); Total Protein 5.6 G/DL (6.4-8.3)
[2017-10-25] MEDS: INSULIN REGULAR 100 UNIT/ML SUBCUT SCH ×4 (10:08→21:16)
[2017-10-25] MEDS: DIPHENOXYLATE/ATROPINE 2.5-0.025 MG TABLET PO PRN ×2 (10:09→18:04)
[2017-10-25] MEDS: SUCRALFATE 1 GM TABLET PO SCH ×4 (13:28→23:53)
[2017-10-25] MEDS: DOCUSATE SODIUM 100 MG CAPSULE PO SCH ×2 (13:28→21:16)
[2017-10-25] MEDS: PENTOXIFYLLINE 400 MG TABLET PO SCH ×3 (13:29→21:15)
[2017-10-25] MEDS: GABAPENTIN 300 MG CAPSULE PO SCH ×2 (13:34→21:15)
[2017-10-25] MEDS: MAGNESIUM CHLORIDE 64 MG TABLET PO SCH ×2 (13:34→21:15)
[2017-10-25] MEDS: PANTOPRAZOLE 40 MG TABLET PO SCH (13:34)
[2017-10-25] MEDS: POTASSIUM CHLORIDE 10 MEQ TABLET PO SCH (13:35)
[2017-10-25] MEDS: predniSONE 20 MG TABLET PO SCH (13:35)
[2017-10-25] MEDS: SULFAMETHOX/TRIMETHOPRIM 800-160 MG TABLET PO SCH ×2 (13:36→21:15)
[2017-10-25] MEDS: ASPIRIN CHEW 81 MG TABLET PO SCH (13:36)
[2017-10-25] MEDS: BACITRACIN OINT 0.9 GM PACK TOP SCH (13:36)
[2017-10-25] MEDS: METOPROLOL SUCCINATE XL 25 MG TABLET PO SCH (13:37)
[2017-10-25] MEDS: SODIUM HYPOCHLORITE 0.25% IRRIG 473 ML BOTTLE TOP SCH (13:37)
[2017-10-25] MEDS: ATORVASTATIN 40 MG TABLET PO SCH (21:15)
[2017-10-26] MEDS: PIPERACILLIN/TAZOBACTAM 3,375 MG in SODIUM CHLORIDE 0.9% 100 ML IV SCH ×3 (00:09→16:18)
[2017-10-26] MEDS: ALBUTEROL/IPRATROPIUM 3 ML NEB RESP TX SCH ×4 (01:43→19:40)
[2017-10-26] MEDS: HYDROmorphone 2 MG/1 ML VIAL IV PRN ×3 (02:47→19:15)
[2017-10-26] MEDS ORDERED: FAMOTIDINE 20 MG/2 ML VIAL IV ONE (06:00)
[2017-10-26 06:17] LABS: Basophils % 0.1 % (0.0-0.8); Eosinophils % 0.1 % (0.00-10.9); Hematocrit 29.1 VOL% (42.0-52.0); Hemoglobin 9.1 GM/DL (14.0-18.0); Immature Granulocytes % 1.9 %; Immature Granulocytes Absolute 0.16 #; Lymphocytes # 0.6 10*3/uL (1.4-4.0); Lymphocytes % 6.6 % (21.2-54.2); Mean Corpuscular HGB Conc 31.3 GM/DL (32-36); Mean Corpuscular Hemoglobin 29 PG (27-34); Mean Corpuscular Volume 92.4 FL (87-102); Mean Platelet Volume 12.3 FL (9.6-12.0); Monocytes # 0.8 10*3/uL (0.11-0.8); NRBC # 0.02 10*3/uL; Neutrophils # 7.1 10*3/uL (1.4-7.4); Neutrophils % 82.3 % (38.7-73.9); Platelet Count 274 T/CUMM (130-400); Red Blood Count 3.15 MC/CUMM (3.8-5.5); Red Cell Distribution Width 16.4 % (9.3-17.3); White Blood Count 8.6 T/CUMM (4-12)
[2017-10-26] MEDS ORDERED: BUPIVACAINE 0.25% 50 ML VIAL ONE (06:36)
[2017-10-26] MEDS ORDERED: GENTAMICIN 0.1% CREAM 15 GM TUBE TOP ONE (07:26)
[2017-10-26] MEDS: INSULIN REGULAR 100 UNIT/ML SUBCUT SCH ×4 (07:52→22:23)
[2017-10-26] MEDS ORDERED: MIDAZOLAM 2 MG/2 ML VIAL ONE (08:26)
[2017-10-26] MEDS ORDERED: SEVOFLURANE 1 UNIT/15 MINUTE INH ONE (08:26)
[2017-10-26] MEDS ORDERED: PROPOFOL 200 MG/20 ML VIAL IV ONE (08:26)
[2017-10-26] MEDS ORDERED: ONDANSETRON 4 MG/2 ML VIAL ONE (08:26)
[2017-10-26] MEDS ORDERED: fentaNYL 100 MCG/2 ML VIAL ONE (08:26)
[2017-10-26] MEDS ORDERED: methylPREDNISolone SOD SUC 125 MG/2 ML VIAL ONE (08:27)
[2017-10-26] MEDS: SULFAMETHOX/TRIMETHOPRIM 800-160 MG TABLET PO SCH ×2 (10:07→22:22)
[2017-10-26] MEDS: ASPIRIN CHEW 81 MG TABLET PO SCH (10:07)
[2017-10-26] MEDS: SUCRALFATE 1 GM TABLET PO SCH ×4 (10:08→22:21)
[2017-10-26] MEDS: POTASSIUM CHLORIDE 10 MEQ TABLET PO SCH (10:08)
[2017-10-26] MEDS: GABAPENTIN 300 MG CAPSULE PO SCH ×2 (10:09→22:22)
[2017-10-26] MEDS: MAGNESIUM CHLORIDE 64 MG TABLET PO SCH ×2 (10:09→22:21)
[2017-10-26] MEDS: PANTOPRAZOLE 40 MG TABLET PO SCH (10:09)
[2017-10-26] MEDS: predniSONE 20 MG TABLET PO SCH (10:09)
[2017-10-26] MEDS: METOPROLOL SUCCINATE XL 25 MG TABLET PO SCH (10:10)
[2017-10-26] MEDS: PENTOXIFYLLINE 400 MG TABLET PO SCH ×3 (10:10→22:22)
[2017-10-26] MEDS ORDERED: ceFAZolin 2,000 MG in PREMIX 1 EACH IV ONE (10:27)
[2017-10-26] MEDS: DOCUSATE SODIUM 100 MG CAPSULE PO SCH ×2 (11:08→22:21)
[2017-10-26] MEDS: ACETIC ACID 0.25% IRRIGATION 1,000 ML BOTTLE IRRIG SCH ×2 (11:11→21:50)
[2017-10-26] MEDS: BACITRACIN OINT 0.9 GM PACK TOP SCH (11:11)
[2017-10-26] MEDS: SODIUM HYPOCHLORITE 0.25% IRRIG 473 ML BOTTLE TOP SCH (11:12)
[2017-10-26] MEDS: GENTAMICIN 0.1% OINT 15 GM TUBE TOP SCH ×3 (11:12→21:52)
[2017-10-26] MEDS: INSULIN GLARGINE 100 UNIT/ML SUBCUT SCH ×2 (12:03→22:23)
[2017-10-26] MEDS: ceFAZolin 2,000 MG in PREMIX 1 EACH IV SCH ×2 (15:24→22:28)
[2017-10-26] MEDS: SODIUM CHLORIDE 0.45% 1,000 ML IV SCH (16:19)
[2017-10-26] MEDS: ENOXAPARIN 40 MG/0.4 ML SYRINGE SUBCUT SCH (22:22)
[2017-10-26] MEDS: ATORVASTATIN 40 MG TABLET PO SCH (22:22)
[2017-10-26] MEDS: DIPHENOXYLATE/ATROPINE 2.5-0.025 MG TABLET PO PRN (22:22)
[2017-10-27] MEDS: SODIUM CHLORIDE 0.45% 1,000 ML IV SCH ×2 (00:28→16:33)
[2017-10-27] MEDS: PIPERACILLIN/TAZOBACTAM 3,375 MG in SODIUM CHLORIDE 0.9% 100 ML IV SCH ×3 (00:55→16:34)
[2017-10-27] MEDS: HYDROmorphone 2 MG/1 ML VIAL IV PRN ×3 (00:58→21:49)
[2017-10-27 05:13] LABS: Basophils % 0.1 % (0.0-0.8); Hematocrit 30.1 VOL% (42.0-52.0); Hemoglobin 9.7 GM/DL (14.0-18.0); Immature Granulocytes % 1.4 %; Immature Granulocytes Absolute 0.18 #; Lymphocytes # 0.7 10*3/uL (1.4-4.0); Lymphocytes % 5.5 % (21.2-54.2); Mean Corpuscular HGB Conc 32.2 GM/DL (32-36); Mean Corpuscular Hemoglobin 29 PG (27-34); Mean Corpuscular Volume 89.6 FL (87-102); Mean Platelet Volume 12.3 FL (9.6-12.0); Monocytes # 0.8 10*3/uL (0.11-0.8); Monocytes % 6.3 % (1.7-12.7); Neutrophils # 10.8 10*3/uL (1.4-7.4); Neutrophils % 86.7 % (38.7-73.9); Platelet Count 292 T/CUMM (130-400); Red Blood Count 3.36 MC/CUMM (3.8-5.5); Red Cell Distribution Width 16.3 % (9.3-17.3); White Blood Count 12.5 T/CUMM (4-12)
[2017-10-27 05:46] LABS: Calcium 8.6 MG/DL (8.5-10.1); Osmolality,Calculated 293.5 MOS/KG (273-304)
[2017-10-27] MEDS: ALBUTEROL/IPRATROPIUM 3 ML NEB RESP TX SCH ×4 (07:47→19:34)
[2017-10-27] MEDS: POTASSIUM CHLORIDE 10 MEQ TABLET PO SCH (09:29)
[2017-10-27] MEDS: SUCRALFATE 1 GM TABLET PO SCH ×5 (09:29→21:18)
[2017-10-27] MEDS: METOPROLOL SUCCINATE XL 25 MG TABLET PO SCH (09:29)
[2017-10-27] MEDS: PANTOPRAZOLE 40 MG TABLET PO SCH (09:29)
[2017-10-27] MEDS: GABAPENTIN 300 MG CAPSULE PO SCH ×2 (09:29→21:18)
[2017-10-27] MEDS: MAGNESIUM CHLORIDE 64 MG TABLET PO SCH ×2 (09:29→21:18)
[2017-10-27] MEDS: predniSONE 20 MG TABLET PO SCH (09:30)
[2017-10-27] MEDS: PENTOXIFYLLINE 400 MG TABLET PO SCH ×3 (09:30→21:18)
[2017-10-27] MEDS: INSULIN REGULAR 100 UNIT/ML SUBCUT SCH ×4 (09:30→21:15)
[2017-10-27] MEDS: ASPIRIN CHEW 81 MG TABLET PO SCH (09:30)
[2017-10-27] MEDS: INSULIN GLARGINE 100 UNIT/ML SUBCUT SCH ×2 (09:31→21:15)
[2017-10-27] MEDS: DOCUSATE SODIUM 100 MG CAPSULE PO SCH ×2 (09:34→21:15)
[2017-10-27] MEDS: SODIUM HYPOCHLORITE 0.25% IRRIG 473 ML BOTTLE TOP SCH (16:32)
[2017-10-27] MEDS: BACITRACIN OINT 0.9 GM PACK TOP SCH (16:32)
[2017-10-27] MEDS: GENTAMICIN 0.1% OINT 15 GM TUBE TOP SCH ×3 (16:32→21:13)
[2017-10-27] MEDS: ACETIC ACID 0.25% IRRIGATION 1,000 ML BOTTLE IRRIG SCH ×2 (16:32→21:13)
[2017-10-27] MEDS: ENOXAPARIN 40 MG/0.4 ML SYRINGE SUBCUT SCH (21:16)
[2017-10-27] MEDS: ATORVASTATIN 40 MG TABLET PO SCH (21:18)
[2017-10-28] MEDS: PIPERACILLIN/TAZOBACTAM 3,375 MG in SODIUM CHLORIDE 0.9% 100 ML IV SCH ×3 (00:09→15:49)
[2017-10-28] MEDS: ALBUTEROL/IPRATROPIUM 3 ML NEB RESP TX SCH ×5 (00:35→23:44)
[2017-10-28] MEDS: SODIUM CHLORIDE 0.45% 1,000 ML IV SCH ×2 (00:57→13:35)
[2017-10-28] MEDS: HYDROmorphone 2 MG/1 ML VIAL IV PRN ×5 (03:00→22:50)
[2017-10-28] MEDS: DIPHENOXYLATE/ATROPINE 2.5-0.025 MG TABLET PO PRN ×3 (03:16→13:36)
[2017-10-28 06:25] LABS: Basophils % 0.1 % (0.0-0.8); Eosinophils % 0.1 % (0.00-10.9); Hematocrit 27.7 VOL% (42.0-52.0); Hemoglobin 8.7 GM/DL (14.0-18.0); Immature Granulocytes % 1.6 %; Immature Granulocytes Absolute 0.14 #; Lymphocytes # 0.8 10*3/uL (1.4-4.0); Lymphocytes % 9.3 % (21.2-54.2); Mean Corpuscular HGB Conc 31.4 GM/DL (32-36); Mean Corpuscular Hemoglobin 29 PG (27-34); Mean Platelet Volume 12.2 FL (9.6-12.0); Monocytes # 0.8 10*3/uL (0.11-0.8); Neutrophils # 7.2 10*3/uL (1.4-7.4); Neutrophils % 79.9 % (38.7-73.9); Platelet Count 256 T/CUMM (130-400); Red Blood Count 2.98 MC/CUMM (3.8-5.5); Red Cell Distribution Width 16.8 % (9.3-17.3)
[2017-10-28 06:59] LABS: Calcium 8.1 MG/DL (8.5-10.1); Osmolality,Calculated 293.7 MOS/KG (273-304); Potassium 4.1 MMOL/L (3.5-5.1)
[2017-10-28 07:00] LABS: Hypochromasia 1+
[2017-10-28] MEDS: INSULIN REGULAR 100 UNIT/ML SUBCUT SCH ×4 (08:35→23:51)
[2017-10-28] MEDS: ACETIC ACID 0.25% IRRIGATION 1,000 ML BOTTLE IRRIG SCH ×2 (08:36→23:50)
[2017-10-28] MEDS: SODIUM HYPOCHLORITE 0.25% IRRIG 473 ML BOTTLE TOP SCH (08:37)
[2017-10-28] MEDS: BACITRACIN OINT 0.9 GM PACK TOP SCH (09:42)
[2017-10-28] MEDS: SUCRALFATE 1 GM TABLET PO SCH ×4 (09:42→23:50)
[2017-10-28] MEDS: ASPIRIN CHEW 81 MG TABLET PO SCH (09:42)
[2017-10-28] MEDS: INSULIN GLARGINE 100 UNIT/ML SUBCUT SCH ×2 (09:43→22:51)
[2017-10-28] MEDS: DOCUSATE SODIUM 100 MG CAPSULE PO SCH ×2 (09:43→23:50)
[2017-10-28] MEDS: GENTAMICIN 0.1% OINT 15 GM TUBE TOP SCH ×3 (09:43→23:50)
[2017-10-28] MEDS: POTASSIUM CHLORIDE 10 MEQ TABLET PO SCH (09:43)
[2017-10-28] MEDS: predniSONE 20 MG TABLET PO SCH (09:44)
[2017-10-28] MEDS: PANTOPRAZOLE 40 MG TABLET PO SCH (09:44)
[2017-10-28] MEDS: MAGNESIUM CHLORIDE 64 MG TABLET PO SCH ×2 (09:44→22:51)
[2017-10-28] MEDS: GABAPENTIN 300 MG CAPSULE PO SCH ×2 (09:44→22:52)
[2017-10-28] MEDS: METOPROLOL SUCCINATE XL 25 MG TABLET PO SCH (09:45)
[2017-10-28] MEDS: PENTOXIFYLLINE 400 MG TABLET PO SCH ×3 (09:45→22:52)
[2017-10-28] MEDS: ATORVASTATIN 40 MG TABLET PO SCH (22:52)
[2017-10-28] MEDS: ENOXAPARIN 40 MG/0.4 ML SYRINGE SUBCUT SCH (22:52)
[2017-10-29] MEDS: DIPHENOXYLATE/ATROPINE 2.5-0.025 MG TABLET PO PRN ×3 (00:23→16:14)
[2017-10-29] MEDS: PIPERACILLIN/TAZOBACTAM 3,375 MG in SODIUM CHLORIDE 0.9% 100 ML IV SCH ×3 (00:23→15:57)
[2017-10-29] MEDS: HYDROmorphone 2 MG/1 ML VIAL IV PRN ×4 (02:40→21:10)
[2017-10-29] MEDS: SODIUM CHLORIDE 0.45% 1,000 ML IV SCH ×2 (02:41→16:36)
[2017-10-29] MEDS: ALBUTEROL/IPRATROPIUM 3 ML NEB RESP TX SCH ×3 (07:24→19:01)
[2017-10-29] MEDS: INSULIN REGULAR 100 UNIT/ML SUBCUT SCH ×4 (07:59→21:09)
[2017-10-29] MEDS: INSULIN GLARGINE 100 UNIT/ML SUBCUT SCH ×3 (08:01→21:12)
[2017-10-29] MEDS: SODIUM HYPOCHLORITE 0.25% IRRIG 473 ML BOTTLE TOP SCH (09:30)
[2017-10-29] MEDS: ACETIC ACID 0.25% IRRIGATION 1,000 ML BOTTLE IRRIG SCH ×2 (09:30→21:11)
[2017-10-29] MEDS: BACITRACIN OINT 0.9 GM PACK TOP SCH (09:30)
[2017-10-29] MEDS: GENTAMICIN 0.1% OINT 15 GM TUBE TOP SCH ×3 (09:30→21:11)
[2017-10-29] MEDS: METOPROLOL SUCCINATE XL 25 MG TABLET PO SCH (09:32)
[2017-10-29] MEDS: SUCRALFATE 1 GM TABLET PO SCH ×4 (09:32→21:11)
[2017-10-29] MEDS: ASPIRIN CHEW 81 MG TABLET PO SCH (09:32)
[2017-10-29] MEDS: MAGNESIUM CHLORIDE 64 MG TABLET PO SCH ×2 (09:32→21:11)
[2017-10-29] MEDS: GABAPENTIN 300 MG CAPSULE PO SCH ×2 (09:33→21:11)
[2017-10-29] MEDS: predniSONE 20 MG TABLET PO SCH (09:33)
[2017-10-29] MEDS: PENTOXIFYLLINE 400 MG TABLET PO SCH ×3 (09:33→21:11)
[2017-10-29] MEDS: PANTOPRAZOLE 40 MG TABLET PO SCH (09:33)
[2017-10-29] MEDS: POTASSIUM CHLORIDE 10 MEQ TABLET PO SCH (09:33)
[2017-10-29] MEDS: DOCUSATE SODIUM 100 MG CAPSULE PO SCH ×2 (09:33→21:11)
[2017-10-29] MEDS: ENOXAPARIN 40 MG/0.4 ML SYRINGE SUBCUT SCH (21:10)
[2017-10-29] MEDS: ATORVASTATIN 40 MG TABLET PO SCH (21:11)
[2017-10-30] MEDS: DIPHENOXYLATE/ATROPINE 2.5-0.025 MG TABLET PO PRN ×2 (00:38→06:43)
[2017-10-30] MEDS: PIPERACILLIN/TAZOBACTAM 3,375 MG in SODIUM CHLORIDE 0.9% 100 ML IV SCH ×3 (00:39→16:12)
[2017-10-30] MEDS: ALBUTEROL/IPRATROPIUM 3 ML NEB RESP TX SCH ×3 (00:46→13:30)
[2017-10-30] MEDS: HYDROmorphone 2 MG/1 ML VIAL IV PRN ×3 (02:48→11:57)
[2017-10-30] MEDS: INSULIN REGULAR 100 UNIT/ML SUBCUT SCH ×2 (07:44→14:02)
[2017-10-30] MEDS: ACETIC ACID 0.25% IRRIGATION 1,000 ML BOTTLE IRRIG SCH (10:27)
[2017-10-30] MEDS: BACITRACIN OINT 0.9 GM PACK TOP SCH (10:27)
[2017-10-30] MEDS: GENTAMICIN 0.1% OINT 15 GM TUBE TOP SCH ×2 (10:27→16:11)
[2017-10-30] MEDS: SUCRALFATE 1 GM TABLET PO SCH ×2 (10:28→14:03)
[2017-10-30] MEDS: DOCUSATE SODIUM 100 MG CAPSULE PO SCH (10:28)
[2017-10-30] MEDS: SODIUM HYPOCHLORITE 0.25% IRRIG 473 ML BOTTLE TOP SCH (10:28)
[2017-10-30] MEDS: POTASSIUM CHLORIDE 10 MEQ TABLET PO SCH (10:29)
[2017-10-30] MEDS: PENTOXIFYLLINE 400 MG TABLET PO SCH ×2 (10:29→16:11)
[2017-10-30] MEDS: ASPIRIN CHEW 81 MG TABLET PO SCH (10:29)
[2017-10-30] MEDS: PANTOPRAZOLE 40 MG TABLET PO SCH (10:30)
[2017-10-30] MEDS: GABAPENTIN 300 MG CAPSULE PO SCH (10:30)
[2017-10-30] MEDS: METOPROLOL SUCCINATE XL 25 MG TABLET PO SCH (10:30)
[2017-10-30] MEDS: MAGNESIUM CHLORIDE 64 MG TABLET PO SCH (10:30)
[2017-10-30] MEDS: predniSONE 20 MG TABLET PO SCH (10:30)
[2017-10-30] MEDS: INSULIN GLARGINE 100 UNIT/ML SUBCUT SCH (10:31)
[2017-10-30] MEDS: SODIUM CHLORIDE 0.45% 1,000 ML IV SCH ×2 (10:31→16:12)
[2017-10-30 10:58] VITALS: BP 135/59
== END 2017-10-30 16:00 | disposition home health service (06) | DRG 854 ==
LOC: N.ED 16:38 → N.EDINP 20:06 → N.ICU 20:43 → N.3E 10-16 11:01
PROVIDERS: ADMIT Internal Medicine; ATTEND Internal Medicine

== ENCOUNTER 2018-03-22 07:15 | Inpatient (IN) ==
[2018-03-22] MEDS ORDERED: SODIUM CHLORIDE 0.9% 1,000 ML IV STA ×2 (07:44→09:43)
[2018-03-22 09:35] LABS: Basophils % 0.3 % (0.0-0.8); Hematocrit 32.4 VOL% (42.0-52.0); Hemoglobin 10.2 GM/DL (14.0-18.0); Immature Granulocytes % 0.4 %; Immature Granulocytes Absolute 0.05 #; Lymphocytes # 0.2 10*3/uL (1.4-4.0); Lymphocytes % 1.3 % (21.2-54.2); Mean Corpuscular HGB Conc 31.5 GM/DL (32-36); Mean Corpuscular Hemoglobin 30 PG (27-34); Mean Corpuscular Volume 95.3 FL (87-102); Mean Platelet Volume 11.7 FL (9.6-12.0); Monocytes # 0.3 10*3/uL (0.11-0.8); Monocytes % 2.3 % (1.7-12.7); Neutrophils # 13.6 10*3/uL (1.4-7.4); Neutrophils % 95.7 % (38.7-73.9); Platelet Count 194 T/CUMM (130-400); Red Cell Distribution Width 15.9 % (9.3-17.3); White Blood Count 14.2 T/CUMM (4-12)
[2018-03-22 09:58] LABS: Albumin 2.3 G/DL (3.4-5.0); Bilirubin,Total 2.3 MG/DL (0.2-1.0); Calcium 8.5 MG/DL (8.5-10.1); Osmolality,Calculated 295.8 MOS/KG (273-304); Potassium 5.2 MMOL/L (3.5-5.1); Total Protein 6.9 G/DL (6.4-8.3)
[2018-03-22 09:59] LABS: Lactic Acid 9.5 MMOL/L (0.4-2.0)
[2018-03-22] MEDS ORDERED: PIPERACILLIN/TAZOBACTAM 3,375 MG in SODIUM CHLORIDE 0.9% 100 ML IV STA (10:15)
[2018-03-22] MEDS ORDERED: VANCOMYCIN INJ 1,000 MG in SODIUM CHLORIDE 0.9% 250 ML IV STA (10:16)
[2018-03-22] MEDS ORDERED: HYDROCORTISONE 100 MG VIAL IV STA (10:20)
[2018-03-22 10:44] LABS: Anisocytosis Slight; Band Neutrophils 61 % (0-10); Lymphocytes 2 % (20-55); Metamyelocytes 3 %; Myelocytes 5 %; Platelet Estimate Normal; Segmented Neutrophils 24 % (50-85); Total Cells Counted 100
[2018-03-22] MEDS ORDERED: ONDANSETRON 4 MG/2 ML VIAL IV PRN (11:50)
[2018-03-22] MEDS ORDERED: GLUCAGON 1 MG VIAL IM PRN (11:50)
[2018-03-22] MEDS: SODIUM CHLORIDE 0.9% 1,000 ML IV SCH ×3 (12:05→20:00)
[2018-03-22] MEDS: INSULIN LISPRO 100 UNIT/ML SUBCUT SCH ×3 (12:33→22:04)
[2018-03-22] MEDS ORDERED: SODIUM CHLORIDE 0.9% 500 ML IV ONE (13:13)
[2018-03-22] MEDS ORDERED: HYDROCORTISONE 100 MG VIAL IV ONE (13:14)
[2018-03-22] MEDS: NOREPINEPHRINE 8 MG in SODIUM CHLORIDE 0.9% 242 ML IV PRN ×2 (13:47→22:15)
[2018-03-22] MEDS ORDERED: VANCOMYCIN INJ 1,000 MG in SODIUM CHLORIDE 0.9% 250 ML IV ONE (14:00)
[2018-03-22] MEDS ORDERED: SUCCINYLCHOLINE 200 MG/10 ML VIAL ONE (14:46)
[2018-03-22 15:10] LABS: Lactic Acid 11.1 MMOL/L (0.4-2.0)
[2018-03-22] MEDS: PROPOFOL 1,000 MG/100 ML BOTTLE IV SCH ×2 (15:30→20:01)
[2018-03-22 15:41] LABS: ABG Base Excess -18.3 MMOL/L (-2.5-2.5); ABG HCO3 11.8 MMOL/L (20-26); ABG Oxygen Saturation 66.1 % (95-100); ABG PCO2 45.4 MM HG (35-48); ABG PH 7.033 (7.35-7.45); ABG PO2 54.4 MM HG (80-95); ABG TCO2 13.2 MMOL/L (23-27)
[2018-03-22 15:58] LABS: ABG Base Excess -16.4 MMOL/L (-2.5-2.5); ABG HCO3 12.1 MMOL/L (20-26); ABG Oxygen Saturation 99.6 % (95-100); ABG PCO2 26.1 MM HG (35-48); ABG TCO2 9.7 MMOL/L (23-27)
[2018-03-22] MEDS ORDERED: MIDAZOLAM 2 MG/2 ML VIAL IV ONE (16:15)
[2018-03-22] MEDS ORDERED: fentaNYL 100 MCG/2 ML VIAL IV ONE (16:15)
[2018-03-22] MEDS ORDERED: MIDAZOLAM 10 MG/2 ML VIAL ONE (16:16)
[2018-03-22] MEDS ORDERED: fentaNYL 100 MCG/2 ML VIAL ONE (16:16)
[2018-03-22] MEDS: MEROPENEM 1,000 MG in SYRINGE 1 EACH IV SCH (17:20)
[2018-03-22] MEDS: HYDROCORTISONE 100 MG VIAL IV SCH ×2 (17:20→22:05)
[2018-03-22] MEDS ORDERED: LIDOCAINE 2% TOP JELLY 20 ML VIAL INTRAURETH ONE (18:45)
[2018-03-22 18:57] LABS: Lactic Acid 7.2 MMOL/L (0.4-2.0)
[2018-03-22 19:11] LABS: Free T4 (Free Thyroxine) 1.74 NG/DL (0.76-1.46); Thyroid Stimulating Hormone 3.55 uIU/ml (0.358-3.74)
[2018-03-22] MEDS ORDERED: PIPERACILLIN/TAZOBACTAM 3,375 MG in SODIUM CHLORIDE 0.9% 100 ML IV SCH (21:00)
[2018-03-22 21:35] LABS: CKMB % 5.4 %
[2018-03-22 21:41] LABS: Amorphous Crystals,Urine Occasional /HPF (Few); Apearance,Urine CLOUDY (Clear); Bacteria,Urine Many /HPF (Few); Bilirubin,Urine Negative (Negative); Blood, Urine Large mg/dL (Negative); Glucose,Urine (UA) 150 mg/dL (Negative); Ketones,Urine Negative (Negative); Mucus,Urine Many /LPF (Occasional); Nitrite,Urine Negative (Negative); Protein,Urine 100 MG/DL; RBC,Urine 86 /HPF (0-4); Urine Color Yellow (Yellow); Urine Specific Gravity 1.018 (1.001-1.035); WBC,Urine 28 /HPF (0-6)
[2018-03-22] MEDS: DOCUSATE SODIUM 100 MG CAPSULE PO SCH (22:03)
[2018-03-23] MEDS: INSULIN LISPRO 100 UNIT/ML SUBCUT SCH ×6 (00:02→21:20)
[2018-03-23] MEDS: SODIUM CHLORIDE 0.9% 1,000 ML IV SCH ×3 (00:03→17:12)
[2018-03-23 02:02] LABS: CKMB % 5.5 %
[2018-03-23 03:51] LABS: ABG Base Excess -7.2 MMOL/L (-2.5-2.5); ABG HCO3 18.6 MMOL/L (20-26); ABG PH 7.375 (7.35-7.45); ABG TCO2 15.4 MMOL/L (23-27)
[2018-03-23] MEDS: HYDROCORTISONE 100 MG VIAL IV SCH ×4 (05:49→22:30)
[2018-03-23] MEDS: PROPOFOL 1,000 MG/100 ML BOTTLE IV SCH ×4 (06:02→20:52)
[2018-03-23 06:03] LABS: Basophils % 0.2 % (0.0-0.8); Hematocrit 28.9 VOL% (42.0-52.0); Hemoglobin 9.9 GM/DL (14.0-18.0); Immature Granulocytes % 1.6 %; Immature Granulocytes Absolute 0.31 #; Lymphocytes # 0.2 10*3/uL (1.4-4.0); Lymphocytes % 1.2 % (21.2-54.2); Mean Corpuscular HGB Conc 34.3 GM/DL (32-36); Mean Corpuscular Hemoglobin 31 PG (27-34); Mean Corpuscular Volume 89.5 FL (87-102); Mean Platelet Volume 12.1 FL (9.6-12.0); Monocytes # 0.7 10*3/uL (0.11-0.8); Monocytes % 3.3 % (1.7-12.7); NRBC # 0.03 10*3/uL; Neutrophils # 18.5 10*3/uL (1.4-7.4); Neutrophils % 93.7 % (38.7-73.9); Platelet Count 237 T/CUMM (130-400); Red Blood Count 3.23 MC/CUMM (3.8-5.5); Red Cell Distribution Width 16.1 % (9.3-17.3); White Blood Count 19.8 T/CUMM (4-12)
[2018-03-23 06:34] LABS: Albumin 2.1 G/DL (3.4-5.0); Bilirubin,Total 1.9 MG/DL (0.2-1.0); Calcium 7.2 MG/DL (8.5-10.1); Osmolality,Calculated 306.3 MOS/KG (273-304); Potassium 5.3 MMOL/L (3.5-5.1); Total Protein 6.8 G/DL (6.4-8.3)
[2018-03-23 06:37] LABS: Band Neutrophils 17 % (0-10); Segmented Neutrophils 81 % (50-85); Total Cells Counted 100
[2018-03-23 06:38] LABS: Hypochromasia Slight; Platelet Estimate Adequate
[2018-03-23] MEDS ORDERED: VANCOMYCIN INJ 1,500 MG in SODIUM CHLORIDE 0.9% 500 ML IV PRN (07:26)
[2018-03-23 07:39] LABS: Barbiturates Screen,Urine Negative (Negative); Benzodiazepines Screen,Urine Negative (Negative); Cannabinoid Screen,Urine Positive (Negative); Opiate Screen,Urine Positive (Negative); Phencyclidine Screen,Urine Negative (Negative)
[2018-03-23] MEDS ORDERED: PANTOPRAZOLE 40 MG TABLET PO SCH (09:00)
[2018-03-23] MEDS: INSULIN GLARGINE 100 UNIT/ML SUBCUT SCH ×2 (09:20→21:21)
[2018-03-23] MEDS: DOCUSATE SODIUM 100 MG CAPSULE PO SCH ×2 (09:24→21:23)
[2018-03-23] MEDS: predniSONE 20 MG TABLET PO SCH (09:25)
[2018-03-23] MEDS: MAGNESIUM CHLORIDE 64 MG TABLET PO SCH ×2 (09:25→21:23)
[2018-03-23] MEDS ORDERED: SODIUM BICARB IV SCH (09:30)
[2018-03-23] MEDS ORDERED: [UNRECOGNIZED DRUG - OTHER] IV SCH (09:30)
[2018-03-23] MEDS ORDERED: SODIUM CHLORIDE IV SCH (09:30)
[2018-03-23 09:40] LABS: CKMB % 3.5 %
[2018-03-23] MEDS: ENOXAPARIN 30 MG/0.3 ML SYRINGE SUBCUT SCH (10:41)
[2018-03-23] MEDS: PANTOPRAZOLE 40 MG VIAL IV SCH (10:41)
[2018-03-23 11:07] LABS: HIV Antigen/Antibody Result Nonreactive (Nonreactive); Hepatitis B Surface Ag Quant < 0.10 Index; Hepatitis B Surface Ag Result Negative (Negative); Hepatitis C Virus Ab Quant 0.18 Index; Hepatitis C Virus Ab Result Negative (Negative)
[2018-03-23] MEDS: SODIUM CHLORIDE 23.4% CONC INJ 38.5 MEQ, SODIUM BICARB INJ 100 MEQ in STERILE WATER INJ... IV SCH ×2 (11:48→20:51)
[2018-03-23] MEDS: GENTAMICIN 0.1% CREAM 15 GM TUBE TOP SCH (17:13)
[2018-03-23] MEDS: MEROPENEM 1,000 MG in SYRINGE 1 EACH IV SCH (17:13)
[2018-03-23] MEDS: ATORVASTATIN 40 MG TABLET PO SCH (21:23)
[2018-03-24] MEDS: INSULIN LISPRO 100 UNIT/ML SUBCUT SCH ×6 (00:56→20:56)
[2018-03-24] MEDS: PROPOFOL 1,000 MG/100 ML BOTTLE IV SCH ×6 (02:01→23:23)
[2018-03-24 03:16] LABS: Basophils % 0.2 % (0.0-0.8); Hemoglobin 8.4 GM/DL (14.0-18.0); Immature Granulocytes % 3.2 %; Lymphocytes # 0.3 10*3/uL (1.4-4.0); Lymphocytes % 2.7 % (21.2-54.2); Mean Corpuscular HGB Conc 33.6 GM/DL (32-36); Mean Corpuscular Hemoglobin 30 PG (27-34); Mean Corpuscular Volume 90.3 FL (87-102); Mean Platelet Volume 12.2 FL (9.6-12.0); Monocytes # 0.5 10*3/uL (0.11-0.8); Monocytes % 4.3 % (1.7-12.7); NRBC # 0.02 10*3/uL; Neutrophils # 11.1 10*3/uL (1.4-7.4); Neutrophils % 89.6 % (38.7-73.9); Platelet Count 170 T/CUMM (130-400); Red Blood Count 2.77 MC/CUMM (3.8-5.5); White Blood Count 12.4 T/CUMM (4-12)
[2018-03-24 03:42] LABS: Osmolality,Calculated 305.8 MOS/KG (273-304); Potassium 3.7 MMOL/L (3.5-5.1)
[2018-03-24 03:45] LABS: Prealbumin 3.4 MG/DL (20-40)
[2018-03-24 03:51] LABS: ABG Base Excess -0.5 MMOL/L (-2.5-2.5); ABG HCO3 23.6 MMOL/L (20-26); ABG PCO2 31.3 MM HG (35-48); ABG PH 7.468 (7.35-7.45); ABG PO2 41.4 MM HG (80-95)
[2018-03-24 04:25] LABS: Band Neutrophils 3 % (0-10); Hypochromasia Slight; Lymphocytes 3 % (20-55); Platelet Estimate Normal; Segmented Neutrophils 89 % (50-85); Total Cells Counted 100
[2018-03-24] MEDS: HYDROCORTISONE 100 MG VIAL IV SCH ×4 (05:15→21:29)
[2018-03-24] MEDS: SODIUM CHLORIDE 23.4% CONC INJ 38.5 MEQ, SODIUM BICARB INJ 100 MEQ in STERILE WATER INJ... IV SCH ×3 (05:51→22:29)
[2018-03-24] MEDS: MAGNESIUM CHLORIDE 64 MG TABLET PO SCH ×2 (08:21→20:58)
[2018-03-24] MEDS: predniSONE 20 MG TABLET PO SCH (08:21)
[2018-03-24] MEDS: INSULIN GLARGINE 100 UNIT/ML SUBCUT SCH ×2 (08:21→20:57)
[2018-03-24] MEDS: PANTOPRAZOLE 40 MG VIAL IV SCH (08:22)
[2018-03-24] MEDS: DOCUSATE SODIUM 100 MG CAPSULE PO SCH ×2 (08:22→20:58)
[2018-03-24] MEDS: ENOXAPARIN 30 MG/0.3 ML SYRINGE SUBCUT SCH (08:33)
[2018-03-24] MEDS ORDERED: SODIUM CHLORIDE 0.9% 1,000 ML IV PRN (08:59)
[2018-03-24 09:16] LABS: ABG Base Excess 0.2 MMOL/L (-2.5-2.5); ABG HCO3 24.6 MMOL/L (20-26); ABG Oxygen Saturation 99.4 % (95-100); ABG PCO2 29.9 MM HG (35-48); ABG PH 7.493 (7.35-7.45)
[2018-03-24] MEDS: GENTAMICIN 0.1% CREAM 15 GM TUBE TOP SCH (12:03)
[2018-03-24] MEDS: NAFCILLIN 2,000 MG in SODIUM CHLORIDE 0.9% 100 ML IV SCH ×3 (14:33→21:29)
[2018-03-24] MEDS ORDERED: FUROSEMIDE 40 MG/4 ML VIAL IV ONE (15:00)
[2018-03-24] MEDS: ACETAMINOPHEN 325 MG TABLET PO PRN (18:01)
[2018-03-24] MEDS: ATORVASTATIN 40 MG TABLET PO SCH (20:57)
[2018-03-24 21:21] LABS: Hematocrit 31.5 VOL% (42.0-52.0); Hemoglobin 10.6 GM/DL (14.0-18.0)
[2018-03-25] MEDS: INSULIN LISPRO 100 UNIT/ML SUBCUT SCH ×6 (01:06→21:25)
[2018-03-25] MEDS: NAFCILLIN 2,000 MG in SODIUM CHLORIDE 0.9% 100 ML IV SCH ×6 (01:12→21:27)
[2018-03-25] MEDS: HYDROCORTISONE 100 MG VIAL IV SCH (03:40)
[2018-03-25] MEDS: PROPOFOL 1,000 MG/100 ML BOTTLE IV SCH ×4 (04:11→14:38)
[2018-03-25 04:41] LABS: Allen Test Positive; Pt O2 Delivery Device Ventilator
[2018-03-25 04:42] LABS: ABG Base Excess 2.2 MMOL/L (-2.5-2.5); ABG HCO3 24.5 MMOL/L (20-26); ABG Oxygen Saturation 97.8 % (95-100); ABG PCO2 30.8 MM HG (35-48); ABG PH 7.519 (7.35-7.45); ABG PO2 118.8 MM HG (80-95); ABG TCO2 25.5 MMOL/L (23-27)
[2018-03-25 05:52] LABS: Basophils % 0.2 % (0.0-0.8); Hematocrit 31.3 VOL% (42.0-52.0); Hemoglobin 10.6 GM/DL (14.0-18.0); Immature Granulocytes % 1.5 %; Lymphocytes # 0.4 10*3/uL (1.4-4.0); Lymphocytes % 2.8 % (21.2-54.2); Mean Corpuscular HGB Conc 33.9 GM/DL (32-36); Mean Corpuscular Hemoglobin 30 PG (27-34); Mean Corpuscular Volume 87.9 FL (87-102); Mean Platelet Volume 12.8 FL (9.6-12.0); Monocytes # 0.8 10*3/uL (0.11-0.8); Monocytes % 5.7 % (1.7-12.7); NRBC # 0.02 10*3/uL; Neutrophils # 11.8 10*3/uL (1.4-7.4); Neutrophils % 89.8 % (38.7-73.9); Platelet Count 156 T/CUMM (130-400); Red Blood Count 3.56 MC/CUMM (3.8-5.5); White Blood Count 13.2 T/CUMM (4-12)
[2018-03-25 05:57] LABS: PT Patient Result 10.2 SECS; Partial Thromboplastin Time 32.2 SECS (0-40)
[2018-03-25] MEDS: SODIUM CHLORIDE 23.4% CONC INJ 38.5 MEQ, SODIUM BICARB INJ 100 MEQ in STERILE WATER INJ... IV SCH (06:29)
[2018-03-25 06:39] LABS: Band Neutrophils 1 % (0-10); Giant Platelets Few; Hypochromasia 1+; Lymphocytes 1 % (20-55); Platelet Estimate Normal; Segmented Neutrophils 92 % (50-85); Total Cells Counted 100
[2018-03-25 06:46] LABS: Calcium 6.3 MG/DL (8.5-10.1); Osmolality,Calculated 308.8 MOS/KG (273-304); Potassium 3.2 MMOL/L (3.5-5.1)
[2018-03-25] MEDS: PANTOPRAZOLE 40 MG VIAL IV SCH (08:36)
[2018-03-25] MEDS: MAGNESIUM CHLORIDE 64 MG TABLET PO SCH ×2 (08:37→20:35)
[2018-03-25] MEDS: INSULIN GLARGINE 100 UNIT/ML SUBCUT SCH ×2 (08:37→21:25)
[2018-03-25] MEDS: ENOXAPARIN 30 MG/0.3 ML SYRINGE SUBCUT SCH (08:37)
[2018-03-25] MEDS: DOCUSATE SODIUM 100 MG CAPSULE PO SCH ×2 (09:04→20:36)
[2018-03-25] MEDS: predniSONE 20 MG TABLET PO SCH (09:05)
[2018-03-25] MEDS: GENTAMICIN 0.1% CREAM 15 GM TUBE TOP SCH (09:05)
[2018-03-25] MEDS ORDERED: SODIUM CHLORIDE 0.45% 1,000 ML IV SCH (10:00)
[2018-03-25] MEDS ORDERED: POTASSIUM CHLORIDE RIDER 20 MEQ in PREMIX 1 EACH IV ONE (10:00)
[2018-03-25] MEDS: MORPHINE 4 MG/1 ML VIAL IV PRN ×4 (10:25→22:05)
[2018-03-25 15:39] LABS: ABG Base Excess 3.7 MMOL/L (-2.5-2.5); ABG Oxygen Saturation 95.7 % (95-100); ABG PCO2 36.2 MM HG (35-48); ABG PO2 83.5 MM HG (80-95); ABG TCO2 28.1 MMOL/L (23-27)
[2018-03-25] MEDS ORDERED: ALBUTEROL/IPRATROPIUM 3 ML NEB RESP TX PRN (16:07)
[2018-03-25] MEDS: ATORVASTATIN 40 MG TABLET PO SCH (20:35)
[2018-03-25] MEDS: DEXTROSE 50% 25 GM/50 ML VIAL IV PRN ×2 (21:24→22:56)
[2018-03-25] MEDS ORDERED: DEXTROSE 5% NACL 0.9% 1,000 ML IV SCH (23:00)
[2018-03-26] MEDS: DEXTROSE 50% 25 GM/50 ML VIAL IV PRN ×4 (00:30→12:09)
[2018-03-26] MEDS: INSULIN LISPRO 100 UNIT/ML SUBCUT SCH ×5 (00:30→22:15)
[2018-03-26] MEDS: NAFCILLIN 2,000 MG in SODIUM CHLORIDE 0.9% 100 ML IV SCH ×6 (01:07→21:44)
[2018-03-26] MEDS: MORPHINE 4 MG/1 ML VIAL IV PRN ×3 (02:41→19:43)
[2018-03-26 04:34] LABS: Basophils % 0.1 % (0.0-0.8); Hematocrit 34.2 VOL% (42.0-52.0); Immature Granulocytes % 2.2 %; Immature Granulocytes Absolute 0.22 #; Lymphocytes # 0.5 10*3/uL (1.4-4.0); Lymphocytes % 5.5 % (21.2-54.2); Mean Corpuscular HGB Conc 32.2 GM/DL (32-36); Mean Corpuscular Hemoglobin 29 PG (27-34); Mean Corpuscular Volume 90.7 FL (87-102); Mean Platelet Volume 12.4 FL (9.6-12.0); Monocytes # 0.6 10*3/uL (0.11-0.8); Monocytes % 6.2 % (1.7-12.7); Neutrophils # 8.4 10*3/uL (1.4-7.4); Platelet Count 145 T/CUMM (130-400); Red Blood Count 3.77 MC/CUMM (3.8-5.5); Red Cell Distribution Width 16.4 % (9.3-17.3); White Blood Count 9.8 T/CUMM (4-12)
[2018-03-26 04:37] LABS: Allen Test Positive
[2018-03-26 04:40] LABS: ABG Base Excess 3.7 MMOL/L (-2.5-2.5); ABG HCO3 27.2 MMOL/L (20-26); ABG Oxygen Saturation 94.8 % (95-100); ABG PCO2 36.7 MM HG (35-48); ABG PH 7.487 (7.35-7.45); ABG PO2 78.9 MM HG (80-95); ABG TCO2 28.3 MMOL/L (23-27)
[2018-03-26 05:07] LABS: Calcium 6.7 MG/DL (8.5-10.1); Osmolality,Calculated 303.6 MOS/KG (273-304); Potassium 2.8 MMOL/L (3.5-5.1)
[2018-03-26 05:22] LABS: Band Neutrophils 1 % (0-10); Hypochromasia 1+; Lymphocytes 8 % (20-55); Ovalocytes Slight; Platelet Estimate Normal; Segmented Neutrophils 89 % (50-85); Total Cells Counted 100
[2018-03-26] MEDS ORDERED: POTASSIUM CHLORIDE 20 MEQ/15 ML UDCUP PER TUBE ONE (06:34)
[2018-03-26] MEDS: predniSONE 20 MG TABLET PO SCH (10:31)
[2018-03-26] MEDS: MAGNESIUM CHLORIDE 64 MG TABLET PO SCH ×2 (10:31→21:44)
[2018-03-26] MEDS: PANTOPRAZOLE 40 MG VIAL IV SCH (10:42)
[2018-03-26 10:47] LABS: Calcium 6.9 MG/DL (8.5-10.1); Osmolality,Calculated 301.6 MOS/KG (273-304); Potassium 3.4 MMOL/L (3.5-5.1)
[2018-03-26] MEDS: DOCUSATE SODIUM 100 MG CAPSULE PO SCH ×2 (10:47→21:45)
[2018-03-26] MEDS: ENOXAPARIN 30 MG/0.3 ML SYRINGE SUBCUT SCH (10:47)
[2018-03-26] MEDS: POTASSIUM CHLORIDE INJ 40 MEQ in DEXTROSE 5% 1,000 ML IV SCH (10:58)
[2018-03-26] MEDS: ATORVASTATIN 40 MG TABLET PO SCH (21:44)
[2018-03-27] MEDS: INSULIN LISPRO 100 UNIT/ML SUBCUT SCH ×8 (00:03→23:33)
[2018-03-27] MEDS: MORPHINE 4 MG/1 ML VIAL IV PRN (01:21)
[2018-03-27] MEDS: NAFCILLIN 2,000 MG in SODIUM CHLORIDE 0.9% 100 ML IV SCH ×6 (01:24→21:30)
[2018-03-27] MEDS: POTASSIUM CHLORIDE INJ 40 MEQ in DEXTROSE 5% 1,000 ML IV SCH ×2 (03:35→16:11)
[2018-03-27] MEDS: QUEtiapine 25 MG TABLET PO SCH ×3 (03:35→20:27)
[2018-03-27] MEDS: HYDROCORTISONE 100 MG VIAL IV SCH ×2 (03:35→16:16)
[2018-03-27 04:49] LABS: Calcium 7.2 MG/DL (8.5-10.1); Osmolality,Calculated 303.8 MOS/KG (273-304); Potassium 3.8 MMOL/L (3.5-5.1)
[2018-03-27] MEDS ORDERED: AMIODARONE 150 MG/3 ML VIAL ONE (08:22)
[2018-03-27] MEDS ORDERED: AMIODARONE INJ 150 MG in DEXTROSE 5% 100 ML IV ONE (08:22)
[2018-03-27] MEDS ORDERED: AMIODARONE 450 MG/9 ML VIAL IV ONE ×2 (08:22→08:31)
[2018-03-27] MEDS ORDERED: AMIODARONE INJ 450 MG in DEXTROSE 5% 241 ML IV SCH (08:30)
[2018-03-27] MEDS ORDERED: DIGOXIN 0.5 MG/2 ML AMP ONE (08:51)
[2018-03-27] MEDS ORDERED: fentaNYL 100 MCG/2 ML VIAL ONE (08:52)
[2018-03-27] MEDS ORDERED: MIDAZOLAM 10 MG/2 ML VIAL ONE (08:53)
[2018-03-27] MEDS ORDERED: fentaNYL 100 MCG/2 ML VIAL IV ONE (08:55)
[2018-03-27] MEDS ORDERED: MIDAZOLAM 2 MG/2 ML VIAL IV ONE (08:55)
[2018-03-27] MEDS ORDERED: ENOXAPARIN 40 MG/0.4 ML SYRINGE SUBCUT SCH (09:00)
[2018-03-27] MEDS ORDERED: NALOXONE 0.4 MG/ML VIAL ONE (09:04)
[2018-03-27] MEDS ORDERED: NALOXONE 0.4 MG/ML VIAL IV ONE (09:06)
[2018-03-27] MEDS ORDERED: DIGOXIN 0.5 MG/2 ML AMP IV ONE (10:00)
[2018-03-27] MEDS: NOREPINEPHRINE 8 MG in SODIUM CHLORIDE 0.9% 242 ML IV PRN (10:58)
[2018-03-27] MEDS ORDERED: MIDAZOLAM 10 MG/2 ML VIAL IV ONE (11:30)
[2018-03-27] MEDS: ENOXAPARIN 100 MG/ML SYRINGE SUBCUT SCH (11:33)
[2018-03-27] MEDS: MAGNESIUM CHLORIDE 64 MG TABLET PO SCH ×2 (11:34→20:25)
[2018-03-27] MEDS: predniSONE 20 MG TABLET PO SCH (11:35)
[2018-03-27] MEDS: LIDOCAINE 5% PATCH TRANSDERM SCH (11:42)
[2018-03-27] MEDS: PANTOPRAZOLE 40 MG VIAL IV SCH (11:51)
[2018-03-27] MEDS: DOCUSATE SODIUM 100 MG CAPSULE PO SCH ×2 (11:53→20:27)
[2018-03-27] MEDS: GENTAMICIN 0.1% CREAM 15 GM TUBE TOP SCH ×2 (14:06→14:57)
[2018-03-27] MEDS: AMIODARONE INJ 450 MG in DEXTROSE 5% 241 ML IV SCH (16:00)
[2018-03-27] MEDS: ATORVASTATIN 40 MG TABLET PO SCH (20:27)
[2018-03-28] MEDS: NAFCILLIN 2,000 MG in SODIUM CHLORIDE 0.9% 100 ML IV SCH ×6 (01:14→22:35)
[2018-03-28 01:42] LABS: Calcium 7.4 MG/DL (8.5-10.1); Osmolality,Calculated 304.8 MOS/KG (273-304); Potassium 4.9 MMOL/L (3.5-5.1)
[2018-03-28] MEDS: INSULIN LISPRO 100 UNIT/ML SUBCUT SCH ×5 (05:30→20:45)
[2018-03-28] MEDS: HYDROCORTISONE 100 MG VIAL IV SCH ×2 (05:31→15:53)
[2018-03-28] MEDS: POTASSIUM CHLORIDE INJ 40 MEQ in DEXTROSE 5% 1,000 ML IV SCH ×2 (05:41→08:20)
[2018-03-28] MEDS ORDERED: INSULIN GLARGINE 100 UNIT/ML SUBCUT SCH (09:00)
[2018-03-28] MEDS: GENTAMICIN 0.1% CREAM 15 GM TUBE TOP SCH (09:58)
[2018-03-28] MEDS: FLUCONAZOLE IV SCH (09:58)
[2018-03-28] MEDS: LIDOCAINE 5% PATCH TRANSDERM SCH (09:59)
[2018-03-28] MEDS: QUEtiapine 25 MG TABLET PO SCH ×2 (10:00→20:44)
[2018-03-28] MEDS: DOCUSATE SODIUM 100 MG CAPSULE PO SCH ×2 (10:00→20:45)
[2018-03-28] MEDS: predniSONE 20 MG TABLET PO SCH (10:01)
[2018-03-28] MEDS: MAGNESIUM CHLORIDE 64 MG TABLET PO SCH ×2 (10:03→20:44)
[2018-03-28] MEDS: ENOXAPARIN 100 MG/ML SYRINGE SUBCUT SCH (10:04)
[2018-03-28] MEDS: AMIODARONE INJ 450 MG in DEXTROSE 5% 241 ML IV SCH (10:04)
[2018-03-28] MEDS: PANTOPRAZOLE 40 MG VIAL IV SCH (11:17)
[2018-03-28] MEDS: DEXTROSE 5% 1,000 ML IV SCH (11:45)
[2018-03-28] MEDS: ACETAMINOPHEN 325 MG TABLET PO PRN (20:43)
[2018-03-28] MEDS: ATORVASTATIN 40 MG TABLET PO SCH (20:44)
[2018-03-28] MEDS: AMIODARONE 200 MG TABLET PO SCH (20:45)
[2018-03-29] MEDS: INSULIN LISPRO 100 UNIT/ML SUBCUT SCH ×6 (00:53→21:11)
[2018-03-29] MEDS: HYDROCORTISONE 100 MG VIAL IV SCH ×2 (02:54→16:09)
[2018-03-29] MEDS: NAFCILLIN 2,000 MG in SODIUM CHLORIDE 0.9% 100 ML IV SCH ×6 (02:55→23:00)
[2018-03-29 05:27] LABS: Calcium 7.5 MG/DL (8.5-10.1); Osmolality,Calculated 294.5 MOS/KG (273-304); Potassium 3.4 MMOL/L (3.5-5.1); Prealbumin 7.3 MG/DL (20-40)
[2018-03-29] MEDS: MORPHINE 4 MG/1 ML VIAL IV PRN ×3 (06:18→17:10)
[2018-03-29] MEDS: FLUCONAZOLE IV SCH (08:09)
[2018-03-29] MEDS: PANTOPRAZOLE 40 MG VIAL IV SCH (08:10)
[2018-03-29] MEDS: DEXTROSE 5% 1,000 ML IV SCH (08:10)
[2018-03-29] MEDS ORDERED: LIDOCAINE 1% 20 ML VIAL ONE (11:05)
[2018-03-29] MEDS: LIDOCAINE 5% PATCH TRANSDERM SCH (13:14)
[2018-03-29] MEDS: AMIODARONE 200 MG TABLET PO SCH ×2 (13:14→21:02)
[2018-03-29] MEDS: QUEtiapine 25 MG TABLET PO SCH ×2 (13:14→21:02)
[2018-03-29] MEDS: DOCUSATE SODIUM 100 MG CAPSULE PO SCH ×2 (13:14→21:02)
[2018-03-29] MEDS: predniSONE 10 MG TABLET PO SCH (13:14)
[2018-03-29] MEDS: ENOXAPARIN 100 MG/ML SYRINGE SUBCUT SCH (13:15)
[2018-03-29] MEDS: GENTAMICIN 0.1% CREAM 15 GM TUBE TOP SCH (13:15)
[2018-03-29] MEDS: INSULIN GLARGINE 100 UNIT/ML SUBCUT SCH (13:16)
[2018-03-29] MEDS: MAGNESIUM CHLORIDE 64 MG TABLET PO SCH ×2 (13:26→21:02)
[2018-03-29] MEDS ORDERED: DILTIAZEM INJ 100 MG in SODIUM CHLORIDE 0.9% 100 ML IV PRN (17:23)
[2018-03-29] MEDS ORDERED: MAGNESIUM SULF RIDER 4 GM in PREMIX 1 EACH IV PRN (17:25)
[2018-03-29] MEDS ORDERED: MAGNESIUM SULF RIDER 2 GM in PREMIX 1 EACH IV PRN (17:25)
[2018-03-29] MEDS ORDERED: AMIODARONE INJ 450 MG in DEXTROSE 5% 241 ML IV SCH (17:30)
[2018-03-29] MEDS ORDERED: AMIODARONE INJ 450 MG in DEXTROSE 5% 241 ML IV PRN (17:47)
[2018-03-29] MEDS: POTASSIUM CHLORIDE 20 MEQ TABLET PO PRN (17:55)
[2018-03-29] MEDS: ATORVASTATIN 40 MG TABLET PO SCH (21:02)
[2018-03-30] MEDS: INSULIN LISPRO 100 UNIT/ML SUBCUT SCH ×6 (01:34→21:44)
[2018-03-30] MEDS: NAFCILLIN 2,000 MG in SODIUM CHLORIDE 0.9% 100 ML IV SCH ×6 (02:15→21:44)
[2018-03-30] MEDS: HYDROCORTISONE 100 MG VIAL IV SCH ×2 (04:27→15:53)
[2018-03-30 04:41] LABS: Hematocrit 30.7 VOL% (42.0-52.0); Hemoglobin 9.9 GM/DL (14.0-18.0); Immature Granulocytes % 0.9 %; Lymphocytes # 0.6 10*3/uL (1.4-4.0); Lymphocytes % 5.3 % (21.2-54.2); Mean Corpuscular HGB Conc 32.2 GM/DL (32-36); Mean Corpuscular Hemoglobin 29 PG (27-34); Mean Corpuscular Volume 89.8 FL (87-102); Mean Platelet Volume 12.5 FL (9.6-12.0); Monocytes # 0.7 10*3/uL (0.11-0.8); Monocytes % 6.3 % (1.7-12.7); Neutrophils # 10.2 10*3/uL (1.4-7.4); Neutrophils % 87.5 % (38.7-73.9); Platelet Count 282 T/CUMM (130-400); Red Blood Count 3.42 MC/CUMM (3.8-5.5); Red Cell Distribution Width 15.8 % (9.3-17.3); White Blood Count 11.7 T/CUMM (4-12)
[2018-03-30 05:33] LABS: Calcium 7.8 MG/DL (8.5-10.1); Osmolality,Calculated 292.1 MOS/KG (273-304); Potassium 3.3 MMOL/L (3.5-5.1)
[2018-03-30] MEDS: ENOXAPARIN 100 MG/ML SYRINGE SUBCUT SCH (08:35)
[2018-03-30] MEDS: DEXTROSE 5% 1,000 ML IV SCH ×2 (09:10→23:07)
[2018-03-30] MEDS: LIDOCAINE 5% PATCH TRANSDERM SCH (09:12)
[2018-03-30] MEDS: FLUCONAZOLE IV SCH (09:13)
[2018-03-30] MEDS: predniSONE 10 MG TABLET PO SCH (09:14)
[2018-03-30] MEDS: PANTOPRAZOLE 40 MG VIAL IV SCH (09:14)
[2018-03-30] MEDS: DOCUSATE SODIUM 100 MG CAPSULE PO SCH ×2 (09:14→21:45)
[2018-03-30] MEDS: AMIODARONE 200 MG TABLET PO SCH ×2 (09:15→21:45)
[2018-03-30] MEDS: POTASSIUM CHLORIDE 20 MEQ TABLET PO PRN ×3 (09:15→15:52)
[2018-03-30] MEDS: QUEtiapine 25 MG TABLET PO SCH ×2 (09:15→21:45)
[2018-03-30] MEDS: MAGNESIUM CHLORIDE 64 MG TABLET PO SCH ×2 (09:15→21:45)
[2018-03-30] MEDS: INSULIN GLARGINE 100 UNIT/ML SUBCUT SCH (09:17)
[2018-03-30] MEDS: GENTAMICIN 0.1% CREAM 15 GM TUBE TOP SCH (09:17)
[2018-03-30] MEDS: MORPHINE 4 MG/1 ML VIAL IV PRN (13:45)
[2018-03-30] MEDS: ATORVASTATIN 40 MG TABLET PO SCH (21:45)
[2018-03-31] MEDS: INSULIN LISPRO 100 UNIT/ML SUBCUT SCH ×6 (00:35→21:08)
[2018-03-31] MEDS: MORPHINE 4 MG/1 ML VIAL IV PRN ×3 (00:46→16:45)
[2018-03-31] MEDS: NAFCILLIN 2,000 MG in SODIUM CHLORIDE 0.9% 100 ML IV SCH ×6 (02:01→22:55)
[2018-03-31] MEDS: HYDROCORTISONE 100 MG VIAL IV SCH (04:40)
[2018-03-31 06:55] LABS: Hematocrit 27.4 VOL% (42.0-52.0); Hemoglobin 9.1 GM/DL (14.0-18.0); Immature Granulocytes % 0.8 %; Lymphocytes # 0.3 10*3/uL (1.4-4.0); Lymphocytes % 2.5 % (21.2-54.2); Mean Corpuscular HGB Conc 33.2 GM/DL (32-36); Mean Corpuscular Hemoglobin 30 PG (27-34); Mean Corpuscular Volume 89.3 FL (87-102); Mean Platelet Volume 12.3 FL (9.6-12.0); Monocytes # 0.6 10*3/uL (0.11-0.8); Neutrophils # 10.9 10*3/uL (1.4-7.4); Neutrophils % 91.7 % (38.7-73.9); Platelet Count 287 T/CUMM (130-400); Red Blood Count 3.07 MC/CUMM (3.8-5.5); Red Cell Distribution Width 15.6 % (9.3-17.3); White Blood Count 11.9 T/CUMM (4-12)
[2018-03-31 07:17] LABS: Hypochromasia 1+; Lymphocytes 3 % (20-55); Platelet Estimate Adequate; Segmented Neutrophils 95 % (50-85); Total Cells Counted 100
[2018-03-31 08:38] LABS: Calcium 7.7 MG/DL (8.5-10.1); Osmolality,Calculated 294.3 MOS/KG (273-304); Potassium 3.6 MMOL/L (3.5-5.1)
[2018-03-31] MEDS: ENOXAPARIN 100 MG/ML SYRINGE SUBCUT SCH (09:50)
[2018-03-31] MEDS: PANTOPRAZOLE 40 MG VIAL IV SCH (09:51)
[2018-03-31] MEDS: INSULIN GLARGINE 100 UNIT/ML SUBCUT SCH (09:51)
[2018-03-31] MEDS: QUEtiapine 25 MG TABLET PO SCH ×2 (09:52→20:35)
[2018-03-31] MEDS: GENTAMICIN 0.1% CREAM 15 GM TUBE TOP SCH (09:52)
[2018-03-31] MEDS: predniSONE 20 MG TABLET PO SCH (09:52)
[2018-03-31] MEDS: MAGNESIUM CHLORIDE 64 MG TABLET PO SCH ×2 (09:52→20:34)
[2018-03-31] MEDS: AMIODARONE 200 MG TABLET PO SCH ×2 (09:53→20:34)
[2018-03-31] MEDS: DOCUSATE SODIUM 100 MG CAPSULE PO SCH ×2 (09:53→20:34)
[2018-03-31] MEDS: LIDOCAINE 5% PATCH TRANSDERM SCH (09:59)
[2018-03-31] MEDS: FLUCONAZOLE IV SCH (10:00)
[2018-03-31] MEDS: ATORVASTATIN 40 MG TABLET PO SCH (20:35)
[2018-04-01] MEDS: INSULIN LISPRO 100 UNIT/ML SUBCUT SCH ×6 (01:30→20:37)
[2018-04-01] MEDS: MORPHINE 4 MG/1 ML VIAL IV PRN ×4 (02:40→22:58)
[2018-04-01] MEDS: NAFCILLIN 2,000 MG in SODIUM CHLORIDE 0.9% 100 ML IV SCH ×6 (02:40→23:00)
[2018-04-01] MEDS: DEXTROSE 5% 1,000 ML IV SCH ×2 (02:40→17:17)
[2018-04-01 04:49] LABS: Basophils % 0.1 % (0.0-0.8); Eosinophils % 0.1 % (0.00-10.9); Hemoglobin 8.6 GM/DL (14.0-18.0); Immature Granulocytes Absolute 0.11 #; Lymphocytes # 0.8 10*3/uL (1.4-4.0); Lymphocytes % 7.3 % (21.2-54.2); Mean Corpuscular HGB Conc 34.4 GM/DL (32-36); Mean Corpuscular Hemoglobin 30 PG (27-34); Mean Corpuscular Volume 88.3 FL (87-102); Mean Platelet Volume 11.7 FL (9.6-12.0); Monocytes # 0.7 10*3/uL (0.11-0.8); Monocytes % 6.3 % (1.7-12.7); Neutrophils # 9.6 10*3/uL (1.4-7.4); Neutrophils % 85.2 % (38.7-73.9); Platelet Count 326 T/CUMM (130-400); Red Blood Count 2.83 MC/CUMM (3.8-5.5); Red Cell Distribution Width 15.5 % (9.3-17.3); White Blood Count 11.3 T/CUMM (4-12)
[2018-04-01 05:17] LABS: Calcium 7.3 MG/DL (8.5-10.1); Osmolality,Calculated 288.3 MOS/KG (273-304); Potassium 3.4 MMOL/L (3.5-5.1)
[2018-04-01] MEDS: FLUCONAZOLE IV SCH (09:09)
[2018-04-01] MEDS: PANTOPRAZOLE 40 MG VIAL IV SCH (09:12)
[2018-04-01] MEDS: LIDOCAINE 5% PATCH TRANSDERM SCH (09:15)
[2018-04-01] MEDS: MAGNESIUM CHLORIDE 64 MG TABLET PO SCH ×2 (09:29→20:38)
[2018-04-01] MEDS: GENTAMICIN 0.1% CREAM 15 GM TUBE TOP SCH (09:30)
[2018-04-01] MEDS: QUEtiapine 25 MG TABLET PO SCH ×2 (09:30→20:38)
[2018-04-01] MEDS: predniSONE 20 MG TABLET PO SCH (09:30)
[2018-04-01] MEDS: DOCUSATE SODIUM 100 MG CAPSULE PO SCH ×3 (09:30→20:39)
[2018-04-01] MEDS: AMIODARONE 200 MG TABLET PO SCH ×2 (09:30→20:38)
[2018-04-01] MEDS: INSULIN GLARGINE 100 UNIT/ML SUBCUT SCH (09:30)
[2018-04-01] MEDS: ENOXAPARIN 100 MG/ML SYRINGE SUBCUT SCH (09:36)
[2018-04-01] MEDS: ASCORBIC ACID 500 MG TABLET PO SCH ×2 (13:42→20:38)
[2018-04-01] MEDS: POTASSIUM CHLORIDE 20 MEQ TABLET PO SCH ×2 (13:42→20:38)
[2018-04-01] MEDS: ATORVASTATIN 40 MG TABLET PO SCH (20:38)
[2018-04-02] MEDS: INSULIN LISPRO 100 UNIT/ML SUBCUT SCH ×6 (01:00→20:54)
[2018-04-02] MEDS: NAFCILLIN 2,000 MG in SODIUM CHLORIDE 0.9% 100 ML IV SCH ×6 (02:20→23:59)
[2018-04-02 05:49] LABS: Basophils % 0.1 % (0.0-0.8); Eosinophils % 0.1 % (0.00-10.9); Hematocrit 24.6 VOL% (42.0-52.0); Hemoglobin 8.1 GM/DL (14.0-18.0); Immature Granulocytes % 0.8 %; Immature Granulocytes Absolute 0.08 #; Lymphocytes # 0.7 10*3/uL (1.4-4.0); Lymphocytes % 6.8 % (21.2-54.2); Mean Corpuscular HGB Conc 32.9 GM/DL (32-36); Mean Corpuscular Hemoglobin 30 PG (27-34); Mean Corpuscular Volume 91.8 FL (87-102); Mean Platelet Volume 11.8 FL (9.6-12.0); Monocytes # 0.6 10*3/uL (0.11-0.8); Monocytes % 5.4 % (1.7-12.7); Neutrophils # 9.1 10*3/uL (1.4-7.4); Neutrophils % 86.8 % (38.7-73.9); Platelet Count 317 T/CUMM (130-400); Red Blood Count 2.68 MC/CUMM (3.8-5.5); Red Cell Distribution Width 15.8 % (9.3-17.3); White Blood Count 10.4 T/CUMM (4-12)
[2018-04-02 06:18] LABS: Calcium 7.4 MG/DL (8.5-10.1); Osmolality,Calculated 283.4 MOS/KG (273-304); Potassium 3.6 MMOL/L (3.5-5.1)
[2018-04-02] MEDS: PANTOPRAZOLE 40 MG VIAL IV SCH (08:26)
[2018-04-02] MEDS: ASCORBIC ACID 500 MG TABLET PO SCH ×2 (08:27→20:32)
[2018-04-02] MEDS: LOSARTAN 25 MG TABLET PO SCH (08:28)
[2018-04-02] MEDS: QUEtiapine 25 MG TABLET PO SCH ×2 (08:28→20:32)
[2018-04-02] MEDS: DOCUSATE SODIUM 100 MG CAPSULE PO SCH ×2 (08:28→20:32)
[2018-04-02] MEDS: predniSONE 20 MG TABLET PO SCH (08:29)
[2018-04-02] MEDS: MAGNESIUM CHLORIDE 64 MG TABLET PO SCH ×2 (08:29→20:32)
[2018-04-02] MEDS: AMIODARONE 200 MG TABLET PO SCH ×2 (08:29→20:32)
[2018-04-02] MEDS: POTASSIUM CHLORIDE 20 MEQ TABLET PO SCH ×2 (08:29→20:32)
[2018-04-02] MEDS: LIDOCAINE 5% PATCH TRANSDERM SCH (08:30)
[2018-04-02] MEDS: FLUCONAZOLE IV SCH (08:47)
[2018-04-02] MEDS: INSULIN GLARGINE 100 UNIT/ML SUBCUT SCH (09:05)
[2018-04-02] MEDS: DEXTROSE 5% 1,000 ML IV SCH ×2 (09:15→12:50)
[2018-04-02] MEDS: GENTAMICIN 0.1% CREAM 15 GM TUBE TOP SCH (10:10)
[2018-04-02] MEDS ORDERED: DEXTROSE 50% 25 GM/50 ML VIAL IV PRN (14:11)
[2018-04-02] MEDS ORDERED: GLUCAGON 1 MG VIAL IM PRN (14:11)
[2018-04-02] MEDS ORDERED: MORPHINE 4 MG/1 ML VIAL IV PRN (14:15)
[2018-04-02] MEDS ORDERED: PROPOFOL 200 MG/20 ML VIAL IV ONE (14:26)
[2018-04-02] MEDS ORDERED: MIDAZOLAM 2 MG/2 ML VIAL ONE (14:27)
[2018-04-02] MEDS ORDERED: fentaNYL 100 MCG/2 ML VIAL ONE (14:27)
[2018-04-02] MEDS ORDERED: SEVOFLURANE 1 UNIT/15 MINUTE INH ONE (14:27)
[2018-04-02] MEDS ORDERED: SUCCINYLCHOLINE 200 MG/10 ML VIAL ONE (14:28)
[2018-04-02] MEDS ORDERED: PHENYLEPHRINE 1 MG/10 ML SYRINGE IV ONE (14:28)
[2018-04-02] MEDS: oxyCODONE/ACETAMINOPHEN 5-325 MG TABLET PO PRN (20:32)
[2018-04-02] MEDS: ATORVASTATIN 40 MG TABLET PO SCH (20:32)
[2018-04-03] MEDS: INSULIN LISPRO 100 UNIT/ML SUBCUT SCH ×8 (00:18→23:50)
[2018-04-03] MEDS: NAFCILLIN 2,000 MG in SODIUM CHLORIDE 0.9% 100 ML IV SCH ×6 (03:35→21:12)
[2018-04-03] MEDS: DEXTROSE 5% 1,000 ML IV SCH ×3 (03:36→23:00)
[2018-04-03 04:26] LABS: Basophils % 0.2 % (0.0-0.8); Eosinophils % 0.2 % (0.00-10.9); Hematocrit 28.8 VOL% (42.0-52.0); Hemoglobin 9.4 GM/DL (14.0-18.0); Immature Granulocytes Absolute 0.12 #; Lymphocytes # 0.7 10*3/uL (1.4-4.0); Lymphocytes % 5.4 % (21.2-54.2); Mean Corpuscular HGB Conc 32.6 GM/DL (32-36); Mean Corpuscular Hemoglobin 30 PG (27-34); Mean Corpuscular Volume 90.6 FL (87-102); Mean Platelet Volume 11.6 FL (9.6-12.0); Monocytes # 0.7 10*3/uL (0.11-0.8); Monocytes % 5.2 % (1.7-12.7); Neutrophils # 11.1 10*3/uL (1.4-7.4); Platelet Count 335 T/CUMM (130-400); Red Blood Count 3.18 MC/CUMM (3.8-5.5); Red Cell Distribution Width 15.9 % (9.3-17.3); White Blood Count 12.6 T/CUMM (4-12)
[2018-04-03 04:29] LABS: Calcium 7.8 MG/DL (8.5-10.1); Osmolality,Calculated 282.5 MOS/KG (273-304); Potassium 3.9 MMOL/L (3.5-5.1)
[2018-04-03] MEDS: oxyCODONE/ACETAMINOPHEN 5-325 MG TABLET PO PRN ×3 (04:50→21:06)
[2018-04-03] MEDS: LIDOCAINE 5% PATCH TRANSDERM SCH (09:09)
[2018-04-03] MEDS: PANTOPRAZOLE 40 MG VIAL IV SCH (09:11)
[2018-04-03] MEDS: ASCORBIC ACID 500 MG TABLET PO SCH ×2 (09:12→21:12)
[2018-04-03] MEDS: MAGNESIUM CHLORIDE 64 MG TABLET PO SCH ×2 (09:12→21:09)
[2018-04-03] MEDS: predniSONE 20 MG TABLET PO SCH (09:12)
[2018-04-03] MEDS: LOSARTAN 25 MG TABLET PO SCH (09:13)
[2018-04-03] MEDS: AMIODARONE 200 MG TABLET PO SCH ×2 (09:13→21:12)
[2018-04-03] MEDS: DOCUSATE SODIUM 100 MG CAPSULE PO SCH ×2 (09:13→21:23)
[2018-04-03] MEDS: QUEtiapine 25 MG TABLET PO SCH ×2 (09:14→21:12)
[2018-04-03] MEDS: INSULIN GLARGINE 100 UNIT/ML SUBCUT SCH (10:12)
[2018-04-03] MEDS: POTASSIUM CHLORIDE 20 MEQ TABLET PO SCH ×2 (10:12→21:10)
[2018-04-03] MEDS: GENTAMICIN 0.1% CREAM 15 GM TUBE TOP SCH (10:13)
[2018-04-03] MEDS: MORPHINE 4 MG/1 ML VIAL IV PRN ×2 (10:27→13:30)
[2018-04-03] MEDS: FLUCONAZOLE IV SCH (10:59)
[2018-04-03] MEDS: ATORVASTATIN 40 MG TABLET PO SCH (21:12)
[2018-04-04] MEDS: oxyCODONE/ACETAMINOPHEN 5-325 MG TABLET PO PRN ×2 (01:52→06:25)
[2018-04-04] MEDS: NAFCILLIN 2,000 MG in SODIUM CHLORIDE 0.9% 100 ML IV SCH ×6 (01:52→21:51)
[2018-04-04 05:00] LABS: Basophils % 0.2 % (0.0-0.8); Eosinophils # 0.1 10*3/uL (0.0-0.87); Eosinophils % 0.4 % (0.00-10.9); Hematocrit 27.3 VOL% (42.0-52.0); Hemoglobin 8.9 GM/DL (14.0-18.0); Immature Granulocytes Absolute 0.12 #; Lymphocytes # 0.7 10*3/uL (1.4-4.0); Lymphocytes % 5.6 % (21.2-54.2); Mean Corpuscular HGB Conc 32.6 GM/DL (32-36); Mean Corpuscular Hemoglobin 29 PG (27-34); Mean Corpuscular Volume 90.1 FL (87-102); Mean Platelet Volume 11.2 FL (9.6-12.0); Monocytes # 0.8 10*3/uL (0.11-0.8); Monocytes % 6.6 % (1.7-12.7); Neutrophils # 10.4 10*3/uL (1.4-7.4); Neutrophils % 86.2 % (38.7-73.9); Platelet Count 345 T/CUMM (130-400); Red Blood Count 3.03 MC/CUMM (3.8-5.5); Red Cell Distribution Width 15.8 % (9.3-17.3)
[2018-04-04] MEDS: INSULIN LISPRO 100 UNIT/ML SUBCUT SCH ×5 (05:10→21:39)
[2018-04-04] MEDS: DEXTROSE 5% 1,000 ML IV SCH ×2 (05:10→21:51)
[2018-04-04 05:23] LABS: Calcium 7.7 MG/DL (8.5-10.1); Osmolality,Calculated 276.8 MOS/KG (273-304)
[2018-04-04] MEDS: PANTOPRAZOLE 40 MG VIAL IV SCH (09:56)
[2018-04-04] MEDS: KETOROLAC 15 MG/1 ML VIAL IV SCH ×2 (09:56→21:52)
[2018-04-04] MEDS: QUEtiapine 25 MG TABLET PO SCH ×2 (09:57→21:53)
[2018-04-04] MEDS: MAGNESIUM CHLORIDE 64 MG TABLET PO SCH ×2 (09:57→21:54)
[2018-04-04] MEDS: ASCORBIC ACID 500 MG TABLET PO SCH ×2 (09:57→21:54)
[2018-04-04] MEDS: predniSONE 20 MG TABLET PO SCH (09:58)
[2018-04-04] MEDS: POTASSIUM CHLORIDE 20 MEQ TABLET PO SCH ×2 (09:58→21:53)
[2018-04-04] MEDS: AMIODARONE 200 MG TABLET PO SCH ×2 (09:58→21:53)
[2018-04-04] MEDS: LOSARTAN 25 MG TABLET PO SCH (09:58)
[2018-04-04] MEDS: LIDOCAINE 5% PATCH TRANSDERM SCH (10:00)
[2018-04-04] MEDS: FLUCONAZOLE IV SCH (10:02)
[2018-04-04] MEDS: GENTAMICIN 0.1% CREAM 15 GM TUBE TOP SCH (10:03)
[2018-04-04] MEDS: DOCUSATE SODIUM 100 MG CAPSULE PO SCH ×2 (10:04→21:40)
[2018-04-04] MEDS: INSULIN GLARGINE 100 UNIT/ML SUBCUT SCH (10:08)
[2018-04-04] MEDS ORDERED: ENOXAPARIN 100 MG/ML SYRINGE SUBCUT SCH (15:00)
[2018-04-04] MEDS: ATORVASTATIN 40 MG TABLET PO SCH (21:54)
[2018-04-05] MEDS: DEXTROSE 5% 1,000 ML IV SCH ×2 (00:21→21:33)
[2018-04-05] MEDS: INSULIN LISPRO 100 UNIT/ML SUBCUT SCH ×6 (00:21→21:32)
[2018-04-05] MEDS: NAFCILLIN 2,000 MG in SODIUM CHLORIDE 0.9% 100 ML IV SCH ×6 (03:09→22:55)
[2018-04-05] MEDS ORDERED: ENOXAPARIN 40 MG/0.4 ML SYRINGE SUBCUT ONE (08:26)
[2018-04-05] MEDS: LIDOCAINE 5% PATCH TRANSDERM SCH (08:52)
[2018-04-05] MEDS: POTASSIUM CHLORIDE 20 MEQ TABLET PO SCH ×2 (08:53→21:33)
[2018-04-05] MEDS: MAGNESIUM CHLORIDE 64 MG TABLET PO SCH ×2 (08:53→21:33)
[2018-04-05] MEDS: LOSARTAN 25 MG TABLET PO SCH (08:54)
[2018-04-05] MEDS: QUEtiapine 25 MG TABLET PO SCH ×2 (08:54→21:33)
[2018-04-05] MEDS: AMIODARONE 200 MG TABLET PO SCH (08:54)
[2018-04-05] MEDS: ASCORBIC ACID 500 MG TABLET PO SCH ×2 (08:54→21:33)
[2018-04-05] MEDS: predniSONE 20 MG TABLET PO SCH (08:55)
[2018-04-05] MEDS: oxyCODONE/ACETAMINOPHEN 5-325 MG TABLET PO PRN ×3 (08:55→22:55)
[2018-04-05] MEDS: FLUCONAZOLE 100 MG TABLET PO SCH (08:55)
[2018-04-05] MEDS: DOCUSATE SODIUM 100 MG CAPSULE PO SCH ×2 (08:55→21:33)
[2018-04-05] MEDS: PANTOPRAZOLE 40 MG VIAL IV SCH (08:57)
[2018-04-05] MEDS: KETOROLAC 15 MG/1 ML VIAL IV SCH (09:14)
[2018-04-05] MEDS: GENTAMICIN 0.1% CREAM 15 GM TUBE TOP SCH (12:31)
[2018-04-05] MEDS: INSULIN GLARGINE 100 UNIT/ML SUBCUT SCH (13:17)
[2018-04-05] MEDS: ACETAMINOPHEN 325 MG TABLET PO PRN (13:30)
[2018-04-05] MEDS: NYSTATIN 500,000 UNIT/5 ML UDCUP SWISH/SWAL SCH ×3 (13:31→21:33)
[2018-04-05] MEDS: ATORVASTATIN 40 MG TABLET PO SCH (21:33)
[2018-04-06] MEDS: INSULIN LISPRO 100 UNIT/ML SUBCUT SCH ×4 (00:11→13:11)
[2018-04-06] MEDS: NAFCILLIN 2,000 MG in SODIUM CHLORIDE 0.9% 100 ML IV SCH ×4 (02:50→14:17)
[2018-04-06 05:48] LABS: Basophils % 0.2 % (0.0-0.8); Eosinophils # 0.1 10*3/uL (0.0-0.87); Eosinophils % 0.6 % (0.00-10.9); Hematocrit 25.9 VOL% (42.0-52.0); Hemoglobin 8.6 GM/DL (14.0-18.0); Immature Granulocytes % 0.5 %; Immature Granulocytes Absolute 0.05 #; Lymphocytes # 0.6 10*3/uL (1.4-4.0); Lymphocytes % 6.5 % (21.2-54.2); Mean Corpuscular HGB Conc 33.2 GM/DL (32-36); Mean Corpuscular Hemoglobin 30 PG (27-34); Mean Corpuscular Volume 89.3 FL (87-102); Mean Platelet Volume 10.7 FL (9.6-12.0); Monocytes # 0.8 10*3/uL (0.11-0.8); Monocytes % 7.8 % (1.7-12.7); Neutrophils # 8.3 10*3/uL (1.4-7.4); Neutrophils % 84.4 % (38.7-73.9); Platelet Count 363 T/CUMM (130-400); Red Cell Distribution Width 15.9 % (9.3-17.3); White Blood Count 9.8 T/CUMM (4-12)
[2018-04-06 06:11] LABS: Band Neutrophils 1 % (0-10); Eosinophils 1 % (0-10); Lymphocytes 8 % (20-55); Segmented Neutrophils 88 % (50-85); Total Cells Counted 100
[2018-04-06 06:12] LABS: Anisocytosis 1+; Platelet Estimate Normal
[2018-04-06 06:18] LABS: Calcium 7.6 MG/DL (8.5-10.1); Osmolality,Calculated 278.7 MOS/KG (273-304); Potassium 4.5 MMOL/L (3.5-5.1)
[2018-04-06] MEDS: DEXTROSE 5% 1,000 ML IV SCH (07:30)
[2018-04-06] MEDS: LOSARTAN 25 MG TABLET PO SCH (09:03)
[2018-04-06] MEDS: NYSTATIN 500,000 UNIT/5 ML UDCUP SWISH/SWAL SCH ×2 (09:03→13:11)
[2018-04-06] MEDS: FLUCONAZOLE 100 MG TABLET PO SCH (09:03)
[2018-04-06] MEDS: predniSONE 20 MG TABLET PO SCH (09:04)
[2018-04-06] MEDS: MAGNESIUM CHLORIDE 64 MG TABLET PO SCH (09:04)
[2018-04-06] MEDS: QUEtiapine 25 MG TABLET PO SCH (09:04)
[2018-04-06] MEDS: AMIODARONE 200 MG TABLET PO SCH (09:04)
[2018-04-06] MEDS: POTASSIUM CHLORIDE 20 MEQ TABLET PO SCH (09:04)
[2018-04-06] MEDS: ASCORBIC ACID 500 MG TABLET PO SCH (09:04)
[2018-04-06] MEDS: GENTAMICIN 0.1% CREAM 15 GM TUBE TOP SCH (09:05)
[2018-04-06] MEDS: DOCUSATE SODIUM 100 MG CAPSULE PO SCH (09:05)
[2018-04-06] MEDS: PANTOPRAZOLE 40 MG VIAL IV SCH (09:06)
[2018-04-06] MEDS: LIDOCAINE 5% PATCH TRANSDERM SCH (09:06)
[2018-04-06] MEDS: ACETAMINOPHEN 325 MG TABLET PO PRN (09:25)
[2018-04-06] MEDS: INSULIN GLARGINE 100 UNIT/ML SUBCUT SCH (09:37)
[2018-04-06] MEDS: oxyCODONE/ACETAMINOPHEN 5-325 MG TABLET PO PRN (11:34)
[2018-04-06 11:42] VITALS: BP 124/66
== END 2018-04-06 14:53 | DRG 853 ==
LOC: EDBD → EDUNIT# → N.ED 07:15 → N.EDINP 10:18 → N.CC 10:48 → N.TELES 03-29 20:09
PROVIDERS: ADMIT Internal Medicine; ATTEND Internal Medicine

== ENCOUNTER 2018-09-16 10:49 | Inpatient (IN) ==
[2018-09-16] MEDS ORDERED: LIDOCAINE 1% 20 ML VIAL ONE (12:06)
[2018-09-16] MEDS ORDERED: AMPICILLIN/SULBACTAM 3,000 MG VIAL ONE (12:26)
[2018-09-16] MEDS ORDERED: SUGAMMADEX 200 MG/2 ML VIAL IV ONE (12:29)
[2018-09-16] MEDS ORDERED: PROPOFOL 200 MG/20 ML VIAL IV ONE (13:19)
[2018-09-16] MEDS ORDERED: MIDAZOLAM 2 MG/2 ML VIAL ONE (13:19)
[2018-09-16] MEDS ORDERED: SEVOFLURANE 1 UNIT/15 MINUTE INH ONE (13:19)
[2018-09-16] MEDS ORDERED: fentaNYL 100 MCG/2 ML VIAL ONE (13:20)
[2018-09-16] MEDS ORDERED: ROCURONIUM 100 MG/10 ML VIAL IV ONE (13:20)
[2018-09-16] MEDS ORDERED: HYDROCORTISONE 100 MG VIAL ONE (13:20)
[2018-09-16] MEDS ORDERED: ONDANSETRON 4 MG/2 ML VIAL ONE (13:20)
[2018-09-16] MEDS ORDERED: PHENYLEPHRINE 1 MG/10 ML SYRINGE IV ONE (13:20)
[2018-09-16] MEDS ORDERED: ONDANSETRON 4 MG/2 ML VIAL IV PRN (13:25)
[2018-09-16] MEDS: HYDROmorphone 2 MG/1 ML VIAL IV PRN ×4 (13:30→13:52)
[2018-09-16] MEDS: AMPICILLIN/SULBACTAM 3,000 MG in SODIUM CHLORIDE 0.9% 100 ML IV SCH ×2 (14:35→20:55)
[2018-09-16 14:49] LABS: Basophils % 0.1 % (0.0-0.8); Hematocrit 27.7 VOL% (42.0-52.0); Hemoglobin 8.3 GM/DL (14.0-18.0); Immature Granulocytes % 2.7 %; Immature Granulocytes Absolute 0.57 #; Lymphocytes # 0.4 10*3/uL (1.4-4.0); Lymphocytes % 1.8 % (21.2-54.2); Mean Corpuscular Hemoglobin 28 PG (27-34); Mean Corpuscular Volume 91.7 FL (87-102); Monocytes # 0.7 10*3/uL (0.11-0.8); Monocytes % 3.6 % (1.7-12.7); Neutrophils # 19.1 10*3/uL (1.4-7.4); Neutrophils % 91.8 % (38.7-73.9); Platelet Count 250 T/CUMM (130-400); Red Blood Count 3.02 MC/CUMM (3.8-5.5); Red Cell Distribution Width 16.5 % (9.3-17.3); White Blood Count 20.8 T/CUMM (4-12)
[2018-09-16 15:20] LABS: Albumin 2.1 G/DL (3.4-5.0); Bilirubin,Total 0.8 MG/DL (0.2-1.0); Calcium 8.7 MG/DL (8.5-10.1); Osmolality,Calculated 287.5 MOS/KG (273-304); Potassium 4.5 MMOL/L (3.5-5.1); Total Protein 7.1 G/DL (6.4-8.3)
[2018-09-16 15:57] LABS: Band Neutrophils 9 % (0-10); Lymphocytes 3 % (20-55); Segmented Neutrophils 87 % (50-85)
[2018-09-16 15:58] LABS: Hypochromasia 2+; Macrocytosis 1+
[2018-09-16 15:59] LABS: Polychromasia Few
[2018-09-16 16:00] LABS: Platelet Estimate Normal; Poikilocytosis Slight
[2018-09-16] MEDS: DEXT 5% NACL 0.45% KCL 20 MEQ 20 MEQ/1,000 ML BAG IV SCH (16:00)
[2018-09-16 16:01] LABS: Total Cells Counted 100
[2018-09-16] MEDS ORDERED: ACETAMINOPHEN 325 MG TABLET PO PRN (16:39)
[2018-09-16] MEDS ORDERED: METHOCARBAMOL 500 MG TABLET PO PRN (16:39)
[2018-09-16] MEDS ORDERED: predniSONE 10 MG TABLET PO ONE (16:42)
[2018-09-16] MEDS ORDERED: GLUCAGON 1 MG VIAL IM PRN (16:51)
[2018-09-16] MEDS ORDERED: DEXTROSE 50% 25 GM/50 ML VIAL IV PRN (16:51)
[2018-09-16 19:43] LABS: Apearance,Urine CLOUDY (Clear); Bacteria,Urine Many /HPF (Few); Bilirubin,Urine Negative (Negative); Blood, Urine Negative (Negative); Glucose,Urine (UA) >=500 mg/dL (Negative); Ketones,Urine Negative (Negative); Mucus,Urine Occasional /LPF (Occasional); Nitrite,Urine Negative (Negative); Protein,Urine 30 MG/DL; Urine Color Amber (Yellow); Urine Specific Gravity 1.023 (1.001-1.035); WBC,Urine 90 /HPF (0-6)
[2018-09-16] MEDS: PENTOXIFYLLINE 400 MG TABLET PO SCH (20:55)
[2018-09-16] MEDS: ATORVASTATIN 40 MG TABLET PO SCH (20:55)
[2018-09-16] MEDS: QUEtiapine 25 MG TABLET PO SCH (20:55)
[2018-09-16] MEDS: FAMOTIDINE 20 MG TABLET PO SCH (20:55)
[2018-09-16] MEDS: MAGNESIUM OXIDE 400 MG TABLET PO SCH (20:55)
[2018-09-16] MEDS: INSULIN LISPRO 100 UNIT/ML SUBCUT SCH (20:56)
[2018-09-16] MEDS: oxyCODONE/ACETAMINOPHEN 5-325 MG TABLET PO PRN ×2 (20:59→21:08)
[2018-09-16] MEDS ORDERED: POTASSIUM CHLORIDE 20 MEQ TABLET PO SCH (21:00)
[2018-09-16] MEDS ORDERED: NON-FORMULARY MEDICATION (Amino Acids/Protein Hydrolys [Pro-Stat Awc Liquid] 30 ML) PO SCH (21:00)
[2018-09-17] MEDS: INSULIN LISPRO 100 UNIT/ML SUBCUT SCH ×7 (00:37→22:06)
[2018-09-17] MEDS: AMPICILLIN/SULBACTAM 3,000 MG in SODIUM CHLORIDE 0.9% 100 ML IV SCH ×4 (03:17→22:27)
[2018-09-17] MEDS: oxyCODONE/ACETAMINOPHEN 5-325 MG TABLET PO PRN ×2 (05:08→18:23)
[2018-09-17] MEDS: DEXT 5% NACL 0.45% KCL 20 MEQ 20 MEQ/1,000 ML BAG IV SCH (05:09)
[2018-09-17 05:33] LABS: Basophils % 0.1 % (0.0-0.8); Hematocrit 26.4 VOL% (42.0-52.0); Hemoglobin 7.7 GM/DL (14.0-18.0); Immature Granulocytes % 1.7 %; Immature Granulocytes Absolute 0.36 #; Lymphocytes # 0.6 10*3/uL (1.4-4.0); Lymphocytes % 2.6 % (21.2-54.2); Mean Corpuscular HGB Conc 29.2 GM/DL (32-36); Mean Corpuscular Hemoglobin 27 PG (27-34); Mean Corpuscular Volume 92.6 FL (87-102); Mean Platelet Volume 12.8 FL (9.6-12.0); Monocytes # 0.9 10*3/uL (0.11-0.8); Monocytes % 4.3 % (1.7-12.7); Neutrophils # 19.4 10*3/uL (1.4-7.4); Neutrophils % 91.3 % (38.7-73.9); Platelet Count 230 T/CUMM (130-400); Red Blood Count 2.85 MC/CUMM (3.8-5.5); Red Cell Distribution Width 16.5 % (9.3-17.3); White Blood Count 21.3 T/CUMM (4-12)
[2018-09-17 05:59] LABS: Calcium 7.8 MG/DL (8.5-10.1); Osmolality,Calculated 292.7 MOS/KG (273-304); Potassium 5.3 MMOL/L (3.5-5.1)
[2018-09-17 06:05] LABS: Anisocytosis 1+; Band Neutrophils 18 % (0-10); Lymphocytes 3 % (20-55); Platelet Estimate Normal; Segmented Neutrophils 78 % (50-85); Total Cells Counted 100
[2018-09-17 06:06] LABS: Macrocytosis 1+; Spherocytes Few
[2018-09-17] MEDS: INSULIN GLARGINE 100 UNIT/ML SUBCUT SCH (09:28)
[2018-09-17] MEDS: SODIUM HYPOCHLORITE 0.25% IRRIG 473 ML BOTTLE IRRIG SCH (09:28)
[2018-09-17] MEDS: FAMOTIDINE 20 MG TABLET PO SCH ×2 (09:29→22:03)
[2018-09-17] MEDS: DOCUSATE SODIUM 100 MG CAPSULE PO SCH (09:29)
[2018-09-17] MEDS: MAGNESIUM OXIDE 400 MG TABLET PO SCH ×2 (09:29→22:03)
[2018-09-17] MEDS: PENTOXIFYLLINE 400 MG TABLET PO SCH ×3 (09:29→22:04)
[2018-09-17] MEDS: FERROUS SULFATE 325 MG TABLET PO SCH (09:29)
[2018-09-17] MEDS: predniSONE 10 MG TABLET PO SCH (09:29)
[2018-09-17] MEDS: ASPIRIN CHEW 81 MG TABLET PO SCH (09:29)
[2018-09-17] MEDS: LOSARTAN 25 MG TABLET PO SCH (09:29)
[2018-09-17] MEDS: AMIODARONE 200 MG TABLET PO SCH (09:29)
[2018-09-17] MEDS: LIDOCAINE 5% PATCH TRANSDERM SCH (09:30)
[2018-09-17] MEDS: MEPERIDINE 25 MG/1 ML VIAL IV PRN ×2 (15:33→22:04)
[2018-09-17] MEDS: GENTAMICIN INJ 180 MG in SODIUM CHLORIDE 0.9% 100 ML IV SCH (18:24)
[2018-09-17] MEDS: QUEtiapine 25 MG TABLET PO SCH (22:03)
[2018-09-17] MEDS: ATORVASTATIN 40 MG TABLET PO SCH (22:04)
[2018-09-18] MEDS: MEPERIDINE 25 MG/1 ML VIAL IV PRN ×4 (02:12→21:56)
[2018-09-18 04:00] LABS: Basophils % 0.1 % (0.0-0.8); Eosinophils % 0.1 % (0.00-10.9); Hematocrit 25.2 VOL% (42.0-52.0); Hemoglobin 7.6 GM/DL (14.0-18.0); Immature Granulocytes % 1.2 %; Immature Granulocytes Absolute 0.25 #; Lymphocytes # 1.1 10*3/uL (1.4-4.0); Lymphocytes % 5.1 % (21.2-54.2); Mean Corpuscular HGB Conc 30.2 GM/DL (32-36); Mean Corpuscular Hemoglobin 27 PG (27-34); Mean Corpuscular Volume 90.6 FL (87-102); Mean Platelet Volume 12.3 FL (9.6-12.0); Monocytes # 1.1 10*3/uL (0.11-0.8); Monocytes % 5.1 % (1.7-12.7); NRBC # 0.03 10*3/uL; Neutrophils # 18.3 10*3/uL (1.4-7.4); Neutrophils % 88.4 % (38.7-73.9); Platelet Count 293 T/CUMM (130-400); Red Blood Count 2.78 MC/CUMM (3.8-5.5); Red Cell Distribution Width 16.3 % (9.3-17.3); White Blood Count 20.7 T/CUMM (4-12)
[2018-09-18] MEDS: DEXT 5% NACL 0.45% KCL 20 MEQ 20 MEQ/1,000 ML BAG IV SCH ×3 (04:08→21:27)
[2018-09-18] MEDS: AMPICILLIN/SULBACTAM 3,000 MG in SODIUM CHLORIDE 0.9% 100 ML IV SCH ×4 (04:15→21:54)
[2018-09-18] MEDS: oxyCODONE/ACETAMINOPHEN 5-325 MG TABLET PO PRN ×2 (04:15→13:30)
[2018-09-18 04:25] LABS: Calcium 8.4 MG/DL (8.5-10.1); Osmolality,Calculated 285.7 MOS/KG (273-304); Potassium 4.5 MMOL/L (3.5-5.1)
[2018-09-18 04:40] LABS: Lymphocytes 4 % (20-55); Polychromasia Few; Segmented Neutrophils 91 % (50-85); Total Cells Counted 100
[2018-09-18 04:41] LABS: Platelet Estimate Adequate
[2018-09-18] MEDS: GENTAMICIN INJ 180 MG in SODIUM CHLORIDE 0.9% 100 ML IV SCH ×2 (05:36→18:04)
[2018-09-18] MEDS: INSULIN LISPRO 100 UNIT/ML SUBCUT SCH ×4 (08:05→21:55)
[2018-09-18] MEDS: LIDOCAINE 5% PATCH TRANSDERM SCH (10:56)
[2018-09-18] MEDS: INSULIN GLARGINE 100 UNIT/ML SUBCUT SCH (10:57)
[2018-09-18] MEDS: LOSARTAN 25 MG TABLET PO SCH (10:57)
[2018-09-18] MEDS: MAGNESIUM OXIDE 400 MG TABLET PO SCH ×2 (10:57→21:54)
[2018-09-18] MEDS: predniSONE 10 MG TABLET PO SCH (10:57)
[2018-09-18] MEDS: ASPIRIN CHEW 81 MG TABLET PO SCH (10:58)
[2018-09-18] MEDS: AMIODARONE 200 MG TABLET PO SCH (10:58)
[2018-09-18] MEDS: SODIUM HYPOCHLORITE 0.25% IRRIG 473 ML BOTTLE IRRIG SCH (10:58)
[2018-09-18] MEDS: FERROUS SULFATE 325 MG TABLET PO SCH (10:58)
[2018-09-18] MEDS: PENTOXIFYLLINE 400 MG TABLET PO SCH ×3 (10:58→21:54)
[2018-09-18] MEDS: FAMOTIDINE 20 MG TABLET PO SCH ×2 (10:58→21:54)
[2018-09-18] MEDS: DOCUSATE SODIUM 100 MG CAPSULE PO SCH (10:58)
[2018-09-18] MEDS: MAGNESIUM HYDROXIDE SUSP 30 ML UDCUP PO PRN (17:36)
[2018-09-18] MEDS: ATORVASTATIN 40 MG TABLET PO SCH (21:54)
[2018-09-18] MEDS: QUEtiapine 25 MG TABLET PO SCH (21:54)
[2018-09-19] MEDS: MEPERIDINE 25 MG/1 ML VIAL IV PRN ×4 (03:20→22:52)
[2018-09-19] MEDS: AMPICILLIN/SULBACTAM 3,000 MG in SODIUM CHLORIDE 0.9% 100 ML IV SCH ×2 (04:57→09:19)
[2018-09-19 06:01] LABS: Basophils % 0.1 % (0.0-0.8); Eosinophils % 0.2 % (0.00-10.9); Hematocrit 26.5 VOL% (42.0-52.0); Hemoglobin 7.8 GM/DL (14.0-18.0); Immature Granulocytes % 1.2 %; Immature Granulocytes Absolute 0.22 #; Lymphocytes # 0.7 10*3/uL (1.4-4.0); Lymphocytes % 3.8 % (21.2-54.2); Mean Corpuscular HGB Conc 29.4 GM/DL (32-36); Mean Corpuscular Hemoglobin 27 PG (27-34); Mean Corpuscular Volume 90.4 FL (87-102); Mean Platelet Volume 12.2 FL (9.6-12.0); Monocytes # 0.8 10*3/uL (0.11-0.8); Monocytes % 4.4 % (1.7-12.7); Neutrophils # 17.1 10*3/uL (1.4-7.4); Neutrophils % 90.3 % (38.7-73.9); Platelet Count 307 T/CUMM (130-400); Red Blood Count 2.93 MC/CUMM (3.8-5.5); Red Cell Distribution Width 16.6 % (9.3-17.3)
[2018-09-19 06:33] LABS: Calcium 8.7 MG/DL (8.5-10.1); Osmolality,Calculated 286.7 MOS/KG (273-304); Potassium 4.1 MMOL/L (3.5-5.1)
[2018-09-19] MEDS: GENTAMICIN INJ 180 MG in SODIUM CHLORIDE 0.9% 100 ML IV SCH (07:02)
[2018-09-19] MEDS: INSULIN GLARGINE 100 UNIT/ML SUBCUT SCH (09:13)
[2018-09-19] MEDS: INSULIN LISPRO 100 UNIT/ML SUBCUT SCH ×4 (09:14→22:43)
[2018-09-19] MEDS: ASPIRIN CHEW 81 MG TABLET PO SCH (09:14)
[2018-09-19] MEDS: FAMOTIDINE 20 MG TABLET PO SCH ×2 (09:14→22:42)
[2018-09-19] MEDS: MAGNESIUM OXIDE 400 MG TABLET PO SCH ×2 (09:15→22:43)
[2018-09-19] MEDS: DOCUSATE SODIUM 100 MG CAPSULE PO SCH (09:15)
[2018-09-19] MEDS: LOSARTAN 25 MG TABLET PO SCH (09:15)
[2018-09-19] MEDS: LIDOCAINE 5% PATCH TRANSDERM SCH (09:15)
[2018-09-19] MEDS: PENTOXIFYLLINE 400 MG TABLET PO SCH ×3 (09:15→22:43)
[2018-09-19] MEDS: predniSONE 10 MG TABLET PO SCH (09:15)
[2018-09-19] MEDS: AMIODARONE 200 MG TABLET PO SCH (09:15)
[2018-09-19] MEDS: FERROUS SULFATE 325 MG TABLET PO SCH (09:15)
[2018-09-19] MEDS: SODIUM HYPOCHLORITE 0.25% IRRIG 473 ML BOTTLE IRRIG SCH (09:17)
[2018-09-19] MEDS: cefTRIAXone 1,000 MG in SYRINGE 1 EACH IV SCH (09:36)
[2018-09-19 09:52] LABS: Hypochromasia 2+; Lymphocytes 4 % (20-55); Nucleated Red Blood Cells 2 (0-5); Segmented Neutrophils 88 % (50-85); Total Cells Counted 100
[2018-09-19 09:53] LABS: Ovalocytes Slight; Platelet Estimate Normal; Polychromasia Slight
[2018-09-19] MEDS ORDERED: ONDANSETRON 4 MG/2 ML VIAL ONE (15:05)
[2018-09-19] MEDS ORDERED: HYDROmorphone 2 MG/1 ML VIAL ONE (15:05)
[2018-09-19] MEDS ORDERED: ONDANSETRON 4 MG/2 ML VIAL IV PRN (15:08)
[2018-09-19] MEDS: HYDROmorphone 2 MG/1 ML VIAL IV PRN ×3 (15:23→15:31)
[2018-09-19] MEDS ORDERED: fentaNYL 100 MCG/2 ML VIAL ONE (15:25)
[2018-09-19] MEDS ORDERED: PROPOFOL 200 MG/20 ML VIAL IV ONE (15:25)
[2018-09-19] MEDS ORDERED: SEVOFLURANE 1 UNIT/15 MINUTE INH ONE (15:25)
[2018-09-19] MEDS ORDERED: MIDAZOLAM 2 MG/2 ML VIAL ONE (15:25)
[2018-09-19] MEDS: oxyCODONE/ACETAMINOPHEN 5-325 MG TABLET PO PRN (16:45)
[2018-09-19] MEDS: ATORVASTATIN 40 MG TABLET PO SCH (22:42)
[2018-09-19] MEDS: QUEtiapine 25 MG TABLET PO SCH (22:43)
[2018-09-20] MEDS: GENTAMICIN INJ 160 MG in SODIUM CHLORIDE 0.9% 100 ML IV SCH ×2 (02:20→18:06)
[2018-09-20] MEDS: MEPERIDINE 25 MG/1 ML VIAL IV PRN ×5 (05:02→22:13)
[2018-09-20] MEDS: DEXT 5% NACL 0.45% KCL 20 MEQ 20 MEQ/1,000 ML BAG IV SCH ×2 (05:45→17:17)
[2018-09-20] MEDS: ASPIRIN CHEW 81 MG TABLET PO SCH (09:06)
[2018-09-20] MEDS: INSULIN LISPRO 100 UNIT/ML SUBCUT SCH ×4 (09:06→22:05)
[2018-09-20] MEDS: FERROUS SULFATE 325 MG TABLET PO SCH (09:07)
[2018-09-20] MEDS: AMIODARONE 200 MG TABLET PO SCH (09:07)
[2018-09-20] MEDS: LOSARTAN 25 MG TABLET PO SCH (09:07)
[2018-09-20] MEDS: DOCUSATE SODIUM 100 MG CAPSULE PO SCH (09:07)
[2018-09-20] MEDS: INSULIN GLARGINE 100 UNIT/ML SUBCUT SCH (09:08)
[2018-09-20] MEDS: LIDOCAINE 5% PATCH TRANSDERM SCH (09:09)
[2018-09-20] MEDS: FAMOTIDINE 20 MG TABLET PO SCH ×2 (09:10→22:04)
[2018-09-20] MEDS: MAGNESIUM OXIDE 400 MG TABLET PO SCH ×2 (09:10→22:04)
[2018-09-20] MEDS: predniSONE 10 MG TABLET PO SCH (09:10)
[2018-09-20] MEDS: PENTOXIFYLLINE 400 MG TABLET PO SCH ×3 (09:10→22:04)
[2018-09-20] MEDS: cefTRIAXone 1,000 MG in SYRINGE 1 EACH IV SCH (09:11)
[2018-09-20] MEDS: SODIUM HYPOCHLORITE 0.25% IRRIG 473 ML BOTTLE IRRIG SCH (15:50)
[2018-09-20] MEDS: QUEtiapine 25 MG TABLET PO SCH (22:05)
[2018-09-20] MEDS: ATORVASTATIN 40 MG TABLET PO SCH (22:05)
[2018-09-21] MEDS: DEXT 5% NACL 0.45% KCL 20 MEQ 20 MEQ/1,000 ML BAG IV SCH ×2 (04:23→23:18)
[2018-09-21] MEDS: MEPERIDINE 25 MG/1 ML VIAL IV PRN ×4 (04:24→20:58)
[2018-09-21 06:37] LABS: Basophils % 0.1 % (0.0-0.8); Eosinophils # 0.1 10*3/uL (0.0-0.87); Eosinophils % 0.4 % (0.00-10.9); Hematocrit 22.7 VOL% (42.0-52.0); Hemoglobin 6.8 GM/DL (14.0-18.0); Immature Granulocytes % 1.4 %; Immature Granulocytes Absolute 0.19 #; Lymphocytes % 7.3 % (21.2-54.2); Mean Corpuscular Hemoglobin 27 PG (27-34); Mean Corpuscular Volume 89.7 FL (87-102); Mean Platelet Volume 11.2 FL (9.6-12.0); Monocytes # 0.7 10*3/uL (0.11-0.8); Monocytes % 4.9 % (1.7-12.7); Neutrophils # 11.5 10*3/uL (1.4-7.4); Neutrophils % 85.9 % (38.7-73.9); Platelet Count 272 T/CUMM (130-400); Red Blood Count 2.53 MC/CUMM (3.8-5.5); Red Cell Distribution Width 16.5 % (9.3-17.3); White Blood Count 13.3 T/CUMM (4-12)
[2018-09-21 06:53] LABS: Calcium 8.3 MG/DL (8.5-10.1); Osmolality,Calculated 285.7 MOS/KG (273-304); Potassium 4.2 MMOL/L (3.5-5.1)
[2018-09-21] MEDS: INSULIN LISPRO 100 UNIT/ML SUBCUT SCH ×4 (07:37→21:03)
[2018-09-21] MEDS: oxyCODONE/ACETAMINOPHEN 5-325 MG TABLET PO PRN ×2 (07:37→23:13)
[2018-09-21] MEDS: DOCUSATE SODIUM 100 MG CAPSULE PO SCH (10:58)
[2018-09-21] MEDS: ASPIRIN CHEW 81 MG TABLET PO SCH (10:58)
[2018-09-21] MEDS: AMIODARONE 200 MG TABLET PO SCH (10:59)
[2018-09-21] MEDS: FAMOTIDINE 20 MG TABLET PO SCH ×2 (11:05→21:03)
[2018-09-21] MEDS: FERROUS SULFATE 325 MG TABLET PO SCH (11:05)
[2018-09-21] MEDS: predniSONE 10 MG TABLET PO SCH (11:05)
[2018-09-21] MEDS: LOSARTAN 25 MG TABLET PO SCH (11:05)
[2018-09-21] MEDS: MAGNESIUM OXIDE 400 MG TABLET PO SCH ×2 (11:05→21:03)
[2018-09-21] MEDS: PENTOXIFYLLINE 400 MG TABLET PO SCH ×3 (11:05→21:03)
[2018-09-21] MEDS: LIDOCAINE 5% PATCH TRANSDERM SCH (11:48)
[2018-09-21] MEDS: SODIUM HYPOCHLORITE 0.25% IRRIG 473 ML BOTTLE IRRIG SCH (11:49)
[2018-09-21] MEDS: cefTRIAXone 1,000 MG in SYRINGE 1 EACH IV SCH (11:49)
[2018-09-21] MEDS: INSULIN GLARGINE 100 UNIT/ML SUBCUT SCH (11:52)
[2018-09-21] MEDS: GENTAMICIN INJ 160 MG in SODIUM CHLORIDE 0.9% 100 ML IV SCH (13:01)
[2018-09-21] MEDS: MAGNESIUM HYDROXIDE SUSP 30 ML UDCUP PO PRN (18:26)
[2018-09-21] MEDS: QUEtiapine 25 MG TABLET PO SCH (21:03)
[2018-09-21] MEDS: ATORVASTATIN 40 MG TABLET PO SCH (21:03)
[2018-09-22] MEDS: MEPERIDINE 25 MG/1 ML VIAL IV PRN ×5 (02:16→22:02)
[2018-09-22] MEDS: oxyCODONE/ACETAMINOPHEN 5-325 MG TABLET PO PRN (04:20)
[2018-09-22] MEDS: DEXT 5% NACL 0.45% KCL 20 MEQ 20 MEQ/1,000 ML BAG IV SCH (07:40)
[2018-09-22] MEDS: INSULIN GLARGINE 100 UNIT/ML SUBCUT SCH (09:33)
[2018-09-22] MEDS: predniSONE 10 MG TABLET PO SCH (09:34)
[2018-09-22] MEDS: PENTOXIFYLLINE 400 MG TABLET PO SCH ×3 (09:34→22:01)
[2018-09-22] MEDS: FAMOTIDINE 20 MG TABLET PO SCH ×2 (09:34→22:01)
[2018-09-22] MEDS: FERROUS SULFATE 325 MG TABLET PO SCH (09:34)
[2018-09-22] MEDS: MAGNESIUM OXIDE 400 MG TABLET PO SCH ×2 (09:34→22:01)
[2018-09-22] MEDS: ASPIRIN CHEW 81 MG TABLET PO SCH (09:34)
[2018-09-22] MEDS: cefTRIAXone 1,000 MG in SYRINGE 1 EACH IV SCH (09:34)
[2018-09-22] MEDS: LOSARTAN 25 MG TABLET PO SCH (09:35)
[2018-09-22] MEDS: DOCUSATE SODIUM 100 MG CAPSULE PO SCH (09:35)
[2018-09-22] MEDS: LIDOCAINE 5% PATCH TRANSDERM SCH (09:35)
[2018-09-22] MEDS: AMIODARONE 200 MG TABLET PO SCH (09:35)
[2018-09-22] MEDS: INSULIN LISPRO 100 UNIT/ML SUBCUT SCH ×4 (09:55→22:02)
[2018-09-22] MEDS: AMPICILLIN/SULBACTAM 3,000 MG in SODIUM CHLORIDE 0.9% 100 ML IV SCH ×3 (15:08→22:03)
[2018-09-22] MEDS: SODIUM HYPOCHLORITE 0.25% IRRIG 473 ML BOTTLE IRRIG SCH (15:16)
[2018-09-22] MEDS: MAGNESIUM HYDROXIDE SUSP 30 ML UDCUP PO PRN (15:27)
[2018-09-22] MEDS ORDERED: LACTULOSE 20 GM/30 ML UDCUP PO ONE (20:34)
[2018-09-22] MEDS: QUEtiapine 25 MG TABLET PO SCH (22:01)
[2018-09-22] MEDS: ATORVASTATIN 40 MG TABLET PO SCH (22:01)
[2018-09-23] MEDS ORDERED: GENTAMICIN INJ 80 MG in PREMIX 1 EACH IV SCH (01:00)
[2018-09-23] MEDS: MEPERIDINE 25 MG/1 ML VIAL IV PRN ×4 (01:37→21:33)
[2018-09-23] MEDS: AMPICILLIN/SULBACTAM 3,000 MG in SODIUM CHLORIDE 0.9% 100 ML IV SCH ×4 (05:22→21:36)
[2018-09-23] MEDS: oxyCODONE/ACETAMINOPHEN 5-325 MG TABLET PO PRN ×3 (05:27→19:44)
[2018-09-23] MEDS: DEXT 5% NACL 0.45% KCL 20 MEQ 20 MEQ/1,000 ML BAG IV SCH ×2 (05:56→19:57)
[2018-09-23] MEDS: INSULIN LISPRO 100 UNIT/ML SUBCUT SCH ×4 (09:09→21:36)
[2018-09-23] MEDS: AMIODARONE 200 MG TABLET PO SCH (09:10)
[2018-09-23] MEDS: MAGNESIUM OXIDE 400 MG TABLET PO SCH ×2 (09:10→21:35)
[2018-09-23] MEDS: PENTOXIFYLLINE 400 MG TABLET PO SCH ×3 (09:10→21:35)
[2018-09-23] MEDS: FAMOTIDINE 20 MG TABLET PO SCH ×2 (09:10→21:35)
[2018-09-23] MEDS: FERROUS SULFATE 325 MG TABLET PO SCH (09:10)
[2018-09-23] MEDS: LOSARTAN 25 MG TABLET PO SCH (09:10)
[2018-09-23] MEDS: predniSONE 10 MG TABLET PO SCH (09:11)
[2018-09-23] MEDS: LIDOCAINE 5% PATCH TRANSDERM SCH (09:11)
[2018-09-23] MEDS: ASPIRIN CHEW 81 MG TABLET PO SCH (09:12)
[2018-09-23] MEDS: DOCUSATE SODIUM 100 MG CAPSULE PO SCH (09:12)
[2018-09-23] MEDS: INSULIN GLARGINE 100 UNIT/ML SUBCUT SCH (09:14)
[2018-09-23] MEDS: SODIUM HYPOCHLORITE 0.25% IRRIG 473 ML BOTTLE IRRIG SCH (15:59)
[2018-09-23] MEDS: ATORVASTATIN 40 MG TABLET PO SCH (21:36)
[2018-09-23] MEDS: QUEtiapine 25 MG TABLET PO SCH (21:36)
[2018-09-24] MEDS: MEPERIDINE 25 MG/1 ML VIAL IV PRN ×3 (03:00→18:36)
[2018-09-24] MEDS: AMPICILLIN/SULBACTAM 3,000 MG in SODIUM CHLORIDE 0.9% 100 ML IV SCH ×4 (03:00→21:26)
[2018-09-24 04:04] LABS: Basophils % 0.2 % (0.0-0.8); Eosinophils # 0.1 10*3/uL (0.0-0.87); Eosinophils % 0.5 % (0.00-10.9); Hematocrit 22.3 VOL% (42.0-52.0); Hemoglobin 6.8 GM/DL (14.0-18.0); Immature Granulocytes % 1.3 %; Immature Granulocytes Absolute 0.16 #; Lymphocytes % 8.2 % (21.2-54.2); Mean Corpuscular HGB Conc 30.5 GM/DL (32-36); Mean Corpuscular Hemoglobin 28 PG (27-34); Mean Corpuscular Volume 90.3 FL (87-102); Mean Platelet Volume 11.4 FL (9.6-12.0); Monocytes # 0.6 10*3/uL (0.11-0.8); Neutrophils # 10.8 10*3/uL (1.4-7.4); Neutrophils % 84.8 % (38.7-73.9); Platelet Count 295 T/CUMM (130-400); Red Blood Count 2.47 MC/CUMM (3.8-5.5); Red Cell Distribution Width 16.4 % (9.3-17.3); White Blood Count 12.7 T/CUMM (4-12)
[2018-09-24 04:32] LABS: Osmolality,Calculated 280.5 MOS/KG (273-304)
[2018-09-24] MEDS: DEXT 5% NACL 0.45% KCL 20 MEQ 20 MEQ/1,000 ML BAG IV SCH ×3 (06:16→18:33)
[2018-09-24] MEDS ORDERED: ONDANSETRON 4 MG/2 ML VIAL IV PRN (08:02)
[2018-09-24] MEDS ORDERED: SODIUM CHLORIDE 0.9% 1,000 ML IV PRN ×2 (08:05→08:07)
[2018-09-24] MEDS: INSULIN LISPRO 100 UNIT/ML SUBCUT SCH ×4 (08:05→21:39)
[2018-09-24] MEDS ORDERED: FUROSEMIDE 40 MG/4 ML VIAL IV PRN (08:07)
[2018-09-24] MEDS: oxyCODONE/ACETAMINOPHEN 5-325 MG TABLET PO PRN ×2 (08:15→16:13)
[2018-09-24] MEDS: FAMOTIDINE 20 MG TABLET PO SCH ×2 (12:13→21:30)
[2018-09-24] MEDS: predniSONE 10 MG TABLET PO SCH (12:13)
[2018-09-24] MEDS: MAGNESIUM OXIDE 400 MG TABLET PO SCH ×2 (12:13→21:30)
[2018-09-24] MEDS: LOSARTAN 25 MG TABLET PO SCH (12:13)
[2018-09-24] MEDS: ASPIRIN CHEW 81 MG TABLET PO SCH (12:13)
[2018-09-24] MEDS: FERROUS SULFATE 325 MG TABLET PO SCH (12:14)
[2018-09-24] MEDS: PENTOXIFYLLINE 400 MG TABLET PO SCH ×3 (12:14→21:31)
[2018-09-24] MEDS: DOCUSATE SODIUM 100 MG CAPSULE PO SCH (12:14)
[2018-09-24] MEDS: AMIODARONE 200 MG TABLET PO SCH (12:15)
[2018-09-24] MEDS: INSULIN GLARGINE 100 UNIT/ML SUBCUT SCH (13:14)
[2018-09-24] MEDS: SODIUM HYPOCHLORITE 0.25% IRRIG 473 ML BOTTLE IRRIG SCH (16:14)
[2018-09-24] MEDS: LIDOCAINE 5% PATCH TRANSDERM SCH (17:16)
[2018-09-24] MEDS: QUEtiapine 25 MG TABLET PO SCH (21:31)
[2018-09-24] MEDS: ATORVASTATIN 40 MG TABLET PO SCH (21:31)
[2018-09-25] MEDS: MEPERIDINE 25 MG/1 ML VIAL IV PRN ×4 (00:39→19:29)
[2018-09-25] MEDS: AMPICILLIN/SULBACTAM 3,000 MG in SODIUM CHLORIDE 0.9% 100 ML IV SCH ×4 (02:53→21:06)
[2018-09-25] MEDS: DEXT 5% NACL 0.45% KCL 20 MEQ 20 MEQ/1,000 ML BAG IV SCH ×3 (02:59→16:52)
[2018-09-25 05:28] LABS: Hematocrit 28.7 VOL% (42.0-52.0)
[2018-09-25] MEDS: INSULIN LISPRO 100 UNIT/ML SUBCUT SCH ×4 (07:49→21:06)
[2018-09-25] MEDS: predniSONE 10 MG TABLET PO SCH (08:33)
[2018-09-25] MEDS: INSULIN GLARGINE 100 UNIT/ML SUBCUT SCH (08:33)
[2018-09-25] MEDS: cefTRIAXone 1,000 MG in SYRINGE 1 EACH IV SCH (08:34)
[2018-09-25] MEDS: MAGNESIUM OXIDE 400 MG TABLET PO SCH ×2 (08:34→21:06)
[2018-09-25] MEDS: AMIODARONE 200 MG TABLET PO SCH (08:34)
[2018-09-25] MEDS: PENTOXIFYLLINE 400 MG TABLET PO SCH ×3 (08:34→21:06)
[2018-09-25] MEDS: ASPIRIN CHEW 81 MG TABLET PO SCH (08:34)
[2018-09-25] MEDS: FERROUS SULFATE 325 MG TABLET PO SCH (08:34)
[2018-09-25] MEDS: SODIUM HYPOCHLORITE 0.25% IRRIG 473 ML BOTTLE IRRIG SCH (08:34)
[2018-09-25] MEDS: FAMOTIDINE 20 MG TABLET PO SCH ×2 (08:34→21:06)
[2018-09-25] MEDS: LOSARTAN 25 MG TABLET PO SCH (08:34)
[2018-09-25] MEDS: DOCUSATE SODIUM 100 MG CAPSULE PO SCH (08:34)
[2018-09-25] MEDS: LIDOCAINE 5% PATCH TRANSDERM SCH (08:35)
[2018-09-25] MEDS: MAGNESIUM HYDROXIDE SUSP 30 ML UDCUP PO PRN (14:49)
[2018-09-25] MEDS: oxyCODONE/ACETAMINOPHEN 5-325 MG TABLET PO PRN (17:18)
[2018-09-25] MEDS: QUEtiapine 25 MG TABLET PO SCH (21:06)
[2018-09-25] MEDS: ATORVASTATIN 40 MG TABLET PO SCH (21:06)
[2018-09-26] MEDS: AMPICILLIN/SULBACTAM 3,000 MG in SODIUM CHLORIDE 0.9% 100 ML IV SCH ×4 (02:45→21:10)
[2018-09-26] MEDS: MEPERIDINE 25 MG/1 ML VIAL IV PRN ×5 (03:15→22:52)
[2018-09-26] MEDS: DEXT 5% NACL 0.45% KCL 20 MEQ 20 MEQ/1,000 ML BAG IV SCH ×2 (04:30→16:27)
[2018-09-26] MEDS: INSULIN LISPRO 100 UNIT/ML SUBCUT SCH ×4 (08:52→21:10)
[2018-09-26] MEDS: FAMOTIDINE 20 MG TABLET PO SCH ×2 (08:53→21:11)
[2018-09-26] MEDS: DOCUSATE SODIUM 100 MG CAPSULE PO SCH (08:53)
[2018-09-26] MEDS: LOSARTAN 25 MG TABLET PO SCH (08:53)
[2018-09-26] MEDS: MAGNESIUM OXIDE 400 MG TABLET PO SCH ×2 (08:53→21:11)
[2018-09-26] MEDS: FERROUS SULFATE 325 MG TABLET PO SCH (08:53)
[2018-09-26] MEDS: INSULIN GLARGINE 100 UNIT/ML SUBCUT SCH (08:53)
[2018-09-26] MEDS: ASPIRIN CHEW 81 MG TABLET PO SCH (08:53)
[2018-09-26] MEDS: AMIODARONE 200 MG TABLET PO SCH (08:53)
[2018-09-26] MEDS: cefTRIAXone 1,000 MG in SYRINGE 1 EACH IV SCH (08:54)
[2018-09-26] MEDS: predniSONE 10 MG TABLET PO SCH (08:54)
[2018-09-26] MEDS: PENTOXIFYLLINE 400 MG TABLET PO SCH ×3 (08:54→21:11)
[2018-09-26] MEDS: LIDOCAINE 5% PATCH TRANSDERM SCH (09:22)
[2018-09-26] MEDS: SODIUM HYPOCHLORITE 0.25% IRRIG 473 ML BOTTLE IRRIG SCH (09:22)
[2018-09-26] MEDS: oxyCODONE/ACETAMINOPHEN 5-325 MG TABLET PO PRN (15:03)
[2018-09-26] MEDS: QUEtiapine 25 MG TABLET PO SCH (21:10)
[2018-09-26] MEDS: ATORVASTATIN 40 MG TABLET PO SCH (21:10)
[2018-09-27] MEDS: AMPICILLIN/SULBACTAM 3,000 MG in SODIUM CHLORIDE 0.9% 100 ML IV SCH ×4 (03:00→20:10)
[2018-09-27] MEDS: oxyCODONE/ACETAMINOPHEN 5-325 MG TABLET PO PRN ×2 (03:45→15:50)
[2018-09-27] MEDS: DEXT 5% NACL 0.45% KCL 20 MEQ 20 MEQ/1,000 ML BAG IV SCH ×2 (04:30→22:52)
[2018-09-27] MEDS: MEPERIDINE 25 MG/1 ML VIAL IV PRN ×3 (05:52→20:15)
[2018-09-27] MEDS: LOSARTAN 25 MG TABLET PO SCH (08:42)
[2018-09-27] MEDS: AMIODARONE 200 MG TABLET PO SCH (08:54)
[2018-09-27] MEDS: FERROUS SULFATE 325 MG TABLET PO SCH (08:54)
[2018-09-27] MEDS: MAGNESIUM OXIDE 400 MG TABLET PO SCH ×2 (08:54→20:12)
[2018-09-27] MEDS: cefTRIAXone 1,000 MG in SYRINGE 1 EACH IV SCH (08:55)
[2018-09-27] MEDS: predniSONE 10 MG TABLET PO SCH (08:55)
[2018-09-27] MEDS: ASPIRIN CHEW 81 MG TABLET PO SCH (08:55)
[2018-09-27] MEDS: FAMOTIDINE 20 MG TABLET PO SCH ×2 (08:55→20:12)
[2018-09-27] MEDS: INSULIN LISPRO 100 UNIT/ML SUBCUT SCH ×4 (08:55→21:01)
[2018-09-27] MEDS: PENTOXIFYLLINE 400 MG TABLET PO SCH ×3 (08:55→20:12)
[2018-09-27] MEDS: LIDOCAINE 5% PATCH TRANSDERM SCH (08:56)
[2018-09-27] MEDS: DOCUSATE SODIUM 100 MG CAPSULE PO SCH (08:56)
[2018-09-27] MEDS: INSULIN GLARGINE 100 UNIT/ML SUBCUT SCH (08:56)
[2018-09-27] MEDS: SODIUM HYPOCHLORITE 0.25% IRRIG 473 ML BOTTLE IRRIG SCH (17:30)
[2018-09-27] MEDS: ATORVASTATIN 40 MG TABLET PO SCH (20:12)
[2018-09-27] MEDS: QUEtiapine 25 MG TABLET PO SCH (20:12)
[2018-09-28] MEDS: AMPICILLIN/SULBACTAM 3,000 MG in SODIUM CHLORIDE 0.9% 100 ML IV SCH ×4 (02:08→21:39)
[2018-09-28] MEDS: MEPERIDINE 25 MG/1 ML VIAL IV PRN ×3 (02:08→16:32)
[2018-09-28 04:49] LABS: Basophils % 0.2 % (0.0-0.8); Eosinophils # 0.1 10*3/uL (0.0-0.87); Eosinophils % 0.4 % (0.00-10.9); Hematocrit 30.5 VOL% (42.0-52.0); Hemoglobin 9.5 GM/DL (14.0-18.0); Immature Granulocytes Absolute 0.15 #; Lymphocytes % 6.1 % (21.2-54.2); Mean Corpuscular HGB Conc 31.1 GM/DL (32-36); Mean Corpuscular Hemoglobin 28 PG (27-34); Mean Platelet Volume 11.2 FL (9.6-12.0); Monocytes # 0.8 10*3/uL (0.11-0.8); Neutrophils # 13.5 10*3/uL (1.4-7.4); Neutrophils % 87.3 % (38.7-73.9); Platelet Count 300 T/CUMM (130-400); Red Blood Count 3.35 MC/CUMM (3.8-5.5); Red Cell Distribution Width 15.5 % (9.3-17.3); White Blood Count 15.5 T/CUMM (4-12)
[2018-09-28 05:12] LABS: Calcium 8.3 MG/DL (8.5-10.1); Potassium 4.2 MMOL/L (3.5-5.1)
[2018-09-28] MEDS: INSULIN LISPRO 100 UNIT/ML SUBCUT SCH ×4 (08:49→21:38)
[2018-09-28] MEDS: SODIUM HYPOCHLORITE 0.25% IRRIG 473 ML BOTTLE IRRIG SCH (10:47)
[2018-09-28] MEDS: PENTOXIFYLLINE 400 MG TABLET PO SCH ×3 (10:48→21:39)
[2018-09-28] MEDS: DEXT 5% NACL 0.45% KCL 20 MEQ 20 MEQ/1,000 ML BAG IV SCH (11:34)
[2018-09-28] MEDS: LACTATED RINGERS 1,000 ML IV SCH ×2 (12:50→15:55)
[2018-09-28] MEDS ORDERED: fentaNYL 100 MCG/2 ML VIAL ONE (13:55)
[2018-09-28] MEDS ORDERED: MIDAZOLAM 2 MG/2 ML VIAL ONE (13:55)
[2018-09-28] MEDS ORDERED: PROPOFOL 200 MG/20 ML VIAL IV ONE (13:55)
[2018-09-28] MEDS ORDERED: ONDANSETRON 4 MG/2 ML VIAL ONE ×2 (13:55→13:58)
[2018-09-28] MEDS ORDERED: SEVOFLURANE 1 UNIT/15 MINUTE INH ONE (13:55)
[2018-09-28] MEDS ORDERED: methylPREDNISolone SOD SUC 125 MG/2 ML VIAL ONE (13:56)
[2018-09-28] MEDS ORDERED: PHENYLEPHRINE 1 MG/10 ML SYRINGE IV ONE (13:56)
[2018-09-28] MEDS ORDERED: HYDROmorphone 2 MG/1 ML VIAL ONE (13:57)
[2018-09-28] MEDS: HYDROmorphone 2 MG/1 ML VIAL IV PRN ×4 (14:00→14:20)
[2018-09-28] MEDS ORDERED: ONDANSETRON 4 MG/2 ML VIAL IV PRN (14:19)
[2018-09-28] MEDS: MAGNESIUM OXIDE 400 MG TABLET PO SCH ×2 (15:00→21:39)
[2018-09-28] MEDS: FAMOTIDINE 20 MG TABLET PO SCH ×2 (15:00→21:39)
[2018-09-28] MEDS: INSULIN GLARGINE 100 UNIT/ML SUBCUT SCH (15:00)
[2018-09-28] MEDS: FERROUS SULFATE 325 MG TABLET PO SCH (15:01)
[2018-09-28] MEDS: AMIODARONE 200 MG TABLET PO SCH (15:01)
[2018-09-28] MEDS: oxyCODONE/ACETAMINOPHEN 5-325 MG TABLET PO PRN (15:01)
[2018-09-28] MEDS: LOSARTAN 25 MG TABLET PO SCH (15:01)
[2018-09-28] MEDS: ASPIRIN CHEW 81 MG TABLET PO SCH (15:01)
[2018-09-28] MEDS: predniSONE 10 MG TABLET PO SCH (15:01)
[2018-09-28] MEDS: LIDOCAINE 5% PATCH TRANSDERM SCH (15:02)
[2018-09-28] MEDS: DOCUSATE SODIUM 100 MG CAPSULE PO SCH (15:55)
[2018-09-28] MEDS: ATORVASTATIN 40 MG TABLET PO SCH (21:39)
[2018-09-28] MEDS: QUEtiapine 25 MG TABLET PO SCH (21:39)
[2018-09-29] MEDS: DEXT 5% NACL 0.45% KCL 20 MEQ 20 MEQ/1,000 ML BAG IV SCH ×2 (02:58→13:18)
[2018-09-29] MEDS: AMPICILLIN/SULBACTAM 3,000 MG in SODIUM CHLORIDE 0.9% 100 ML IV SCH ×3 (03:48→18:25)
[2018-09-29] MEDS: INSULIN LISPRO 100 UNIT/ML SUBCUT SCH ×4 (08:29→20:57)
[2018-09-29] MEDS: MAGNESIUM OXIDE 400 MG TABLET PO SCH ×2 (13:17→20:50)
[2018-09-29] MEDS: FERROUS SULFATE 325 MG TABLET PO SCH (13:17)
[2018-09-29] MEDS: ASPIRIN CHEW 81 MG TABLET PO SCH (13:17)
[2018-09-29] MEDS: LOSARTAN 25 MG TABLET PO SCH (13:17)
[2018-09-29] MEDS: FAMOTIDINE 20 MG TABLET PO SCH ×2 (13:17→20:50)
[2018-09-29] MEDS: PENTOXIFYLLINE 400 MG TABLET PO SCH ×3 (13:18→20:50)
[2018-09-29] MEDS: SODIUM HYPOCHLORITE 0.25% IRRIG 473 ML BOTTLE IRRIG SCH (13:18)
[2018-09-29] MEDS: AMIODARONE 200 MG TABLET PO SCH (13:18)
[2018-09-29] MEDS: DOCUSATE SODIUM 100 MG CAPSULE PO SCH (13:18)
[2018-09-29] MEDS: predniSONE 10 MG TABLET PO SCH (13:18)
[2018-09-29] MEDS: INSULIN GLARGINE 100 UNIT/ML SUBCUT SCH (13:19)
[2018-09-29] MEDS: oxyCODONE/ACETAMINOPHEN 5-325 MG TABLET PO PRN ×2 (13:21→14:58)
[2018-09-29] MEDS: LIDOCAINE 5% PATCH TRANSDERM SCH (14:57)
[2018-09-29] MEDS: MAGNESIUM HYDROXIDE SUSP 30 ML UDCUP PO PRN (20:50)
[2018-09-29] MEDS: ATORVASTATIN 40 MG TABLET PO SCH (20:50)
[2018-09-29] MEDS: QUEtiapine 25 MG TABLET PO SCH (20:50)
[2018-09-30] MEDS: AMPICILLIN/SULBACTAM 3,000 MG in SODIUM CHLORIDE 0.9% 100 ML IV SCH ×4 (00:37→18:31)
[2018-09-30] MEDS: oxyCODONE/ACETAMINOPHEN 5-325 MG TABLET PO PRN ×2 (03:54→16:41)
[2018-09-30] MEDS: INSULIN LISPRO 100 UNIT/ML SUBCUT SCH ×4 (07:33→21:14)
[2018-09-30] MEDS: FERROUS SULFATE 325 MG TABLET PO SCH (08:14)
[2018-09-30] MEDS: FAMOTIDINE 20 MG TABLET PO SCH ×2 (08:14→21:14)
[2018-09-30] MEDS: LOSARTAN 25 MG TABLET PO SCH (08:14)
[2018-09-30] MEDS: LIDOCAINE 5% PATCH TRANSDERM SCH (08:14)
[2018-09-30] MEDS: AMIODARONE 200 MG TABLET PO SCH (08:15)
[2018-09-30] MEDS: DOCUSATE SODIUM 100 MG CAPSULE PO SCH (08:15)
[2018-09-30] MEDS: INSULIN GLARGINE 100 UNIT/ML SUBCUT SCH (08:15)
[2018-09-30] MEDS: MAGNESIUM OXIDE 400 MG TABLET PO SCH ×2 (08:15→21:14)
[2018-09-30] MEDS: ASPIRIN CHEW 81 MG TABLET PO SCH (08:15)
[2018-09-30] MEDS: PENTOXIFYLLINE 400 MG TABLET PO SCH ×3 (08:15→21:14)
[2018-09-30] MEDS: SODIUM HYPOCHLORITE 0.25% IRRIG 473 ML BOTTLE IRRIG SCH (08:15)
[2018-09-30] MEDS: predniSONE 10 MG TABLET PO SCH (08:15)
[2018-09-30] MEDS: fentaNYL 25 MCG/HR PATCH TRANSDERM SCH (17:40)
[2018-09-30] MEDS: ATORVASTATIN 40 MG TABLET PO SCH (21:14)
[2018-09-30] MEDS: QUEtiapine 25 MG TABLET PO SCH (21:14)
[2018-10-01] MEDS: DEXT 5% NACL 0.45% KCL 20 MEQ 20 MEQ/1,000 ML BAG IV SCH ×2 (01:26→21:45)
[2018-10-01] MEDS: AMPICILLIN/SULBACTAM 3,000 MG in SODIUM CHLORIDE 0.9% 100 ML IV SCH ×4 (01:26→20:42)
[2018-10-01] MEDS: oxyCODONE/ACETAMINOPHEN 5-325 MG TABLET PO PRN ×2 (05:49→17:19)
[2018-10-01] MEDS: LIDOCAINE 5% PATCH TRANSDERM SCH (08:43)
[2018-10-01] MEDS: LOSARTAN 25 MG TABLET PO SCH (08:43)
[2018-10-01] MEDS: predniSONE 10 MG TABLET PO SCH (08:43)
[2018-10-01] MEDS: FERROUS SULFATE 325 MG TABLET PO SCH (08:43)
[2018-10-01] MEDS: FAMOTIDINE 20 MG TABLET PO SCH ×2 (08:43→20:42)
[2018-10-01] MEDS: PENTOXIFYLLINE 400 MG TABLET PO SCH ×3 (08:43→20:42)
[2018-10-01] MEDS: MAGNESIUM OXIDE 400 MG TABLET PO SCH ×2 (08:43→20:42)
[2018-10-01] MEDS: DOCUSATE SODIUM 100 MG CAPSULE PO SCH (08:43)
[2018-10-01] MEDS: AMIODARONE 200 MG TABLET PO SCH (08:43)
[2018-10-01] MEDS: ASPIRIN CHEW 81 MG TABLET PO SCH (08:43)
[2018-10-01] MEDS: INSULIN LISPRO 100 UNIT/ML SUBCUT SCH ×4 (14:01→20:48)
[2018-10-01] MEDS: SODIUM HYPOCHLORITE 0.25% IRRIG 473 ML BOTTLE IRRIG SCH (14:03)
[2018-10-01] MEDS: INSULIN GLARGINE 100 UNIT/ML SUBCUT SCH (14:05)
[2018-10-01] MEDS: ATORVASTATIN 40 MG TABLET PO SCH (20:42)
[2018-10-01] MEDS: QUEtiapine 25 MG TABLET PO SCH (20:42)
[2018-10-01] MEDS: MAGNESIUM HYDROXIDE SUSP 30 ML UDCUP PO PRN (21:45)
[2018-10-02] MEDS: AMPICILLIN/SULBACTAM 3,000 MG in SODIUM CHLORIDE 0.9% 100 ML IV SCH ×4 (02:38→23:23)
[2018-10-02 05:31] LABS: Basophils % 0.4 % (0.0-0.8); Eosinophils # 0.1 10*3/uL (0.0-0.87); Eosinophils % 0.5 % (0.00-10.9); Hemoglobin 8.6 GM/DL (14.0-18.0); Immature Granulocytes % 0.5 %; Immature Granulocytes Absolute 0.06 #; Lymphocytes % 9.5 % (21.2-54.2); Mean Corpuscular HGB Conc 30.7 GM/DL (32-36); Mean Corpuscular Hemoglobin 28 PG (27-34); Mean Corpuscular Volume 92.1 FL (87-102); Mean Platelet Volume 11.7 FL (9.6-12.0); Monocytes # 0.7 10*3/uL (0.11-0.8); Monocytes % 6.1 % (1.7-12.7); Neutrophils # 9.1 10*3/uL (1.4-7.4); Platelet Count 296 T/CUMM (130-400); Red Blood Count 3.04 MC/CUMM (3.8-5.5); Red Cell Distribution Width 15.8 % (9.3-17.3)
[2018-10-02 05:56] LABS: Calcium 8.2 MG/DL (8.5-10.1); Osmolality,Calculated 292.3 MOS/KG (273-304); Potassium 4.4 MMOL/L (3.5-5.1)
[2018-10-02] MEDS: FAMOTIDINE 20 MG TABLET PO SCH ×2 (09:12→20:57)
[2018-10-02] MEDS: SODIUM HYPOCHLORITE 0.25% IRRIG 473 ML BOTTLE IRRIG SCH (09:12)
[2018-10-02] MEDS: ASPIRIN CHEW 81 MG TABLET PO SCH (09:12)
[2018-10-02] MEDS: DOCUSATE SODIUM 100 MG CAPSULE PO SCH (09:12)
[2018-10-02] MEDS: MAGNESIUM OXIDE 400 MG TABLET PO SCH ×2 (09:12→20:57)
[2018-10-02] MEDS: oxyCODONE/ACETAMINOPHEN 5-325 MG TABLET PO PRN ×2 (09:12→20:56)
[2018-10-02] MEDS: AMIODARONE 200 MG TABLET PO SCH (09:12)
[2018-10-02] MEDS: FERROUS SULFATE 325 MG TABLET PO SCH (09:12)
[2018-10-02] MEDS: LOSARTAN 25 MG TABLET PO SCH (09:12)
[2018-10-02] MEDS: predniSONE 10 MG TABLET PO SCH (09:12)
[2018-10-02] MEDS: PENTOXIFYLLINE 400 MG TABLET PO SCH ×3 (09:12→20:57)
[2018-10-02] MEDS: LIDOCAINE 5% PATCH TRANSDERM SCH (09:13)
[2018-10-02] MEDS: INSULIN GLARGINE 100 UNIT/ML SUBCUT SCH (09:13)
[2018-10-02] MEDS: INSULIN LISPRO 100 UNIT/ML SUBCUT SCH ×3 (10:21→20:58)
[2018-10-02] MEDS: MAGNESIUM HYDROXIDE SUSP 30 ML UDCUP PO PRN (15:41)
[2018-10-02] MEDS: QUEtiapine 25 MG TABLET PO SCH (20:57)
[2018-10-02] MEDS: ATORVASTATIN 40 MG TABLET PO SCH (20:57)
[2018-10-02] MEDS: DEXT 5% NACL 0.45% KCL 20 MEQ 20 MEQ/1,000 ML BAG IV SCH (23:23)
[2018-10-03] MEDS: AMPICILLIN/SULBACTAM 3,000 MG in SODIUM CHLORIDE 0.9% 100 ML IV SCH ×4 (05:16→23:09)
[2018-10-03 06:37] LABS: Basophils # 0.1 10*3/uL (0.0-0.2); Basophils % 0.4 % (0.0-0.8); Eosinophils # 0.1 10*3/uL (0.0-0.87); Eosinophils % 0.6 % (0.00-10.9); Hematocrit 28.2 VOL% (42.0-52.0); Hemoglobin 8.6 GM/DL (14.0-18.0); Immature Granulocytes % 0.8 %; Immature Granulocytes Absolute 0.09 #; Lymphocytes # 0.8 10*3/uL (1.4-4.0); Mean Corpuscular HGB Conc 30.5 GM/DL (32-36); Mean Corpuscular Hemoglobin 28 PG (27-34); Mean Corpuscular Volume 93.1 FL (87-102); Mean Platelet Volume 11.8 FL (9.6-12.0); Monocytes # 0.7 10*3/uL (0.11-0.8); Monocytes % 5.8 % (1.7-12.7); Neutrophils # 9.8 10*3/uL (1.4-7.4); Neutrophils % 85.4 % (38.7-73.9); Platelet Count 291 T/CUMM (130-400); Red Blood Count 3.03 MC/CUMM (3.8-5.5); Red Cell Distribution Width 15.9 % (9.3-17.3); White Blood Count 11.5 T/CUMM (4-12)
[2018-10-03 06:56] LABS: Calcium 8.2 MG/DL (8.5-10.1); Osmolality,Calculated 294.5 MOS/KG (273-304); Potassium 4.6 MMOL/L (3.5-5.1)
[2018-10-03] MEDS: LIDOCAINE 5% PATCH TRANSDERM SCH (09:13)
[2018-10-03] MEDS: INSULIN LISPRO 100 UNIT/ML SUBCUT SCH ×4 (09:16→21:07)
[2018-10-03] MEDS: INSULIN GLARGINE 100 UNIT/ML SUBCUT SCH (09:16)
[2018-10-03] MEDS: fentaNYL 25 MCG/HR PATCH TRANSDERM SCH (09:23)
[2018-10-03] MEDS: DOCUSATE SODIUM 100 MG CAPSULE PO SCH (09:24)
[2018-10-03] MEDS: MAGNESIUM OXIDE 400 MG TABLET PO SCH ×2 (09:24→21:07)
[2018-10-03] MEDS: FAMOTIDINE 20 MG TABLET PO SCH ×2 (09:24→21:07)
[2018-10-03] MEDS: predniSONE 10 MG TABLET PO SCH (09:24)
[2018-10-03] MEDS: FERROUS SULFATE 325 MG TABLET PO SCH (09:24)
[2018-10-03] MEDS: PENTOXIFYLLINE 400 MG TABLET PO SCH ×3 (09:24→21:07)
[2018-10-03] MEDS: AMIODARONE 200 MG TABLET PO SCH (09:25)
[2018-10-03] MEDS: oxyCODONE/ACETAMINOPHEN 5-325 MG TABLET PO PRN ×2 (09:25→21:05)
[2018-10-03] MEDS: LOSARTAN 25 MG TABLET PO SCH (09:25)
[2018-10-03] MEDS: ASPIRIN CHEW 81 MG TABLET PO SCH (09:25)
[2018-10-03] MEDS: SODIUM HYPOCHLORITE 0.25% IRRIG 473 ML BOTTLE IRRIG SCH (11:22)
[2018-10-03] MEDS: ATORVASTATIN 40 MG TABLET PO SCH (21:07)
[2018-10-03] MEDS: QUEtiapine 25 MG TABLET PO SCH (21:07)
[2018-10-04] MEDS: DEXT 5% NACL 0.45% KCL 20 MEQ 20 MEQ/1,000 ML BAG IV SCH (03:25)
[2018-10-04] MEDS: AMPICILLIN/SULBACTAM 3,000 MG in SODIUM CHLORIDE 0.9% 100 ML IV SCH ×5 (04:29→20:46)
[2018-10-04 07:51] LABS: Basophils # 0.1 10*3/uL (0.0-0.2); Basophils % 0.5 % (0.0-0.8); Eosinophils # 0.1 10*3/uL (0.0-0.87); Eosinophils % 0.9 % (0.00-10.9); Hemoglobin 8.5 GM/DL (14.0-18.0); Immature Granulocytes % 0.7 %; Immature Granulocytes Absolute 0.08 #; Lymphocytes # 1.2 10*3/uL (1.4-4.0); Mean Corpuscular HGB Conc 30.4 GM/DL (32-36); Mean Corpuscular Hemoglobin 28 PG (27-34); Mean Corpuscular Volume 92.4 FL (87-102); Mean Platelet Volume 11.3 FL (9.6-12.0); Monocytes # 0.8 10*3/uL (0.11-0.8); Monocytes % 6.9 % (1.7-12.7); Neutrophils # 9.6 10*3/uL (1.4-7.4); Platelet Count 279 T/CUMM (130-400); Red Blood Count 3.03 MC/CUMM (3.8-5.5); Red Cell Distribution Width 15.9 % (9.3-17.3); White Blood Count 11.8 T/CUMM (4-12)
[2018-10-04 08:27] LABS: Calcium 8.5 MG/DL (8.5-10.1); Osmolality,Calculated 290.5 MOS/KG (273-304); Potassium 4.3 MMOL/L (3.5-5.1)
[2018-10-04] MEDS: INSULIN LISPRO 100 UNIT/ML SUBCUT SCH ×4 (08:51→22:02)
[2018-10-04] MEDS: LIDOCAINE 5% PATCH TRANSDERM SCH (08:52)
[2018-10-04] MEDS: MAGNESIUM OXIDE 400 MG TABLET PO SCH ×2 (08:53→22:01)
[2018-10-04] MEDS: DOCUSATE SODIUM 100 MG CAPSULE PO SCH (08:53)
[2018-10-04] MEDS: PENTOXIFYLLINE 400 MG TABLET PO SCH ×3 (08:53→22:01)
[2018-10-04] MEDS: ASPIRIN CHEW 81 MG TABLET PO SCH (08:53)
[2018-10-04] MEDS: FERROUS SULFATE 325 MG TABLET PO SCH (08:53)
[2018-10-04] MEDS: oxyCODONE/ACETAMINOPHEN 5-325 MG TABLET PO PRN ×2 (08:53→22:00)
[2018-10-04] MEDS: predniSONE 10 MG TABLET PO SCH (08:53)
[2018-10-04] MEDS: AMIODARONE 200 MG TABLET PO SCH (08:53)
[2018-10-04] MEDS: FAMOTIDINE 20 MG TABLET PO SCH ×2 (08:53→21:59)
[2018-10-04] MEDS: LOSARTAN 25 MG TABLET PO SCH (08:53)
[2018-10-04] MEDS: SODIUM HYPOCHLORITE 0.25% IRRIG 473 ML BOTTLE IRRIG SCH (08:54)
[2018-10-04] MEDS: INSULIN GLARGINE 100 UNIT/ML SUBCUT SCH (08:54)
[2018-10-04] MEDS: QUEtiapine 25 MG TABLET PO SCH (21:59)
[2018-10-04] MEDS: ATORVASTATIN 40 MG TABLET PO SCH (21:59)
[2018-10-05] MEDS: DEXT 5% NACL 0.45% KCL 20 MEQ 20 MEQ/1,000 ML BAG IV SCH (00:05)
[2018-10-05] MEDS: AMPICILLIN/SULBACTAM 3,000 MG in SODIUM CHLORIDE 0.9% 100 ML IV SCH ×4 (00:50→23:58)
[2018-10-05] MEDS: ASPIRIN CHEW 81 MG TABLET PO SCH (08:21)
[2018-10-05] MEDS: LOSARTAN 25 MG TABLET PO SCH (08:21)
[2018-10-05] MEDS: predniSONE 10 MG TABLET PO SCH (08:21)
[2018-10-05] MEDS: FERROUS SULFATE 325 MG TABLET PO SCH (08:21)
[2018-10-05] MEDS: INSULIN GLARGINE 100 UNIT/ML SUBCUT SCH (08:21)
[2018-10-05] MEDS: AMIODARONE 200 MG TABLET PO SCH (08:21)
[2018-10-05] MEDS: MAGNESIUM OXIDE 400 MG TABLET PO SCH ×2 (08:21→20:52)
[2018-10-05] MEDS: DOCUSATE SODIUM 100 MG CAPSULE PO SCH (08:21)
[2018-10-05] MEDS: LIDOCAINE 5% PATCH TRANSDERM SCH (08:22)
[2018-10-05] MEDS: INSULIN LISPRO 100 UNIT/ML SUBCUT SCH ×4 (08:22→20:53)
[2018-10-05] MEDS: SODIUM HYPOCHLORITE 0.25% IRRIG 473 ML BOTTLE IRRIG SCH (08:22)
[2018-10-05] MEDS: oxyCODONE/ACETAMINOPHEN 5-325 MG TABLET PO PRN ×2 (08:23→20:52)
[2018-10-05] MEDS: FAMOTIDINE 20 MG TABLET PO SCH ×2 (08:23→20:52)
[2018-10-05] MEDS: PENTOXIFYLLINE 400 MG TABLET PO SCH ×3 (08:23→20:52)
[2018-10-05] MEDS: MAGNESIUM HYDROXIDE SUSP 30 ML UDCUP PO PRN (16:25)
[2018-10-05] MEDS: QUEtiapine 25 MG TABLET PO SCH (20:52)
[2018-10-05] MEDS: ATORVASTATIN 40 MG TABLET PO SCH (20:52)
[2018-10-06] MEDS: AMPICILLIN/SULBACTAM 3,000 MG in SODIUM CHLORIDE 0.9% 100 ML IV SCH ×4 (04:50→22:53)
[2018-10-06] MEDS: INSULIN LISPRO 100 UNIT/ML SUBCUT SCH ×4 (09:39→21:05)
[2018-10-06] MEDS: AMIODARONE 200 MG TABLET PO SCH (09:41)
[2018-10-06] MEDS: MAGNESIUM OXIDE 400 MG TABLET PO SCH ×2 (09:41→21:07)
[2018-10-06] MEDS: LOSARTAN 25 MG TABLET PO SCH (09:41)
[2018-10-06] MEDS: DOCUSATE SODIUM 100 MG CAPSULE PO SCH (09:42)
[2018-10-06] MEDS: FERROUS SULFATE 325 MG TABLET PO SCH (09:42)
[2018-10-06] MEDS: predniSONE 10 MG TABLET PO SCH (09:42)
[2018-10-06] MEDS: FAMOTIDINE 20 MG TABLET PO SCH ×2 (09:42→21:07)
[2018-10-06] MEDS: ASPIRIN CHEW 81 MG TABLET PO SCH (09:42)
[2018-10-06] MEDS: PENTOXIFYLLINE 400 MG TABLET PO SCH ×3 (09:42→21:07)
[2018-10-06] MEDS: SODIUM HYPOCHLORITE 0.25% IRRIG 473 ML BOTTLE IRRIG SCH (09:44)
[2018-10-06] MEDS: fentaNYL 25 MCG/HR PATCH TRANSDERM SCH (09:45)
[2018-10-06] MEDS: LIDOCAINE 5% PATCH TRANSDERM SCH (09:45)
[2018-10-06] MEDS: oxyCODONE/ACETAMINOPHEN 5-325 MG TABLET PO PRN ×2 (10:01→21:06)
[2018-10-06] MEDS: INSULIN GLARGINE 100 UNIT/ML SUBCUT SCH (10:01)
[2018-10-06] MEDS: MAGNESIUM HYDROXIDE SUSP 30 ML UDCUP PO PRN (10:01)
[2018-10-06 18:55] LABS: Apearance,Urine CLEAR (Clear); Bilirubin,Urine Negative (Negative); Blood, Urine Negative (Negative); Glucose,Urine (UA) Negative (Negative); Ketones,Urine Negative (Negative); Nitrite,Urine Negative (Negative); Protein,Urine Negative; RBC,Urine 1 /HPF (0-4); Squamous Epithelial Cell,Urine Occasional /HPF (0-10); Urine Color Straw (Yellow); Urine Urobilinogen < 2.0 EU/DL (0.2-1.0); WBC,Urine 1 /HPF (0-6)
[2018-10-06] MEDS: QUEtiapine 25 MG TABLET PO SCH (21:07)
[2018-10-06] MEDS: ATORVASTATIN 40 MG TABLET PO SCH (21:07)
[2018-10-07] MEDS: AMPICILLIN/SULBACTAM 3,000 MG in SODIUM CHLORIDE 0.9% 100 ML IV SCH ×4 (04:57→21:37)
[2018-10-07] MEDS: DOCUSATE SODIUM 100 MG CAPSULE PO SCH (08:28)
[2018-10-07] MEDS: FERROUS SULFATE 325 MG TABLET PO SCH (08:28)
[2018-10-07] MEDS: FAMOTIDINE 20 MG TABLET PO SCH ×2 (08:29→21:01)
[2018-10-07] MEDS: PENTOXIFYLLINE 400 MG TABLET PO SCH ×3 (08:29→21:01)
[2018-10-07] MEDS: AMIODARONE 200 MG TABLET PO SCH (08:29)
[2018-10-07] MEDS: predniSONE 10 MG TABLET PO SCH (08:29)
[2018-10-07] MEDS: ASPIRIN CHEW 81 MG TABLET PO SCH (08:29)
[2018-10-07] MEDS: LOSARTAN 25 MG TABLET PO SCH (08:29)
[2018-10-07] MEDS: MAGNESIUM OXIDE 400 MG TABLET PO SCH ×2 (08:29→21:37)
[2018-10-07] MEDS: INSULIN LISPRO 100 UNIT/ML SUBCUT SCH ×4 (08:30→21:03)
[2018-10-07] MEDS: SODIUM HYPOCHLORITE 0.25% IRRIG 473 ML BOTTLE IRRIG SCH (08:30)
[2018-10-07] MEDS: INSULIN GLARGINE 100 UNIT/ML SUBCUT SCH (08:30)
[2018-10-07] MEDS: LIDOCAINE 5% PATCH TRANSDERM SCH (08:31)
[2018-10-07] MEDS: oxyCODONE/ACETAMINOPHEN 5-325 MG TABLET PO PRN ×2 (10:58→21:01)
[2018-10-07] MEDS: ATORVASTATIN 40 MG TABLET PO SCH (21:01)
[2018-10-07] MEDS: QUEtiapine 25 MG TABLET PO SCH (21:01)
[2018-10-07] MEDS: DEXT 5% NACL 0.45% KCL 20 MEQ 20 MEQ/1,000 ML BAG IV SCH (21:04)
[2018-10-08] MEDS: AMPICILLIN/SULBACTAM 3,000 MG in SODIUM CHLORIDE 0.9% 100 ML IV SCH ×3 (04:24→20:39)
[2018-10-08 05:10] LABS: Basophils # 0.1 10*3/uL (0.0-0.2); Basophils % 0.5 % (0.0-0.8); Eosinophils # 0.1 10*3/uL (0.0-0.87); Eosinophils % 0.8 % (0.00-10.9); Hematocrit 28.5 VOL% (42.0-52.0); Hemoglobin 8.6 GM/DL (14.0-18.0); Lymphocytes # 1.1 10*3/uL (1.4-4.0); Lymphocytes % 11.2 % (21.2-54.2); Mean Corpuscular HGB Conc 30.2 GM/DL (32-36); Mean Corpuscular Hemoglobin 28 PG (27-34); Mean Corpuscular Volume 94.1 FL (87-102); Mean Platelet Volume 12.3 FL (9.6-12.0); Monocytes # 0.8 10*3/uL (0.11-0.8); Monocytes % 8.5 % (1.7-12.7); Neutrophils # 7.5 10*3/uL (1.4-7.4); Platelet Count 260 T/CUMM (130-400); Red Blood Count 3.03 MC/CUMM (3.8-5.5); Red Cell Distribution Width 16.2 % (9.3-17.3); White Blood Count 9.6 T/CUMM (4-12)
[2018-10-08 07:00] LABS: Calcium 8.6 MG/DL (8.5-10.1); Osmolality,Calculated 294.3 MOS/KG (273-304); Potassium 4.2 MMOL/L (3.5-5.1)
[2018-10-08] MEDS: INSULIN LISPRO 100 UNIT/ML SUBCUT SCH ×4 (07:17→20:34)
[2018-10-08] MEDS: predniSONE 10 MG TABLET PO SCH (08:59)
[2018-10-08] MEDS: FAMOTIDINE 20 MG TABLET PO SCH ×2 (08:59→20:33)
[2018-10-08] MEDS: LOSARTAN 25 MG TABLET PO SCH (08:59)
[2018-10-08] MEDS: AMIODARONE 200 MG TABLET PO SCH (08:59)
[2018-10-08] MEDS: DOCUSATE SODIUM 100 MG CAPSULE PO SCH (08:59)
[2018-10-08] MEDS: ASPIRIN CHEW 81 MG TABLET PO SCH (08:59)
[2018-10-08] MEDS: FERROUS SULFATE 325 MG TABLET PO SCH (08:59)
[2018-10-08] MEDS: MAGNESIUM OXIDE 400 MG TABLET PO SCH ×2 (08:59→20:33)
[2018-10-08] MEDS: INSULIN GLARGINE 100 UNIT/ML SUBCUT SCH (09:00)
[2018-10-08] MEDS: PENTOXIFYLLINE 400 MG TABLET PO SCH ×3 (09:00→20:33)
[2018-10-08] MEDS: LIDOCAINE 5% PATCH TRANSDERM SCH (09:05)
[2018-10-08] MEDS: MAGNESIUM HYDROXIDE SUSP 30 ML UDCUP PO PRN ×2 (09:16→20:39)
[2018-10-08] MEDS: oxyCODONE/ACETAMINOPHEN 5-325 MG TABLET PO PRN ×2 (09:16→23:18)
[2018-10-08] MEDS: SODIUM HYPOCHLORITE 0.25% IRRIG 473 ML BOTTLE IRRIG SCH (10:30)
[2018-10-08] MEDS ORDERED: SKIN HEALING OINT (AQUAPHOR) 50 GM TUBE TOP PRN (12:22)
[2018-10-08] MEDS: DESITIN 4OZ/NYSTATIN 15 GRAM MIXTURE PASTE TOP SCH ×2 (15:16→21:01)
[2018-10-08] MEDS: QUEtiapine 25 MG TABLET PO SCH (20:34)
[2018-10-08] MEDS: ATORVASTATIN 40 MG TABLET PO SCH (20:34)
[2018-10-09] MEDS: AMPICILLIN/SULBACTAM 3,000 MG in SODIUM CHLORIDE 0.9% 100 ML IV SCH ×4 (03:01→21:36)
[2018-10-09] MEDS: INSULIN LISPRO 100 UNIT/ML SUBCUT SCH ×4 (09:14→21:35)
[2018-10-09] MEDS: PENTOXIFYLLINE 400 MG TABLET PO SCH ×3 (10:10→21:35)
[2018-10-09] MEDS: MAGNESIUM OXIDE 400 MG TABLET PO SCH ×2 (10:10→21:34)
[2018-10-09] MEDS: predniSONE 10 MG TABLET PO SCH (10:10)
[2018-10-09] MEDS: LOSARTAN 25 MG TABLET PO SCH (10:10)
[2018-10-09] MEDS: FAMOTIDINE 20 MG TABLET PO SCH ×2 (10:10→21:35)
[2018-10-09] MEDS: DOCUSATE SODIUM 100 MG CAPSULE PO SCH (10:10)
[2018-10-09] MEDS: FERROUS SULFATE 325 MG TABLET PO SCH (10:10)
[2018-10-09] MEDS: ASPIRIN CHEW 81 MG TABLET PO SCH (10:10)
[2018-10-09] MEDS: AMIODARONE 200 MG TABLET PO SCH (10:11)
[2018-10-09] MEDS: SODIUM HYPOCHLORITE 0.25% IRRIG 473 ML BOTTLE IRRIG SCH (10:11)
[2018-10-09] MEDS: fentaNYL 25 MCG/HR PATCH TRANSDERM SCH (10:12)
[2018-10-09] MEDS: LIDOCAINE 5% PATCH TRANSDERM SCH (10:13)
[2018-10-09] MEDS: DESITIN 4OZ/NYSTATIN 15 GRAM MIXTURE PASTE TOP SCH ×2 (10:15→21:36)
[2018-10-09] MEDS: INSULIN GLARGINE 100 UNIT/ML SUBCUT SCH (10:45)
[2018-10-09] MEDS: oxyCODONE/ACETAMINOPHEN 5-325 MG TABLET PO PRN (13:41)
[2018-10-09] MEDS: MAGNESIUM HYDROXIDE SUSP 30 ML UDCUP PO PRN (13:42)
[2018-10-09] MEDS: DEXT 5% NACL 0.45% KCL 20 MEQ 20 MEQ/1,000 ML BAG IV SCH (13:43)
[2018-10-09] MEDS: ATORVASTATIN 40 MG TABLET PO SCH (21:35)
[2018-10-09] MEDS: QUEtiapine 25 MG TABLET PO SCH (21:35)
[2018-10-10] MEDS: oxyCODONE/ACETAMINOPHEN 5-325 MG TABLET PO PRN ×2 (01:59→14:58)
[2018-10-10] MEDS: MAGNESIUM HYDROXIDE SUSP 30 ML UDCUP PO PRN ×2 (01:59→14:53)
[2018-10-10] MEDS: AMPICILLIN/SULBACTAM 3,000 MG in SODIUM CHLORIDE 0.9% 100 ML IV SCH ×4 (03:08→20:42)
[2018-10-10] MEDS: LIDOCAINE 5% PATCH TRANSDERM SCH (08:17)
[2018-10-10] MEDS: AMIODARONE 200 MG TABLET PO SCH (08:18)
[2018-10-10] MEDS: MAGNESIUM OXIDE 400 MG TABLET PO SCH ×2 (08:18→20:41)
[2018-10-10] MEDS: FAMOTIDINE 20 MG TABLET PO SCH ×2 (08:18→20:41)
[2018-10-10] MEDS: FERROUS SULFATE 325 MG TABLET PO SCH (08:19)
[2018-10-10] MEDS: LOSARTAN 25 MG TABLET PO SCH (08:19)
[2018-10-10] MEDS: ASPIRIN CHEW 81 MG TABLET PO SCH (08:19)
[2018-10-10] MEDS: DOCUSATE SODIUM 100 MG CAPSULE PO SCH (08:19)
[2018-10-10] MEDS: PENTOXIFYLLINE 400 MG TABLET PO SCH ×3 (08:19→20:41)
[2018-10-10] MEDS: predniSONE 10 MG TABLET PO SCH (08:19)
[2018-10-10] MEDS: INSULIN GLARGINE 100 UNIT/ML SUBCUT SCH (08:19)
[2018-10-10] MEDS: INSULIN LISPRO 100 UNIT/ML SUBCUT SCH ×4 (08:20→20:42)
[2018-10-10] MEDS: DESITIN 4OZ/NYSTATIN 15 GRAM MIXTURE PASTE TOP SCH ×2 (08:20→20:42)
[2018-10-10] MEDS: SODIUM HYPOCHLORITE 0.25% IRRIG 473 ML BOTTLE IRRIG SCH (08:20)
[2018-10-10] MEDS: DEXT 5% NACL 0.45% KCL 20 MEQ 20 MEQ/1,000 ML BAG IV SCH (11:04)
[2018-10-10] MEDS: QUEtiapine 25 MG TABLET PO SCH (20:41)
[2018-10-10] MEDS: ATORVASTATIN 40 MG TABLET PO SCH (20:41)
[2018-10-11] MEDS: MAGNESIUM HYDROXIDE SUSP 30 ML UDCUP PO PRN (02:12)
[2018-10-11] MEDS: AMPICILLIN/SULBACTAM 3,000 MG in SODIUM CHLORIDE 0.9% 100 ML IV SCH ×3 (02:56→14:57)
[2018-10-11] MEDS: oxyCODONE/ACETAMINOPHEN 5-325 MG TABLET PO PRN ×2 (04:42→14:00)
[2018-10-11] MEDS: INSULIN LISPRO 100 UNIT/ML SUBCUT SCH ×3 (07:38→16:30)
[2018-10-11] MEDS ORDERED: POLYETHYLENE GLYCOL POWDER 17 GM PACK PO SCH (09:00)
[2018-10-11] MEDS: PENTOXIFYLLINE 400 MG TABLET PO SCH ×2 (09:20→14:57)
[2018-10-11] MEDS: FAMOTIDINE 20 MG TABLET PO SCH (09:20)
[2018-10-11] MEDS: MAGNESIUM OXIDE 400 MG TABLET PO SCH (09:20)
[2018-10-11] MEDS: FERROUS SULFATE 325 MG TABLET PO SCH (09:20)
[2018-10-11] MEDS: predniSONE 10 MG TABLET PO SCH (09:20)
[2018-10-11] MEDS: SODIUM HYPOCHLORITE 0.25% IRRIG 473 ML BOTTLE IRRIG SCH (09:21)
[2018-10-11] MEDS: DESITIN 4OZ/NYSTATIN 15 GRAM MIXTURE PASTE TOP SCH (09:21)
[2018-10-11] MEDS: ASPIRIN CHEW 81 MG TABLET PO SCH (09:21)
[2018-10-11] MEDS: LOSARTAN 25 MG TABLET PO SCH (09:21)
[2018-10-11] MEDS: DOCUSATE SODIUM 100 MG CAPSULE PO SCH (09:21)
[2018-10-11] MEDS: AMIODARONE 200 MG TABLET PO SCH (09:21)
[2018-10-11] MEDS: INSULIN GLARGINE 100 UNIT/ML SUBCUT SCH (09:22)
[2018-10-11] MEDS: LIDOCAINE 5% PATCH TRANSDERM SCH (09:23)
[2018-10-11 16:56] VITALS: BP 158/87
== END 2018-10-11 17:59 | disposition home health service (06) | DRG 255 ==
LOC: N.2E 11:07
PROVIDERS: ADMIT Specialist; ATTEND Specialist

== ENCOUNTER 2018-12-03 17:05 | Inpatient (IN) ==
[~2018-12-03 17:05] MED LIST changes: -ceFAZolin 2,000 MG in PREMIX 1 EACH IV ONE; +oxyCODONE/ACETAMINOPHEN 5-325 MG TABLET PO ONE
[2018-12-03 19:23] LABS: Basophils % 0.2 % (0.0-0.8); Eosinophils % 0.1 % (0.00-10.9); Hemoglobin 9.6 GM/DL (14.0-18.0); Monocytes % 4.5 % (1.7-12.7); NRBC # 0.02 10*3/uL
[2018-12-03 19:32] LABS: INR 0.9; PT Patient Result 10.2 SECS
[2018-12-03 19:41] LABS: Immature Granulocytes % 4.5 %; Immature Granulocytes Absolute 0.37 #; Lymphocytes # 0.3 10*3/uL (1.4-4.0); Lymphocytes % 3.9 % (21.2-54.2); Mean Corpuscular HGB Conc 29.1 GM/DL (32-36); Mean Corpuscular Hemoglobin 29 PG (27-34); Mean Corpuscular Volume 100.9 FL (87-102); Mean Platelet Volume 13.1 FL (9.6-12.0); Monocytes # 0.4 10*3/uL (0.11-0.8); Neutrophils # 7.2 10*3/uL (1.4-7.4); Neutrophils % 86.8 % (38.7-73.9); Platelet Count 161 T/CUMM (130-400); Red Blood Count 3.27 MC/CUMM (3.8-5.5); Red Cell Distribution Width 17.5 % (9.3-17.3); White Blood Count 8.3 T/CUMM (4-12)
[2018-12-03 19:44] LABS: Band Neutrophils 1 % (0-10); Hypochromasia 1+; Lymphocytes 5 % (20-55); Platelet Estimate Adequate; Segmented Neutrophils 88 % (50-85); Total Cells Counted 100
[2018-12-03 19:45] LABS: Microcytosis 1+; Polychromasia Few
[2018-12-03] MEDS ORDERED: ALBUTEROL/IPRATROPIUM 3 ML NEB RESP TX STA (19:56)
[2018-12-03 19:57] LABS: Alanine Aminotransferase 77 U/L (16-61); Albumin 2.8 G/DL (3.4-5.0); Alkaline Phosphatase 263 U/L (45-117); Aspartate Amino Transferase 63 U/L (0-37); Bilirubin,Total < 0.39 MG/DL (0.2-1.0); Blood Urea Nitrogen 42 MG/DL (7-18); Calcium 8.2 MG/DL (8.5-10.1); Glucose 216 MG/DL (74-106); Osmolality,Calculated 300.1 MOS/KG (273-304); Sodium 142 MMOL/L (136-145); Total Protein 7.2 G/DL (6.4-8.3)
[2018-12-03 20:00] LABS: Potassium 6.4 MMOL/L (3.5-5.1)
[2018-12-03] MEDS ORDERED: FUROSEMIDE 40 MG/4 ML VIAL IV STA (20:20)
[2018-12-03] MEDS ORDERED: INSULIN REGULAR 100 UNIT/ML IV STA (23:27)
[2018-12-04] MEDS ORDERED: ACETAMINOPHEN 325 MG TABLET PO PRN (00:02)
[2018-12-04] MEDS ORDERED: ONDANSETRON 4 MG/2 ML VIAL IV PRN (00:02)
[2018-12-04] MEDS ORDERED: oxyCODONE/ACETAMINOPHEN 5-325 MG TABLET ONE (00:57)
[2018-12-04] MEDS: methylPREDNISolone SOD SUC 40 MG/1 ML VIAL IV SCH ×3 (02:58→15:55)
[2018-12-04] MEDS: FUROSEMIDE 40 MG/4 ML VIAL IV SCH ×2 (02:59→11:33)
[2018-12-04] MEDS: ALBUTEROL/IPRATROPIUM 3 ML NEB RESP TX SCH ×6 (03:44→23:38)
[2018-12-04 05:19] LABS: Basophils % 0.3 % (0.0-0.8); Eosinophils # 0.1 10*3/uL (0.0-0.87); Eosinophils % 0.8 % (0.00-10.9); Hematocrit 31.3 VOL% (42.0-52.0); Hemoglobin 9.1 GM/DL (14.0-18.0); Immature Granulocytes % 4.1 %; Immature Granulocytes Absolute 0.33 #; Lymphocytes # 0.4 10*3/uL (1.4-4.0); Lymphocytes % 4.9 % (21.2-54.2); Mean Corpuscular HGB Conc 29.1 GM/DL (32-36); Mean Corpuscular Hemoglobin 29 PG (27-34); Mean Corpuscular Volume 101.3 FL (87-102); Mean Platelet Volume 12.2 FL (9.6-12.0); Monocytes # 0.4 10*3/uL (0.11-0.8); Monocytes % 5.1 % (1.7-12.7); Neutrophils # 6.8 10*3/uL (1.4-7.4); Neutrophils % 84.8 % (38.7-73.9); Platelet Count 155 T/CUMM (130-400); Red Blood Count 3.09 MC/CUMM (3.8-5.5); Red Cell Distribution Width 17.6 % (9.3-17.3)
[2018-12-04 05:27] LABS: Albumin 2.6 G/DL (3.4-5.0); Bilirubin,Total 0.6 MG/DL (0.2-1.0); Calcium 8.1 MG/DL (8.5-10.1); Osmolality,Calculated 302.8 MOS/KG (273-304); Potassium 5.5 MMOL/L (3.5-5.1); Total Protein 6.5 G/DL (6.4-8.3)
[2018-12-04 05:40] LABS: Band Neutrophils 2 % (0-10); Lymphocytes 3 % (20-55); Nucleated Red Blood Cells 2 (0-5); Segmented Neutrophils 89 % (50-85); Total Cells Counted 100
[2018-12-04 05:41] LABS: Hypochromasia Slight; Platelet Estimate Normal; Target Cells Few
[2018-12-04] MEDS: ENOXAPARIN 40 MG/0.4 ML SYRINGE SUBCUT SCH (09:32)
[2018-12-04] MEDS: PANTOPRAZOLE 40 MG TABLET PO SCH (09:40)
[2018-12-04] MEDS: oxyCODONE/ACETAMINOPHEN 5-325 MG TABLET PO PRN ×2 (11:39→18:15)
[2018-12-04] MEDS ORDERED: MELOXICAM 7.5 MG TABLET PO PRN (11:52)
[2018-12-04] MEDS ORDERED: POLYETHYLENE GLYCOL POWDER 17 GM PACK PO PRN (11:52)
[2018-12-04] MEDS ORDERED: oxyCODONE/ACETAMINOPHEN 5-325 MG TABLET PO PRN (11:52)
[2018-12-04] MEDS ORDERED: SKIN HEALING OINT (AQUAPHOR) 50 GM TUBE TOP PRN (11:52)
[2018-12-04] MEDS: PENTOXIFYLLINE 400 MG TABLET PO SCH ×2 (15:55→21:44)
[2018-12-04] MEDS: GENTAMICIN 0.1% OINT 15 GM TUBE TOP SCH ×2 (16:01→21:52)
[2018-12-04] MEDS: INSULIN LISPRO 100 UNIT/ML SUBCUT SCH ×3 (16:50→21:42)
[2018-12-04] MEDS: ATORVASTATIN 40 MG TABLET PO SCH (21:44)
[2018-12-04] MEDS: QUEtiapine 25 MG TABLET PO SCH (21:45)
[2018-12-04] MEDS: GABAPENTIN 300 MG CAPSULE PO SCH (21:45)
[2018-12-05] MEDS: methylPREDNISolone SOD SUC 40 MG/1 ML VIAL IV SCH ×2 (01:07→10:13)
[2018-12-05] MEDS: FUROSEMIDE 40 MG/4 ML VIAL IV SCH (01:09)
[2018-12-05] MEDS: oxyCODONE/ACETAMINOPHEN 5-325 MG TABLET PO PRN ×4 (01:20→22:54)
[2018-12-05] MEDS: ALBUTEROL/IPRATROPIUM 3 ML NEB RESP TX SCH ×6 (03:12→23:24)
[2018-12-05 06:03] LABS: Basophils % 0.1 % (0.0-0.8); Hematocrit 30.1 VOL% (42.0-52.0); Hemoglobin 8.9 GM/DL (14.0-18.0); Immature Granulocytes % 1.3 %; Immature Granulocytes Absolute 0.13 #; Lymphocytes # 0.2 10*3/uL (1.4-4.0); Lymphocytes % 2.5 % (21.2-54.2); Mean Corpuscular HGB Conc 29.6 GM/DL (32-36); Mean Corpuscular Hemoglobin 29 PG (27-34); Mean Corpuscular Volume 97.4 FL (87-102); Monocytes # 0.3 10*3/uL (0.11-0.8); Monocytes % 2.8 % (1.7-12.7); Neutrophils % 93.3 % (38.7-73.9); Platelet Count 163 T/CUMM (130-400); Red Blood Count 3.09 MC/CUMM (3.8-5.5); Red Cell Distribution Width 17.2 % (9.3-17.3); White Blood Count 9.7 T/CUMM (4-12)
[2018-12-05 06:14] LABS: Calcium 8.3 MG/DL (8.5-10.1); Osmolality,Calculated 302.7 MOS/KG (273-304); Potassium 5.1 MMOL/L (3.5-5.1)
[2018-12-05 06:28] LABS: Hypochromasia 1+; Lymphocytes 1 % (20-55); Platelet Estimate Normal; Segmented Neutrophils 97 % (50-85); Total Cells Counted 100
[2018-12-05] MEDS: GENTAMICIN 0.1% OINT 15 GM TUBE TOP SCH ×3 (10:00→20:44)
[2018-12-05] MEDS: ASPIRIN CHEW 81 MG TABLET PO SCH (10:12)
[2018-12-05] MEDS: AMIODARONE 200 MG TABLET PO SCH (10:12)
[2018-12-05] MEDS: FERROUS SULFATE 325 MG TABLET PO SCH (10:13)
[2018-12-05] MEDS: PENTOXIFYLLINE 400 MG TABLET PO SCH ×3 (10:13→20:44)
[2018-12-05] MEDS: PANTOPRAZOLE 40 MG TABLET PO SCH (10:14)
[2018-12-05] MEDS: INSULIN GLARGINE 100 UNIT/ML SUBCUT SCH (10:14)
[2018-12-05] MEDS: INSULIN LISPRO 100 UNIT/ML SUBCUT SCH ×4 (10:15→20:56)
[2018-12-05] MEDS: DOCUSATE SODIUM 100 MG CAPSULE PO SCH (10:15)
[2018-12-05] MEDS: GABAPENTIN 300 MG CAPSULE PO SCH ×2 (10:17→20:44)
[2018-12-05] MEDS: ENOXAPARIN 40 MG/0.4 ML SYRINGE SUBCUT SCH (10:22)
[2018-12-05] MEDS: QUEtiapine 25 MG TABLET PO SCH (20:44)
[2018-12-05] MEDS: ATORVASTATIN 40 MG TABLET PO SCH (20:44)
[2018-12-06] MEDS: ALBUTEROL/IPRATROPIUM 3 ML NEB RESP TX SCH ×6 (03:08→23:30)
[2018-12-06] MEDS: oxyCODONE/ACETAMINOPHEN 5-325 MG TABLET PO PRN ×2 (04:56→21:08)
[2018-12-06 05:53] LABS: Calcium 7.9 MG/DL (8.5-10.1); Osmolality,Calculated 310.3 MOS/KG (273-304); Potassium 4.8 MMOL/L (3.5-5.1)
[2018-12-06 07:18] LABS: Hematocrit 29.6 VOL% (42.0-52.0); Hemoglobin 8.9 GM/DL (14.0-18.0); Lymphocytes # 0.4 10*3/uL (1.4-4.0); Lymphocytes % 4.3 % (21.2-54.2); Mean Corpuscular HGB Conc 30.1 GM/DL (32-36); Mean Corpuscular Hemoglobin 29 PG (27-34); Mean Corpuscular Volume 97.4 FL (87-102); Mean Platelet Volume 12.7 FL (9.6-12.0); Monocytes # 0.5 10*3/uL (0.11-0.8); Monocytes % 5.2 % (1.7-12.7); NRBC # 0.02 10*3/uL; Neutrophils # 8.9 10*3/uL (1.4-7.4); Neutrophils % 89.5 % (38.7-73.9); Platelet Count 144 T/CUMM (130-400); Red Blood Count 3.04 MC/CUMM (3.8-5.5); Red Cell Distribution Width 17.8 % (9.3-17.3); White Blood Count 9.9 T/CUMM (4-12)
[2018-12-06 07:38] LABS: Anisocytosis 1+; Lymphocytes 7 % (20-55); Segmented Neutrophils 87 % (50-85); Total Cells Counted 100
[2018-12-06 07:39] LABS: Hypochromasia 1+; Microcytosis 1+; Ovalocytes Slight; Platelet Estimate Adequate; Polychromasia Slight; Schistocytes Slight; Tear Drop Cells Few
[2018-12-06] MEDS ORDERED: FUROSEMIDE 40 MG TABLET PO SCH (09:00)
[2018-12-06] MEDS ORDERED: FUROSEMIDE 40 MG/4 ML VIAL IV SCH (09:00)
[2018-12-06] MEDS: GABAPENTIN 300 MG CAPSULE PO SCH ×2 (09:01→21:06)
[2018-12-06] MEDS: ASPIRIN CHEW 81 MG TABLET PO SCH (09:01)
[2018-12-06] MEDS: PENTOXIFYLLINE 400 MG TABLET PO SCH ×3 (09:01→21:07)
[2018-12-06] MEDS: PANTOPRAZOLE 40 MG TABLET PO SCH (09:01)
[2018-12-06] MEDS: predniSONE 20 MG TABLET PO SCH (09:01)
[2018-12-06] MEDS: AMIODARONE 200 MG TABLET PO SCH (09:01)
[2018-12-06] MEDS: FERROUS SULFATE 325 MG TABLET PO SCH (09:02)
[2018-12-06] MEDS: ENOXAPARIN 40 MG/0.4 ML SYRINGE SUBCUT SCH (09:02)
[2018-12-06] MEDS: INSULIN LISPRO 100 UNIT/ML SUBCUT SCH ×4 (09:02→21:07)
[2018-12-06] MEDS: INSULIN GLARGINE 100 UNIT/ML SUBCUT SCH (09:03)
[2018-12-06] MEDS: DOCUSATE SODIUM 100 MG CAPSULE PO SCH (09:07)
[2018-12-06] MEDS: GENTAMICIN 0.1% OINT 15 GM TUBE TOP SCH ×3 (09:09→21:11)
[2018-12-06] MEDS: ATORVASTATIN 40 MG TABLET PO SCH (21:06)
[2018-12-06] MEDS: QUEtiapine 25 MG TABLET PO SCH (21:07)
[2018-12-07] MEDS: ALBUTEROL/IPRATROPIUM 3 ML NEB RESP TX SCH ×5 (03:00→19:30)
[2018-12-07] MEDS: oxyCODONE/ACETAMINOPHEN 5-325 MG TABLET PO PRN ×3 (05:13→21:08)
[2018-12-07 06:12] LABS: Osmolality,Calculated 307.3 MOS/KG (273-304); Potassium 4.8 MMOL/L (3.5-5.1)
[2018-12-07 06:53] LABS: Eosinophils % 0.4 % (0.00-10.9); Hematocrit 30.9 VOL% (42.0-52.0); Hemoglobin 9.5 GM/DL (14.0-18.0); Immature Granulocytes % 1.4 %; Immature Granulocytes Absolute 0.12 #; Lymphocytes # 0.7 10*3/uL (1.4-4.0); Lymphocytes % 7.7 % (21.2-54.2); Mean Corpuscular HGB Conc 30.7 GM/DL (32-36); Mean Corpuscular Hemoglobin 30 PG (27-34); Mean Corpuscular Volume 97.8 FL (87-102); Mean Platelet Volume 12.9 FL (9.6-12.0); Monocytes # 0.5 10*3/uL (0.11-0.8); Monocytes % 5.4 % (1.7-12.7); NRBC # 0.02 10*3/uL; Neutrophils # 7.3 10*3/uL (1.4-7.4); Neutrophils % 85.1 % (38.7-73.9); Platelet Count 148 T/CUMM (130-400); Red Blood Count 3.16 MC/CUMM (3.8-5.5); Red Cell Distribution Width 17.8 % (9.3-17.3); White Blood Count 8.6 T/CUMM (4-12)
[2018-12-07] MEDS: INSULIN LISPRO 100 UNIT/ML SUBCUT SCH ×4 (09:24→21:07)
[2018-12-07] MEDS: INSULIN GLARGINE 100 UNIT/ML SUBCUT SCH (09:58)
[2018-12-07] MEDS: AMIODARONE 200 MG TABLET PO SCH (09:58)
[2018-12-07] MEDS: ASPIRIN CHEW 81 MG TABLET PO SCH (09:58)
[2018-12-07] MEDS: GENTAMICIN 0.1% OINT 15 GM TUBE TOP SCH ×3 (09:58→22:25)
[2018-12-07] MEDS: DOCUSATE SODIUM 100 MG CAPSULE PO SCH (09:58)
[2018-12-07] MEDS: FERROUS SULFATE 325 MG TABLET PO SCH (09:58)
[2018-12-07] MEDS: ENOXAPARIN 40 MG/0.4 ML SYRINGE SUBCUT SCH (09:59)
[2018-12-07] MEDS: predniSONE 20 MG TABLET PO SCH (09:59)
[2018-12-07] MEDS: PANTOPRAZOLE 40 MG TABLET PO SCH (09:59)
[2018-12-07] MEDS: FUROSEMIDE 20 MG TABLET PO SCH (09:59)
[2018-12-07] MEDS: GABAPENTIN 300 MG CAPSULE PO SCH ×2 (09:59→21:08)
[2018-12-07] MEDS: PENTOXIFYLLINE 400 MG TABLET PO SCH ×3 (10:00→21:08)
[2018-12-07] MEDS: QUEtiapine 25 MG TABLET PO SCH (21:08)
[2018-12-07] MEDS: ATORVASTATIN 40 MG TABLET PO SCH (21:08)
[2018-12-08] MEDS: ALBUTEROL/IPRATROPIUM 3 ML NEB RESP TX SCH ×7 (01:03→22:20)
[2018-12-08] MEDS: oxyCODONE/ACETAMINOPHEN 5-325 MG TABLET PO PRN ×3 (03:59→19:58)
[2018-12-08 09:03] LABS: Basophils % 0.1 % (0.0-0.8); Eosinophils # 0.1 10*3/uL (0.0-0.87); Hematocrit 30.7 VOL% (42.0-52.0); Hemoglobin 9.1 GM/DL (14.0-18.0); Immature Granulocytes % 1.4 %; Immature Granulocytes Absolute 0.12 #; Lymphocytes # 0.7 10*3/uL (1.4-4.0); Lymphocytes % 8.7 % (21.2-54.2); Mean Corpuscular HGB Conc 29.6 GM/DL (32-36); Mean Corpuscular Hemoglobin 29 PG (27-34); Mean Corpuscular Volume 98.1 FL (87-102); Mean Platelet Volume 12.2 FL (9.6-12.0); Monocytes # 0.5 10*3/uL (0.11-0.8); Monocytes % 5.4 % (1.7-12.7); Neutrophils # 6.9 10*3/uL (1.4-7.4); Neutrophils % 83.4 % (38.7-73.9); Platelet Count 143 T/CUMM (130-400); Red Blood Count 3.13 MC/CUMM (3.8-5.5); Red Cell Distribution Width 17.9 % (9.3-17.3); White Blood Count 8.3 T/CUMM (4-12)
[2018-12-08 09:19] LABS: Calcium 7.9 MG/DL (8.5-10.1); Potassium 4.1 MMOL/L (3.5-5.1)
[2018-12-08] MEDS ORDERED: MAGNESIUM SULF RIDER 2 GM in PREMIX 1 EACH IV PRN (10:09)
[2018-12-08] MEDS ORDERED: diphenhydrAMINE CAP 25 MG CAPSULE PO ONE (10:09)
[2018-12-08] MEDS ORDERED: DIAZEPAM 5 MG TABLET PO ONE (10:09)
[2018-12-08] MEDS ORDERED: POTASSIUM CHLORIDE RIDER 10 MEQ in PREMIX 1 EACH IV PRN (10:09)
[2018-12-08] MEDS: ASPIRIN CHEW 81 MG TABLET PO SCH (10:46)
[2018-12-08] MEDS: AMIODARONE 200 MG TABLET PO SCH (10:47)
[2018-12-08] MEDS: FERROUS SULFATE 325 MG TABLET PO SCH (10:47)
[2018-12-08] MEDS: DOCUSATE SODIUM 100 MG CAPSULE PO SCH (10:47)
[2018-12-08] MEDS: GABAPENTIN 300 MG CAPSULE PO SCH ×2 (10:48→21:23)
[2018-12-08] MEDS: FUROSEMIDE 20 MG TABLET PO SCH (10:48)
[2018-12-08] MEDS: ENOXAPARIN 40 MG/0.4 ML SYRINGE SUBCUT SCH (10:48)
[2018-12-08] MEDS: predniSONE 20 MG TABLET PO SCH (10:48)
[2018-12-08] MEDS: PANTOPRAZOLE 40 MG TABLET PO SCH (10:48)
[2018-12-08] MEDS: PENTOXIFYLLINE 400 MG TABLET PO SCH ×3 (10:49→21:24)
[2018-12-08] MEDS: GENTAMICIN 0.1% OINT 15 GM TUBE TOP SCH ×3 (10:53→21:25)
[2018-12-08] MEDS: INSULIN LISPRO 100 UNIT/ML SUBCUT SCH ×4 (10:53→21:28)
[2018-12-08] MEDS: INSULIN GLARGINE 100 UNIT/ML SUBCUT SCH (10:54)
[2018-12-08] MEDS: SODIUM CHLORIDE 0.9% 1,000 ML IV SCH ×2 (12:52→19:54)
[2018-12-08] MEDS ORDERED: HEPARIN/NACL 0.9% 2 UNITS/ML 1,000 ML IV ONE (14:06)
[2018-12-08] MEDS ORDERED: LIDOCAINE 1% 20 ML VIAL ONE (14:27)
[2018-12-08] MEDS ORDERED: MIDAZOLAM 2 MG/2 ML VIAL ONE (14:28)
[2018-12-08] MEDS ORDERED: fentaNYL 100 MCG/2 ML VIAL ONE (14:28)
[2018-12-08] MEDS ORDERED: HYDROmorphone 2 MG/1 ML VIAL ONE (14:29)
[2018-12-08] MEDS ORDERED: BIVALIRUDIN 250 MG VIAL IV ONE (15:13)
[2018-12-08] MEDS ORDERED: HEPARIN/NACL 0.9% 2 UNITS/ML 500 ML IV ONE (15:36)
[2018-12-08] MEDS ORDERED: TICAGRELOR 90 MG TABLET ONE (15:56)
[2018-12-08] MEDS ORDERED: DEXTROSE 50% 25 GM/50 ML SYRINGE IV PRN (16:54)
[2018-12-08] MEDS ORDERED: GLUCAGON 1 MG VIAL IM PRN (16:54)
[2018-12-08] MEDS: ATORVASTATIN 40 MG TABLET PO SCH (21:23)
[2018-12-08] MEDS: TICAGRELOR 90 MG TABLET PO SCH (21:23)
[2018-12-08] MEDS: QUEtiapine 25 MG TABLET PO SCH (21:24)
[2018-12-08] MEDS: RHOPRESSA BOTH EYES SCH (21:24)
[2018-12-09] MEDS: SODIUM CHLORIDE 0.9% 1,000 ML IV SCH ×2 (02:35→12:36)
[2018-12-09] MEDS: oxyCODONE/ACETAMINOPHEN 5-325 MG TABLET PO PRN ×3 (02:52→19:08)
[2018-12-09] MEDS: ALBUTEROL/IPRATROPIUM 3 ML NEB RESP TX SCH ×6 (03:00→23:38)
[2018-12-09 04:51] LABS: Basophils % 0.1 % (0.0-0.8); Eosinophils % 0.5 % (0.00-10.9); Hematocrit 30.1 VOL% (42.0-52.0); Hemoglobin 8.9 GM/DL (14.0-18.0); Immature Granulocytes % 1.5 %; Immature Granulocytes Absolute 0.12 #; Lymphocytes # 0.3 10*3/uL (1.4-4.0); Lymphocytes % 3.4 % (21.2-54.2); Mean Corpuscular HGB Conc 29.6 GM/DL (32-36); Mean Corpuscular Hemoglobin 29 PG (27-34); Mean Corpuscular Volume 97.1 FL (87-102); Mean Platelet Volume 12.9 FL (9.6-12.0); Monocytes # 0.4 10*3/uL (0.11-0.8); Neutrophils # 7.3 10*3/uL (1.4-7.4); Neutrophils % 89.5 % (38.7-73.9); Platelet Count 138 T/CUMM (130-400); Red Cell Distribution Width 17.7 % (9.3-17.3); White Blood Count 8.1 T/CUMM (4-12)
[2018-12-09 05:10] LABS: Calcium 7.9 MG/DL (8.5-10.1); Osmolality,Calculated 305.1 MOS/KG (273-304); Potassium 4.2 MMOL/L (3.5-5.1)
[2018-12-09 05:13] LABS: Hypochromasia 1+; Lymphocytes 1 % (20-55); Platelet Estimate Normal; Segmented Neutrophils 93 % (50-85); Total Cells Counted 100
[2018-12-09] MEDS: FERROUS SULFATE 325 MG TABLET PO SCH (11:12)
[2018-12-09] MEDS: ASPIRIN CHEW 81 MG TABLET PO SCH (11:12)
[2018-12-09] MEDS: predniSONE 20 MG TABLET PO SCH (11:12)
[2018-12-09] MEDS: FUROSEMIDE 20 MG TABLET PO SCH (11:12)
[2018-12-09] MEDS: PENTOXIFYLLINE 400 MG TABLET PO SCH ×3 (11:13→21:22)
[2018-12-09] MEDS: GABAPENTIN 300 MG CAPSULE PO SCH ×2 (11:13→21:22)
[2018-12-09] MEDS: AMIODARONE 200 MG TABLET PO SCH (11:13)
[2018-12-09] MEDS: TICAGRELOR 90 MG TABLET PO SCH ×2 (11:13→21:22)
[2018-12-09] MEDS: PANTOPRAZOLE 40 MG TABLET PO SCH (11:13)
[2018-12-09] MEDS: DOCUSATE SODIUM 100 MG CAPSULE PO SCH (11:13)
[2018-12-09] MEDS: INSULIN LISPRO 100 UNIT/ML SUBCUT SCH ×4 (11:14→21:22)
[2018-12-09] MEDS: GENTAMICIN 0.1% OINT 15 GM TUBE TOP SCH ×3 (12:33→21:24)
[2018-12-09] MEDS: INSULIN GLARGINE 100 UNIT/ML SUBCUT SCH (12:34)
[2018-12-09] MEDS: ENOXAPARIN 40 MG/0.4 ML SYRINGE SUBCUT SCH (12:57)
[2018-12-09] MEDS: DESITIN 4OZ/NYSTATIN 15 GRAM MIXTURE PASTE TOP SCH ×2 (16:56→21:24)
[2018-12-09] MEDS: CARVEDILOL 3.125 MG TABLET PO SCH (17:19)
[2018-12-09] MEDS: RHOPRESSA BOTH EYES SCH (21:22)
[2018-12-09] MEDS: QUEtiapine 25 MG TABLET PO SCH (21:22)
[2018-12-09] MEDS: ATORVASTATIN 40 MG TABLET PO SCH (21:22)
[2018-12-10] MEDS: ALBUTEROL/IPRATROPIUM 3 ML NEB RESP TX SCH ×4 (03:22→15:35)
[2018-12-10] MEDS: oxyCODONE/ACETAMINOPHEN 5-325 MG TABLET PO PRN ×2 (03:57→10:40)
[2018-12-10 05:47] LABS: Basophils % 0.1 % (0.0-0.8); Eosinophils # 0.1 10*3/uL (0.0-0.87); Eosinophils % 0.6 % (0.00-10.9); Hematocrit 27.8 VOL% (42.0-52.0); Hemoglobin 8.2 GM/DL (14.0-18.0); Immature Granulocytes % 1.3 %; Immature Granulocytes Absolute 0.11 #; Lymphocytes # 0.4 10*3/uL (1.4-4.0); Lymphocytes % 5.2 % (21.2-54.2); Mean Corpuscular HGB Conc 29.5 GM/DL (32-36); Mean Corpuscular Hemoglobin 29 PG (27-34); Mean Corpuscular Volume 97.9 FL (87-102); Monocytes # 0.4 10*3/uL (0.11-0.8); Neutrophils # 7.2 10*3/uL (1.4-7.4); Neutrophils % 87.8 % (38.7-73.9); Platelet Count 127 T/CUMM (130-400); Red Blood Count 2.84 MC/CUMM (3.8-5.5); Red Cell Distribution Width 17.7 % (9.3-17.3); White Blood Count 8.2 T/CUMM (4-12)
[2018-12-10 06:05] LABS: Osmolality,Calculated 309.8 MOS/KG (273-304); Potassium 4.2 MMOL/L (3.5-5.1)
[2018-12-10] MEDS: AMIODARONE 200 MG TABLET PO SCH (09:01)
[2018-12-10] MEDS: PENTOXIFYLLINE 400 MG TABLET PO SCH ×2 (09:01→16:52)
[2018-12-10] MEDS: TICAGRELOR 90 MG TABLET PO SCH (09:01)
[2018-12-10] MEDS: FUROSEMIDE 20 MG TABLET PO SCH (09:01)
[2018-12-10] MEDS: ASPIRIN CHEW 81 MG TABLET PO SCH (09:01)
[2018-12-10] MEDS: GABAPENTIN 300 MG CAPSULE PO SCH (09:01)
[2018-12-10] MEDS: FERROUS SULFATE 325 MG TABLET PO SCH (09:01)
[2018-12-10] MEDS: DOCUSATE SODIUM 100 MG CAPSULE PO SCH (09:01)
[2018-12-10] MEDS: GENTAMICIN 0.1% OINT 15 GM TUBE TOP SCH ×2 (09:02→16:52)
[2018-12-10] MEDS: INSULIN GLARGINE 100 UNIT/ML SUBCUT SCH (09:02)
[2018-12-10] MEDS: predniSONE 20 MG TABLET PO SCH (09:02)
[2018-12-10] MEDS: CARVEDILOL 3.125 MG TABLET PO SCH ×2 (09:02→16:52)
[2018-12-10] MEDS: PANTOPRAZOLE 40 MG TABLET PO SCH (09:02)
[2018-12-10] MEDS: INSULIN LISPRO 100 UNIT/ML SUBCUT SCH ×3 (09:04→16:52)
[2018-12-10] MEDS: DESITIN 4OZ/NYSTATIN 15 GRAM MIXTURE PASTE TOP SCH (09:05)
[2018-12-10 16:30] VITALS: BP 140/69
== END 2018-12-10 17:35 | disposition home health service (06) | DRG 246 ==
LOC: N.ED 17:05 → N.EDINP 12-04 00:01 → N.TELEN 12-04 00:54
PROVIDERS: ADMIT Internal Medicine; ATTEND Internal Medicine
PROC: CLCCHCL (ICD-10-PCS; 2018-12-08 14:15)

== ENCOUNTER 2018-12-17 16:21 | Inpatient (IN) ==
[2018-12-17] MEDS: DEXTROSE 50% 25 GM/50 ML VIAL IV PRN ×2 (16:21→16:40)
[2018-12-17] MEDS ORDERED: DEXTROSE 50% 25 GM/50 ML SYRINGE IV ONE ×2 (16:25→18:39)
[2018-12-17] MEDS ORDERED: GLUCAGON 1 MG VIAL IM PRN ×2 (17:11→18:42)
[2018-12-17] MEDS ORDERED: MORPHINE 4 MG/1 ML VIAL IV STA (17:38)
[2018-12-17] MEDS ORDERED: ONDANSETRON 4 MG/2 ML VIAL IV STA (17:38)
[2018-12-17] MEDS ORDERED: MORPHINE 4 MG/1 ML VIAL ONE (17:39)
[2018-12-17] MEDS ORDERED: ONDANSETRON 4 MG/2 ML VIAL ONE (17:39)
[2018-12-17 17:50] LABS: Basophils % 0.3 % (0.0-0.8); Eosinophils # 0.1 10*3/uL (0.0-0.87); Eosinophils % 0.9 % (0.00-10.9); Hematocrit 31.4 VOL% (42.0-52.0); Hemoglobin 9.3 GM/DL (14.0-18.0); Immature Granulocytes % 2.4 %; Immature Granulocytes Absolute 0.21 #; Lymphocytes # 0.4 10*3/uL (1.4-4.0); Lymphocytes % 4.9 % (21.2-54.2); Mean Corpuscular HGB Conc 29.6 GM/DL (32-36); Mean Corpuscular Hemoglobin 29 PG (27-34); Mean Corpuscular Volume 98.7 FL (87-102); Mean Platelet Volume 12.3 FL (9.6-12.0); Monocytes # 0.5 10*3/uL (0.11-0.8); Monocytes % 5.7 % (1.7-12.7); Neutrophils # 7.7 10*3/uL (1.4-7.4); Neutrophils % 85.8 % (38.7-73.9); Platelet Count 153 T/CUMM (130-400); Red Blood Count 3.18 MC/CUMM (3.8-5.5); Red Cell Distribution Width 17.2 % (9.3-17.3); White Blood Count 8.9 T/CUMM (4-12)
[2018-12-17 18:23] LABS: Calcium 7.5 MG/DL (8.5-10.1); Osmolality,Calculated 296.6 MOS/KG (273-304); Potassium 3.8 MMOL/L (3.5-5.1)
[2018-12-17 18:27] LABS: Band Neutrophils 3 % (0-10); Hypochromasia Slight; Lymphocytes 6 % (20-55); Segmented Neutrophils 86 % (50-85); Total Cells Counted 100
[2018-12-17 18:28] LABS: Macrocytosis Slight; Platelet Estimate Adequate
[2018-12-17 18:29] LABS: Ovalocytes Slight
[2018-12-17] MEDS ORDERED: DEXTROSE 50% 25 GM/50 ML VIAL IV STA ×2 (18:35→18:48)
[2018-12-17] MEDS ORDERED: DEXTROSE 10% 250 ML BAG IV ONE (18:36)
[2018-12-17] MEDS ORDERED: ONDANSETRON 4 MG/2 ML VIAL IV PRN (18:42)
[2018-12-17] MEDS ORDERED: ACETAMINOPHEN 325 MG TABLET PO PRN (18:42)
[2018-12-17] MEDS ORDERED: DEXTROSE 50% 25 GM/50 ML SYRINGE IV PRN (18:42)
[2018-12-17] MEDS ORDERED: ATORVASTATIN 40 MG TABLET PO STA (18:46)
[2018-12-17] MEDS ORDERED: DEXTROSE 10% 1,000 ML IV SCH ×2 (19:00)
[2018-12-17] MEDS ORDERED: ASPIRIN CHEW 81 MG TABLET PO STA (19:23)
[2018-12-17] MEDS ORDERED: KETOROLAC 60 MG/2 ML VIAL IM ONE (21:37)
[2018-12-17 21:46] LABS: ABG Base Excess -3.3 MMOL/L (-2.5-2.5); ABG HCO3 21.6 MMOL/L (20-26); ABG Oxygen Saturation 96.2 % (95-100); ABG PCO2 40.3 MM HG (35-48); ABG PH 7.346 (7.35-7.45); ABG PO2 88.8 MM HG (80-95); ABG TCO2 20.4 MMOL/L (23-27)
[2018-12-17 21:47] LABS: Allen Test Positive
[2018-12-17] MEDS ORDERED: MORPHINE 4 MG/1 ML VIAL IV PRN (22:04)
[2018-12-17] MEDS: TICAGRELOR 90 MG TABLET PO SCH (22:18)
[2018-12-18] MEDS ORDERED: ALBUTEROL/IPRATROPIUM 3 ML NEB RESP TX PRN (00:46)
[2018-12-18] MEDS ORDERED: methylPREDNISolone SOD SUC 40 MG/1 ML VIAL IV ONE (00:48)
[2018-12-18] MEDS ORDERED: ALBUTEROL/IPRATROPIUM 3 ML NEB RESP TX ONE (00:53)
[2018-12-18] MEDS: oxyCODONE/ACETAMINOPHEN 5-325 MG TABLET PO PRN ×2 (04:32→21:33)
[2018-12-18 05:53] LABS: Basophils % 0.2 % (0.0-0.8); Eosinophils % 0.2 % (0.00-10.9); Hematocrit 28.4 VOL% (42.0-52.0); Hemoglobin 8.3 GM/DL (14.0-18.0); Immature Granulocytes % 0.6 %; Immature Granulocytes Absolute 0.06 #; Lymphocytes # 0.1 10*3/uL (1.4-4.0); Lymphocytes % 1.3 % (21.2-54.2); Mean Corpuscular HGB Conc 29.2 GM/DL (32-36); Mean Corpuscular Hemoglobin 29 PG (27-34); Mean Platelet Volume 12.7 FL (9.6-12.0); Monocytes # 0.3 10*3/uL (0.11-0.8); Monocytes % 2.7 % (1.7-12.7); Neutrophils # 9.4 10*3/uL (1.4-7.4); Platelet Count 130 T/CUMM (130-400); Red Blood Count 2.87 MC/CUMM (3.8-5.5); Red Cell Distribution Width 16.8 % (9.3-17.3); White Blood Count 9.9 T/CUMM (4-12)
[2018-12-18 06:16] LABS: Albumin 2.3 G/DL (3.4-5.0); Bilirubin,Total 1.1 MG/DL (0.2-1.0); Calcium 7.8 MG/DL (8.5-10.1); Osmolality,Calculated 292.4 MOS/KG (273-304); Potassium 4.3 MMOL/L (3.5-5.1); Total Protein 5.9 G/DL (6.4-8.3)
[2018-12-18 06:38] LABS: Band Neutrophils 20 % (0-10); Lymphocytes 2 % (20-55); Metamyelocytes 1 %; Segmented Neutrophils 75 % (50-85); Total Cells Counted 100
[2018-12-18 06:39] LABS: Anisocytosis 1+; Microcytosis 1+; Platelet Estimate Decreased
[2018-12-18] MEDS: FUROSEMIDE 20 MG TABLET PO SCH (08:36)
[2018-12-18] MEDS: PENTOXIFYLLINE 400 MG TABLET PO SCH ×3 (08:36→21:33)
[2018-12-18] MEDS: CARVEDILOL 3.125 MG TABLET PO SCH ×2 (08:36→21:33)
[2018-12-18] MEDS: AMIODARONE 200 MG TABLET PO SCH (08:37)
[2018-12-18] MEDS: PANTOPRAZOLE 40 MG TABLET PO SCH (08:37)
[2018-12-18] MEDS: predniSONE 20 MG TABLET PO SCH (08:37)
[2018-12-18] MEDS: ATORVASTATIN 40 MG TABLET PO SCH (08:37)
[2018-12-18] MEDS: GABAPENTIN 300 MG CAPSULE PO SCH ×2 (08:37→21:33)
[2018-12-18] MEDS: FERROUS SULFATE 325 MG TABLET PO SCH (08:38)
[2018-12-18] MEDS: ASPIRIN CHEW 81 MG TABLET PO SCH (08:42)
[2018-12-18] MEDS ORDERED: MORPHINE 4 MG/1 ML VIAL IV ONE (08:46)
[2018-12-18] MEDS: TICAGRELOR 90 MG TABLET PO SCH ×2 (09:00→21:33)
[2018-12-18] MEDS ORDERED: DEXTROSE 50% 25 GM/50 ML VIAL IV PRN (09:48)
[2018-12-18] MEDS ORDERED: GLUCAGON 1 MG VIAL IM PRN (09:48)
[2018-12-18] MEDS ORDERED: DEXTROSE 5% NACL 0.9% 1,000 ML IV SCH (10:00)
[2018-12-18 10:07] LABS: Hematocrit 28.7 VOL% (42.0-52.0); Hemoglobin 8.5 GM/DL (14.0-18.0)
[2018-12-18 10:40] LABS: Troponin I 0.023 NG/ML (0.00-0.045)
[2018-12-18] MEDS: INSULIN REGULAR 100 UNIT/ML SUBCUT SCH ×3 (12:58→19:35)
[2018-12-18] MEDS: HYDROmorphone 2 MG/1 ML VIAL IV PRN ×3 (13:51→22:21)
[2018-12-18 18:13] LABS: Hemoglobin 8.4 GM/DL (14.0-18.0)
[2018-12-18] MEDS ORDERED: SODIUM CHLORIDE 0.9% 1,000 ML IV SCH (20:00)
[2018-12-18] MEDS: QUEtiapine 25 MG TABLET PO SCH (21:33)
[2018-12-19] MEDS: INSULIN REGULAR 100 UNIT/ML SUBCUT SCH ×6 (00:42→20:16)
[2018-12-19] MEDS: HYDROmorphone 2 MG/1 ML VIAL IV PRN ×6 (02:20→22:57)
[2018-12-19 02:29] LABS: Hematocrit 26.8 VOL% (42.0-52.0); Hemoglobin 8.3 GM/DL (14.0-18.0)
[2018-12-19] MEDS: oxyCODONE/ACETAMINOPHEN 5-325 MG TABLET PO PRN ×2 (04:21→20:17)
[2018-12-19] MEDS: GABAPENTIN 300 MG CAPSULE PO SCH ×2 (08:07→20:17)
[2018-12-19] MEDS: PANTOPRAZOLE 40 MG TABLET PO SCH (08:07)
[2018-12-19] MEDS: FUROSEMIDE 20 MG TABLET PO SCH (08:07)
[2018-12-19] MEDS: predniSONE 20 MG TABLET PO SCH (08:07)
[2018-12-19] MEDS: PENTOXIFYLLINE 400 MG TABLET PO SCH ×3 (08:07→20:17)
[2018-12-19] MEDS: ATORVASTATIN 40 MG TABLET PO SCH (08:07)
[2018-12-19] MEDS: CARVEDILOL 3.125 MG TABLET PO SCH ×2 (08:08→20:17)
[2018-12-19] MEDS: AMIODARONE 200 MG TABLET PO SCH (08:08)
[2018-12-19] MEDS: ASPIRIN CHEW 81 MG TABLET PO SCH (08:08)
[2018-12-19] MEDS: TICAGRELOR 90 MG TABLET PO SCH ×2 (08:08→20:17)
[2018-12-19] MEDS: FERROUS SULFATE 325 MG TABLET PO SCH (08:08)
[2018-12-19 10:00] LABS: Hematocrit 29.2 VOL% (42.0-52.0); Hemoglobin 8.7 GM/DL (14.0-18.0)
[2018-12-19] MEDS: QUEtiapine 25 MG TABLET PO SCH (20:17)
[2018-12-20] MEDS: INSULIN REGULAR 100 UNIT/ML SUBCUT SCH ×6 (00:48→21:02)
[2018-12-20] MEDS: oxyCODONE/ACETAMINOPHEN 5-325 MG TABLET PO PRN ×2 (02:45→08:37)
[2018-12-20] MEDS: HYDROmorphone 2 MG/1 ML VIAL IV PRN ×4 (05:00→19:17)
[2018-12-20 05:59] LABS: Albumin 2.2 G/DL (3.4-5.0); Bilirubin,Total 0.4 MG/DL (0.2-1.0); Calcium 8.2 MG/DL (8.5-10.1); Osmolality,Calculated 296.5 MOS/KG (273-304); Potassium 5.3 MMOL/L (3.5-5.1)
[2018-12-20 07:07] LABS: Basophils % 0.1 % (0.0-0.8); Eosinophils % 0.3 % (0.00-10.9); Hematocrit 30.7 VOL% (42.0-52.0); Lymphocytes # 0.5 10*3/uL (1.4-4.0); Lymphocytes % 4.8 % (21.2-54.2); Mean Corpuscular HGB Conc 28.3 GM/DL (32-36); Mean Corpuscular Hemoglobin 29 PG (27-34); Mean Corpuscular Volume 103.7 FL (87-102); Mean Platelet Volume 12.5 FL (9.6-12.0); Monocytes # 0.6 10*3/uL (0.11-0.8); Monocytes % 6.3 % (1.7-12.7); Neutrophils # 8.5 10*3/uL (1.4-7.4); Neutrophils % 87.5 % (38.7-73.9); Platelet Count 141 T/CUMM (130-400); Red Blood Count 2.96 MC/CUMM (3.8-5.5); Red Cell Distribution Width 15.9 % (9.3-17.3); White Blood Count 9.7 T/CUMM (4-12)
[2018-12-20 07:09] LABS: Hemoglobin 8.7 GM/DL (14.0-18.0)
[2018-12-20 07:26] LABS: Hypochromasia 1+; Lymphocytes 5 % (20-55); Myelocytes 1 %; Segmented Neutrophils 89 % (50-85); Total Cells Counted 100
[2018-12-20 07:27] LABS: Macrocytosis Slight; Platelet Estimate Adequate
[2018-12-20] MEDS: ATORVASTATIN 40 MG TABLET PO SCH (08:35)
[2018-12-20] MEDS: AMIODARONE 200 MG TABLET PO SCH (08:35)
[2018-12-20] MEDS: PENTOXIFYLLINE 400 MG TABLET PO SCH ×3 (08:35→21:03)
[2018-12-20] MEDS: GABAPENTIN 300 MG CAPSULE PO SCH ×2 (08:35→21:03)
[2018-12-20] MEDS: TICAGRELOR 90 MG TABLET PO SCH ×2 (08:36→21:03)
[2018-12-20] MEDS: FERROUS SULFATE 325 MG TABLET PO SCH (08:36)
[2018-12-20] MEDS: FUROSEMIDE 20 MG TABLET PO SCH (08:36)
[2018-12-20] MEDS: ASPIRIN CHEW 81 MG TABLET PO SCH (08:37)
[2018-12-20] MEDS: CARVEDILOL 3.125 MG TABLET PO SCH ×2 (08:37→21:03)
[2018-12-20] MEDS: predniSONE 20 MG TABLET PO SCH (08:37)
[2018-12-20] MEDS: PANTOPRAZOLE 40 MG TABLET PO SCH (10:19)
[2018-12-20] MEDS: PIPERACILLIN/TAZOBACTAM 3,375 MG in SODIUM CHLORIDE 0.9% 100 ML IV SCH ×2 (10:31→17:31)
[2018-12-20] MEDS: QUEtiapine 25 MG TABLET PO SCH (21:03)
[2018-12-21] MEDS: HYDROmorphone 2 MG/1 ML VIAL IV PRN ×4 (00:16→13:23)
[2018-12-21] MEDS: INSULIN REGULAR 100 UNIT/ML SUBCUT SCH ×5 (00:29→17:24)
[2018-12-21] MEDS: PIPERACILLIN/TAZOBACTAM 3,375 MG in SODIUM CHLORIDE 0.9% 100 ML IV SCH ×2 (01:39→11:33)
[2018-12-21 04:28] LABS: Basophils % 0.1 % (0.0-0.8); Eosinophils # 0.1 10*3/uL (0.0-0.87); Eosinophils % 0.5 % (0.00-10.9); Hematocrit 25.6 VOL% (42.0-52.0); Hemoglobin 7.7 GM/DL (14.0-18.0); Immature Granulocytes % 1.1 %; Immature Granulocytes Absolute 0.11 #; Lymphocytes # 0.5 10*3/uL (1.4-4.0); Lymphocytes % 5.3 % (21.2-54.2); Mean Corpuscular HGB Conc 30.1 GM/DL (32-36); Mean Corpuscular Hemoglobin 29 PG (27-34); Mean Corpuscular Volume 97.3 FL (87-102); Mean Platelet Volume 12.3 FL (9.6-12.0); Monocytes # 0.5 10*3/uL (0.11-0.8); Monocytes % 5.3 % (1.7-12.7); Neutrophils # 8.5 10*3/uL (1.4-7.4); Neutrophils % 87.7 % (38.7-73.9); Platelet Count 157 T/CUMM (130-400); Red Blood Count 2.63 MC/CUMM (3.8-5.5); Red Cell Distribution Width 15.6 % (9.3-17.3); White Blood Count 9.6 T/CUMM (4-12)
[2018-12-21 04:41] LABS: Calcium 8.4 MG/DL (8.5-10.1); Osmolality,Calculated 302.1 MOS/KG (273-304)
[2018-12-21] MEDS: oxyCODONE/ACETAMINOPHEN 5-325 MG TABLET PO PRN ×2 (08:04→17:25)
[2018-12-21] MEDS: AMIODARONE 200 MG TABLET PO SCH (09:05)
[2018-12-21] MEDS: ATORVASTATIN 40 MG TABLET PO SCH (09:05)
[2018-12-21] MEDS: predniSONE 20 MG TABLET PO SCH (09:06)
[2018-12-21] MEDS: PANTOPRAZOLE 40 MG TABLET PO SCH (09:06)
[2018-12-21] MEDS: FERROUS SULFATE 325 MG TABLET PO SCH (09:06)
[2018-12-21] MEDS: CARVEDILOL 3.125 MG TABLET PO SCH (09:06)
[2018-12-21] MEDS: TICAGRELOR 90 MG TABLET PO SCH (09:06)
[2018-12-21] MEDS: ASPIRIN CHEW 81 MG TABLET PO SCH (09:06)
[2018-12-21] MEDS: PENTOXIFYLLINE 400 MG TABLET PO SCH ×2 (09:06→17:25)
[2018-12-21] MEDS: GABAPENTIN 300 MG CAPSULE PO SCH (09:06)
[2018-12-21] MEDS: FUROSEMIDE 20 MG TABLET PO SCH (09:06)
[2018-12-21] MEDS ORDERED: SODIUM CHLORIDE 0.9% 1,000 ML IV PRN (09:10)
[2018-12-21] MEDS ORDERED: FUROSEMIDE 40 MG/4 ML VIAL IV ONE (09:11)
[2018-12-21 17:45] VITALS: BP 152/78
== END 2018-12-21 18:15 | DRG 637 ==
LOC: EDUNIT# → EDBD → N.EDINP 16:21 → N.ED 16:21 → N.CC 19:20 → N.TELES 12-19 14:29
PROVIDERS: ADMIT Internal Medicine; ATTEND Internal Medicine

== ENCOUNTER 2019-09-05 12:27 | Inpatient (IN) ==
[2019-09-05] MEDS ORDERED: ONDANSETRON 4 MG/2 ML VIAL IV STA (13:31)
[2019-09-05] MEDS ORDERED: HYDROmorphone 2 MG/1 ML VIAL IV STA ×3 (13:31→16:21)
[2019-09-05 14:01] LABS: Basophils % 0.3 % (0.0-0.8); Eosinophils # 0.1 10*3/uL (0.0-0.87); Eosinophils % 0.7 % (0.00-10.9); Hematocrit 32.8 VOL% (42.0-52.0); Hemoglobin 9.8 GM/DL (14.0-18.0); Immature Granulocytes % 1.5 %; Immature Granulocytes Absolute 0.13 #; Lymphocytes # 0.4 10*3/uL (1.4-4.0); Lymphocytes % 5.1 % (21.2-54.2); Mean Corpuscular HGB Conc 29.9 GM/DL (32-36); Mean Corpuscular Volume 101.5 FL (87-102); Mean Platelet Volume 13.1 FL (9.6-12.0); Monocytes % 6.3 % (1.7-12.7); Neutrophils % 86.1 % (38.7-73.9); Platelet Count 121 T/CUMM (130-400); Red Blood Count 3.23 MC/CUMM (3.8-5.5); Red Cell Distribution Width 15.4 % (9.3-17.3); White Blood Count 8.7 T/CUMM (4-12)
[2019-09-05 14:10] LABS: INR 0.9; PT Patient Result 10.3 SECS (9.6-12.2)
[2019-09-05 14:26] LABS: Albumin 2.8 G/DL (3.4-5.0); Bilirubin,Total 0.4 MG/DL (0.2-1.0); Calcium 8.1 MG/DL (8.5-10.1); Osmolality,Calculated 302.5 MOS/KG (273-304); Total Protein 6.6 G/DL (6.4-8.3)
[2019-09-05] MEDS ORDERED: SODIUM CHLORIDE 0.9% 1,000 ML IV STA (14:27)
[2019-09-05] MEDS ORDERED: ACETAMINOPHEN 325 MG TABLET PO PRN (16:48)
[2019-09-05] MEDS ORDERED: ONDANSETRON 4 MG/2 ML VIAL IV PRN (16:48)
[2019-09-05] MEDS ORDERED: INSULIN LISPRO 100 UNIT/ML SUBCUT PRN (16:48)
[2019-09-05] MEDS ORDERED: DOCUSATE SODIUM 100 MG CAPSULE PO PRN (16:48)
[2019-09-05] MEDS ORDERED: DEXTROSE 50% 25 GM/50 ML VIAL IV PRN (16:48)
[2019-09-05] MEDS ORDERED: GLUCAGON 1 MG VIAL IM PRN (16:48)
[2019-09-05] MEDS ORDERED: POLYETHYLENE GLYCOL POWDER 17 GM PACK PO PRN (16:48)
[2019-09-05] MEDS ORDERED: oxyCODONE/ACETAMINOPHEN 5-325 MG TABLET PO PRN (17:16)
[2019-09-05] MEDS: carvediloL 3.125 MG TABLET PO SCH (17:44)
[2019-09-05] MEDS: INSULIN LISPRO 100 UNIT/ML SUBCUT SCH ×2 (18:03→20:39)
[2019-09-05] MEDS: SODIUM CHLORIDE 0.9% 1,000 ML IV SCH (18:10)
[2019-09-05] MEDS: DOCUSATE SODIUM 100 MG CAPSULE PO SCH (20:36)
[2019-09-05] MEDS: GABAPENTIN 300 MG CAPSULE PO SCH (20:36)
[2019-09-05] MEDS: PENTOXIFYLLINE 400 MG TABLET PO SCH (20:37)
[2019-09-05] MEDS: ATORVASTATIN 40 MG TABLET PO SCH (20:37)
[2019-09-05] MEDS: oxyCODONE/ACETAMINOPHEN 5-325 MG TABLET PO PRN (20:37)
[2019-09-05] MEDS: QUEtiapine 25 MG TABLET PO SCH (20:37)
[2019-09-05] MEDS: TICAGRELOR 90 MG TABLET PO SCH (20:37)
[2019-09-05] MEDS: INSULIN GLARGINE 100 UNIT/ML SUBCUT SCH (20:38)
[2019-09-05] MEDS ORDERED: NETARSUDIL BOTH EYES SCH (21:00)
[2019-09-05] MEDS: HYDROmorphone 2 MG/1 ML VIAL IV PRN (21:54)
[2019-09-06] MEDS: SODIUM CHLORIDE 0.9% 1,000 ML IV SCH (01:40)
[2019-09-06] MEDS: HYDROmorphone 2 MG/1 ML VIAL IV PRN ×6 (02:45→11:00)
[2019-09-06 05:48] LABS: Basophils % 0.3 % (0.0-0.8); Eosinophils # 0.1 10*3/uL (0.0-0.87); Eosinophils % 0.9 % (0.00-10.9); Hematocrit 28.8 VOL% (42.0-52.0); Hemoglobin 8.6 GM/DL (14.0-18.0); Immature Granulocytes % 1.4 %; Immature Granulocytes Absolute 0.14 #; Lymphocytes # 0.7 10*3/uL (1.4-4.0); Lymphocytes % 7.4 % (21.2-54.2); Mean Corpuscular HGB Conc 29.9 GM/DL (32-36); Mean Corpuscular Volume 103.2 FL (87-102); Mean Platelet Volume 13.3 FL (9.6-12.0); Monocytes % 8.6 % (1.7-12.7); NRBC # 0.02 10*3/uL; Neutrophils % 81.4 % (38.7-73.9); Platelet Count 122 T/CUMM (130-400); Red Blood Count 2.79 MC/CUMM (3.8-5.5); Red Cell Distribution Width 15.4 % (9.3-17.3)
[2019-09-06] MEDS: oxyCODONE/ACETAMINOPHEN 5-325 MG TABLET PO PRN (06:06)
[2019-09-06 06:29] LABS: Albumin 2.9 G/DL (3.4-5.0); Bilirubin,Total 0.4 MG/DL (0.2-1.0); Calcium 7.5 MG/DL (8.5-10.1); Osmolality,Calculated 302.1 MOS/KG (273-304); Total Protein 6.5 G/DL (6.4-8.3)
[2019-09-06] MEDS ORDERED: ceFAZolin 2,000 MG in PREMIX 1 EACH IV ONE (07:00)
[2019-09-06] MEDS ORDERED: GENTAMICIN INJ 80 MG in PREMIX 1 EACH IV ONE (07:00)
[2019-09-06] MEDS ORDERED: MAGNESIUM HYDROXIDE SUSP 30 ML UDCUP PO PRN (07:20)
[2019-09-06] MEDS ORDERED: HYDROmorphone 2 MG/1 ML VIAL IV PRN ×2 (07:20)
[2019-09-06] MEDS ORDERED: diphenhydrAMINE CAP 25 MG CAPSULE PO PRN (07:20)
[2019-09-06] MEDS: DOCUSATE SODIUM 100 MG CAPSULE PO SCH ×2 (07:30→23:42)
[2019-09-06] MEDS: INSULIN GLARGINE 100 UNIT/ML SUBCUT SCH (07:30)
[2019-09-06] MEDS: carvediloL 3.125 MG TABLET PO SCH ×2 (07:30→17:56)
[2019-09-06] MEDS: PENTOXIFYLLINE 400 MG TABLET PO SCH ×3 (07:30→23:44)
[2019-09-06] MEDS: GABAPENTIN 300 MG CAPSULE PO SCH ×2 (07:30→23:43)
[2019-09-06] MEDS: AMIODARONE 200 MG TABLET PO SCH (07:30)
[2019-09-06] MEDS: predniSONE 20 MG TABLET PO SCH (07:30)
[2019-09-06] MEDS: FUROSEMIDE 40 MG TABLET PO SCH (07:30)
[2019-09-06] MEDS: PANTOPRAZOLE 40 MG TABLET PO SCH (07:30)
[2019-09-06] MEDS: FERROUS SULFATE 325 MG TABLET PO SCH (07:30)
[2019-09-06] MEDS ORDERED: MEPERIDINE 25 MG/1 ML VIAL IV PRN (08:41)
[2019-09-06] MEDS ORDERED: PROMETHAZINE INJ 25 MG in SODIUM CHLORIDE 0.9% 50 ML IV PRN (08:41)
[2019-09-06] MEDS ORDERED: diphenhydrAMINE 50 MG/1 ML VIAL IV PRN (08:41)
[2019-09-06] MEDS ORDERED: ONDANSETRON 4 MG/2 ML VIAL IV PRN ×2 (08:41→09:48)
[2019-09-06] MEDS: INSULIN LISPRO 100 UNIT/ML SUBCUT SCH ×3 (08:53→17:55)
[2019-09-06] MEDS ORDERED: BACITRACIN OINT 0.9 GM PACK TOP ONE (08:55)
[2019-09-06] MEDS ORDERED: SUGAMMADEX 200 MG/2 ML VIAL IV ONE (09:06)
[2019-09-06] MEDS: LACTATED RINGERS 1,000 ML IV SCH ×2 (09:45→15:37)
[2019-09-06] MEDS ORDERED: HYDROmorphone 2 MG/1 ML VIAL ONE (09:57)
[2019-09-06] MEDS ORDERED: ONDANSETRON 4 MG/2 ML VIAL ONE (09:57)
[2019-09-06] MEDS ORDERED: LIDOCAINE 2% TOP JELLY 20 ML VIAL INTRAURETH ONE (10:32)
[2019-09-06] MEDS ORDERED: DESFLURANE 1 UNIT/15 MINUTE INH ONE (10:45)
[2019-09-06] MEDS ORDERED: LIDOCAINE 2% 5 ML VIAL ONE (10:45)
[2019-09-06] MEDS ORDERED: MIDAZOLAM 2 MG/2 ML VIAL ONE (10:45)
[2019-09-06] MEDS ORDERED: CALCIUM CHLORIDE 1,000 MG/10 ML VIAL IV ONE (10:45)
[2019-09-06] MEDS ORDERED: PHENYLEPHRINE DRIP 20 MG/250 ML PREMIX IV ONE (10:45)
[2019-09-06] MEDS ORDERED: PHENYLEPHRINE 1 MG/10 ML SYRINGE IV ONE (10:46)
[2019-09-06] MEDS ORDERED: ETOMIDATE 40 MG/20 ML VIAL IV ONE (10:46)
[2019-09-06] MEDS ORDERED: fentaNYL 100 MCG/2 ML VIAL ONE (10:46)
[2019-09-06] MEDS ORDERED: ROCURONIUM 100 MG/10 ML VIAL IV ONE (10:46)
[2019-09-06] MEDS ORDERED: SUCCINYLCHOLINE 200 MG/10 ML VIAL ONE (10:46)
[2019-09-06 11:11] LABS: Apearance,Urine Slightly Hazy (Clear); Bilirubin,Urine Negative (Negative); Blood, Urine Small mg/dL (Negative); Glucose,Urine (UA) 50 mg/dL (Negative); Hyaline Casts,Urine 1 /LPF (0-3); Ketones,Urine Negative (Negative); Nitrite,Urine Negative (Negative); Protein,Urine 30 MG/DL; RBC,Urine 25 /HPF (0-4); Squamous Epithelial Cell,Urine Occasional /HPF (0-10); Urine Color Yellow (Yellow); Urine Specific Gravity 1.011 (1.001-1.035); Urine Urobilinogen < 2.0 EU/DL (0.2-1.0); WBC,Urine 212 /HPF (0-6)
[2019-09-06] MEDS ORDERED: ceFAZolin 2,000 MG in PREMIX 1 EACH IV SCH (11:20)
[2019-09-06] MEDS: TICAGRELOR 90 MG TABLET PO SCH (23:42)
[2019-09-06] MEDS: ATORVASTATIN 40 MG TABLET PO SCH (23:43)
[2019-09-06] MEDS: QUEtiapine 25 MG TABLET PO SCH (23:43)
[2019-09-07 00:40] LABS: Basophils % 0.3 % (0.0-0.8); Eosinophils # 0.1 10*3/uL (0.0-0.87); Hematocrit 23.1 VOL% (42.0-52.0); Hemoglobin 6.7 GM/DL (14.0-18.0); Immature Granulocytes % 0.7 %; Immature Granulocytes Absolute 0.07 #; Lymphocytes # 0.6 10*3/uL (1.4-4.0); Lymphocytes % 5.7 % (21.2-54.2); Mean Platelet Volume 12.4 FL (9.6-12.0); Monocytes % 6.4 % (1.7-12.7); NRBC # 0.03 10*3/uL; Neutrophils % 85.9 % (38.7-73.9); Platelet Count 87 T/CUMM (130-400); Red Blood Count 2.18 MC/CUMM (3.8-5.5); Red Cell Distribution Width 15.7 % (9.3-17.3); White Blood Count 9.7 T/CUMM (4-12)
[2019-09-07] MEDS: PHENYLEPHRINE DRIP 40 MG/250 ML PREMIX IV PRN ×4 (00:45→09:01)
[2019-09-07] MEDS: INSULIN LISPRO 100 UNIT/ML SUBCUT SCH ×4 (00:46→17:05)
[2019-09-07] MEDS: INSULIN GLARGINE 100 UNIT/ML SUBCUT SCH ×2 (00:47→09:03)
[2019-09-07 00:58] LABS: Alanine Aminotransferase 32 U/L (16-61); Albumin 2.3 G/DL (3.4-5.0); Alkaline Phosphatase 75 U/L (45-117); Aspartate Amino Transferase 48 U/L (0-37); Bilirubin,Total < 0.39 MG/DL (0.2-1.0); Blood Urea Nitrogen 69 MG/DL (7-18); Calcium 7.4 MG/DL (8.5-10.1); Estimated Glom Filtration Rate 31 ML/MIN; Glucose 113 MG/DL (74-106); Osmolality,Calculated 303.1 MOS/KG (273-304); Total Protein 5.4 G/DL (6.4-8.3)
[2019-09-07] MEDS: LACTATED RINGERS 1,000 ML IV SCH ×2 (01:51→09:33)
[2019-09-07] MEDS ORDERED: NOREPINEPHRINE 8 MG in SODIUM CHLORIDE 0.9% 242 ML IV PRN (05:50)
[2019-09-07 06:07] LABS: Basophils # 0.1 10*3/uL (0.0-0.2); Basophils % 0.3 % (0.0-0.8); Eosinophils # 0.3 10*3/uL (0.0-0.87); Eosinophils % 1.5 % (0.00-10.9); Hematocrit 24.1 VOL% (42.0-52.0); Hemoglobin 7.2 GM/DL (14.0-18.0); Immature Granulocytes Absolute 0.19 #; Lymphocytes # 0.9 10*3/uL (1.4-4.0); Lymphocytes % 4.3 % (21.2-54.2); Mean Corpuscular HGB Conc 29.9 GM/DL (32-36); Mean Corpuscular Volume 105.2 FL (87-102); Mean Platelet Volume 14.5 FL (9.6-12.0); Monocytes % 5.4 % (1.7-12.7); NRBC # 0.07 10*3/uL; Neutrophils % 87.5 % (38.7-73.9); Platelet Count 102 T/CUMM (130-400); Red Blood Count 2.29 MC/CUMM (3.8-5.5); Red Cell Distribution Width 15.8 % (9.3-17.3)
[2019-09-07 06:20] LABS: Band Neutrophils 3 % (0-10); Eosinophils 2 % (0-10); Lymphocytes 5 % (20-55); Metamyelocytes 1 %; Segmented Neutrophils 86 % (50-85); Total Cells Counted 100
[2019-09-07 06:21] LABS: Anisocytosis 2+; Macrocytosis 1+; Microcytosis 1+; Platelet Estimate Decreased
[2019-09-07] MEDS ORDERED: DOPamine 800 MG/250 ML PREMIX IV ONE (06:59)
[2019-09-07] MEDS ORDERED: EPINEPHrine 1 MG/10 ML SYRINGE ONE (06:59)
[2019-09-07] MEDS ORDERED: SODIUM BICARBONATE 50 MEQ/50 ML SYRINGE IV ONE (06:59)
[2019-09-07] MEDS: DOPamine 800 MG/250 ML PREMIX IV PRN ×4 (07:03→15:27)
[2019-09-07] MEDS ORDERED: FUROSEMIDE 20 MG/2 ML VIAL IV ONE (07:12)
[2019-09-07] MEDS ORDERED: LORazepam 2 MG/1 ML VIAL IV PRN (07:13)
[2019-09-07 07:32] LABS: ABG Base Excess -6.2 MMOL/L (-2.5-2.5); ABG HCO3 19.3 MMOL/L (20-26); ABG Oxygen Saturation 98.4 % (95-100); ABG PCO2 46.6 MM HG (35-48); ABG PH 7.255 (7.35-7.45); ABG TCO2 19.7 MMOL/L (23-27); Glucose Heart Surgery 148 MG/DL (74-106); Hematocrit Heart Surgery 23.8 PERCENT (42-52); Hemoglobin Heart Surgery 7.6 G/DL (14.0-18.0); Potassium Heart/CVR 5.2 MMOL/L (3.5-5.1)
[2019-09-07] MEDS ORDERED: SODIUM CHLORIDE 0.45% 1,000 ML IV SCH (08:30)
[2019-09-07] MEDS: carvediloL 3.125 MG TABLET PO SCH ×2 (08:50→17:05)
[2019-09-07] MEDS ORDERED: ASPIRIN CHEW 81 MG TABLET PO SCH (09:00)
[2019-09-07 09:04] LABS: Basophils % 0.2 % (0.0-0.8); Eosinophils # 0.1 10*3/uL (0.0-0.87); Eosinophils % 0.5 % (0.00-10.9); Hematocrit 23.4 VOL% (42.0-52.0); Hemoglobin 6.9 GM/DL (14.0-18.0); Immature Granulocytes % 2.6 %; Immature Granulocytes Absolute 0.43 #; Lymphocytes # 0.7 10*3/uL (1.4-4.0); Lymphocytes % 4.4 % (21.2-54.2); Mean Corpuscular HGB Conc 29.5 GM/DL (32-36); Mean Corpuscular Volume 103.5 FL (87-102); Mean Platelet Volume 13.6 FL (9.6-12.0); Monocytes % 3.7 % (1.7-12.7); NRBC # 0.17 10*3/uL; Neutrophils % 88.6 % (38.7-73.9); Platelet Count 149 T/CUMM (130-400); Red Blood Count 2.26 MC/CUMM (3.8-5.5); Red Cell Distribution Width 15.9 % (9.3-17.3); White Blood Count 16.5 T/CUMM (4-12)
[2019-09-07 09:23] LABS: Band Neutrophils 3 % (0-10); Eosinophils 1 % (0-10); Hypochromasia 1+; Lymphocytes 2 % (20-55); Microcytosis Slight; Platelet Estimate Adequate; Segmented Neutrophils 91 % (50-85); Total Cells Counted 100
[2019-09-07] MEDS: FERROUS SULFATE 325 MG TABLET PO SCH (09:29)
[2019-09-07] MEDS: PENTOXIFYLLINE 400 MG TABLET PO SCH ×2 (09:29→15:44)
[2019-09-07 09:30] LABS: Albumin 2.2 G/DL (3.4-5.0); Bilirubin,Total 1.2 MG/DL (0.2-1.0); Calcium 7.4 MG/DL (8.5-10.1); Osmolality,Calculated 304.3 MOS/KG (273-304); Total Protein 5.7 G/DL (6.4-8.3)
[2019-09-07] MEDS ORDERED: PANTOPRAZOLE 40 MG VIAL IV SCH (09:30)
[2019-09-07] MEDS: predniSONE 20 MG TABLET PO SCH (09:33)
[2019-09-07] MEDS: PANTOPRAZOLE 40 MG TABLET PO SCH (09:34)
[2019-09-07] MEDS ORDERED: PIPERACILLIN/TAZOBACTAM 3,375 MG in SODIUM CHLORIDE 0.9% 100 ML IV SCH (10:00)
[2019-09-07] MEDS ORDERED: ROCURONIUM 100 MG/10 ML VIAL IV ONE ×3 (10:02→12:30)
[2019-09-07] MEDS ORDERED: FUROSEMIDE 100 MG/10 ML VIAL IV ONE (11:00)
[2019-09-07] MEDS ORDERED: FUROSEMIDE 100 MG/10 ML VIAL ONE (11:02)
[2019-09-07] MEDS: NOREPINEPHRINE 16 MG in SODIUM CHLORIDE 0.9% 234 ML IV PRN ×2 (11:22→18:26)
[2019-09-07] MEDS: DOCUSATE SODIUM 100 MG CAPSULE PO SCH (11:23)
[2019-09-07] MEDS: FUROSEMIDE 40 MG TABLET PO SCH (11:23)
[2019-09-07] MEDS: PHENYLEPHRINE INJ 160 MG in SODIUM CHLORIDE 0.9% 234 ML IV PRN ×2 (12:15→17:35)
[2019-09-07] MEDS: GABAPENTIN 300 MG CAPSULE PO SCH (12:18)
[2019-09-07] MEDS: TICAGRELOR 90 MG TABLET PO SCH (12:18)
[2019-09-07] MEDS: AMIODARONE 200 MG TABLET PO SCH (12:18)
[2019-09-07] MEDS ORDERED: CALCIUM GLUCONATE 1,000 MG in SODIUM CHLORIDE 0.9% 100 ML IV ONE (12:22)
[2019-09-07] MEDS ORDERED: SODIUM CHLORIDE 0.9% 500 ML IV ONE (12:23)
[2019-09-07] MEDS: HYDROCORTISONE 100 MG VIAL IV SCH ×2 (12:38→15:56)
[2019-09-07] MEDS ORDERED: CALCIUM GLUCONATE 1,000 MG/10 ML VIAL IV ONE ×2 (13:00→16:00)
[2019-09-07] MEDS ORDERED: SODIUM CHLORIDE 23.4% CONC INJ 38.5 MEQ, SODIUM BICARB INJ 50 MEQ in STERILE WATER INJ ... IV SCH (13:00)
[2019-09-07 13:44] LABS: ABG Base Excess -8.3 MMOL/L (-2.5-2.5); ABG HCO3 17.6 MMOL/L (20-26); ABG Oxygen Saturation 97.6 % (95-100); ABG PCO2 50.5 MM HG (35-48); ABG TCO2 18.8 MMOL/L (23-27)
[2019-09-07 13:45] LABS: ABG PH 7.197 (7.35-7.45)
[2019-09-07] MEDS ORDERED: SODIUM BICARBONATE 50 MEQ/50 ML VIAL IV ONE ×2 (13:52→13:56)
[2019-09-07] MEDS ORDERED: SODIUM BICARB INJ 150 MEQ in DEXTROSE 5% 1,000 ML IV SCH (15:00)
[2019-09-07 15:20] LABS: ABG Base Excess -6.4 MMOL/L (-2.5-2.5); ABG HCO3 19.2 MMOL/L (20-26); ABG Oxygen Saturation 97.5 % (95-100); ABG PH 7.217 (7.35-7.45); ABG TCO2 20.4 MMOL/L (23-27)
[2019-09-07 16:08] LABS: CKMB % 1.1 %
[2019-09-07 16:10] LABS: Troponin I 1.15 NG/ML (0.00-0.045)
[2019-09-07 17:37] VITALS: BP 140/52
== END 2019-09-07 19:08 | disposition expired | DRG 480 ==
LOC: EDBD → EDUNIT# → N.ED 12:27 → N.EDINP 14:38 → N.3E 16:14 → N.4E 09-06 16:22 → N.CC 09-06 22:58
PROVIDERS: ADMIT Internal Medicine; ATTEND Internal Medicine